=== PATIENT | female | born 1955 | race Caucasian/White ===

== ENCOUNTER 2017-04-20 17:43 | Emergency (ER) | payer BC ==
--- NOTE | 2017-04-20 17:47 | PDOC ---
History of Present Illness - General History Source: Patient (Patient walked in) <Sloane Tolbert - Last Filed: 04/20/17 17:46> - General History Source: Patient, Friend Exam Limitations: No Limitations - History of Present Illness Initial Comments: 04/20/17 18:17 The patient is a 62 year old female, with a significant past medical history of hypertension, diabetes (Metformin daily), and hyperlipidemia, who presents to the emergency department with sudden onset of positional dizziness after standing up from bending over around 4PM. 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 She reportedly used the bathroom at work at the end of her shift around 3:45, and felt dizzy as she stood up from bent position. She denies room spinning, but reports feeling as if she is swaying. She states that turning her head does not exacerbate her symptoms. She also denies her symptoms while at rest. Secondarily, she report her left ear feels clogged for a couple of days, but denies taking medication for the ear symptoms. She reports to be compliant with her medications. Upon taking this history, the patient has informed us, tearfully, that she is under a great deal of stress as her ex- (now friend) has been diagnosed with brain cancer and 3-5 years to live. The patient reportedly had a normal physical exam with her PCP 1 week ago. The patient also reports her specialist is happy with her A1C of about 6. She denies chest pain, shortness of breath, headache. She denies fever, chills , nausea, vomit, diarrhea and constipation. She denies melena or hematochezia. She denies dysuria, frequency, urgency and hematuria. Allergies: NKDA Past surgical history: gastric lap band Social history: Pt denies tobacco use or EtOH consumption Timing/Duration: 1-3 hours <Tiffanie Zamora - Last Filed: 04/20/17 19:02> - General Chief Complaint: Lightheaded Stated Complaint: DIZZINESS X 1 HOUR Time Seen by Provider: 04/20/17 17:46 Past History - Past Medical History HTN: Yes Hypercholesterolemia: Yes - Immunization History Td Vaccination: Yes TDAP Vaccination: Yes Immunization Up to Date: Yes - Suicide/Smoking/Psychosocial Hx Smoking Status: No Smoking History: Former smoker Number of Cigarettes Smoked Daily: 0 Cigars Per Day: 0 <Sloane Tolbert - Last Filed: 04/20/17 17:46> <Tiffanie Zamora - Last Filed: 04/20/17 19:02> - Past Medical History Allergies/Adverse Reactions: Allergies Allergy/AdvReac Type Severity Reaction Status Date / Time No Known Allergies Allergy Verified 04/20/17 17:50 Home Medications: Ambulatory Orders Acetaminophen [Tylenol Extra Strength] 500 mg PO PRN PRN 04/20/17 Atorvastatin Ca [Lipitor] 20 mg PO DAILY 04/20/17 Cholecalciferol (Vitamin D3) [Vitamin D3] 4,000 unit PO DAILY 04/20/17 Lisinopril [Zestril] 2.5 mg PO DAILY 04/20/17 Metformin HCl 500 mg PO BID 04/20/17 Multivitamin [One Daily] 2 each PO DAILY 04/20/17 Zolpidem Tartrate [Ambien] 5 mg PO HS 04/20/17 Review of Systems - Review of Systems Able to Perform ROS?: Yes Is the patient limited Kyrgyz proficient: No Constitutional: No: Chills, Diaphoresis, Fever, Loss of Appetite, Malaise, Weakness HEENTM: Yes: Ear Pain (left ear "clogged"). No: Eye Pain, Blurred Vision, Recent change in vision, Double Vision, Ear Discharge, Nose Congestion, Hearing Loss, Throat Pain, Throat Swelling, Mouth Pain Respiratory: No: Cough, Orthopnea, Shortness of Breath, SOB with Exertion Cardiac (ROS): No: Chest Pain, Edema, Irregular Heart Rate, Lightheadedness, Palpitations ABD/GI: No: Abdominal Distended, Blood Streaked Bowels, Constipated, Diarrhea, Nausea, Poor Appetite, Rectal Bleeding, Vomiting, Abdominal cramping, Tarry Stools : No: Burning, Dysuria, Frequency, Flank Pain, Hematuria, Urgency Musculoskeletal: No: Back Pain, Gout, Joint Pain, Muscle Pain Integumentary: No: Bruising, Erythema Neurological: Yes: Dizziness. No: Headache, Numbness, Paresthesia, Seizure, Tingling, Tremors, Weakness, Unsteady Gait, Ataxia Psychiatric: Yes: Frequent Crying (crying on exam). No: Anxiety, Depression Endocrine: No: Excessive Sweating, Intolerance to Cold, Increased Hunger, Increased Thirst, Increased Urine Hematologic/Lymphatic: No: Anemia, Blood Clots, Easy Bleeding, Easy Bruising All Other Systems: Reviewed and Negative <Tiffanie Zamora - Last Filed: 04/20/17 19:02> *Physical Exam - Vital Signs Last Vital Signs Temp Pulse Resp BP Pulse Ox 98.4 F 76 16 147/88 99 04/20/17 17:44 04/20/17 17:44 04/20/17 17:44 04/20/17 17:44 04/20/17 17:44 - Physical Exam General Appearance: Yes: Mild Distress. No: Appropriately Dressed HEENT: positive: EOMI, ROSA ELENA, Normal ENT Inspection, Normal Voice, Symmetrical, TMs Normal (with exception of some wax in left ear canal), Pharynx Normal Neck: positive: Trachea midline, Normal Thyroid, Supple. negative: Tender, Carotid bruit, Lymphadenopathy (R), Lymphadenopathy (L), Thyromegaly Respiratory/Chest: positive: Chest Tender, Lungs Clear, Normal Breath Sounds. negative: Crackles, Rales, Rhonchi, Stridor, Wheezing Cardiovascular: positive: Regular Rhythm, Regular Rate Gastrointestinal/Abdominal: positive: Normal Bowel Sounds, Soft. negative: Tender, Organomegaly, Hepatomegaly Musculoskeletal: positive: Normal Inspection. 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 negative: Facial Droop, Numbness, Sensory Deficit, Confused <Tiffanie Zamora - Last Filed: 04/20/17 19:02> ED Treatment Course - LABORATORY CBC & Chemistry Diagram: 04/20/17 18:15 04/20/17 18:15 <Tiffanie Zamora - Last Filed: 04/20/17 19:02> Medical Decision Making - Medical Decision Making 04/20/17 18:25 The patient is a 62yo female who presents with sudden onset of dizziness after standing up from seated position about 2.5 hours ago. I will obtain labs, give IV fluids, and obtain an ECG. 04/20/17 19:00 The care of this patient has been endorsed to Dr. Randi Shelton. <Tiffanie Zamora - Last Filed: 04/20/17 19:02> *DC/Admit/Observation/Transfer <Sloane Tolbert - Last Filed: 04/20/17 17:46> <Tiffanie Zamora - Last Filed: 04/20/17 19:02> - Discharge Dispostion Condition at time of disposition: Good - Referrals Referrals: Merrick Petersen [Primary Care Provider] - - Patient Instructions - Post Discharge Activity
[2017-04-20 17:56] VITALS: BP 147/88; PULSE 76; TEMP 98.4; BMI 24.1
[2017-04-20] MEDS ORDERED: SODIUM CHLORIDE 1,000 ML IV STA (18:11)
[2017-04-20 18:55] LABS: BASOPHIL 0.4 % (0-2.0); EOSINOPHIL 0.8 % (0-4.5); MCH 30.6 pg (25.7-33.7); MCHC 33.7 g/dl (32.0-36.0); MEAN CELL VOLUME 90.8 fl (80-96); MEAN PLT VOLUME 7.5 fl (7.5-11.1); NEUTROPHILS 70.5 % (42.8-82.8); PLATELET COUNT 278 K/MM3 (134-434); RDW 12.4 % (11.6-15.6); WHITE BLOOD COUNT 8.7 K/mm3 (4.0-10.8)
[2017-04-20 18:56] LABS: ALBUMIN 4.2 g/dl (3.5-5.0); ALK PHOS 60 U/L (32-92); ANION GAP 10 (8-16); BILIRUBIN,TOTAL 0.6 mg/dl (0.2-1.0); CALCIUM 9.9 mg/dl (8.4-10.2); CO2 23 mmol/L (22-28); CREATININE 0.6 mg/dl (0.6-1.3); GLUCOSE,RANDOM 114 mg/dl (74-106); SGOT/AST 20 U/L (10-42); SGPT/ALT 17 U/L (10-40); TOT PROT 6.8 g/dl (6.4-8.3)
--- NOTE | 2017-04-20 19:29 | PDOC ---
*Physical Exam - Vital Signs Last Vital Signs Temp Pulse Resp BP Pulse Ox 98.4 F 76 16 147/88 99 04/20/17 17:44 04/20/17 17:44 04/20/17 17:44 04/20/17 17:44 04/20/17 17:44 ED Treatment Course - LABORATORY CBC & Chemistry Diagram: 04/20/17 18:15 04/20/17 18:15 - ADDITIONAL ORDERS Additional order review: Laboratory Results 04/20/17 04/20/17 18:32 18:15 Sodium 133 L Potassium 3.6 Chloride 100 Carbon Dioxide 23 Anion Gap 10 BUN 18 Creatinine 0.6 Creat Clearance w eGFR > 60 Random Glucose 114 H Calcium 9.9 Total Bilirubin 0.6 AST 20 ALT 17 Alkaline Phosphatase 60 Troponin I 0.00 Total Protein 6.8 Albumin 4.2 04/20/17 18:15 RBC 4.38 MCV 90.8 MCHC 33.7 RDW 12.4 MPV 7.5 Neutrophils % 70.5 Lymphocytes % 21.2 Monocytes % 7.1 Eosinophils % 0.8 Basophils % 0.4 - Medications Given in the ED: ED Medications Discontinued Medications Generic Name Dose Route Start Last Admin Trade Name Freq PRN Reason Stop Dose Admin Sodium Chloride 1,000 mls @ 1,000 mls/hr 04/20/17 18:11 04/20/17 18:30 Normal Saline - IV 04/20/17 19:10 1,000 mls/hr ASDIR STA Administration Progress Note - Progress Note Progress Note: Care of this patient was transferred to ok from at 1900 hrs. This is a 62-year-old female with history significant for hypertension hyperlipidemia and diabetes. 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 Patient said she had been sitting down for a moderate amount of time when she stood up and suddenly felt lightheaded. Patient did not pass out, she denied any diaphoresis or shortness of breath. She denied any vertiginous type symptoms. Patient has a workup in progress including labs all of which are back and normal including a normal white count and no left shift and a normal troponin Patient's cardiogram shows normal sinus rhythm no acute ST-T wave changes but some low voltage QRS otherwise normal. Patient's chest x-ray shows no acute pathology Patient has a head CT that was done and the results are pending. 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 19:[address] negative for any acute pathology Reevaluation of patient patient's that she feels much better and ambulated to the restroom and did not experience any dizziness or any return of her symptoms. Patient says she feels like she is at her baseline. Discussed with patient the results of her workup including her CAT scan. 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 Make sure you stay well hydrated. Return to the emergency department immediately with ANY new, persistent or worsening symptoms. Continue any medications as previously prescribed by your physician. You should follow up with your primary doctor as soon as possible regarding today's emergency department visit. . Please make sure your doctor reviews the results of your emergency evaluation. Thank you for coming to the Emergency Department today for your care. It was a pleasure to see you today. Please note that your evaluation is INCOMPLETE until you follow-up with your doctor. - Post Discharge Activity Forms/Work/School Notes: Back to Work
--- NOTE | 2017-04-21 13:44 | EKG ---
Test Reason : Blood Pressure : / mmHG Vent. Rate : 070 BPM Atrial Rate : 070 BPM P-R Int : 156 ms QRS Dur : 082 ms QT Int : 378 ms P-R-T Axes : 035 023 046 degrees QTc Int : 408 ms NORMAL SINUS RHYTHM LOW VOLTAGE QRS BORDERLINE ECG NO PREVIOUS ECGS AVAILABLE Confirmed by JASWINDER TAM MD ([id number]) on 04/21/2017 1:44:44 PM Referred By: DR VERA Confirmed By:JASWINDER TAM MD
== END 2017-04-20 20:02 | disposition home or self-care (01) ==
LOC: FER 17:43
PROC: 3E0337Z Introduction of Electrolytic and Water Balance Substance into Peripheral Vein, Percutaneous Approach (ICD-10-PCS; principal; 2017-04-20)
DX: R42 Dizziness and giddiness (principal); I10 Essential (primary) hypertension; E11.9 Type 2 diabetes mellitus without complications; E78.5 Hyperlipidemia, unspecified; Z87.891 Personal history of nicotine dependence
CPT/HCPCS: 36415; 70450-TC; 71010-TC; 80053; 84484; 85025; 93005; 99283-25

== ENCOUNTER 2018-04-20 21:02 | Inpatient (IN) | payer BC, OTHER ==
--- NOTE | 2018-04-20 21:09 | PDOC ---
History of Present Illness - General History Source: Patient Exam Limitations: No Limitations - History of Present Illness Initial Comments: 04/20/18 21:42 CC: Abdominal pain and nausea. HPI: The patient is a 63 year old female, with a significant past medical history of hypertension, diabetes, and hyperlipidemia, who presents to the emergency department with, 2 days of abdominal pain and nausea without emesis. She describes her abdominal pain as a 10/10, constant pain, and diffuse to the lower quadrant and right quadrants of her abdomen. She notes that the pain was bearable enough for her to go to work today but, it has since worsened, prompting her visit to the ER. She denies recent fevers, chills, headache or dizziness. She denies recent vomit , diarrhea or constipation. She denies recent dysuria, frequency, urgency or hematuria. She denies recent chest pain or shortness of breath. Allergies: NKA Past surgical history: Gastric lap band (2007). Primary Care Physician: Dr. Petersen <Vivi Nolen - Last Filed: 04/20/18 21:42> <Jitendra Yoon - Last Filed: 04/21/18 07:18> - General Chief Complaint: Pain, Acute Stated Complaint: ABD PAIN/N/V Time Seen by Provider: 04/20/18 21:06 Past History <Vivi Nolen - Last Filed: 04/20/18 21:42> - Past Medical History COPD: No Diabetes: Yes HTN: Yes Hypercholesterolemia: Yes - Surgical History Gastric Stapling: Yes (LAP BAND & REPAIR HIATAL HERNIA 2009) - Immunization History Td Vaccination: Yes TDAP Vaccination: Yes Immunization Up to Date: Yes - Suicide/Smoking/Psychosocial Hx Smoking Status: No Smoking History: Former smoker Have you smoked in the past 12 months: No Number of Cigarettes Smoked Daily: 0 If you are a former smoker, when did you quit?: 1997 Cigars Per Day: 0 Hx Alcohol Use: No Drug/Substance Use Hx: No Substance Use Type: None <Jitendra Yoon - Last Filed: 04/21/18 07:18> - Past Medical History Allergies/Adverse Reactions: Allergies Allergy/AdvReac Type Severity Reaction Status Date / Time No Known Allergies Allergy Verified 04/20/17 17:50 Home Medications: Ambulatory Orders Acetaminophen [Tylenol Extra Strength] 500 mg PO PRN PRN 04/20/17 Atorvastatin Ca [Lipitor] 20 mg PO DAILY 04/20/17 Cholecalciferol (Vitamin D3) [Vitamin D3] 4,000 unit PO DAILY 04/20/17 Lisinopril [Zestril] 2.5 mg PO DAILY 04/20/17 Multivitamin [One Daily] 2 each PO DAILY 04/20/17 Zolpidem Tartrate [Ambien] 5 mg PO HS PRN 04/20/17 metFORMIN HCL [Metformin HCl] 500 mg PO BID 04/20/17 Review of Systems - Review of Systems Able to Perform ROS?: Yes Comments:: 04/20/18 21:43 ROS: A complete review of 10 out of 10 review of systems is taken and is negative apart from what is previously mentioned below and in the HPI. <Vivi Nolen - Last Filed: 04/20/18 21:42> *Physical Exam - Vital Signs Last Vital Signs Temp Pulse Resp BP Pulse Ox 98 F 87 20 155/72 99 04/20/18 21:05 04/20/18 21:05 04/20/18 21:05 04/20/18 21:05 04/20/18 21:05 - Physical Exam Comments: 04/20/18 21:43 Exam: Vitals: Triage Vital signs reviewed General Appearance: no acute distress, well nourished well developed, Head: Atraumatic, normocephalic Neck: Supple;No Nuchal rigidity Chest Wall: Nontender Cardiac: Regular rate and rhythm, no murmurs, no rubs, no gallops, Lungs: Clear to auscultation bilateral, good air movement bilaterally, +Abdomen: Tenderness to the RQ and RLQ. Soft, nondistended, normal bowel sounds Rectal: Exam deferred Extremities: no cyanosis, clubbing, or edema Skin: Warm and dry, no rashes or lesions, no petechiae Neuro: AOX3; Cranial Nerves 2-12 grossly intact, Strength intact to all extremities, Sensation intact to all extremities Psych: normal mood, normal affect <Vivi Nolen - Last Filed: 04/20/18 21:42> Moderate Sedation - Procedure Monitoring Vital Signs: Procedure Monitoring Vital Signs Temperature 98 F 04/20/18 21:05 Pulse Rate 87 04/20/18 21:05 Respiratory Rate 20 04/20/18 21:05 Blood Pressure 155/72 04/20/18 21:05 O2 Sat by Pulse Oximetry (%) 99 04/20/18 21:05 <Vivi Nolen - Last Filed: 04/20/18 21:42> ED Treatment Course - LABORATORY CBC & Chemistry Diagram: 04/20/18 21:30 04/20/18 21:30 <Vivi Nolen - Last Filed: 04/20/18 21:42> - LABORATORY CBC & Chemistry Diagram: 04/20/18 21:30 04/20/18 21:30 <Jitendra Yoon - Last Filed: 04/21/18 07:18> Medical Decision Making - Medical Decision Making 04/20/18 21:42 63 year old female, with a significant past medical history of hypertension, diabetes, and hyperlipidemia, who presents to the emergency department with, 2 days of abdominal pain and nausea Plan is to: CT with contrast CBC/CMP Lipase Pain medication Reassess <Vivi Nolen - Last Filed: 04/20/18 21:42> - Medical Decision Making 63 years old past medical history significant for hypertension diabetes hyperlipidemia presents emergency department with 2 day history of abdominal pain and retching Patient treated with pain medications will perform a CT with oral and IV contrast given history of LAP-BAND surgery observe and reassess. IOC report The gallbladder, adrenal glands, and spleen are unremarkable. A few tiny pancreatic calcifications suggestive of chronic pancreatitis. No acute peripancreatic inflammatory changes noted. A few small nonobstructing right intrarenal calculi. No ureteral calculi or hydronephrosis. *4.2 cm rectangular lucent lesion within the small bowel lumen in the left paramedian anterior lower pelvis, of uncertain etiology. Correlate clinically for foreign body ingestion. Dilated small bowel measuring up to 4.7 cm in diameter to the level of the small bowel lesion in the left paramedian anterior pelvis, suggestive of a partial or low-grade obstruction by this lesion as the bowel distal to this region is more decompressed. However, contrast does make it into more distal small bowel. 4.4 cm right ovarian cyst, uncommon for patient's age. Leiomyomatous uterus. Cecum is floppy, located in the left lower quadrant. No evidence for diverticulitis, free fluid, or free air. A non-thickened normal appendix is suspected on coronal images 38-51 in the left lower quadrant. Case and CT findings discussed with Dr. Isaac construction estimator surgery unclear if NG tube would help given LAP-BAND Dr. Walsh patient's bariatric surgeon, consulted. Will see the patient. We'll admit to medicine patient made nothing by mouth IV fluids ordered PRN pain meds ordered surgery to consult <Jitendra Yoon - Last Filed: 04/21/18 07:18> *DC/Admit/Observation/Transfer - Attestations Scribe Attestion: 04/20/18 21:43 Documentation prepared by Vivi Nolen, acting as medical accounting clerk for Jitendra Yoon MD. <Vivi Nolen - Last Filed: 04/20/18 21:42> - Discharge Dispostion Decision to Admit order: Yes <Jitendra Yoon - Last Filed: 04/21/18 07:18> Diagnosis at time of Disposition: Small bowel obstruction - Discharge Dispostion Condition at time of disposition: Stable
[2018-04-20] MEDS ORDERED: ONDANSETRON 4 MG/2 ML VIAL IVPUSH ONE (21:13)
[2018-04-20] MEDS ORDERED: morphine CARPU-JECT 4 MG/1 ML DISP.SYRIN IVPUSH ONE (21:13)
[2018-04-20] MEDS ORDERED: ACETAMINOPHEN 1000 MG/100 ML VIAL (NON FORMULARY) IVPB ONE (21:13)
[2018-04-20] MEDS ORDERED: SODIUM CHLORIDE 0.9% 1000 ML INFUS.BAG IV ONE (21:13)
[2018-04-20] MEDS ORDERED: ACETAMINOPHEN INJECTION 100 ML IVPB ONE (21:24)
[2018-04-20] MEDS ORDERED: morphine SULFATE 4 MG/ML VIAL ONE (21:24)
[2018-04-20] MEDS ORDERED: ONDANSETRON 4 MG/2 ML VIAL ONE (21:25)
[2018-04-20 21:42] LABS: BASO % 0.3 % (0-2.0); EOS % 0.7 % (0-4.5); HEMATOCRIT 39.3 % (32.4-45.2); HEMOGLOBIN 13.2 GM/dl (10.7-15.3); LYMPH % 15.1 % (8-40); MCH 30.1 pg (25.7-33.7); MCHC 33.6 g/dl (32.0-36.0); MEAN CELL VOLUME 89.6 fl (80-96); MEAN PLT VOLUME 6.7 fl (7.5-11.1); MONO % 6.9 % (3.8-10.2); PLATELET COUNT 446 K/MM3 (134-434); RBC 4.38 M/mm3 (3.60-5.2); RDW 12.6 % (11.6-15.6); WHITE BLOOD COUNT 10.6 K/mm3 (4.0-10.8)
[2018-04-20 21:55] LABS: PH,URINE 5.5 (4.5-8); URINE APPEARANCE Clear; URINE BILIRUBIN 1+ (NEGATIVE); URINE COLOR Yellow; URINE GLUCOSE (UA) Negative (NEGATIVE); URINE KETONE 3+ (NEGATIVE); URINE LEUK ESTERASE 1+ (NEGATIVE); URINE NITRITE Negative (NEGATIVE); URINE PROTEIN 1+ (NEGATIVE); URINE UROBILINOGEN 0.2 (0.2-1.0)
[2018-04-20 21:57] LABS: ALBUMIN 4.1 g/dl (3.5-5.0); ALK PHOS 72 U/L (32-92); ANION GAP 10 MMOL/L (8-16); BILIRUBIN,TOTAL 0.9 mg/dl (0.2-1.0); BLOOD UREA NITROGEN 16 mg/dl (7-18); CALCIUM 9.3 mg/dl (8.4-10.2); CHLORIDE 100 mmol/L (98-107); CO2 23 mmol/L (22-28); GLUCOSE,RANDOM 144 mg/dl (74-106); POTASSIUM 3.5 mmol/L (3.5-5.1); SGOT/AST 19 U/L (10-42); SGPT/ALT 12 U/L (10-40); SODIUM 133 mmol/L (136-145); TOT PROT 7.4 g/dl (6.4-8.3)
[2018-04-20 21:59] LABS: CREATININE < 0.6 mg/dl (0.6-1.3)
[2018-04-20 22:05] LABS: URINE RBC 0-2 /hpf (0-3)
[2018-04-20 22:06] LABS: EPI CELLS FEW /HPF; URINE BACTERIA 2+ /hpf (NEGATIVE)
[2018-04-20 22:35] LABS: LIPASE 160 U/L (73-393)
[2018-04-21] MEDS ORDERED: SODIUM CHLORIDE 0.9% 1000 ML INFUS.BAG IV ONE (02:15)
[2018-04-21] MEDS ORDERED: morphine CARPU-JECT 4 MG/1 ML DISP.SYRIN IVPUSH ONE (02:25)
[2018-04-21] MEDS ORDERED: morphine SULFATE 4 MG/ML VIAL ONE (02:32)
[2018-04-21] MEDS ORDERED: CEFTRIAXONE 1 GM in DEXTROSE 5%-WATER - 100 ML IVPB ONE (03:38)
[2018-04-21] MEDS ORDERED: CEFAZOLIN 1 GM in DEXTROSE 5%-WATER - 50 ML IVPB ONE (04:15)
[2018-04-21] MEDS ORDERED: CEFTRIAXONE 1 G/50 ML PREMIX 50 ML IVPB ONE (04:45)
[2018-04-21] MEDS ORDERED: CEFTRIAXONE 1 GM in DEXTROSE 5%-WATER - 50 ML IVPB SCH (04:45)
--- NOTE | 2018-04-21 10:19 | HP ---
CHIEF COMPLAINT:Abd pain PCP:Dr. Petersen HISTORY OF PRESENT ILLNESS: Isaura Robin is a 63 yr old F, medical condition HTN, DM, HLD, Insomnia, presented to ED with abd pain. n/v x 2 days. Pt reports only change in diet was that she started eating more apples and was straining to have a bowel movement, last BM yesterday. Currently reports no abd pain, n/v , +flatus ER course was notable for: (1)CT Scan: SBO (2)no Leukocytosis (3) Recent Travel: PAST MEDICAL HISTORY:DM, HTN, HLD, Insomnia PAST SURGICAL HISTORY:Lap Band 2009 Social History: Smoking:former smoker Alcohol:denies Drugs: denies Family History: Allergies No Known Allergies Allergy (Verified 04/20/17 17:50) HOME MEDICATIONS: Home Medications Medication Instructions Recorded Acetaminophen [Tylenol Extra 500 mg PO PRN PRN 04/20/17 Strength] Atorvastatin Ca [Lipitor] 20 mg PO DAILY 04/20/17 Cholecalciferol (Vitamin D3) 4,000 unit PO DAILY 04/20/17 [Vitamin D3] Lisinopril [Zestril] 2.5 mg PO DAILY 04/20/17 Multivitamin [One Daily] 2 each PO DAILY 04/20/17 Zolpidem Tartrate [Ambien] 5 mg PO HS PRN 04/20/17 metFORMIN HCL [Metformin HCl] 500 mg PO BID 04/20/17 REVIEW OF SYSTEMS CONSTITUTIONAL: Absent: fever, chills, diaphoresis, generalized weakness, malaise, loss of appetite, weight change HEENT: Absent: rhinorrhea, nasal congestion, throat pain, throat swelling, difficulty swallowing, mouth swelling, ear pain, eye pain, visual changes CARDIOVASCULAR: Absent: chest pain, syncope, palpitations, irregular heart rate, lightheadedness , peripheral edema RESPIRATORY: Absent: cough, shortness of breath, dyspnea with exertion, orthopnea, wheezing, stridor, hemoptysis GASTROINTESTINAL:+ABD pain, Absent: abdominal distension, nausea, vomiting, diarrhea, constipation, melena , hematochezia GENITOURINARY: Absent: dysuria, frequency, urgency, hesitancy, hematuria, flank pain, genital pain MUSCULOSKELETAL: Absent: myalgia, arthralgia, joint swelling, back pain, neck pain SKIN: Absent: rash, itching, pallor HEMATOLOGIC/IMMUNOLOGIC: Absent: easy bleeding, easy bruising, lymphadenopathy, frequent infections ENDOCRINE: Absent: unexplained weight gain, unexplained weight loss, heat intolerance, cold intolerance NEUROLOGIC: Absent: headache, focal weakness or paresthesias, dizziness, unsteady gait, seizure, mental status changes, bladder or bowel incontinence PSYCHIATRIC: Absent: anxiety, depression, suicidal or homicidal ideation, hallucinations. PHYSICAL EXAMINATION Vital Signs - 24 hr 04/20/18 04/21/18 04/21/18 21:05 02:58 04:15 Temperature 98 F 97.9 F 97.9 F Pulse Rate 87 73 Pulse Rate [ 64 Radial] Respiratory 20 18 18 Rate Blood Pressure 155/72 126/50 L Blood Pressure 149/74 [Arm] O2 Sat by Pulse 99 100 Oximetry (%) GENERAL: Awake, alert, and fully oriented, in no acute distress. HEAD: Normal with no signs of trauma. EYES: Pupils equal, round and reactive to light, extraocular movements intact, sclera anicteric, conjunctiva clear. No lid lag. EARS, NOSE, THROAT: Ears normal, nares patent, oropharynx clear without exudates. Moist mucous membranes. NECK: Normal range of motion, supple without lymphadenopathy, JVD, or masses. LUNGS: Breath sounds equal, clear to auscultation bilaterally. No wheezes, and no crackles. No accessory muscle use. HEART: Regular rate and rhythm, normal S1 and S2 without murmur, rub or gallop. ABDOMEN: Soft, nontender, not distended, normoactive bowel sounds, no guarding, no rebound, no masses. No hepatomegaly or splenomegaly. MUSCULOSKELETAL: Normal range of motion at all joints. No bony deformities or tenderness. No CVA tenderness. UPPER EXTREMITIES: 2+ pulses, warm, well-perfused. No cyanosis. No clubbing. No peripheral edema. LOWER EXTREMITIES: 2+ pulses, warm, well-perfused. No calf tenderness. No peripheral edema. NEUROLOGICAL: Cranial nerves II-XII intact. Normal speech. Normal gait. PSYCHIATRIC: Cooperative. Good eye contact. Appropriate mood and affect. SKIN: Warm, dry, normal turgor, no rashes or lesions noted, normal capillary refill. Laboratory Results - last 24 hr 04/20/18 04/20/18 04/20/18 21:30 21:30 21:30 WBC 10.6 RBC 4.38 Hgb 13.2 Hct 39.3 MCV 89.6 MCH 30.1 MCHC 33.6 RDW 12.6 Plt Count 446 H MPV 6.7 L Absolute Neuts (auto) 8.2 Neutrophils % 77.0 Lymphocytes % 15.1 Monocytes % 6.9 Eosinophils % 0.7 Basophils % 0.3 Sodium 133 L Potassium 3.5 Chloride 100 Carbon Dioxide 23 Anion Gap 10 BUN 16 Creatinine < 0.6 L Creat Clearance w eGFR > 60 Random Glucose 144 H D Lactic Acid 1.2 Calcium 9.3 Total Bilirubin 0.9 AST 19 ALT 12 D Alkaline Phosphatase 72 Total Protein 7.4 Albumin 4.1 Lipase 160 Urine Color Urine Appearance Urine pH Ur Specific [place] Urine Protein Urine Glucose (UA) Urine Ketones Urine Blood Urine Nitrite Urine Bilirubin Urine Urobilinogen Ur Leukocyte Esterase Urine RBC Urine WBC Ur Epithelial Cells Urine Bacteria 04/20/18 21:45 WBC RBC Hgb Hct MCV MCH MCHC RDW Plt Count MPV Absolute Neuts (auto) Neutrophils % Lymphocytes % Monocytes % Eosinophils % Basophils % Sodium Potassium Chloride Carbon Dioxide Anion Gap BUN Creatinine Creat Clearance w eGFR Random Glucose Lactic Acid Calcium Total Bilirubin AST ALT Alkaline Phosphatase Total Protein Albumin Lipase Urine Color Yellow Urine Appearance Clear Urine pH 5.5 Ur Specific [place] 1.015 Urine Protein 1+ H Urine Glucose (UA) Negative Urine Ketones 3+ H Urine Blood Negative Urine Nitrite Negative Urine Bilirubin 1+ H Urine Urobilinogen 0.2 Ur Leukocyte Esterase 1+ H Urine RBC 0-2 Urine WBC 10-20 Ur Epithelial Cells Few Urine Bacteria 2+ Isaura Robin is a 63 yr old F, medical condition DM, HTN, HLD, insomnia, hx of Lap Band in 2009 admitted for Admitting Diagnosis SBO Active Problems DM HTN HLD Insomnia A/P: #SBO -NPO -IVF -Pain mgt, antiemetics -Surgery consult (Dr. Isaac) -serial abd xrays #DM -NPO -Monitor FS BID -metformin on hold #Hx of Lap Band -consult to Bariatric Surgeon (Dr. Walsh) #HTN #HLD -monitor V/S -po meds on hold #Insomnia -ambien on hold Visit type - Emergency Visit Emergency Visit: Yes ED Registration Date: 04/21/18 Care time: The patient presented to the Emergency Department on the above date and was hospitalized for further evaluation of their emergent condition. - New Patient This patient is new to me today: Yes Date on this admission: 04/21/18 - Critical Care Critical Care patient: No
[2018-04-21 11:10] LABS: BASO % 0.2 % (0-2.0); EOS % 0.9 % (0-4.5); HEMATOCRIT 34.3 % (32.4-45.2); HEMOGLOBIN 11.2 GM/dl (10.7-15.3); LYMPH % 12.4 % (8-40); MCH 29.6 pg (25.7-33.7); MCHC 32.7 g/dl (32.0-36.0); MEAN CELL VOLUME 90.4 fl (80-96); MEAN PLT VOLUME 6.8 fl (7.5-11.1); MONO % 8.8 % (3.8-10.2); NEUT % 77.7 % (42.8-82.8); PLATELET COUNT 316 K/MM3 (134-434); RDW 12.8 % (11.6-15.6); WHITE BLOOD COUNT 7.4 K/mm3 (4.0-10.8)
[2018-04-21 11:31] LABS: ALBUMIN 3.1 g/dl (3.5-5.0); ALK PHOS 57 U/L (32-92); ANION GAP 5 MMOL/L (8-16); BILIRUBIN,TOTAL 0.7 mg/dl (0.2-1.0); BLOOD UREA NITROGEN 9 mg/dl (7-18); CALCIUM 8.4 mg/dl (8.4-10.2); CHLORIDE 107 mmol/L (98-107); CO2 24 mmol/L (22-28); CREATININE 0.5 mg/dl (0.6-1.3); GLUCOSE,RANDOM 105 mg/dl (74-106); MAGNESIUM 1.4 mg/dL (1.8-2.4); POTASSIUM 4.2 mmol/L (3.5-5.1); SGOT/AST 14 U/L (10-42); SGPT/ALT 9 U/L (10-40); SODIUM 136 mmol/L (136-145); TOT PROT 5.8 g/dl (6.4-8.3)
--- NOTE | 2018-04-21 12:42 | CONSULT ---
Consult Consult Specialty:: General Surgery Referred by:: Venkata Yoon Reason for Consultation:: pSBO - History of Present Illness Chief Complaint: RLQ pain, nausea History of Present Illness: 63yo F with HTN, HLD, DM, s/p lap-band bariatric surgery [address] Walsh, last seen by him ~2 yrs ago, possibly for band fill, lost over 100 pounds, and has recently lost some weight intentionally, but not sure if still losing more than expected; eats lightly and regularly, presented to ER with RLQ pain radiating across lower abdomen associated with nausea/retching (does not vomit) and yesterday. She has felt constipated last 2-3 days, feeling like she needs to strain to get not much out, though she feels like she needs to go. One episode diarrhea last Monday. No f/c, no change in eating habits, does not describe unusual ingestion in last week, back to . She did start eating sliced apples about a week ago, new in her diet, but does not eat the skin, and had a potato last night, after which the pain got much worse and she came to ER. In ER, wbc was normal, lactate 1.2, UA with 3+ ketones and few epis/wbc/bact but no symptoms. CT was done with oral/IV contrast showing an oddly shaped lucency in distal small bowel with proximal dilation and distal decompression, though some contrast did get past this area. SB dilated to just over 4cm proximally. Stool present in colon, but no significant impaction or distal load. She has had BM since today, "it just came out," and just had another. Surgery was consulted from ER; her bariatric surgeon was also called to see her. She has been NPO on IV fluids. She was given ceftriaxone for the UA findings. Pain is better this morning, she is seen ambulating in [place] and examined in bed with friend at bedside. She has never had a colonoscopy. - History Source History Provided By: Patient, Friend (at bedside) Limitations to Obtaining History: No Limitations - Past Medical History Cardio/Vascular: Yes: HTN, Hyperlipdemia Reproductive: Yes: Postmenopausal Endocrine: Yes: Diabetes Mellitus - Past Surgical History Past Surgical History: Yes: Bariatric Surgery (lap band 2009), (lower midline scar). 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 Home Medications - Allergies Allergies/Adverse Reactions: Allergies Allergy/AdvReac Type Severity Reaction Status Date / Time No Known Allergies Allergy Verified 04/20/17 17:50 - Home Medications Home Medications: Ambulatory Orders Acetaminophen [Tylenol Extra Strength] 500 mg PO PRN PRN 04/20/17 Atorvastatin Ca [Lipitor] 20 mg PO DAILY 04/20/17 Cholecalciferol (Vitamin D3) [Vitamin D3] 4,000 unit PO DAILY 04/20/17 Lisinopril [Zestril] 2.5 mg PO DAILY 04/20/17 Multivitamin [One Daily] 2 each PO DAILY 04/20/17 Zolpidem Tartrate [Ambien] 5 mg PO HS PRN 04/20/17 metFORMIN HCL [Metformin HCl] 500 mg PO BID 04/20/17 Family Disease History - Family Disease History Family Disease History: Diabetes: Father, Other: Daughter (hypothyroid) Review of Systems - Review of Systems Constitutional: reports: Unintentional Wgt. Loss (?? - has lost weight intentionally, but is not sure if she is still losing more than expected; wt loss from pre-lapBand over 100 lbs). denies: Chills, Fever Eyes: denies: Blurred Vision, Recent Change in Vision HENT: reports: Other (postnasal drip). denies: Difficult Swallowing, Throat Pain Neck: denies: Swollen Glands, Tenderness Cardiovascular: denies: Chest Pain, Palpitations Respiratory: reports: Cough (from postnasal drip sometimes). denies: SOB Gastrointestinal: reports: Abdominal Pain (with hpi), Constipation (with hpi), Diarrhea (last Monday, not recently), Nausea (with hpi). denies: Vomiting Genitourinary: denies: Burning, Dysuria Musculoskeletal: denies: Back Pain, Joint Pain, Muscle Pain Integumentary: denies: Change in Color, Rash Neurological: reports: Headache (hit head on a closet door Monday; not currently ). denies: Dizziness, Unsteady Gait Psychiatric: reports: Anxiety (related to life/situational). denies: Depression Physical Exam Vital Signs: Vital Signs Temperature 97.9 F 04/21/18 04:15 Pulse Rate 73 04/21/18 04:15 Respiratory Rate 18 04/21/18 09:15 Blood Pressure 126/50 L 04/21/18 04:15 O2 Sat by Pulse Oximetry (%) 100 04/21/18 09:15 Constitutional: Yes: Well Nourished, No Distress, Calm Eyes: Yes: Conjunctiva Clear, EOM Intact HENT: Yes: Atraumatic, Normocephalic Neck: Yes: Supple, Trachea Midline Cardiovascular: Yes: Regular Rate and Rhythm, Murmur (poss soft systolic) Respiratory: Yes: Regular, CTA Bilaterally Gastrointestinal: Yes: Soft, Hyperactive Bowel Sounds, Other (healed lower midline scar, lap scars and reservoir for band palpable in epigastric area). No : Distention, Tenderness, Tenderness, Epigastrium ...Rectal Exam: Yes: Deferred Renal/: No: CVA Tenderness - Left, CVA Tenderness - Right Musculoskeletal: No: Joint Stiffness, Joint Swelling Extremities: Yes: Other (healed left knee scar). No: Cool, Cyanosis Edema: No Peripheral Pulses WNL: Yes Integumentary: No: Jaundice, Rash Neurological: Yes: Alert, Oriented. No: Unsteady Gait Psychiatric: Yes: Alert, Oriented Labs: CBC, BMP 04/21/18 10:46 04/21/18 10:46 CMP Sodium 136 mmol/L (136-145) 04/21/18 10:46 Potassium 4.2 mmol/L (3.5-5.1) 04/21/18 10:46 Chloride 107 mmol/L (98-107) 04/21/18 10:46 Carbon Dioxide 24 mmol/L (22-28) 04/21/18 10:46 Anion Gap 5 MMOL/L (8-16) L 04/21/18 10:46 BUN 9 mg/dl (7-18) 04/21/18 10:46 Creatinine 0.5 mg/dl (0.6-1.3) L 04/21/18 10:46 Creat Clearance w eGFR > 60 (>60) 04/21/18 10:46 Random Glucose 105 mg/dl (74-106) D 04/21/18 10:46 Lactic Acid 1.2 mmol/L (0.4-2.0) 04/20/18 21:30 Calcium 8.4 mg/dl (8.4-10.2) 04/21/18 10:46 Magnesium 1.4 mg/dL (1.8-2.4) L 04/21/18 10:46 Total Bilirubin 0.7 mg/dl (0.2-1.0) 04/21/18 10:46 AST 14 U/L (10-42) D 04/21/18 10:46 ALT 9 U/L (10-40) L D 04/21/18 10:46 Alkaline Phosphatase 57 U/L (32-92) D 04/21/18 10:46 Total Protein 5.8 g/dl (6.4-8.3) L 04/21/18 10:46 Albumin 3.1 g/dl (3.5-5.0) L 04/21/18 10:46 Lipase 160 U/L (73-393) 04/20/18 21:30 Urine Test Results Urine Color Yellow 04/20/18 21:45 Urine Appearance Clear 04/20/18 21:45 Urine pH 5.5 (4.5-8) 04/20/18 21:45 Ur Specific [place] 1.015 (1.010-1.035) 04/20/18 21:45 Urine Protein 1+ (NEGATIVE) H 04/20/18 21:45 Urine Glucose (UA) Negative (NEGATIVE) 04/20/18 21:45 Urine Ketones 3+ (NEGATIVE) H 04/20/18 21:45 Urine Blood Negative (NEGATIVE) 04/20/18 21:45 Urine Nitrite Negative (NEGATIVE) 04/20/18 21:45 Urine Bilirubin 1+ (NEGATIVE) H 04/20/18 21:45 Ur Leukocyte Esterase 1+ (NEGATIVE) H 04/20/18 21:45 Urine RBC 0-2 /hpf (0-3) 04/20/18 21:45 Urine WBC 10-20 (0-5) 04/20/18 21:45 Ur Epithelial Cells Few /HPF 04/20/18 21:45 Urine Bacteria 2+ /hpf (NEGATIVE) 04/20/18 21:45 urine with 3+ ketones - pt thirsty - dehydrated few wbc noted, also epi's present - would await cx given no symptoms of UTI Mag low this am Imaging - Results X-ray: Pending Cat Scan: Report Reviewed, Image Reviewed (images personally reviewed - partial sbo with odd-shaped lucency in distal small bowel at area of transition from dilated, fluid/contrast-filled sb to decompressed, some contrast does get past this... lap band noted, tubing and reservoir appear intact; no free air or fluid ) Problem List - Problems (1) Partial small bowel obstruction Assessment/Plan: admitted to medicine etiology unclear - no history of unusual ingestion in last week, ?FB in distal SB vs intraluminal lesion? pt also with h/o agree with NPO, IV hydration unsure if NGT appropriate given lap band - defer to Dr. Walsh pain improved and ambulating - stable for now gas and BM this am, but not unexpected given partial obstruction serial AXR - getting now trend labs replete lytes prn Dr. Walsh, her bariatric surgeon to see would defer to him on mgmt, surgery if indicated Code(s): K56.600 - PARTIAL INTESTINAL OBSTRUCTION, UNSPECIFIED TO CAUSE (2) H/O laparoscopic adjustable gastric banding Code(s): Z98.84 - BARIATRIC SURGERY STATUS (3) Hypertension Code(s): I10 - ESSENTIAL (PRIMARY) HYPERTENSION Qualifiers: Hypertension type: essential hypertension Qualified Code(s): I10 - Essential (primary) hypertension (4) Hyperlipidemia Code(s): E78.5 - HYPERLIPIDEMIA, UNSPECIFIED Qualifiers: Hyperlipidemia type: unspecified Qualified Code(s): E78.5 - Hyperlipidemia , unspecified (5) Type 2 diabetes mellitus without complications Assessment/Plan: FS with SSI coverage hold metformin at least [address] Code(s): E11.9 - TYPE 2 DIABETES MELLITUS WITHOUT COMPLICATIONS Qualifiers: Diabetes mellitus terminal gauger insulin use: without care home use Qualified Code(s): E11.9 - Type 2 diabetes mellitus without complications
[2018-04-21] MEDS: LACTATED RINGERS SOLUTION 1,000 ML/1,000 ML INFUS.BAG IV SCH (13:05)
[2018-04-21] MEDS ORDERED: INSULIN SLIDING SCALE (NOVOLOG) 1 VIAL SQ SCH ×2 (13:15→16:30)
[2018-04-21] MEDS ORDERED: MAGNESIUM SULF 50% (8.12 MEQ/2 ML-1 GM VIAL) IVPB ONE (14:15)
--- NOTE | 2018-04-21 17:26 | EKG ---
Test Reason : Blood Pressure : / mmHG Vent. Rate : 067 BPM Atrial Rate : 067 BPM P-R Int : 152 ms QRS Dur : 088 ms QT Int : 378 ms P-R-T Axes : 054 023 037 degrees QTc Int : 399 ms NORMAL SINUS RHYTHM CANNOT RULE OUT ANTERIOR INFARCT , AGE UNDETERMINED ABNORMAL ECG WHEN COMPARED WITH ECG OF 20-APR-2017 18:45, NO SIGNIFICANT CHANGE WAS FOUND Confirmed by MD DELTA, MICHELLE ([id number]) on 04/21/2018 5:26:11 PM Referred By: MD GONZALEZ Confirmed By:MICHELLE SORENSON MD
--- NOTE | 2018-04-21 19:21 | PN ---
Progress Note (short form) - Note Progress Note: Asked to see this 63 y.o. female 8 years S/P Lap-Band surgery. Pt with RLQ abdominal pain that began , went to ER on Monday where she suffered from retching, but no vomiting Presently, pain is relieved. No N/V or retching C/O being hungry Had 3 BM today- states mostly formed PMH-DM,HTN,Hypercholesterolemia PSH- Lap-Band, , Left knee surgery P/E- Awake, alert, NAD Abd- well-healed incisions; soft, non-tender on palpation in all quadrants CT scan- translucent structure in distal SB Contrast passes non-descript dilated bowel loops I- Partial SB obstruction Unknown FB? in distal SB Rec-Check repeat Abd x-ray in AM Cont NPO Will follow
[2018-04-22 09:26] LABS: BASO % 0.3 % (0-2.0); EOS % 1.9 % (0-4.5); HEMATOCRIT 32.9 % (32.4-45.2); HEMOGLOBIN 10.6 GM/dl (10.7-15.3); LYMPH % 25.1 % (8-40); MCH 29.4 pg (25.7-33.7); MCHC 32.2 g/dl (32.0-36.0); MONO % 8.9 % (3.8-10.2); NEUT % 63.8 % (42.8-82.8); PLATELET COUNT 305 K/MM3 (134-434); RBC 3.61 M/mm3 (3.60-5.2); RDW 12.7 % (11.6-15.6); WHITE BLOOD COUNT 5.3 K/mm3 (4.0-10.8)
[2018-04-22 09:43] LABS: ALBUMIN 2.9 g/dl (3.5-5.0); ALK PHOS 53 U/L (32-92); ANION GAP 12 MMOL/L (8-16); BILIRUBIN,TOTAL 0.7 mg/dl (0.2-1.0); BLOOD UREA NITROGEN 10 mg/dl (7-18); CALCIUM 8.6 mg/dl (8.4-10.2); CHLORIDE 105 mmol/L (98-107); CO2 22 mmol/L (22-28); CREATININE 0.5 mg/dl (0.6-1.3); GLUCOSE,RANDOM 74 mg/dl (74-106); MAGNESIUM 1.8 mg/dL (1.8-2.4); POTASSIUM 4.2 mmol/L (3.5-5.1); SGOT/AST 14 U/L (10-42); SGPT/ALT 9 U/L (10-40); SODIUM 139 mmol/L (136-145); TOT PROT 5.4 g/dl (6.4-8.3)
[2018-04-22] MEDS ORDERED: CEFTRIAXONE 1 G/50 ML PREMIX 50 ML IVPB SCH (10:00)
[2018-04-22] MEDS ORDERED: CEFTRIAXONE 1 GM in DEXTROSE 5%-WATER - 100 ML IVPB SCH (10:00)
--- NOTE | 2018-04-22 12:00 | PN ---
Physical Exam: SUBJECTIVE: Patient seen and examined, denies pain, +flatus, abd xray ordered for today OBJECTIVE: Vital Signs Period Temp Pulse Resp BP Sys/Pemberton Pulse Ox Last 24 Hr 97.8 F-98.8 F 69-72 17-18 126-131/51-53 99-100 GENERAL: The patient is awake, alert, and fully oriented, in no acute distress. HEAD: Normal with no signs of trauma. EYES: PERRL, extraocular movements intact, sclera anicteric, conjunctiva clear. No ptosis. ENT: Ears normal, nares patent, oropharynx clear without exudates, moist mucous membranes. NECK: Trachea midline, full range of motion, supple. LUNGS: Breath sounds equal, clear to auscultation bilaterally, no wheezes, no crackles, no accessory muscle use. HEART: Regular rate and rhythm, S1, S2 without murmur, rub or gallop. ABDOMEN: Soft, nontender, nondistended, normoactive bowel sounds, no guarding, no rebound, no hepatosplenomegaly, no masses. EXTREMITIES: 2+ pulses, warm, well-perfused, no edema. NEUROLOGICAL: Cranial nerves II through XII grossly intact. Normal speech, gait not observed. PSYCH: Normal mood, normal affect. SKIN: Warm, dry, normal turgor, no rashes or lesions noted Laboratory Results - last 24 hr 04/21/18 04/22/18 04/22/18 22:17 06:20 06:20 WBC 5.3 RBC 3.61 Hgb 10.6 L Hct 32.9 MCV 91.0 MCH 29.4 MCHC 32.2 RDW 12.7 Plt Count 305 MPV 7.0 L Absolute Neuts (auto) 3.4 Neutrophils % 63.8 Lymphocytes % 25.1 Monocytes % 8.9 Eosinophils % 1.9 Basophils % 0.3 Sodium 139 Potassium 4.2 Chloride 105 Carbon Dioxide 22 Anion Gap 12 BUN 10 Creatinine 0.5 L Creat Clearance w eGFR > 60 POC Glucometer 89 Random Glucose 74 D Calcium 8.6 Magnesium 1.8 Total Bilirubin 0.7 AST 14 ALT 9 L Alkaline Phosphatase 53 Total Protein 5.4 L Albumin 2.9 L Active Medications Generic Name Dose Route Start Last Admin Trade Name Freq PRN Reason Stop Dose Admin Lactated Ringer's 1,000 ml in 1,000 mls @ 100 mls/hr 04/21/18 12:45 04/21/18 13:05 Lactated Ringers Solution IV 100 mls/hr ASDIR MARY JO Administration Insulin Aspart 0 units 04/21/18 16:30 Novolog Vial SQ ACHS MARY JO Protocol ASSESSMENT/PLAN: Isaura Robin is a 63 yr old F, medical condition DM, HTN, HLD, insomnia, hx of Lap Band in 2009 admitted for Admitting Diagnosis SBO Active Problems DM HTN HLD Insomnia A/P: #SBO -NPO -IVF -Pain mgt, antiemetics -Surgery consult (Dr. Isaac) -serial abd xrays #DM -NPO -Monitor FS BID -metformin on hold #Hx of Lap Band -consult to Bariatric Surgeon (Dr. Walsh) #abnormal UA -Urine cx- <10,000 -received IV rocephin x 2 doses, will d/c today -no white count, afebrile #HTN #HLD -monitor V/S -po meds on hold #Insomnia -ambien on hold Disposition: requires inpatient treatment, Full Code Visit type - Emergency Visit Emergency Visit: Yes ED Registration Date: 04/21/18 Care time: The patient presented to the Emergency Department on the above date and was hospitalized for further evaluation of their emergent condition. - New Patient This patient is new to me today: No - Critical Care Critical Care patient: No
--- NOTE | 2018-04-22 17:12 | PN ---
Progress Note (short form) - Note Progress Note: Bariatric Surgery Afebrile; VSS Pt feeling well No N/V NO abd pain +BM P/E-Abd- soft, non-tender on palpation in all quadrants Ext- no swelling or edema noted Abd x-ray- Appears to have decreased SB distention few air-fluid levels noted P- Begin PO clear liquids Abd x-ray F/U 04/23/2018
[2018-04-22] MEDS: INSULIN (NOVOLOG) ASPART 100 UNITS/ML 10ML VIAL SQ SCH (21:21)
[2018-04-23] MEDS: INSULIN (NOVOLOG) ASPART 100 UNITS/ML 10ML VIAL SQ SCH ×6 (08:56→21:17)
[2018-04-23] MEDS: LACTATED RINGERS SOLUTION 1,000 ML/1,000 ML INFUS.BAG IV SCH ×2 (08:57→12:15)
[2018-04-23 09:16] LABS: ALBUMIN 3.1 g/dl (3.5-5.0); ALK PHOS 56 U/L (32-92); ANION GAP 6 MMOL/L (8-16); BILIRUBIN,TOTAL 0.6 mg/dl (0.2-1.0); BLOOD UREA NITROGEN 11 mg/dl (7-18); CALCIUM 8.9 mg/dl (8.4-10.2); CHLORIDE 107 mmol/L (98-107); CO2 23 mmol/L (22-28); CREATININE 0.5 mg/dl (0.6-1.3); GLUCOSE,RANDOM 79 mg/dl (74-106); MAGNESIUM 1.5 mg/dL (1.8-2.4); POTASSIUM 4.2 mmol/L (3.5-5.1); SGOT/AST 14 U/L (10-42); SGPT/ALT 10 U/L (10-40); SODIUM 136 mmol/L (136-145); TOT PROT 5.6 g/dl (6.4-8.3)
[2018-04-23 09:22] LABS: BASO % 0.5 % (0-2.0); EOS % 1.7 % (0-4.5); HEMATOCRIT 33.2 % (32.4-45.2); HEMOGLOBIN 10.8 GM/dl (10.7-15.3); LYMPH % 22.7 % (8-40); MCH 29.6 pg (25.7-33.7); MCHC 32.6 g/dl (32.0-36.0); MEAN CELL VOLUME 90.8 fl (80-96); NEUT % 66.1 % (42.8-82.8); PLATELET COUNT 303 K/MM3 (134-434); RBC 3.65 M/mm3 (3.60-5.2); RDW 12.5 % (11.6-15.6); WHITE BLOOD COUNT 5.2 K/mm3 (4.0-10.8)
--- NOTE | 2018-04-23 17:59 | PN ---
Progress Note (short form) - Note Progress Note: Bariatric Surgery Afebrile;VSS Pt unchanged No N/V +BM P/e- Abd- soft, non-tender on palpation Abd x-ray no change still with air-fluid levels and dilated SB partial obstruction P- UGI in AM clear liquids as tolerated
--- NOTE | 2018-04-23 18:56 | PN ---
Physical Exam: SUBJECTIVE: Patient seen and examined. Tearful, stressed about health situation , financial concerns. OBJECTIVE: Vital Signs Period Temp Pulse Resp BP Sys/Pemberton Pulse Ox Last 24 Hr 97.8 F-98.8 F 58-63 17-18 122-144/54-70 100-100 GENERAL: The patient is awake, alert, and fully oriented LUNGS: Breath sounds equal, clear to auscultation bilaterally, no wheezes, no crackles, no accessory muscle use. HEART: Regular rate and rhythm, S1, S2 ABDOMEN: Soft, nontender, nondistended EXTREMITIES: 2+ pulses, warm, well-perfused, no edema. NEUROLOGICAL: Cranial nerves II through XII grossly intact. Normal speech, steady gait Laboratory Results - last 24 hr 04/22/18 04/23/18 04/23/18 22:00 06:18 08:23 WBC 5.2 RBC 3.65 Hgb 10.8 Hct 33.2 MCV 90.8 MCH 29.6 MCHC 32.6 RDW 12.5 Plt Count 303 MPV 7.0 L Absolute Neuts (auto) 3.4 Neutrophils % 66.1 Lymphocytes % 22.7 Monocytes % 9.0 Eosinophils % 1.7 Basophils % 0.5 Sodium Potassium Chloride Carbon Dioxide Anion Gap BUN Creatinine Creat Clearance w eGFR POC Glucometer 78 80 Random Glucose Calcium Magnesium Total Bilirubin AST ALT Alkaline Phosphatase Total Protein Albumin 04/23/18 04/23/18 04/23/18 08:23 11:03 16:37 WBC RBC Hgb Hct MCV MCH MCHC RDW Plt Count MPV Absolute Neuts (auto) Neutrophils % Lymphocytes % Monocytes % Eosinophils % Basophils % Sodium 136 Potassium 4.2 Chloride 107 Carbon Dioxide 23 Anion Gap 6 L BUN 11 Creatinine 0.5 L Creat Clearance w eGFR > 60 POC Glucometer 164 90 Random Glucose 79 Calcium 8.9 Magnesium 1.5 L Total Bilirubin 0.6 AST 14 ALT 10 Alkaline Phosphatase 56 Total Protein 5.6 L Albumin 3.1 L Current Medications Generic Name Dose Route Start Last Admin Trade Name Freq PRN Reason Stop Dose Admin Lactated Ringer's 1,000 ml in 1,000 mls @ 50 mls/hr 04/23/18 11:45 04/24/18 15:41 Lactated Ringers Solution IV 50 mls/hr ASDIR MARY JO Administration Insulin Aspart 0 units 04/21/18 16:30 04/24/18 11:54 Novolog Vial SQ Not Given ACHS MARY JO Protocol Zolpidem Tartrate 5 mg 04/22/18 22:00 04/23/18 22:09 Ambien - PO 5 mg HS PRN Administration INSOMNIA ASSESSMENT/PLAN 63 year-old female with a PMH significant for HTN, HLD, non-insulin dependent Type II diabetes, and s/p lap band surgery 2009. Admitted for partial SBO. Partial SBO --04/21 CTAP: 4.3 x 2.7cm partially lucent structure within the distal small bowel lumen within the paramedian aspect of the pelvis with resultant small bowel obstruction --no vomiting, no NGT at present --NPO --IV fluids --Dr. Walsh following Hypertension --continue lisinopril Hyperlipidemia --continue atorvastatin NIDDM, Type II --Novolog sliding scale coverage FEN Fluids: LR @ 50mL/hr Electrolytes: replete as indicated Nutrition: NPO DVT prophylaxis: SCDs, oob, ambulation; hold chemical prophylaxis due to possibility of surgical intervention Dispo: continues to require inpatient care. Full code. Visit type - Emergency Visit Emergency Visit: Yes ED Registration Date: 04/21/18 Care time: The patient presented to the Emergency Department on the above date and was hospitalized for further evaluation of their emergent condition. - New Patient This patient is new to me today: Yes Date on this admission: 04/25/18 - Critical Care Critical Care patient: No
[2018-04-23] MEDS: ZOLPIDEM TARTRATE 5 MG TABLET PO PRN (22:09)
[2018-04-24] MEDS: INSULIN (NOVOLOG) ASPART 100 UNITS/ML 10ML VIAL SQ SCH ×4 (06:22→22:57)
[2018-04-24 08:37] LABS: ANION GAP 7 MMOL/L (8-16); BLOOD UREA NITROGEN 4 mg/dl (7-18); CALCIUM 8.8 mg/dl (8.4-10.2); CHLORIDE 107 mmol/L (98-107); CO2 26 mmol/L (22-28); CREATININE 0.5 mg/dl (0.6-1.3); GLUCOSE,RANDOM 106 mg/dl (74-106); MAGNESIUM 1.5 mg/dL (1.8-2.4); POTASSIUM 4.2 mmol/L (3.5-5.1); SODIUM 140 mmol/L (136-145)
--- NOTE | 2018-04-24 08:39 | PN ---
Physical Exam: SUBJECTIVE: Patient seen and examined OBJECTIVE: Vital Signs Period Temp Pulse Resp BP Sys/Pemberton Pulse Ox Last 24 Hr 97.7 F-98.8 F 58-69 18-18 143-149/54-70 99-100 GENERAL: The patient is awake, alert, and fully oriented LUNGS: Breath sounds equal, clear to auscultation bilaterally, no wheezes, no crackles, no accessory muscle use. HEART: Regular rate and rhythm, S1, S2 ABDOMEN: Soft, nontender, nondistended EXTREMITIES: 2+ pulses, warm, well-perfused, no edema. NEUROLOGICAL: Cranial nerves II through XII grossly intact. Normal speech, steady gait Laboratory Results - last 24 hr 04/23/18 04/23/18 04/23/18 08:23 08:23 11:03 WBC 5.2 RBC 3.65 Hgb 10.8 Hct 33.2 MCV 90.8 MCH 29.6 MCHC 32.6 RDW 12.5 Plt Count 303 MPV 7.0 L Absolute Neuts (auto) 3.4 Neutrophils % 66.1 Lymphocytes % 22.7 Monocytes % 9.0 Eosinophils % 1.7 Basophils % 0.5 Sodium 136 Potassium 4.2 Chloride 107 Carbon Dioxide 23 Anion Gap 6 L BUN 11 Creatinine 0.5 L Creat Clearance w eGFR > 60 POC Glucometer 164 Random Glucose 79 Calcium 8.9 Magnesium 1.5 L Total Bilirubin 0.6 AST 14 ALT 10 Alkaline Phosphatase 56 Total Protein 5.6 L Albumin 3.1 L 04/23/18 04/23/18 04/24/18 16:37 21:02 06:20 WBC RBC Hgb Hct MCV MCH MCHC RDW Plt Count MPV Absolute Neuts (auto) Neutrophils % Lymphocytes % Monocytes % Eosinophils % Basophils % Sodium Potassium Chloride Carbon Dioxide Anion Gap BUN Creatinine Creat Clearance w eGFR POC Glucometer 90 99 105 Random Glucose Calcium Magnesium Total Bilirubin AST ALT Alkaline Phosphatase Total Protein Albumin Active Medications Generic Name Dose Route Start Last Admin Trade Name Freq PRN Reason Stop Dose Admin Lactated Ringer's 1,000 ml in 1,000 mls @ 50 mls/hr 04/23/18 11:45 04/23/18 12:15 Lactated Ringers Solution IV 50 mls/hr ASDIR MARY JO Administration Insulin Aspart 0 units 04/21/18 16:30 04/24/18 06:22 Novolog Vial SQ Not Given ACHS MARY JO Protocol Zolpidem Tartrate 5 mg 04/22/18 22:00 04/23/18 22:09 Ambien - PO 5 mg HS PRN Administration INSOMNIA ASSESSMENT/PLAN 63 year-old female with a PMH significant for HTN, HLD, non-insulin dependent Type II diabetes, and s/p lap band surgery 2009. Admitted for partial SBO. Partial SBO --04/21 CTAP: 4.3 x 2.7cm partially lucent structure within the distal small bowel lumen within the paramedian aspect of the pelvis with resultant small bowel obstruction --barium swallow today Hypertension --continue lisinopril Hyperlipidemia --continue atorvastatin NIDDM, Type II --Novolog sliding scale coverage FEN Fluids: LR @ 50mL/hr Electrolytes: replete as indicated Nutrition: clears DVT prophylaxis: SCDs, oob, ambulation; hold chemical prophylaxis due to possibility of surgical intervention Dispo: continues to require inpatient care. Full code. Visit type - Emergency Visit Emergency Visit: Yes ED Registration Date: 04/21/18 Care time: The patient presented to the Emergency Department on the above date and was hospitalized for further evaluation of their emergent condition. - New Patient This patient is new to me today: No - Critical Care Critical Care patient: No
[2018-04-24] MEDS ORDERED: MAGNESIUM SULF 50% (8.12 MEQ/2 ML-1 GM VIAL) IVPB ONE (15:00)
[2018-04-24] MEDS: LACTATED RINGERS SOLUTION 1,000 ML/1,000 ML INFUS.BAG IV SCH (15:41)
--- NOTE | 2018-04-24 16:01 | PN ---
Progress Note (short form) - Note Progress Note: Bariatric Surgery Pt unchanged Having UGI- contrast in most of SB No N/V No abdominal pain P- Await final results of UGI Further plans after UGI
[2018-04-24] MEDS: LISINOPRIL 5 MG TABLET (FP) PO SCH (16:44)
[2018-04-24] MEDS: ACETAMINOPHEN 1000 MG/100 ML VIAL (NON FORMULARY) IVPB PRN (23:40)
[2018-04-25] MEDS: INSULIN (NOVOLOG) ASPART 100 UNITS/ML 10ML VIAL SQ SCH ×4 (07:05→21:47)
[2018-04-25 07:53] LABS: HEMATOCRIT 34.8 % (32.4-45.2); HEMOGLOBIN 11.7 GM/dl (10.7-15.3); MCH 30.8 pg (25.7-33.7); MCHC 33.7 g/dl (32.0-36.0); MEAN CELL VOLUME 91.3 fl (80-96); MEAN PLT VOLUME 6.6 fl (7.5-11.1); PLATELET COUNT 382 K/MM3 (134-434); RBC 3.81 M/mm3 (3.60-5.2); RDW 12.6 % (11.6-15.6); WHITE BLOOD COUNT 8.6 K/mm3 (4.0-10.8)
[2018-04-25 08:31] LABS: ALBUMIN 3.3 g/dl (3.5-5.0); ALK PHOS 64 U/L (32-92); ANION GAP 8 MMOL/L (8-16); BILIRUBIN,TOTAL 0.7 mg/dl (0.2-1.0); BLOOD UREA NITROGEN 6 mg/dl (7-18); CALCIUM 8.9 mg/dl (8.4-10.2); CHLORIDE 102 mmol/L (98-107); CO2 27 mmol/L (22-28); CREATININE 0.5 mg/dl (0.6-1.3); GLUCOSE,RANDOM 116 mg/dl (74-106); MAGNESIUM 1.8 mg/dL (1.8-2.4); POTASSIUM 3.9 mmol/L (3.5-5.1); SGOT/AST 16 U/L (10-42); SGPT/ALT 11 U/L (10-40); SODIUM 137 mmol/L (136-145); TOT PROT 6.2 g/dl (6.4-8.3)
[2018-04-25] MEDS: LISINOPRIL 5 MG TABLET (FP) PO SCH (09:36)
[2018-04-25] MEDS: ATORVASTATIN CA 20 MG TABLET (FP) PO SCH (09:36)
[2018-04-25] MEDS: ACETAMINOPHEN 1000 MG/100 ML VIAL (NON FORMULARY) IVPB PRN ×2 (09:40→19:08)
[2018-04-25] MEDS: LACTATED RINGERS SOLUTION 1,000 ML/1,000 ML INFUS.BAG IV SCH (11:14)
--- NOTE | 2018-04-25 13:28 | PN ---
Physical Exam: SUBJECTIVE: Patient seen and examined. Feels well, frustrated at slow course of treatment. OBJECTIVE: Vital Signs Period Temp Pulse Resp BP Sys/Pemberton Pulse Ox Last 24 Hr 97.8 F-98.3 F 62-74 18-19 119-132/55-87 100 GENERAL: The patient is awake, alert, and fully oriented LUNGS: Breath sounds equal, clear to auscultation bilaterally, no wheezes, no crackles, no accessory muscle use. HEART: Regular rate and rhythm, S1, S2 ABDOMEN: Soft, nontender, nondistended EXTREMITIES: 2+ pulses, warm, well-perfused, no edema. NEUROLOGICAL: Cranial nerves II through XII grossly intact. Normal speech, steady gait Laboratory Results - last 24 hr 04/24/18 04/24/18 04/25/18 17:13 22:06 05:43 WBC RBC Hgb Hct MCV MCH MCHC RDW Plt Count MPV Sodium Potassium Chloride Carbon Dioxide Anion Gap BUN Creatinine Creat Clearance w eGFR POC Glucometer 110 151 129 Random Glucose Calcium Magnesium Total Bilirubin AST ALT Alkaline Phosphatase Total Protein Albumin 04/25/18 04/25/18 04/25/18 07:42 07:42 11:08 WBC 8.6 RBC 3.81 Hgb 11.7 Hct 34.8 MCV 91.3 MCH 30.8 MCHC 33.7 RDW 12.6 Plt Count 382 MPV 6.6 L Sodium 137 Potassium 3.9 Chloride 102 Carbon Dioxide 27 Anion Gap 8 BUN 6 L Creatinine 0.5 L Creat Clearance w eGFR > 60 POC Glucometer 147 Random Glucose 116 H Calcium 8.9 Magnesium 1.8 Total Bilirubin 0.7 AST 16 ALT 11 Alkaline Phosphatase 64 Total Protein 6.2 L Albumin 3.3 L Active Medications Generic Name Dose Route Start Last Admin Trade Name Freq PRN Reason Stop Dose Admin Acetaminophen 1,000 mg 04/24/18 23:37 04/25/18 09:40 Ofirmev Injection - IVPB 1,000 mg Q6H PRN Administration PAIN LEVEL 6-10 Atorvastatin Calcium 20 mg 04/25/18 10:00 04/25/18 09:36 Lipitor - PO 20 mg DAILY MARY JO Administration Lactated Ringer's 1,000 ml in 1,000 mls @ 50 mls/hr 04/23/18 11:45 04/25/18 11:14 Lactated Ringers Solution IV 50 mls/hr ASDIR MARY JO Administration Insulin Aspart 0 units 04/21/18 16:30 04/25/18 11:14 Novolog Vial SQ Not Given ACHS [facility] Protocol Lisinopril 2.5 mg 04/24/18 16:15 04/25/18 09:36 Prinivil PO 2.5 mg DAILY MARY JO Administration Zolpidem Tartrate 5 mg 04/22/18 22:00 04/23/18 22:09 Ambien - PO 5 mg HS PRN Administration INSOMNIA ASSESSMENT/PLAN: 63 year-old female with a PMH significant for HTN, HLD, non-insulin dependent Type II diabetes, and s/p lap band surgery 2009. Admitted for partial SBO. 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 Walsh, plan is for surgery on Monday Hypertension --continue lisinopril Hyperlipidemia --continue atorvastatin NIDDM, Type II --Novolog sliding scale coverage FEN Fluids: PO intake adequate Electrolytes: replete as indicated Nutrition: clears DVT prophylaxis: SCDs, oob, ambulation; hold chemical prophylaxis due to pending surgical intervention. Visit type - Emergency Visit Emergency Visit: Yes ED Registration Date: 04/21/18 Care time: The patient presented to the Emergency Department on the above date and was hospitalized for further evaluation of their emergent condition. - New Patient This patient is new to me today: No - Critical Care Critical Care patient: No
[2018-04-25] MEDS ORDERED: LORazepam 0.5 MG TABLET PO PRN (15:16)
[2018-04-25] MEDS: ZOLPIDEM TARTRATE 5 MG TABLET PO PRN (21:43)
[2018-04-26] MEDS: INSULIN (NOVOLOG) ASPART 100 UNITS/ML 10ML VIAL SQ SCH ×4 (06:59→22:18)
--- NOTE | 2018-04-26 09:01 | PN ---
Physical Exam: SUBJECTIVE: Patient seen and examined. Feels well, abdominal pain resolved. Had small BM. OBJECTIVE: Vital Signs Period Temp Pulse Resp BP Sys/Pemberton Pulse Ox Last 24 Hr 97.5 F-98.2 F 57-74 16-19 104-137/44-87 98-100 GENERAL: The patient is awake, alert, and fully oriented, in no acute distress. HEAD: Normal with no signs of trauma. EYES: PERRL, extraocular movements intact, sclera anicteric, conjunctiva clear. No ptosis. ENT: Ears normal, nares patent, oropharynx clear without exudates, moist mucous membranes. NECK: Trachea midline, full range of motion, supple. LUNGS: Breath sounds equal, clear to auscultation bilaterally, no wheezes, no crackles, no accessory muscle use. HEART: Regular rate and rhythm, S1, S2 without murmur, rub or gallop. ABDOMEN: Soft, nontender, nondistended, normoactive bowel sounds, no guarding, no rebound, no hepatosplenomegaly, no masses. EXTREMITIES: 2+ pulses, warm, well-perfused, no edema. NEUROLOGICAL: Cranial nerves II through XII grossly intact. Normal speech, gait not observed. PSYCH: Normal mood, normal affect. SKIN: Warm, dry, normal turgor, no rashes or lesions noted. Laboratory Results - last 24 hr 04/25/18 04/25/18 04/25/18 11:08 16:13 21:46 POC Glucometer 147 122 121 04/26/18 06:47 POC Glucometer 96 Active Medications Generic Name Dose Route Start Last Admin Trade Name Beck PRN Reason Stop Dose Admin Acetaminophen 1,000 mg 04/24/18 23:37 04/25/18 19:08 Ofirmev Injection - IVPB 1,000 mg Q6H PRN Administration PAIN LEVEL 6-10 Atorvastatin Calcium 20 mg 04/25/18 10:00 04/25/18 09:36 Lipitor - PO 20 mg DAILY MARY JO Administration Insulin Aspart 0 units 04/21/18 16:30 04/26/18 06:59 Novolog Vial SQ Not Given ACHS MARY JO Protocol Lisinopril 2.5 mg 04/24/18 16:15 04/25/18 09:36 Prinivil PO 2.5 mg DAILY MARY JO Administration Lorazepam 0.25 mg 04/25/18 15:16 Ativan - PO TID PRN ANXIETY Zolpidem Tartrate 5 mg 04/22/18 22:00 04/25/18 21:43 Ambien - PO 5 mg HS PRN Administration INSOMNIA ASSESSMENT/PLAN: 63 year-old year old female with partial SBO and ileal mass. 1. Partial SBO -Continue clear liquid diet -Planned for surgery tomorrow with Dr. Walsh; NPO after midnight 2. Hypertension -At goal, continue home Lisinopril 3. Hyperlipidemia -Continue Atorvasatin 4. NIDDM -Hold Metformin -ISS 5. F/E/N -Clear liquid diet -NS 75 mL/hr while NPO 6. Pox -SCDs Dispo: For OR tomorrow Visit type - Emergency Visit Emergency Visit: Yes ED Registration Date: 04/21/18 Care time: The patient presented to the Emergency Department on the above date and was hospitalized for further evaluation of their emergent condition. - New Patient This patient is new to me today: Yes Date on this admission: 04/26/18 - Critical Care Critical Care patient: No - Discharge Referral Referred to [facility] No
[2018-04-26] MEDS: ATORVASTATIN CA 20 MG TABLET (FP) PO SCH (09:40)
[2018-04-26] MEDS: LISINOPRIL 5 MG TABLET (FP) PO SCH (09:40)
--- NOTE | 2018-04-26 16:54 | PN ---
Progress Note (short form) - Note Progress Note: Bariatric Surgery Pt with no changes NO N/V Tolerating PO clear liquids P- Laparoscopy, possible laparotomy, probable small bowel resection tomorrow NPO after midnight
[2018-04-26] MEDS: ZOLPIDEM TARTRATE 5 MG TABLET PO PRN (22:18)
[2018-04-26] MEDS ORDERED: SODIUM CHLORIDE 1,000 ML IV SCH (23:00)
[2018-04-27] MEDS: INSULIN (NOVOLOG) ASPART 100 UNITS/ML 10ML VIAL SQ SCH ×4 (06:51→22:11)
[2018-04-27 08:21] LABS: BASO % 0.5 % (0-2.0); EOS % 1.5 % (0-4.5); HEMATOCRIT 33.8 % (32.4-45.2); HEMOGLOBIN 10.7 GM/dl (10.7-15.3); LYMPH % 19.7 % (8-40); MCH 28.9 pg (25.7-33.7); MCHC 31.6 g/dl (32.0-36.0); MEAN CELL VOLUME 91.6 fl (80-96); MEAN PLT VOLUME 7.1 fl (7.5-11.1); MONO % 9.2 % (3.8-10.2); NEUT % 69.1 % (42.8-82.8); PLATELET COUNT 357 K/MM3 (134-434); RBC 3.69 M/mm3 (3.60-5.2); RDW 13.1 % (11.6-15.6); WHITE BLOOD COUNT 5.5 K/mm3 (4.0-10.8)
[2018-04-27 08:26] LABS: INR 1.22 (0.82-1.09); PROTHROMBIN TIME (PATIENT) 13.6 SEC (10.2-13.0)
[2018-04-27 08:32] LABS: ALBUMIN 2.9 g/dl (3.5-5.0); ALK PHOS 54 U/L (32-92); ANION GAP 8 MMOL/L (8-16); BILIRUBIN,TOTAL 0.6 mg/dl (0.2-1.0); BLOOD UREA NITROGEN 6 mg/dl (7-18); CALCIUM 8.8 mg/dl (8.4-10.2); CHLORIDE 107 mmol/L (98-107); CO2 26 mmol/L (22-28); CREATININE 0.5 mg/dl (0.6-1.3); GLUCOSE,RANDOM 107 mg/dl (74-106); POTASSIUM 4.1 mmol/L (3.5-5.1); SGOT/AST 13 U/L (10-42); SGPT/ALT 10 U/L (10-40); SODIUM 141 mmol/L (136-145); TOT PROT 5.5 g/dl (6.4-8.3)
[2018-04-27] MEDS: LISINOPRIL 5 MG TABLET (FP) PO SCH (10:40)
[2018-04-27] MEDS: ATORVASTATIN CA 20 MG TABLET (FP) PO SCH (10:40)
--- NOTE | 2018-04-27 10:42 | PN ---
Physical Exam: SUBJECTIVE: Patient seen and examined. Feeling well. Small BM. OBJECTIVE: Vital Signs Period Temp Pulse Resp BP Sys/Pemberton Pulse Ox Last 24 Hr 97.7 F-97.8 F 63-70 16-19 114-124/56-62 99-100 GENERAL: The patient is awake, alert, and fully oriented, in no acute distress. HEAD: Normal with no signs of trauma. EYES: PERRL, extraocular movements intact, sclera anicteric, conjunctiva clear. No ptosis. ENT: Ears normal, nares patent, oropharynx clear without exudates, moist mucous membranes. NECK: Trachea midline, full range of motion, supple. LUNGS: Breath sounds equal, clear to auscultation bilaterally, no wheezes, no crackles, no accessory muscle use. HEART: Regular rate and rhythm, S1, S2 without murmur, rub or gallop. ABDOMEN: Soft, nontender, nondistended, normoactive bowel sounds, no guarding, no rebound, no hepatosplenomegaly, no masses. EXTREMITIES: 2+ pulses, warm, well-perfused, no edema. NEUROLOGICAL: Cranial nerves II through XII grossly intact. Normal speech, gait not observed. PSYCH: Normal mood, normal affect. SKIN: Warm, dry, normal turgor, no rashes or lesions noted Laboratory Results - last 24 hr 04/26/18 04/27/18 04/27/18 22:15 06:46 07:25 WBC 5.5 RBC 3.69 Hgb 10.7 Hct 33.8 MCV 91.6 MCH 28.9 MCHC 31.6 L RDW 13.1 Plt Count 357 MPV 7.1 L Absolute Neuts (auto) 3.8 Neutrophils % 69.1 Lymphocytes % 19.7 Monocytes % 9.2 Eosinophils % 1.5 Basophils % 0.5 PT with INR INR Sodium Potassium Chloride Carbon Dioxide Anion Gap BUN Creatinine Creat Clearance w eGFR POC Glucometer 94 90 Random Glucose Calcium Total Bilirubin AST ALT Alkaline Phosphatase Total Protein Albumin Crossmatch IS Only 04/27/18 04/27/18 04/27/18 07:25 07:25 07:25 WBC RBC Hgb Hct MCV MCH MCHC RDW Plt Count MPV Absolute Neuts (auto) Neutrophils % Lymphocytes % Monocytes % Eosinophils % Basophils % PT with INR 13.6 H INR 1.22 Sodium 141 Potassium 4.1 Chloride 107 Carbon Dioxide 26 Anion Gap 8 BUN 6 L Creatinine 0.5 L Creat Clearance w eGFR > 60 POC Glucometer Random Glucose 107 H Calcium 8.8 Total Bilirubin 0.6 AST 13 ALT 10 Alkaline Phosphatase 54 D Total Protein 5.5 L Albumin 2.9 L Crossmatch IS Only See Detail Active Medications Generic Name Dose Route Start Last Admin Trade Name Freq PRN Reason Stop Dose Admin Acetaminophen 1,000 mg 04/24/18 23:37 04/25/18 19:08 Ofirmev Injection - IVPB 1,000 mg Q6H PRN Administration PAIN LEVEL 6-10 Atorvastatin Calcium 20 mg 04/25/18 10:00 04/27/18 10:40 Lipitor - PO Not Given DAILY MARY JO Sodium Chloride 1,000 mls @ 75 mls/hr 04/26/18 23:00 04/26/18 22:18 Normal Saline - IV 75 mls/hr ASDIR MARY JO Administration Insulin Aspart 0 units 04/21/18 16:30 04/27/18 06:51 Novolog Vial SQ Not Given ACHS MARY JO Protocol Lisinopril 2.5 mg 04/24/18 16:15 04/27/18 10:40 Prinivil PO Not Given DAILY MARY JO Lorazepam 0.25 mg 04/25/18 15:16 Ativan - PO TID PRN ANXIETY Zolpidem Tartrate 5 mg 04/22/18 22:00 04/26/18 22:18 Ambien - PO 5 mg HS PRN Administration INSOMNIA ASSESSMENT/PLAN: 63-year-old female with partial SBO and newly diagnosed ileal mass. For OR today. 1. Partial SBO -NPO -For surgery today 2. Hypertension -At goal, continue home Lisinopril 3. Hyperlipidemia -Continue Atorvasatin 4. NIDDM -Hold Metformin -ISS 5. F/E/N -NS 75 mL/hr while NPO 6. Pox -SCDs Dispo: For OR. Visit type - Emergency Visit Emergency Visit: Yes ED Registration Date: 04/21/18 Care time: The patient presented to the Emergency Department on the above date and was hospitalized for further evaluation of their emergent condition. - New Patient This patient is new to me today: No - Critical Care Critical Care patient: No - Discharge Referral Referred to [facility] No
[2018-04-27] MEDS ORDERED: PROPOFOL 20 ML ONE ×2 (12:29)
[2018-04-27] MEDS ORDERED: SUCCINYLCHOLINE CHLORIDE 200 MG/10 ML VIAL ONE (12:30)
[2018-04-27] MEDS ORDERED: KETOROLAC TROMETHAMINE 30 MG/1 ML VIAL ONE (12:31)
[2018-04-27] MEDS ORDERED: ROCURONIUM BROMIDE 50 MG/5 ML VIAL ONE (12:31)
[2018-04-27] MEDS ORDERED: ONDANSETRON 4 MG/2 ML VIAL ONE (12:31)
[2018-04-27] MEDS ORDERED: fentaNYL CITRATE 250 MCG/5 ML VIAL ONE (12:32)
[2018-04-27] MEDS ORDERED: NEOSTIGMINE METHYLSULFATE 0.5 MG/ML - 10 ML MDV ONE (12:39)
[2018-04-27] MEDS ORDERED: GLYCOPYRROLATE 0.2 MG/1 ML VIAL ONE (12:39)
[2018-04-27] MEDS ORDERED: LACTATED RINGERS SOLUTION 1,000 ML IV SCH (13:30)
[2018-04-27] MEDS ORDERED: MIDAZOLAM HCL 2 MG/2 ML SINGLE DOSE VIAL ONE (13:53)
[2018-04-27] MEDS ORDERED: SODIUM CHLORIDE 500 ML IV STA (14:43)
--- NOTE | 2018-04-27 15:59 | PN ---
Progress Note (short form) - Note Progress Note: Bariatric Surgery Pt brought to OR in anticipation of surgery for SB obstruction. X-rays reviewed with Radiologist at 9 AM X-rays from this AM showed significant improvement from previously. Much less small bowel distention noted. Very minimal Air-Fluid levels Discussed with patient and friends and will hold on surgery P- Begin soft diet PO and advance as tolerated
[2018-04-27] MEDS: ZOLPIDEM TARTRATE 5 MG TABLET PO PRN (22:11)
[2018-04-28] MEDS: ATORVASTATIN CA 20 MG TABLET (FP) PO SCH (09:17)
[2018-04-28] MEDS: LISINOPRIL 5 MG TABLET (FP) PO SCH (09:17)
[2018-04-28 10:00] LABS: BASO % 0.7 % (0-2.0); EOS % 1.4 % (0-4.5); HEMATOCRIT 33.7 % (32.4-45.2); HEMOGLOBIN 10.7 GM/dl (10.7-15.3); LYMPH % 15.1 % (8-40); MCH 28.9 pg (25.7-33.7); MCHC 31.8 g/dl (32.0-36.0); MEAN CELL VOLUME 91.1 fl (80-96); MEAN PLT VOLUME 6.6 fl (7.5-11.1); MONO % 9.2 % (3.8-10.2); NEUT % 73.6 % (42.8-82.8); PLATELET COUNT 400 K/MM3 (134-434); RDW 12.7 % (11.6-15.6); WHITE BLOOD COUNT 6.7 K/mm3 (4.0-10.8)
[2018-04-28 10:15] LABS: ALBUMIN 2.9 g/dl (3.5-5.0); ALK PHOS 58 U/L (32-92); ANION GAP 7 MMOL/L (8-16); BILIRUBIN,TOTAL 0.6 mg/dl (0.2-1.0); BLOOD UREA NITROGEN 7 mg/dl (7-18); CALCIUM 8.9 mg/dl (8.4-10.2); CHLORIDE 107 mmol/L (98-107); CO2 27 mmol/L (22-28); CREATININE 0.5 mg/dl (0.6-1.3); GLUCOSE,RANDOM 142 mg/dl (74-106); MAGNESIUM 1.5 mg/dL (1.8-2.4); SGOT/AST 10 U/L (10-42); SGPT/ALT 9 U/L (10-40); SODIUM 141 mmol/L (136-145); TOT PROT 5.7 g/dl (6.4-8.3)
[2018-04-28] MEDS ORDERED: MAGNESIUM SULF 50% (8.12 MEQ/2 ML-1 GM VIAL) IVPB ONE (11:08)
--- NOTE | 2018-04-28 11:18 | PN ---
Physical Exam: SUBJECTIVE: Patient seen and examined, pt ate breakfast, tolerated, feeling of gas, denies abd pain, n/v, diarrhea OBJECTIVE: Vital Signs Period Temp Pulse Resp BP Sys/Pemberton Pulse Ox Last 24 Hr 97.4 F-98.2 F 62-65 18-19 111-119/50-68 100-100 GENERAL: The patient is awake, alert, and fully oriented, in no acute distress. HEAD: Normal with no signs of trauma. EYES: PERRL, extraocular movements intact, sclera anicteric, conjunctiva clear. No ptosis. ENT: Ears normal, nares patent, oropharynx clear without exudates, moist mucous membranes. NECK: Trachea midline, full range of motion, supple. LUNGS: Breath sounds equal, clear to auscultation bilaterally, no wheezes, no crackles, no accessory muscle use. HEART: Regular rate and rhythm, S1, S2 without murmur, rub or gallop. ABDOMEN: Soft, nontender, nondistended, normoactive bowel sounds, no guarding, no rebound, no hepatosplenomegaly, no masses. EXTREMITIES: 2+ pulses, warm, well-perfused, no edema. NEUROLOGICAL: Cranial nerves II through XII grossly intact. Normal speech, gait not observed. PSYCH: Normal mood, normal affect. SKIN: Warm, dry, normal turgor, no rashes or lesions noted Laboratory Results - last 24 hr 04/27/18 04/28/18 04/28/18 22:10 09:45 09:45 WBC 6.7 RBC 3.70 Hgb 10.7 Hct 33.7 MCV 91.1 MCH 28.9 MCHC 31.8 L RDW 12.7 Plt Count 400 MPV 6.6 L Absolute Neuts (auto) 5.0 Neutrophils % 73.6 Lymphocytes % 15.1 Monocytes % 9.2 Eosinophils % 1.4 Basophils % 0.7 Sodium 141 Potassium 4.0 Chloride 107 Carbon Dioxide 27 Anion Gap 7 L BUN 7 Creatinine 0.5 L Creat Clearance w eGFR > 60 POC Glucometer 114 Random Glucose 142 H D Calcium 8.9 Magnesium 1.5 L Total Bilirubin 0.6 AST 10 D ALT 9 L Alkaline Phosphatase 58 Total Protein 5.7 L Albumin 2.9 L Active Medications Generic Name Dose Route Start Last Admin Trade Name Freq PRN Reason Stop Dose Admin Acetaminophen 1,000 mg 04/24/18 23:37 04/25/18 19:08 Ofirmev Injection - IVPB 1,000 mg Q6H PRN Administration PAIN LEVEL 6-10 Atorvastatin Calcium 20 mg 04/25/18 10:00 04/28/18 09:17 Lipitor - PO 20 mg DAILY MARY JO Administration Fentanyl 50 mcg 04/27/18 13:19 Sublimaze Injection - IVPUSH [id number] PRN PAIN-PACU ORDER X 4 DOSES ONLY Hydromorphone HCl 0.25 mg 04/27/18 13:19 Dilaudid Injection - IVPUSH [id number] PRN PAIN-PACU ORDER X 4 DOSES ONLY Insulin Aspart 0 units 04/21/18 16:30 04/27/18 22:11 Novolog Vial SQ Not Given ACHS MARY JO Protocol Lisinopril 2.5 mg 04/24/18 16:15 04/28/18 09:17 Prinivil PO 2.5 mg DAILY MARY JO Administration Lorazepam 0.25 mg 04/25/18 15:16 Ativan - PO TID PRN ANXIETY Magnesium Sulfate 2 gm 04/28/18 11:08 Magnesium Sulfate IVPB 04/28/18 11:09 ONCE ONE Zolpidem Tartrate 5 mg 04/22/18 22:00 04/27/18 22:11 Ambien - PO 5 mg HS PRN Administration INSOMNIA ASSESSMENT/PLAN: Isaura Robin is a 63-year-old female with partial SBO and newly diagnosed ileal mass. Admitting Diagnosis SBO Active Problems DM HTN HLD Insomnia A/P: # Partial SBO-improving -abd xray repeat ordered for today -no sx at this time -started on soft diet, tolerating -bariatric sx following #Hypomagnesia -2grm IV ordered -will repeat level in AM # Hypertension -At goal, continue home Lisinopril # Hyperlipidemia -Continue Atorvasatin # NIDDM -Hold Metformin -ISS F/E/N -NS 75 mL/hr while NPO Dispo:TBD Visit type - Emergency Visit Emergency Visit: Yes ED Registration Date: 04/21/18 Care time: The patient presented to the Emergency Department on the above date and was hospitalized for further evaluation of their emergent condition. - New Patient This patient is new to me today: No - Critical Care Critical Care patient: No
[2018-04-28] MEDS: INSULIN (NOVOLOG) ASPART 100 UNITS/ML 10ML VIAL SQ SCH ×3 (11:25→22:02)
[2018-04-28] MEDS: HYDROmorphone HCL CARPU-JECT 1 MG/1 ML DISP.SYRIN IVPUSH PRN ×2 (17:15→22:02)
--- NOTE | 2018-04-28 18:32 | PN ---
Progress Note (short form) - Note Progress Note: Pt was doing well, but c/o abdominal cramping late this afternoon On regular diet +BM No N/V P/E-Abd- non-distended; soft, non-tender on palpation Abd x-ray- slight increased SB distention some A-F levels P- soft diet only Stool C/S, O&P Abd x-rays in AM
[2018-04-28] MEDS ORDERED: INSULIN (NOVOLOG) ASPART 100 UNITS/ML 10ML VIAL ONE (22:00)
[2018-04-28] MEDS: ZOLPIDEM TARTRATE 5 MG TABLET PO PRN (22:02)
[2018-04-29] MEDS: INSULIN (NOVOLOG) ASPART 100 UNITS/ML 10ML VIAL SQ SCH ×4 (07:04→22:00)
[2018-04-29] MEDS: ATORVASTATIN CA 20 MG TABLET (FP) PO SCH (09:48)
[2018-04-29] MEDS: LISINOPRIL 5 MG TABLET (FP) PO SCH (09:48)
[2018-04-29 09:59] LABS: BASO % 0.2 % (0-2.0); EOS % 0.8 % (0-4.5); HEMATOCRIT 31.5 % (32.4-45.2); HEMOGLOBIN 9.9 GM/dl (10.7-15.3); MCH 28.6 pg (25.7-33.7); MCHC 31.4 g/dl (32.0-36.0); MEAN CELL VOLUME 91.2 fl (80-96); MEAN PLT VOLUME 7.4 fl (7.5-11.1); MONO % 8.2 % (3.8-10.2); NEUT % 76.8 % (42.8-82.8); PLATELET COUNT 362 K/MM3 (134-434); RBC 3.46 M/mm3 (3.60-5.2); RDW 13.1 % (11.6-15.6); WHITE BLOOD COUNT 7.9 K/mm3 (4.0-10.8)
[2018-04-29 10:08] LABS: ALBUMIN 2.4 g/dl (3.5-5.0); ALK PHOS 49 U/L (32-92); ANION GAP 9 MMOL/L (8-16); BILIRUBIN,TOTAL 0.8 mg/dl (0.2-1.0); BLOOD UREA NITROGEN 10 mg/dl (7-18); CALCIUM 8.2 mg/dl (8.4-10.2); CHLORIDE 105 mmol/L (98-107); CO2 23 mmol/L (22-28); CREATININE 0.5 mg/dl (0.6-1.3); GLUCOSE,RANDOM 97 mg/dl (74-106); MAGNESIUM 1.8 mg/dL (1.8-2.4); POTASSIUM 3.5 mmol/L (3.5-5.1); SGOT/AST 9 U/L (10-42); SGPT/ALT 7 U/L (10-40); SODIUM 137 mmol/L (136-145); TOT PROT 4.7 g/dl (6.4-8.3)
--- NOTE | 2018-04-29 11:53 | PN ---
Physical Exam: SUBJECTIVE: Patient seen and examined, started having diarrhea yesterday afternoon. stool studies sent pending. pt c/o cramping lower abd. denies n/v, sob OBJECTIVE: Vital Signs Period Temp Pulse Resp BP Sys/Pemberton Pulse Ox Last 24 Hr 97.4 F-98.7 F 64-75 16-19 91-118/46-66 96-100 GENERAL: The patient is awake, alert, and fully oriented, in no acute distress. HEAD: Normal with no signs of trauma. EYES: PERRL, extraocular movements intact, sclera anicteric, conjunctiva clear. No ptosis. ENT: Ears normal, nares patent, oropharynx clear without exudates, moist mucous membranes. NECK: Trachea midline, full range of motion, supple. LUNGS: Breath sounds equal, clear to auscultation bilaterally, no wheezes, no crackles, no accessory muscle use. HEART: Regular rate and rhythm, S1, S2 without murmur, rub or gallop. ABDOMEN: Soft, nontender, nondistended, normoactive bowel sounds, no guarding, no rebound, no hepatosplenomegaly, no masses. EXTREMITIES: 2+ pulses, warm, well-perfused, no edema. NEUROLOGICAL: Cranial nerves II through XII grossly intact. Normal speech, gait not observed. PSYCH: Normal mood, normal affect. SKIN: Warm, dry, normal turgor, no rashes or lesions noted Laboratory Results - last 24 hr 04/28/18 04/29/18 04/29/18 21:41 05:33 08:00 WBC 7.9 RBC 3.46 L Hgb 9.9 L Hct 31.5 L MCV 91.2 MCH 28.6 MCHC 31.4 L RDW 13.1 Plt Count 362 MPV 7.4 L Absolute Neuts (auto) 6.0 Neutrophils % 76.8 Lymphocytes % 14.0 Monocytes % 8.2 Eosinophils % 0.8 Basophils % 0.2 Sodium Potassium Chloride Carbon Dioxide Anion Gap BUN Creatinine Creat Clearance w eGFR POC Glucometer 204 119 Random Glucose Calcium Magnesium Total Bilirubin AST ALT Alkaline Phosphatase Total Protein Albumin 04/29/18 08:00 WBC RBC Hgb Hct MCV MCH MCHC RDW Plt Count MPV Absolute Neuts (auto) Neutrophils % Lymphocytes % Monocytes % Eosinophils % Basophils % Sodium 137 Potassium 3.5 Chloride 105 Carbon Dioxide 23 Anion Gap 9 BUN 10 Creatinine 0.5 L Creat Clearance w eGFR > 60 POC Glucometer Random Glucose 97 D Calcium 8.2 L Magnesium 1.8 Total Bilirubin 0.8 AST 9 L ALT 7 L D Alkaline Phosphatase 49 Total Protein 4.7 L Albumin 2.4 L Active Medications Generic Name Dose Route Start Last Admin Trade Name Freq PRN Reason Stop Dose Admin Acetaminophen 1,000 mg 04/24/18 23:37 04/25/18 19:08 Ofirmev Injection - IVPB 1,000 mg Q6H PRN Administration PAIN LEVEL 6-10 Atorvastatin Calcium 20 mg 04/25/18 10:00 04/29/18 09:48 Lipitor - PO 20 mg DAILY MARY JO Administration Fentanyl 50 mcg 04/27/18 13:19 Sublimaze Injection - IVPUSH [id number] PRN PAIN-PACU ORDER X 4 DOSES ONLY Hydromorphone HCl 0.25 mg 04/27/18 13:19 04/28/18 22:02 Dilaudid Injection - IVPUSH 0.25 mg [id number] PRN Administration PAIN-PACU ORDER X 4 DOSES ONLY Insulin Aspart 0 units 04/21/18 16:30 04/29/18 07:04 Novolog Vial SQ Not Given ACHS MARY JO Protocol Lisinopril 2.5 mg 04/24/18 16:15 04/29/18 09:48 Prinivil PO Not Given DAILY MARY JO Lorazepam 0.25 mg 04/25/18 15:16 Ativan - PO TID PRN ANXIETY Zolpidem Tartrate 5 mg 04/22/18 22:00 04/28/18 22:02 Ambien - PO 5 mg HS PRN Administration INSOMNIA ASSESSMENT/PLAN: Isaura Robin is a 63-year-old female with partial SBO and newly diagnosed ileal mass. Admitting Diagnosis SBO Active Problems DM HTN HLD Insomnia A/P: # Partial SBO -abd xray repeat today, shows retained contrast in colon, distend loops consistent w/SBO -started on soft diet, tolerating -bariatric sx following #Diarrhea -stool studies pending -afebrile, no leukocytosis #Hypomagnesia-resolved -2grm IV given # Hypertension -At goal, continue home Lisinopril # Hyperlipidemia -Continue Atorvasatin # NIDDM -Hold Metformin -ISS F/E/N -NS 75 mL/hr while NPO Dispo:TBD Visit type - Emergency Visit Emergency Visit: Yes ED Registration Date: 04/21/18 Care time: The patient presented to the Emergency Department on the above date and was hospitalized for further evaluation of their emergent condition. - New Patient This patient is new to me today: No - Critical Care Critical Care patient: No
[2018-04-29] MEDS ORDERED: ZOLPIDEM TARTRATE 5 MG TABLET PO ONE (22:30)
[2018-04-29] MEDS: HYDROmorphone HCL 0.5 MG/0.5 ML SYRINGE IVPUSH PRN (23:25)
[2018-04-30] MEDS: INSULIN SLIDING SCALE (NOVOLOG) 1 VIAL SQ SCH ×2 (07:17→11:10)
[2018-04-30 08:11] LABS: BASO % 0.3 % (0-2.0); EOS % 1.4 % (0-4.5); HEMATOCRIT 30.2 % (32.4-45.2); HEMOGLOBIN 9.7 GM/dl (10.7-15.3); LYMPH % 13.5 % (8-40); MCH 29.2 pg (25.7-33.7); MEAN CELL VOLUME 91.3 fl (80-96); MEAN PLT VOLUME 6.9 fl (7.5-11.1); MONO % 9.3 % (3.8-10.2); NEUT % 75.5 % (42.8-82.8); PLATELET COUNT 340 K/MM3 (134-434); RBC 3.31 M/mm3 (3.60-5.2); RDW 12.9 % (11.6-15.6); WHITE BLOOD COUNT 6.8 K/mm3 (4.0-10.8)
[2018-04-30 08:15] LABS: ALBUMIN 2.4 g/dl (3.5-5.0); ALK PHOS 52 U/L (32-92); ANION GAP 7 MMOL/L (8-16); BILIRUBIN,TOTAL 0.6 mg/dl (0.2-1.0); BLOOD UREA NITROGEN 11 mg/dl (7-18); CALCIUM 8.3 mg/dl (8.4-10.2); CHLORIDE 106 mmol/L (98-107); CO2 24 mmol/L (22-28); CREATININE 0.5 mg/dl (0.6-1.3); GLUCOSE,RANDOM 100 mg/dl (74-106); MAGNESIUM 1.6 mg/dL (1.8-2.4); POTASSIUM 3.5 mmol/L (3.5-5.1); SGOT/AST 9 U/L (10-42); SGPT/ALT 8 U/L (10-40); SODIUM 137 mmol/L (136-145); TOT PROT 4.9 g/dl (6.4-8.3)
[2018-04-30] MEDS ORDERED: MAGNESIUM SULF 50% (8.12 MEQ/2 ML-1 GM VIAL) IVPB ONE (08:47)
--- NOTE | 2018-04-30 09:11 | PN ---
Physical Exam: SUBJECTIVE: Patient seen and examined at [facility]. Continuous Improvement Facilitator visiting. OBJECTIVE: Vital Signs Period Temp Pulse Resp BP Sys/Pemberton Pulse Ox Last 24 Hr 97.4 F-97.9 F 61-73 17-18 98-119/48-83 98-100 GENERAL: The patient is awake, alert, and fully oriented LUNGS: Breath sounds equal, clear to auscultation bilaterally, no wheezes, no crackles, no accessory muscle use. HEART: Regular rate and rhythm, S1, S2 ABDOMEN: Soft, nontender, nondistended EXTREMITIES: 2+ pulses, warm, well-perfused, no edema. NEUROLOGICAL: Cranial nerves II through XII grossly intact. Normal speech Laboratory Results - last 24 hr 04/27/18 04/29/18 04/29/18 07:25 08:00 08:00 WBC 7.9 RBC 3.46 L Hgb 9.9 L Hct 31.5 L MCV 91.2 MCH 28.6 MCHC 31.4 L RDW 13.1 Plt Count 362 MPV 7.4 L Absolute Neuts (auto) 6.0 Neutrophils % 76.8 Lymphocytes % 14.0 Monocytes % 8.2 Eosinophils % 0.8 Basophils % 0.2 Sodium 137 Potassium 3.5 Chloride 105 Carbon Dioxide 23 Anion Gap 9 BUN 10 Creatinine 0.5 L Creat Clearance w eGFR > 60 POC Glucometer Random Glucose 97 D Calcium 8.2 L Magnesium 1.8 Total Bilirubin 0.8 AST 9 L ALT 7 L D Alkaline Phosphatase 49 Total Protein 4.7 L Albumin 2.4 L Crossmatch IS Only See Detail 04/29/18 04/29/18 04/29/18 12:02 16:38 21:15 WBC RBC Hgb Hct MCV MCH MCHC RDW Plt Count MPV Absolute Neuts (auto) Neutrophils % Lymphocytes % Monocytes % Eosinophils % Basophils % Sodium Potassium Chloride Carbon Dioxide Anion Gap BUN Creatinine Creat Clearance w eGFR POC Glucometer 138 122 130 Random Glucose Calcium Magnesium Total Bilirubin AST ALT Alkaline Phosphatase Total Protein Albumin Crossmatch IS Only 04/30/18 04/30/18 04/30/18 06:49 07:03 07:03 WBC 6.8 RBC 3.31 L Hgb 9.7 L Hct 30.2 L MCV 91.3 MCH 29.2 MCHC 32.0 RDW 12.9 Plt Count 340 MPV 6.9 L Absolute Neuts (auto) 5.2 Neutrophils % 75.5 Lymphocytes % 13.5 Monocytes % 9.3 Eosinophils % 1.4 Basophils % 0.3 Sodium 137 Potassium 3.5 Chloride 106 Carbon Dioxide 24 Anion Gap 7 L BUN 11 Creatinine 0.5 L Creat Clearance w eGFR > 60 POC Glucometer 92 Random Glucose 100 Calcium 8.3 L Magnesium 1.6 L Total Bilirubin 0.6 AST 9 L ALT 8 L Alkaline Phosphatase 52 Total Protein 4.9 L Albumin 2.4 L Crossmatch IS Only Active Medications Generic Name Dose Route Start Last Admin Trade Name Freq PRN Reason Stop Dose Admin Acetaminophen 1,000 mg 04/24/18 23:37 04/25/18 19:08 Ofirmev Injection - IVPB 1,000 mg Q6H PRN Administration PAIN LEVEL 6-10 Atorvastatin Calcium 20 mg 04/25/18 10:00 04/29/18 09:48 Lipitor - PO 20 mg DAILY MARY JO Administration Hydromorphone HCl 0.5 mg 04/29/18 22:51 04/29/18 23:25 Dilaudid IVPUSH 0.5 mg Q3H PRN Administration PAIN LEVEL 6-10 Insulin Aspart 1 vial 04/30/18 07:00 04/30/18 07:17 Novolog Vial Sliding Scale - SQ Not Given ACHS [facility] Protocol Lisinopril 2.5 mg 04/24/18 16:15 04/29/18 09:48 Prinivil PO Not Given DAILY [facility] Magnesium Sulfate 2 gm 04/30/18 08:47 Magnesium Sulfate IVPB 04/30/18 08:48 ONCE ONE Potassium Chloride 40 meq 04/30/18 10:00 K-Dur - PO 04/30/18 10:01 ONCE ONE ASSESSMENT/PLAN: 63 year-old female with a PMH significant for HTN, HLD, non-insulin dependent Type II diabetes, and s/p lap band surgery 2009. Admitted for partial SBO. Partial SBO --04/21 CTAP: 4.3 x 2.7cm partially lucent structure within the distal small bowel lumen within the paramedian aspect of the pelvis with resultant small bowel obstruction --04/24 GI series with small bowel: partial small bowel obstruction; 5cm mass in the ileum in the LLQ --on 04/27 decision made to defer surgery since abdominal xray showed improvement --04/28 did not tolerate food, had abdominal cramping, and a slight increase in small bowel distension on xray, and diarrhea --04/30 CTAP: done, pending dictation Hypertension --BP stable --continue lisinopril Hyperlipidemia --continue atorvastatin NIDDM, Type II --Novolog sliding scale coverage Hypokalemia --repleted Hypomagnesemia --repleted FEN Fluids: NS @ 125mL/hr while NPO Electrolytes: replete as indicated Nutrition: NPO DVT prophylaxis: SCDs, oob, ambulation; hold chemical prophylaxis due to pending surgical intervention. Visit type - Emergency Visit Emergency Visit: Yes ED Registration Date: 04/21/18 Care time: The patient presented to the Emergency Department on the above date and was hospitalized for further evaluation of their emergent condition. - New Patient This patient is new to me today: No - Critical Care Critical Care patient: No
[2018-04-30] MEDS ORDERED: POTASSIUM CHLORIDE TABS 20 MEQ TABLET.ER (FP) PO ONE (10:00)
[2018-04-30] MEDS: ATORVASTATIN CA 20 MG TABLET (FP) PO SCH (10:05)
[2018-04-30] MEDS: LISINOPRIL 5 MG TABLET (FP) PO SCH (10:05)
[2018-04-30] MEDS: SODIUM CHLORIDE 1,000 ML IV SCH (13:45)
--- NOTE | 2018-04-30 13:54 | PN ---
Progress Note (short form) - Note Progress Note: Bariatric Surgery Pt unchanged Pain on po soft diet NO N/V CT scan- intraluminal mass/obstruction at mid-pelvis in midline Abd x-ray- continued partial SB obstruction P- Discussed with pt. Will perform exploraty surgery tomorrow with probable bowel resection
[2018-04-30] MEDS: HYDROmorphone HCL 0.5 MG/0.5 ML SYRINGE IVPUSH PRN (19:30)
[2018-04-30] MEDS ORDERED: ZOLPIDEM TARTRATE 5 MG TABLET PO ONE (22:00)
[2018-05-01] MEDS: HYDROmorphone HCL 0.5 MG/0.5 ML SYRINGE IVPUSH PRN ×2 (01:54→20:34)
[2018-05-01] MEDS: INSULIN SLIDING SCALE (NOVOLOG) 1 VIAL SQ SCH ×4 (08:20→22:00)
[2018-05-01 08:34] LABS: ALBUMIN 2.6 g/dl (3.5-5.0); ALK PHOS 56 U/L (32-92); ANION GAP 6 MMOL/L (8-16); BILIRUBIN,TOTAL 0.5 mg/dl (0.2-1.0); BLOOD UREA NITROGEN 8 mg/dl (7-18); CALCIUM 8.2 mg/dl (8.4-10.2); CHLORIDE 105 mmol/L (98-107); CO2 24 mmol/L (22-28); CREATININE 0.5 mg/dl (0.6-1.3); GLUCOSE,RANDOM 107 mg/dl (74-106); MAGNESIUM 1.7 mg/dL (1.8-2.4); POTASSIUM 4.2 mmol/L (3.5-5.1); SGOT/AST 12 U/L (10-42); SGPT/ALT 8 U/L (10-40); SODIUM 135 mmol/L (136-145); TOT PROT 5.4 g/dl (6.4-8.3)
[2018-05-01 08:37] LABS: BASO % 0.3 % (0-2.0); EOS % 0.7 % (0-4.5); HEMATOCRIT 31.7 % (32.4-45.2); LYMPH % 12.5 % (8-40); MCH 28.7 pg (25.7-33.7); MCHC 31.5 g/dl (32.0-36.0); MEAN CELL VOLUME 91.3 fl (80-96); MONO % 9.8 % (3.8-10.2); NEUT % 76.7 % (42.8-82.8); PLATELET COUNT 380 K/MM3 (134-434); RBC 3.48 M/mm3 (3.60-5.2); RDW 12.8 % (11.6-15.6); WHITE BLOOD COUNT 8.3 K/mm3 (4.0-10.8)
[2018-05-01] MEDS: LISINOPRIL 5 MG TABLET (FP) PO SCH (09:26)
[2018-05-01] MEDS: ATORVASTATIN CA 20 MG TABLET (FP) PO SCH (09:26)
--- NOTE | 2018-05-01 09:53 | PN ---
Physical Exam: SUBJECTIVE: Patient seen and examined. Friends present. Anxious, tearful about surgery later today. OBJECTIVE: Vital Signs Period Temp Pulse Resp BP Sys/Pemberton Pulse Ox Last 24 Hr 97.6 F-98.5 F 64-90 16-17 114-128/49-59 100-100 GENERAL: The patient is awake, alert, and fully oriented LUNGS: Breath sounds equal, clear to auscultation bilaterally, no wheezes, no crackles, no accessory muscle use. HEART: Regular rate and rhythm, S1, S2 ABDOMEN: Soft, nontender, nondistended EXTREMITIES: 2+ pulses, warm, well-perfused, no edema. NEUROLOGICAL: Cranial nerves II through XII grossly intact. Normal speech Laboratory Results - last 24 hr 04/29/18 05/01/18 05/01/18 10:30 06:43 07:35 WBC 8.3 RBC 3.48 L Hgb 10.0 L Hct 31.7 L MCV 91.3 MCH 28.7 MCHC 31.5 L RDW 12.8 Plt Count 380 MPV 7.0 L Absolute Neuts (auto) 6.4 Neutrophils % 76.7 Lymphocytes % 12.5 Monocytes % 9.8 Eosinophils % 0.7 Basophils % 0.3 Sodium Potassium Chloride Carbon Dioxide Anion Gap BUN Creatinine Creat Clearance w eGFR POC Glucometer 103 Random Glucose Calcium Magnesium Total Bilirubin AST ALT Alkaline Phosphatase Total Protein Albumin TSH Stool O & P Wet Mount Cancelled O & P Permanent Slide Cancelled Fungal Cult Result 2 Cancelled 05/01/18 07:35 WBC RBC Hgb Hct MCV MCH MCHC RDW Plt Count MPV Absolute Neuts (auto) Neutrophils % Lymphocytes % Monocytes % Eosinophils % Basophils % Sodium 135 L Potassium 4.2 Chloride 105 Carbon Dioxide 24 Anion Gap 6 L BUN 8 Creatinine 0.5 L Creat Clearance w eGFR > 60 POC Glucometer Random Glucose 107 H Calcium 8.2 L Magnesium 1.7 L Total Bilirubin 0.5 AST 12 D ALT 8 L Alkaline Phosphatase 56 Total Protein 5.4 L Albumin 2.6 L TSH 0.99 Stool O & P Wet Mount O & P Permanent Slide Fungal Cult Result 2 Active Medications Generic Name Dose Route Start Last Admin Trade Name Freq PRN Reason Stop Dose Admin Acetaminophen 1,000 mg 04/24/18 23:37 04/25/18 19:08 Ofirmev Injection - IVPB 1,000 mg Q6H PRN Administration PAIN LEVEL 6-10 Atorvastatin Calcium 20 mg 04/25/18 10:00 05/01/18 09:26 Lipitor - PO Not Given DAILY MARY JO Hydromorphone HCl 0.5 mg 04/29/18 22:51 05/01/18 01:54 Dilaudid IVPUSH 0.5 mg Q3H PRN Administration PAIN LEVEL 6-10 Sodium Chloride 1,000 mls @ 125 mls/hr 04/30/18 13:30 04/30/18 13:45 Normal Saline - IV 125 mls/hr ASDIR MARY JO Administration Insulin Aspart 1 vial 04/30/18 07:00 05/01/18 08:20 Novolog Vial Sliding Scale - SQ Not Given ACHS MARY JO Protocol Lisinopril 2.5 mg 04/24/18 16:15 05/01/18 09:26 Prinivil PO Not Given DAILY MARY JO ASSESSMENT/PLAN: 63 year-old female with a PMH significant for HTN, HLD, non-insulin dependent Type II diabetes, and s/p lap band surgery 2009. Admitted for partial SBO. Partial SBO --04/21 CTAP: 4.3 x 2.7cm partially lucent structure within the distal small bowel lumen within the paramedian aspect of the pelvis with resultant small bowel obstruction --04/24 GI series with small bowel: partial small bowel obstruction; 5cm mass in the ileum in the LLQ --on 04/27 decision made to defer surgery since abdominal xray showed improvement --04/28 did not tolerate food, had abdominal cramping, and a slight increase in small bowel distension on xray, and diarrhea; made NPO again --04/30 CTAP: done, pending dictation --to OR today with Dr. Walsh Hypertension --BP stable --continue lisinopril Hyperlipidemia --continue atorvastatin NIDDM, Type II --Novolog sliding scale coverage Hypokalemia --repleted Hypomagnesemia --repleted FEN Fluids: NS @ 125mL/hr while NPO Electrolytes: replete as indicated Nutrition: NPO DVT prophylaxis: SCDs, oob, ambulation; hold chemical prophylaxis due to pending surgical intervention. Visit type - Emergency Visit Emergency Visit: Yes ED Registration Date: 04/21/18 Care time: The patient presented to the Emergency Department on the above date and was hospitalized for further evaluation of their emergent condition. - New Patient This patient is new to me today: No - Critical Care Critical Care patient: No
[2018-05-01] MEDS ORDERED: ceFAZolin SODIUM 1 GM VIAL ONE (10:35)
[2018-05-01] MEDS ORDERED: DEXAMETHASONE SOD PHOSPHATE 4 MG/1 ML VIAL ONE (10:35)
[2018-05-01] MEDS ORDERED: ONDANSETRON 4 MG/2 ML VIAL ONE ×2 (10:35→17:12)
[2018-05-01] MEDS ORDERED: LIDOCAINE HCL/PF 2% SDV 5ML VIAL ONE (10:35)
[2018-05-01] MEDS ORDERED: PROPOFOL 20 ML ONE (10:37)
[2018-05-01] MEDS ORDERED: ROCURONIUM BROMIDE 50 MG/5 ML VIAL ONE (10:40)
[2018-05-01] MEDS ORDERED: PHENYLEPHRINE HCL 10 MG/1 ML SINGLE DOSE VIAL ONE (10:44)
[2018-05-01] MEDS ORDERED: BUPIVACAINE HCL/PF 2.5 MG/ML - 30 ML VIAL IJ ONE (12:33)
[2018-05-01] MEDS ORDERED: DEXAMETHASONE SOD PHOSPHATE/PF 10 MG/ML SDV ONE (12:33)
[2018-05-01] MEDS ORDERED: MIDAZOLAM HCL 2 MG/2 ML SINGLE DOSE VIAL ONE (12:33)
[2018-05-01] MEDS: SODIUM CHLORIDE 1,000 ML IV SCH (13:59)
[2018-05-01] MEDS ORDERED: SODIUM CHLORIDE 1,000 ML IV SCH (16:00)
--- NOTE | 2018-05-01 16:25 | OP ---
Operative Note - Note: Operative Date: 05/01/18 Pre-Operative Diagnosis: Partial Small Bowel Obstruction Operation: Small Bowel Resection. Exploratory Laparotomy. Diagnostic Laparoscopy Findings: In Mid-area of small bowel, 3 hard intralumial structures identified and Small Bowel Resection performed. SB opened and hard stool/gallstones noted with a piece of plastic. Gallbladder checked and no obvious fistula noted. SB explored from Ligament of Treitz to ileocecal valve and no fistula noted. Post-Operative Diagnosis: Same as Pre-op (Small Bowel foreign body) Surgeon: Dze Walsh [id number] Application Developer: Christa Carson Anesthesia: General Specimens Removed: 12 inches of small bowel Estimated Blood Loss (mls): 100 Operative Report Dictated: Yes
--- NOTE | 2018-05-01 18:00 | OP ---
DATE OF OPERATION: 05/01/2018 PREOPERATIVE DIAGNOSIS: Partial small bowel obstruction. POSTOPERATIVE DIAGNOSIS: 1. Partial small bowel obstruction. 2. Foreign body in small bowel. PROCEDURE PERFORMED: 1. Resection of small bowel plus primary anastomosis. 2. Exploratory laparoscopy. 3. Diagnostic laparoscopy. OPERATING SURGEON: Dez Walsh M.D. ASSISTANT COMMUNITY MANAGER: Devin Mayer ANESTHESIA: General. OPERATIVE PROCEDURE: Patient was brought to the operating room, placed on the OR table in a supine position. All precautions were taken initially including padding for the back, and Venodyne boots were placed on both lower extremities. At that point, the abdomen was prepped and draped in the usual manner. A Veress needle was placed in the left upper quadrant, and pneumoperitoneum was established. A number 5 bladeless trocar was then placed with the help of a laparoscope to be guided directly into the abdominal cavity with no signs of any injury to surrounding structures. Once this was done, the camera was placed through the trocar and evaluation of the abdomen was performed. The patient had a previous section, but there were no signs of any adhesions in the lower midline of the abdomen. There was noted to be loops of bowel that were moderately distended, and this was confirmed with the preoperative abdominal x-rays and also the CAT scan. However, it was felt that manipulating the bowel contents with laparoscopic instruments may miss a very small foreign body or the pathology that was expected in the bowel, in the small intestine. Therefore, it was decided that exploratory laparotomy would be performed. An incision was made in the midline from about 4 cm above the umbilicus, carried around the umbilicus and down to approximately 4 cm before the symphysis pubis. The incision was carried down through skin and subcutaneous tissue, down to the linea alba in the midline. Linea alba was opened, and the perineum was entered. Upon entering the peritoneum, small bowel was partially distended. At this point, the small bowel was run and the ligament of Treitz was noted, and it was run distally through the jejunum and the entire ileum until the ileocecal valve was reached, and the cecum was noted. The appendix was noted and appeared normal. Of note, there were a few findings: one, the cecum was very floppy, was able to be mobilized all the way to the left side. The right colon in fact did not appear to have its normal attachment, and the right colon could be easily mobilized to the midline or beyond. Right colon and the cecum appeared normal, for this was placed back into its normal position. Attention was now directed to the small bowel content. Making the exploration now more slowly from ligament of Treitz through the jejunum, there was some mild distention of jejunum, but no signs of obvious complete bowel obstruction. There was noticed from the patient's previous surgery to be adhesions between loops of jejunum, and this did not appear to cause any obstruction. The adhesions however were thicker than normal, decided not to lyse these on risk of bowel injury. At about the transition point when the jejunum and the ileum, the distal was more collapsed. There was found to be a hard structure, and there were found to be 3 of them probably within about 15 to 20 cm of each other. They could possibly be moved along, but it was not easy, and it felt like they were partially impacted in this area. Feeling that this could be the pathology, it was decided that a small bowel resection would be performed here, and then it would be opened to see to confirm it. At that point, approximately 4 to 5 cm proximal to the most proximal foreign body and 4 to 5 cm distal to the most distal, hemostat was placed into the mesentery just below the small bowel. Once the opening was made, GIA60 staple was placed across the bowel and fired. This was done both proximally and distally. At this point electrocautery was used to score the peritoneum of the mesentery, and then a series of clamps were placed across the mesentery, and the mesentery was resected, and the small bowel was resected, and the clamps were tied with 2-0 silk suture. When this was completed, approximately 1 foot of bowel was resected. This was then opened up on the back table away from the operating table, and it was found that there were 3 areas of hard what first appeared to be stool, but 2nd observation it is possible that it could be gallstone. Knowing that this could represent a gallstone ileus, there was also found to be behind one of the stones, the piece of plastic folded up, which may have been the patient ingested by accident. Plastic however appeared to be behind the hard structures, so this was unlikely to cause the partial obstruction, and most likely it was the hard structures which then could be either very hard stool or gallstones. Attention was now directed back to the abdominal cavity with resected small bowel. There was about 3 cm of small bowel which appeared to be a little dusky, so this was resected farther back in a similar manner with a ELLIE stapler placed across the bowel and the mesentery dissected with clamps. This small piece of intestine then went with the rest of the small bowel and the rest of the specimen. Attention was directed toward the right upper quadrant where a look at the gallbladder was warranted. The gallbladder appeared intact. There was some scar tissue there, but again the small bowel was run from ligament of Treitz all the way down to ileocecal valve, and there was no connection to the gallbladder at all, in fact there were no signs of what could have been a previous fistula. Although vision was a little bit difficult, there was found to be no extreme evidence of an active fistula between the gallbladder and any other structure in the abdominal cavity. Attention was now directed back to the resected small bowel. The 2 loops were brought together side by side and held there with 2-0 silk suture. An opening was made into each loop with electrocautery, and then a ELLIE staple was introduced into the lumen of the small bowel and fired. When withdrawn, it was checked at the staple line was intact and no bleeding was noted. The opening in the small bowel was then closed with sutures in 2 layers with the 1st being 3-0 Vicryl on the mucosa and serosa in an interrupted fashion followed by 3-0 silk on the serosal layer. When this was completed, 3-0 Vicryl was used to close the mesentery to prevent internal hernia. At this point the final exploration was performed of the abdominal cavity, and now the bowel was placed back in the abdominal cavity. Closure was performed with a number 1 PDS in a continuous fashion on the fascia followed by 3-0 Vicryl on the subcutaneous tissue. The skin was closed with yobany in interrupted fashion. Dressings were applied. Patient was awoken from anesthesia and transferred out of the operating room to the recovery room in stable condition. ANESTHESIA: General. SURGEON: Dez Walsh M.D. ASSISTANT COMMUNITY MANAGER: Devin Mayer EXPECTED BLOOD LOSS: 100 mL DISPOSITION: Patient transferred to recovery room in stable condition. Zaria MCGOWAN/[id number]
[2018-05-01] MEDS: LACTATED RINGERS SOLUTION 1,000 ML IV SCH (18:03)
[2018-05-01 18:22] LABS: HEMATOCRIT 32.2 % (32.4-45.2); HEMOGLOBIN 10.3 GM/dl (10.7-15.3); MCH 29.1 pg (25.7-33.7); MCHC 32.1 g/dl (32.0-36.0); MEAN CELL VOLUME 90.7 fl (80-96); MEAN PLT VOLUME 6.5 fl (7.5-11.1); PLATELET COUNT 384 K/MM3 (134-434); RBC 3.55 M/mm3 (3.60-5.2); RDW 12.1 % (11.6-15.6); WHITE BLOOD COUNT 7.2 K/mm3 (4.0-10.8)
[2018-05-01 18:26] LABS: ALBUMIN 2.3 g/dl (3.5-5.0); ALK PHOS 56 U/L (32-92); ANION GAP 6 MMOL/L (8-16); BILIRUBIN,TOTAL 0.8 mg/dl (0.2-1.0); BLOOD UREA NITROGEN 10 mg/dl (7-18); CALCIUM 7.9 mg/dl (8.4-10.2); CHLORIDE 107 mmol/L (98-107); CO2 20 mmol/L (22-28); GLUCOSE,RANDOM 176 mg/dl (74-106); POTASSIUM 3.9 mmol/L (3.5-5.1); SGOT/AST 11 U/L (10-42); SGPT/ALT 9 U/L (10-40); SODIUM 133 mmol/L (136-145); TOT PROT 4.9 g/dl (6.4-8.3)
[2018-05-01 18:27] LABS: CREATININE < 0.6 mg/dl (0.6-1.3)
[2018-05-01] MEDS: FAMOTIDINE 20 MG/50 ML IVPB 20 MG/50 ML MG IVPB SCH (22:16)
[2018-05-02] MEDS: HYDROmorphone HCL 0.5 MG/0.5 ML SYRINGE IVPUSH PRN ×2 (05:35→08:35)
--- NOTE | 2018-05-02 06:00 | SURG ---
Surgery Plant Custodian Note Plant Custodian: Christa Carson PA-C Date of Service: 05/02/18 Diagnosis: Partial Small Bowel Obstruction Procedure: Small Bowel Resection. Exploratory Laparotomy. Diagnostic Laparoscopy I was present for the entirety of the operative procedure. For further detail, please refer to operative report. Visit type - Case Type Case Type: ED Admission - Emergency Emergency Visit: No - New patient This patient is new to me today: Yes Date on this admission: 05/01/18
[2018-05-02] MEDS: INSULIN SLIDING SCALE (NOVOLOG) 1 VIAL SQ SCH ×4 (06:30→22:25)
--- NOTE | 2018-05-02 07:53 | PN ---
Progress Note (short form) - Note Progress Note: POD 1, s/p Small Bowel Resection. Exploratory Laparotomy. Diagnostic Laparoscopy Pt seen and examined. Doing "okay" this AM. States she slept the manjority of the night without issue. Has not been oob but is moving within bed without significant issue. Tolerating ice chips without n/v. Pain is currently controlled (received IV Dilaudid .5mg this AM), however pt endorses significant pain/discomfort throughout the day, requesting additional analgesia. Denies cp/ sob, n/v/d, calf pain or tenderness. Vital Signs Temp 98.1 F 05/02/18 06:00 Pulse 81 05/02/18 06:00 Resp 19 05/02/18 06:00 BP 143/55 L 05/02/18 06:00 Pulse Ox 100 05/02/18 06:29 Intake & Output 05/01/18 05/01/18 05/02/18 11:59 23:59 11:59 Intake Total 1500 2875 1400 Output Total 450 400 Balance 1500 2425 1000 Intake: IV 1500 2325 1400 Lactated Ringers Solution 1400 1,000 ml @ 125 mls/hr IV ASDIR MARY JO Rx#: [id number] NORMAL SALINE 1500 Normal Saline - 1,000 ml 375 @ 125 mls/hr IV ASDIR MARY JO Rx#:[id number] IVPB 50 Other 500 Output: Gastric Drainage 50 Urine 350 350 Hernandez 350 Estimated Blood Loss 100 Other: Voiding Method Toilet Toilet Toilet Bowel Movement No AM labs pending Gen: awake, alert, in nad Resp: cta b/l CV: rrr, s1s2 Abdomen: soft, nt/nd, dressing c/d/i, minimal hypoactive bowel sounds. Groin: hernandez in place with approx 100ml concentrated urine in bag Ext: b/l scds in place and on. A/P: 63 y/o F w/ PMHx HTN, HLD, non-insulin dependent Type II diabetes, h/o lap band surgery 2009, admitted 04/21 for partial SBO, now POD 1, s/p Small Bowel Resection. Exploratory Laparotomy. Diagnostic Laparoscopy. Afebrile, VSS. Hernandez output 350ml overnight. NG output 50ml overnight. Labs pending for this AM -Dilaudid increased to 1mg q3h -Zofran prn n/v -May have Ice chips, npo otherwise -FS, ISS -B/L scds at all times while in bed -OOB with assistance as tolerated -Incentive spirometry strongly encouraged -VS per routine -Continue IVF LR @125mls/hr -Keep hernandez and NG tube in place at this time -Strict I&Os above d/w attending Dr Walsh
[2018-05-02 07:59] LABS: HEMATOCRIT 31.9 % (32.4-45.2); HEMOGLOBIN 10.1 GM/dl (10.7-15.3); MCHC 31.8 g/dl (32.0-36.0); MEAN CELL VOLUME 91.3 fl (80-96); MEAN PLT VOLUME 6.7 fl (7.5-11.1); PLATELET COUNT 417 K/MM3 (134-434); RBC 3.49 M/mm3 (3.60-5.2); RDW 12.6 % (11.6-15.6); WHITE BLOOD COUNT 10.3 K/mm3 (4.0-10.8)
[2018-05-02 08:03] LABS: ALBUMIN 2.2 g/dl (3.5-5.0); ALK PHOS 53 U/L (32-92); ANION GAP 10 MMOL/L (8-16); BILIRUBIN,TOTAL 0.8 mg/dl (0.2-1.0); BLOOD UREA NITROGEN 13 mg/dl (7-18); CALCIUM 8.3 mg/dl (8.4-10.2); CHLORIDE 105 mmol/L (98-107); CO2 20 mmol/L (22-28); CREATININE 0.5 mg/dl (0.6-1.3); GLUCOSE,RANDOM 135 mg/dl (74-106); MAGNESIUM 1.5 mg/dL (1.8-2.4); POTASSIUM 3.9 mmol/L (3.5-5.1); SGOT/AST 10 U/L (10-42); SGPT/ALT 8 U/L (10-40); SODIUM 135 mmol/L (136-145)
--- NOTE | 2018-05-02 09:02 | PN ---
Physical Exam: SUBJECTIVE: Patient seen and examined at bedside. Has abdominal discomfort but not pain. Feels tired but very pleased how surgery went. OBJECTIVE: Vital Signs Period Temp Pulse Resp BP Sys/Pemberton Pulse Ox Last 24 Hr 97.3 F-98.2 F 70-85 11-19 124-143/55-77 96-100 GENERAL: The patient is awake, alert, and fully oriented HEENT: NGT to low wall suction, minimal light green fluid output LUNGS: Breath sounds equal, clear to auscultation bilaterally, no wheezes, no crackles, no accessory muscle use. HEART: Regular rate and rhythm, S1, S2 ABDOMEN: Entire abdomen covered with sterile dressing, c/d/i EXTREMITIES: 2+ pulses, warm, well-perfused, no edema. No calf tenderness NEUROLOGICAL: Cranial nerves II through XII grossly intact. Normal speech Laboratory Results - last 24 hr 05/01/18 05/01/18 05/01/18 07:35 11:20 16:31 WBC RBC Hgb Hct MCV MCH MCHC RDW Plt Count MPV Sodium Potassium Chloride Carbon Dioxide Anion Gap BUN Creatinine Creat Clearance w eGFR POC Glucometer 99 141 Random Glucose Calcium Magnesium Total Bilirubin AST ALT Alkaline Phosphatase Total Protein Albumin TSH 0.99 05/01/18 05/01/18 05/01/18 18:00 18:00 22:18 WBC 7.2 RBC 3.55 L Hgb 10.3 L Hct 32.2 L MCV 90.7 MCH 29.1 MCHC 32.1 RDW 12.1 Plt Count 384 MPV 6.5 L Sodium 133 L Potassium 3.9 Chloride 107 Carbon Dioxide 20 L Anion Gap 6 L BUN 10 Creatinine < 0.6 L Creat Clearance w eGFR > 60 POC Glucometer 141 Random Glucose 176 H D Calcium 7.9 L Magnesium Total Bilirubin 0.8 AST 11 ALT 9 L Alkaline Phosphatase 56 Total Protein 4.9 L Albumin 2.3 L TSH 05/02/18 05/02/18 05/02/18 06:02 07:15 07:15 WBC 10.3 RBC 3.49 L Hgb 10.1 L Hct 31.9 L MCV 91.3 MCH 29.0 MCHC 31.8 L RDW 12.6 Plt Count 417 MPV 6.7 L Sodium 135 L Potassium 3.9 Chloride 105 Carbon Dioxide 20 L Anion Gap 10 BUN 13 Creatinine 0.5 L Creat Clearance w eGFR > 60 POC Glucometer 135 Random Glucose 135 H D Calcium 8.3 L Magnesium 1.5 L Total Bilirubin 0.8 AST 10 ALT 8 L Alkaline Phosphatase 53 Total Protein 5.0 L Albumin 2.2 L TSH Active Medications Generic Name Dose Route Start Last Admin Trade Name Freq PRN Reason Stop Dose Admin Acetaminophen 1,000 mg 04/24/18 23:37 04/25/18 19:08 Ofirmev Injection - IVPB 1,000 mg Q6H PRN Administration PAIN LEVEL 6-10 Atorvastatin Calcium 20 mg 04/25/18 10:00 05/01/18 09:26 Lipitor - PO Not Given DAILY MARY JO Hydromorphone HCl 1 mg 05/02/18 08:25 Dilaudid Injection - IVPUSH Q3H PRN PAIN LEVEL 6-10 Lactated Ringer's 1,000 mls @ 125 mls/hr 05/01/18 16:00 05/01/18 18:03 Lactated Ringers Solution IV Not Given ASDIR [facility] Famotidine/Sodium Chloride 20 mg in 50 mls @ 100 mls/hr 05/01/18 22:00 22:16 Pepcid 20 Mg Premixed Ivpb - IVPB 100 mls/hr BID MARY JO Administration Insulin Aspart 1 vial 04/30/18 07:00 05/02/18 06:30 Novolog Vial Sliding Scale - SQ Not Given ACHS [facility] Protocol Lisinopril 2.5 mg 04/24/18 16:15 05/01/18 09:26 Prinivil PO Not Given DAILY [facility] Ondansetron HCl 4 mg 05/01/18 15:47 Zofran Injection IVPUSH Q6H PRN NAUSEA AND/OR VOMITING ASSESSMENT/PLAN: 63 year-old female with a PMH significant for HTN, HLD, non-insulin dependent Type II diabetes, and s/p lap band surgery 2009. Admitted for partial SBO. This is hospital day #11. Partial SBO s/p lap small bowel resection, small bowel foreign body --POD #1 --NGT with 50cc's output light green fluid --pain presently well-managed --per surgery keep hernandez and NGT for now --afebrile, no leukocytosis, observe off antibiotics Hypertension --BP stable --continue lisinopril Hyperlipidemia --continue atorvastatin NIDDM, Type II --Novolog sliding scale coverage Hypokalemia --repleted Hypomagnesemia --repleted FEN Fluids: LR @ 125mL/hr while NPO Electrolytes: replete as indicated Nutrition: NPO except ice chips DVT prophylaxis: SCDs, oob, ambulation; Visit type - Emergency Visit Emergency Visit: Yes ED Registration Date: 04/21/18 Care time: The patient presented to the Emergency Department on the above date and was hospitalized for further evaluation of their emergent condition. - New Patient This patient is new to me today: No - Critical Care Critical Care patient: No
[2018-05-02] MEDS: LISINOPRIL 5 MG TABLET (FP) PO SCH (10:13)
[2018-05-02] MEDS: ATORVASTATIN CA 20 MG TABLET (FP) PO SCH (10:13)
[2018-05-02] MEDS: FAMOTIDINE 20 MG/50 ML IVPB 20 MG/50 ML MG IVPB SCH ×2 (10:15→21:54)
[2018-05-02] MEDS ORDERED: MAGNESIUM SULF 50% (8.12 MEQ/2 ML-1 GM VIAL) IVPB ONE (10:53)
--- NOTE | 2018-05-02 11:29 | PN ---
Progress Note (short form) - Note Progress Note: 63F POD1 s/p e-lap and bowel resection for partial SBO under GA-ETT. Pt states that pain moderately well controlled. Reports no anesthetic complications. AVSS. Continue current regimen.
[2018-05-02] MEDS: ONDANSETRON 4 MG/2 ML VIAL IVPUSH PRN (11:47)
[2018-05-02] MEDS: HYDROmorphone HCL CARPU-JECT 1 MG/1 ML DISP.SYRIN IVPUSH PRN ×3 (11:47→21:54)
[2018-05-02] MEDS ORDERED: MAGNESIUM SULFATE IN WATER 2 GM/50 ML IVPB IVPB ONE (12:00)
[2018-05-02] MEDS ORDERED: SODIUM CHLORIDE 500 ML IV STA ×2 (12:50→15:54)
[2018-05-02] MEDS: LACTATED RINGERS SOLUTION 1,000 ML IV SCH (17:21)
[2018-05-02] MEDS ORDERED: ZOLPIDEM TARTRATE 5 MG TABLET NGT ONE (23:00)
[2018-05-03] MEDS: INSULIN SLIDING SCALE (NOVOLOG) 1 VIAL SQ SCH ×4 (06:20→22:00)
[2018-05-03] MEDS: HYDROmorphone HCL CARPU-JECT 1 MG/1 ML DISP.SYRIN IVPUSH PRN ×3 (06:30→22:00)
--- NOTE | 2018-05-03 07:01 | PN ---
Progress Note (short form) - Note Progress Note: POD #2 No acute events over past 24 hours per RN notes. Doing well. Getting oob w/ assistance.. States she is hungry. Hasn't passed flatus or bm yet. A lot of belching. NGT remains on LWCS. Denies n/v/f/c, CP or SOB. Last Vital Signs Temp Pulse Resp BP Pulse Ox 97.7 F 70 18 128/52 L 97 05/03/18 06:00 05/03/18 06:00 05/03/18 06:00 05/03/18 06:00 05/03/18 06:50 OUTPUT /05/0805/02/18 05/02/18 05/02/18 05/03/18 05/03/18 06:00 12:48 18:30 18:50 06:39 06:50 NGT 50 200 200 Hernandez 350 300 300 300 PE GEN: alert. nad. PULM: cta bilat COR: rrr ABD: midline incision with yobany intact. Hypoactive bowel sounds. : hernandez to gravity Ext: b/l scds in place. soft. nt bilat. A/P: 63 y/o F w/ PMHx HTN, HLD, non-insulin dependent Type II diabetes, h/o lap band surgery 2009, admitted 04/21 for PSBO, now POD 2, s/p Ex-Lap w/ small bowel resection. - OOB and ambulate - Ice chips ONLY - SCDs at all times while in bed - Incentive spirometer - IVF 125mls/hr - Keep hernandez and NGT --> record output Q shift - Strict I&Os
--- NOTE | 2018-05-03 08:25 | PN ---
Physical Exam: SUBJECTIVE: Patient seen and examined at bedside. Nauseous. NGT clamped. OBJECTIVE: Vital Signs Period Temp Pulse Resp BP Sys/Pemberton Pulse Ox Last 24 Hr 97.7 F-98.6 F 70-76 16-18 100-140/50-67 97-100 GENERAL: The patient is awake, alert, and fully oriented HEENT: NGT clamped. 400cc's dark brown fluid past 24 hours LUNGS: Breath sounds equal, clear to auscultation bilaterally, no wheezes, no crackles, no accessory muscle use. HEART: Regular rate and rhythm, S1, S2 ABDOMEN: Vertical sterile dressing c/d/i; no surrounding erythema, warmth, fluctuance EXTREMITIES: 2+ pulses, warm, well-perfused, no edema. No calf tenderness NEUROLOGICAL: Cranial nerves II through XII grossly intact. Normal speech Laboratory Results - last 24 hr 05/02/18 05/02/18 05/02/18 07:15 07:15 11:41 WBC 10.3 RBC 3.49 L Hgb 10.1 L Hct 31.9 L MCV 91.3 MCH 29.0 MCHC 31.8 L RDW 12.6 Plt Count 417 MPV 6.7 L Sodium 135 L Potassium 3.9 Chloride 105 Carbon Dioxide 20 L Anion Gap 10 BUN 13 Creatinine 0.5 L Creat Clearance w eGFR > 60 POC Glucometer 120 Random Glucose 135 H D Calcium 8.3 L Magnesium 1.5 L Total Bilirubin 0.8 AST 10 ALT 8 L Alkaline Phosphatase 53 Total Protein 5.0 L Albumin 2.2 L 05/02/18 05/02/18 05/03/18 16:59 22:19 06:19 WBC RBC Hgb Hct MCV MCH MCHC RDW Plt Count MPV Sodium Potassium Chloride Carbon Dioxide Anion Gap BUN Creatinine Creat Clearance w eGFR POC Glucometer 120 136 88 Random Glucose Calcium Magnesium Total Bilirubin AST ALT Alkaline Phosphatase Total Protein Albumin Active Medications Generic Name Dose Route Start Last Admin Trade Name Freq PRN Reason Stop Dose Admin Acetaminophen 1,000 mg 04/24/18 23:37 04/25/18 19:08 Ofirmev Injection - IVPB 1,000 mg Q6H PRN Administration PAIN LEVEL 6-10 Atorvastatin Calcium 20 mg 04/25/18 10:00 05/02/18 10:13 Lipitor - PO 20 mg DAILY MARY JO Administration Hydromorphone HCl 1 mg 05/02/18 08:25 05/03/18 06:30 Dilaudid Injection - IVPUSH 1 mg Q3H PRN Administration PAIN LEVEL 6-10 Lactated Ringer's 1,000 mls @ 125 mls/hr 05/01/18 16:00 05/02/18 17:21 Lactated Ringers Solution IV 125 mls/hr ASDIR MARY JO Administration Famotidine/Sodium Chloride 20 mg in 50 mls @ 100 mls/hr 05/01/18 22:00 21:54 Pepcid 20 Mg Premixed Ivpb - IVPB 100 mls/hr BID MARY JO Administration Insulin Aspart 1 vial 04/30/18 07:00 05/03/18 06:20 Novolog Vial Sliding Scale - SQ Not Given ACHS MARY JO Protocol Lisinopril 2.5 mg 04/24/18 16:15 05/02/18 10:13 Prinivil PO 2.5 mg DAILY MARY JO Administration Ondansetron HCl 4 mg 05/01/18 15:47 05/02/18 11:47 Zofran Injection IVPUSH 4 mg Q6H PRN Administration NAUSEA AND/OR VOMITING ASSESSMENT/PLAN: 63 year-old female with a PMH significant for HTN, HLD, non-insulin dependent Type II diabetes, and s/p lap band surgery 2009. Admitted for partial SBO. This is hospital day #12. Partial SBO s/p lap small bowel resection, small bowel foreign body --POD #2 --NGT with 400 cc's overnight; clamped this am, surgery to determine if/when to remove --UOP ~ 25cc's/hr overnight after 1L challenge; Lasix IVP 40mg x 1; keep hernandez for now --pain well-managed --Zofran PRN --afebrile, no leukocytosis, continue to observe off antibiotics Hypertension --BP stable --continue lisinopril Hyperlipidemia --continue atorvastatin NIDDM, Type II --Novolog sliding scale coverage FEN Fluids: LR @ 125mL/hr while NPO Electrolytes: replete as indicated Nutrition: NPO except ice chips DVT prophylaxis: SCDs, oob, ambulation; Visit type - Emergency Visit Emergency Visit: Yes ED Registration Date: 04/21/18 Care time: The patient presented to the Emergency Department on the above date and was hospitalized for further evaluation of their emergent condition. - New Patient This patient is new to me today: No - Critical Care Critical Care patient: No
[2018-05-03] MEDS: FAMOTIDINE 20 MG/50 ML IVPB 20 MG/50 ML MG IVPB SCH ×2 (10:16→22:00)
[2018-05-03] MEDS: LISINOPRIL 5 MG TABLET (FP) PO SCH (10:16)
[2018-05-03] MEDS: ONDANSETRON 4 MG/2 ML VIAL IVPUSH PRN (10:16)
[2018-05-03] MEDS: ATORVASTATIN CA 20 MG TABLET (FP) PO SCH (10:16)
[2018-05-03] MEDS ORDERED: FUROSEMIDE 40 MG/4 ML INJECTABLE VIAL IVPUSH ONE (10:58)
--- NOTE | 2018-05-03 15:28 | PN ---
Progress Note (short form) - Note Progress Note: Bariatric Surgery Afebrile; VSS Pt doing well NGT- 200 cc while clamped P/E-Abd- incision clean, dry H/H-10.1/30.9(05/02) P- Increase OOB Cont NGT, NPO
[2018-05-03] MEDS: LACTATED RINGERS SOLUTION 1,000 ML IV SCH (16:13)
--- NOTE | 2018-05-03 16:38 | PATH ---
Surgical Pathology Report Patient Name: SUGEY SAMS Med. Rec. #: [id number] /Age/Gender: 1955 (Age: 63) / F Account: [id number] Location: [facility] MED-[facility] Taken: 05/01/2018 Received: 05/01/2018 Reported: 05/03/2018 Physicians: Dez Walsh M.D. Specimen(s) Received SMALL BOWEL PLUS INTRA LUMINAL CONTENTS Clinical History Small bowel obstruction, abdominal pain Final Diagnosis SMALL BOWEL PLUS INTRALUMINAL CONTENTS, RESECTION: SEGMENTS OF SMALL BOWEL SHOWING FOCI OF MUCOSAL NECROSIS, ULCERATION, ACUTE AND CHRONIC INFLAMMATORY INFILTRATE IN SUBMUCOSA, FOCALLY MUSCULARIS PROPRIA, AND SUBSEROSA, INVOLVING TWO UNDESIGNATED MARGINS. CONCRETION OF DRY COMPACT FAECES, CONSISTENT WITH FECALITH. Electronically Signed Kaley Quezada M.D. Gross Description Received in formalin labeled "small bowel plus intraluminal contents," is a 15 cm in length previously opened portion of small bowel with 2 stapled mucosal margin and moderate attached fat. The serosa is norman-calabrese and smooth. The mucosa is norman with normal folds. There is an additional 3.5 cm in length unremarkable portion of small bowel with 2 stapled mucosal margins separately received within the same container. The mucosa of the shorter length of bowel is norman with normal folds. No mucosal masses are identified. Also received within the same container are 2 norman-yellow fecaliths measuring 4.2 and 3.6 cm in greatest dimension. Supervisor Housecleaner sections are submitted in 7 cassettes as follows: 8-6-[id number] stapled mucosal margins from longer length of bowel; 2-5-ditrjgahafluko mucosa from longer length of bowel; 7-4-[id number] stapled mucosal margins from shorter length of bowel; 7-medical collections representative mucosa from shorter length of bowel. 05/02/201805/02/2018
[2018-05-03] MEDS: ZOLPIDEM TARTRATE 5 MG TABLET PO PRN (22:01)
[2018-05-04] MEDS: INSULIN SLIDING SCALE (NOVOLOG) 1 VIAL SQ SCH ×4 (06:42→22:16)
[2018-05-04 08:26] LABS: BASO % 0.3 % (0-2.0); HEMATOCRIT 30.2 % (32.4-45.2); HEMOGLOBIN 9.6 GM/dl (10.7-15.3); LYMPH % 11.1 % (8-40); MCH 28.5 pg (25.7-33.7); MCHC 31.6 g/dl (32.0-36.0); MEAN CELL VOLUME 90.3 fl (80-96); MEAN PLT VOLUME 6.6 fl (7.5-11.1); MONO % 14.4 % (3.8-10.2); NEUT % 73.2 % (42.8-82.8); PLATELET COUNT 357 K/MM3 (134-434); RBC 3.35 M/mm3 (3.60-5.2); RDW 12.6 % (11.6-15.6); WHITE BLOOD COUNT 5.5 K/mm3 (4.0-10.8)
[2018-05-04 08:32] LABS: ALBUMIN 2.1 g/dl (3.5-5.0); ALK PHOS 58 U/L (32-92); ANION GAP 8 MMOL/L (8-16); BILIRUBIN,TOTAL 0.7 mg/dl (0.2-1.0); BLOOD UREA NITROGEN 13 mg/dl (7-18); CALCIUM 8.1 mg/dl (8.4-10.2); CHLORIDE 103 mmol/L (98-107); CO2 26 mmol/L (22-28); CREATININE 0.4 mg/dl (0.6-1.3); GLUCOSE,RANDOM 78 mg/dl (74-106); MAGNESIUM 1.4 mg/dL (1.8-2.4); POTASSIUM 3.5 mmol/L (3.5-5.1); SGOT/AST 10 U/L (10-42); SGPT/ALT 8 U/L (10-40); SODIUM 137 mmol/L (136-145); TOT PROT 4.6 g/dl (6.4-8.3)
[2018-05-04] MEDS: FAMOTIDINE 20 MG/50 ML IVPB 20 MG/50 ML MG IVPB SCH ×2 (09:40→21:54)
[2018-05-04] MEDS: LISINOPRIL 5 MG TABLET (FP) PO SCH (09:41)
[2018-05-04] MEDS: ATORVASTATIN CA 20 MG TABLET (FP) PO SCH (09:41)
--- NOTE | 2018-05-04 09:57 | PN ---
Physical Exam: SUBJECTIVE: Patient seen and examined at bedside. NGT clamped. Denies nausea, abdominal pain. Tearful, discouraged. OBJECTIVE: Vital Signs Period Temp Pulse Resp BP Sys/Pemberton Pulse Ox Last 24 Hr 98 F-98.8 F 71-85 18-19 137-150/45-70 97-100 GENERAL: The patient is awake, alert, and fully oriented HEENT: NGT clamped LUNGS: Breath sounds equal, clear to auscultation bilaterally, no wheezes, no crackles, no accessory muscle use. HEART: Regular rate and rhythm, S1, S2 ABDOMEN: Vertical sterile dressing c/d/i; no surrounding erythema, warmth, fluctuance EXTREMITIES: 2+ pulses, warm, well-perfused, no edema. No calf tenderness NEUROLOGICAL: Cranial nerves II through XII grossly intact. Normal speech Laboratory Results - last 24 hr 05/03/18 05/03/18 05/03/18 11:22 16:07 21:27 WBC RBC Hgb Hct MCV MCH MCHC RDW Plt Count MPV Absolute Neuts (auto) Neutrophils % Lymphocytes % Monocytes % Eosinophils % Basophils % Sodium Potassium Chloride Carbon Dioxide Anion Gap BUN Creatinine Creat Clearance w eGFR POC Glucometer 97 103 80 Random Glucose Calcium Magnesium Total Bilirubin AST ALT Alkaline Phosphatase Total Protein Albumin 05/04/18 05/04/18 05/04/18 06:23 07:11 07:11 WBC 5.5 RBC 3.35 L Hgb 9.6 L Hct 30.2 L MCV 90.3 MCH 28.5 MCHC 31.6 L RDW 12.6 Plt Count 357 MPV 6.6 L Absolute Neuts (auto) 4.0 Neutrophils % 73.2 Lymphocytes % 11.1 Monocytes % 14.4 H Eosinophils % 1.0 Basophils % 0.3 Sodium 137 Potassium 3.5 Chloride 103 Carbon Dioxide 26 D Anion Gap 8 BUN 13 Creatinine 0.4 L Creat Clearance w eGFR > 60 POC Glucometer 88 Random Glucose 78 D Calcium 8.1 L Magnesium 1.4 L Total Bilirubin 0.7 AST 10 ALT 8 L Alkaline Phosphatase 58 Total Protein 4.6 L Albumin 2.1 L Active Medications Generic Name Dose Route Start Last Admin Trade Name Freq PRN Reason Stop Dose Admin Acetaminophen 1,000 mg 04/24/18 23:37 04/25/18 19:08 Ofirmev Injection - IVPB 1,000 mg Q6H PRN Administration PAIN LEVEL 6-10 Atorvastatin Calcium 20 mg 04/25/18 10:00 05/04/18 09:41 Lipitor - PO 20 mg DAILY MARY JO Administration Hydromorphone HCl 1 mg 05/02/18 08:25 05/03/18 22:00 Dilaudid Injection - IVPUSH 1 mg Q3H PRN Administration PAIN LEVEL 6-10 Lactated Ringer's 1,000 mls @ 125 mls/hr 05/01/18 16:00 05/03/18 16:13 Lactated Ringers Solution IV 125 mls/hr ASDIR MARY JO Administration Famotidine/Sodium Chloride 20 mg in 50 mls @ 100 mls/hr 05/01/18 22:00 09:40 Pepcid 20 Mg Premixed Ivpb - IVPB 100 mls/hr BID MARY JO Administration Insulin Aspart 1 vial 04/30/18 07:00 05/04/18 06:42 Novolog Vial Sliding Scale - SQ Not Given ACHS MARY JO Protocol Lisinopril 2.5 mg 04/24/18 16:15 05/04/18 09:41 Prinivil PO 2.5 mg DAILY MARY JO Administration Zolpidem Tartrate 5 mg 05/03/18 09:15 05/03/18 22:01 Ambien - PO 5 mg HS PRN Administration INSOMNIA ASSESSMENT/PLAN: 63 year-old female with a PMH significant for HTN, HLD, non-insulin dependent Type II diabetes, and s/p lap band surgery 2009. Admitted for partial SBO. This is hospital day #13. Partial SBO s/p lap small bowel resection, small bowel foreign body 05/01/18 --POD #3 --NGT clamped yesterday but increased output and nausea; clamped again this morning --put out >4L urine after one dose IV lasix; d/c hernandez --afebrile, no leukocytosis, continue to observe off antibiotics --pain well-managed, Zofran PRN; will switch to PO pain meds when NGT dc'd Hypertension --BP stable --continue lisinopril Hyperlipidemia --continue atorvastatin NIDDM, Type II --Novolog sliding scale coverage FEN Fluids: NS @ 75mL/hr while NPO Electrolytes: replete as indicated Nutrition: NPO except ice chips DVT prophylaxis: SCDs, oob, ambulation Visit type - Emergency Visit Emergency Visit: Yes ED Registration Date: 04/21/18 Care time: The patient presented to the Emergency Department on the above date and was hospitalized for further evaluation of their emergent condition. - New Patient This patient is new to me today: No - Critical Care Critical Care patient: No
[2018-05-04] MEDS ORDERED: MAGNESIUM SULF 50% (8.12 MEQ/2 ML-1 GM VIAL) IVPB ONE (10:09)
[2018-05-04] MEDS ORDERED: DEXTROSE 5%-0.45% SALINE 1,000 ML IV SCH (10:15)
[2018-05-04] MEDS ORDERED: MAGNESIUM SULFATE IN WATER 2 GM/50 ML IVPB IVPB ONE (11:00)
[2018-05-04] MEDS: SODIUM CHLORIDE 1,000 ML IV SCH (11:38)
--- NOTE | 2018-05-04 14:46 | PN ---
Progress Note (short form) - Note Progress Note: POD#3 Pt seen earlier this am. No flatus or bowel movements. Occasional nausea. Vital Signs Period Temp Pulse Resp BP Sys/Pemberton Pulse Ox Last 24 Hr 98 F-98.8 F 72-85 18-19 141-150/60-70 97-100 NGT-bilious 700ml Yee: clear yellow urine 3600ml GEN; A&0x4, NAD CV: RRR Lungs: CTA b/l anteriorly ABD: soft, non-distended, inc tendneress. Inc c/d/i with yobany. CBC, BMP 05/04/18 07:11 05/04/ 07:11 A/P: 63 yo female s/p exp lap with LOS, SB resection NGT clamped and then removed later today after outpt 100ml over 4 hours. Foely cath removed OOB and ambulate May have ice ships
[2018-05-04] MEDS: HYDROmorphone HCL CARPU-JECT 1 MG/1 ML DISP.SYRIN IVPUSH PRN ×2 (18:20→22:10)
--- NOTE | 2018-05-04 19:44 | PN ---
Progress Note (short form) - Note Progress Note: Bariatric Surgery Afebrile;VSS Pt doing well decreased abdominal incisional pain No N/V No flatus P/E-Abd- mild distention tympanic, soft, non-tender on palpation WBC-5.5 (decreased0 H/H-9.6/30.2 P- Encourage OOB, ambulate Cont ice chips until flatus
[2018-05-04] MEDS ORDERED: POTASSIUM CHLORIDE TABS 20 MEQ TABLET.ER (FP) PO ONE (20:00)
[2018-05-04] MEDS: ZOLPIDEM TARTRATE 5 MG TABLET PO PRN (21:54)
[2018-05-05] MEDS: HYDROmorphone HCL CARPU-JECT 1 MG/1 ML DISP.SYRIN IVPUSH PRN ×2 (06:13→13:19)
[2018-05-05] MEDS: INSULIN SLIDING SCALE (NOVOLOG) 1 VIAL SQ SCH ×4 (06:18→22:00)
[2018-05-05 09:11] LABS: ANION GAP 9 MMOL/L (8-16); BLOOD UREA NITROGEN 11 mg/dl (7-18); CHLORIDE 103 mmol/L (98-107); CO2 26 mmol/L (22-28); GLUCOSE,RANDOM 104 mg/dl (74-106); MAGNESIUM 1.7 mg/dL (1.8-2.4); SODIUM 138 mmol/L (136-145)
[2018-05-05 09:20] LABS: CREATININE < 0.6 mg/dl (0.6-1.3)
[2018-05-05] MEDS: SODIUM CHLORIDE 1,000 ML IV SCH (10:15)
[2018-05-05] MEDS: ATORVASTATIN CA 20 MG TABLET (FP) PO SCH (10:17)
[2018-05-05] MEDS: LISINOPRIL 5 MG TABLET (FP) PO SCH (10:17)
[2018-05-05] MEDS: FAMOTIDINE 20 MG/50 ML IVPB 20 MG/50 ML MG IVPB SCH ×2 (10:18→21:30)
--- NOTE | 2018-05-05 14:21 | PN ---
Physical Exam: SUBJECTIVE: Patient seen and examined at beside. Earlier oob to chair. Thirsty. No complaint of pain. OBJECTIVE: Vital Signs Period Temp Pulse Resp BP Sys/Pemberton Pulse Ox Last 24 Hr 97.8 F-98.5 F 70-76 17-18 115-142/51-58 97-98 GENERAL: The patient is awake, alert, and fully oriented HEENT: NGT clamped LUNGS: Breath sounds equal, clear to auscultation bilaterally, no wheezes, no crackles, no accessory muscle use. HEART: Regular rate and rhythm, S1, S2 ABDOMEN: Vertical sterile dressing c/d/i; no surrounding erythema, warmth, fluctuance EXTREMITIES: 2+ pulses, warm, well-perfused, no edema. No calf tenderness NEUROLOGICAL: Cranial nerves II through XII grossly intact. Normal speech Laboratory Results - last 24 hr 05/04/18 05/04/18 05/05/18 18:11 22:15 06:07 Sodium Potassium Chloride Carbon Dioxide Anion Gap BUN Creatinine Creat Clearance w eGFR POC Glucometer 83 76 109 Random Glucose Calcium Magnesium 05/05/18 07:10 Sodium 138 Potassium 4.0 Chloride 103 Carbon Dioxide 26 Anion Gap 9 BUN 11 Creatinine < 0.6 L Creat Clearance w eGFR > 60 POC Glucometer Random Glucose 104 D Calcium 8.0 L Magnesium 1.7 L Active Medications Generic Name Dose Route Start Last Admin Trade Name Freq PRN Reason Stop Dose Admin Acetaminophen 1,000 mg 04/24/18 23:37 04/25/18 19:08 Ofirmev Injection - IVPB 1,000 mg Q6H PRN Administration PAIN LEVEL 6-10 Atorvastatin Calcium 20 mg 04/25/18 10:00 05/05/18 10:17 Lipitor - PO 20 mg DAILY MARY JO Administration Hydromorphone HCl 1 mg 05/02/18 08:25 05/05/18 06:13 Dilaudid Injection - IVPUSH 1 mg Q3H PRN Administration PAIN LEVEL 6-10 Famotidine/Sodium Chloride 20 mg in 50 mls @ 100 mls/hr 05/01/18 22:00 10:18 Pepcid 20 Mg Premixed Ivpb - IVPB 100 mls/hr BID MARY JO Administration Sodium Chloride 1,000 mls @ 75 mls/hr 05/04/18 10:15 05/04/18 11:38 Normal Saline - IV 75 mls/hr ASDIR MARY JO Administration Insulin Aspart 1 vial 04/30/18 07:00 05/05/18 06:18 Novolog Vial Sliding Scale - SQ Not Given ACHS MARY JO Protocol Lisinopril 2.5 mg 04/24/18 16:15 05/05/18 10:17 Prinivil PO 2.5 mg DAILY MARY JO Administration Zolpidem Tartrate 5 mg 05/03/18 09:15 05/04/18 21:54 Ambien - PO 5 mg HS PRN Administration INSOMNIA ASSESSMENT/PLAN 63 year-old female with a PMH significant for HTN, HLD, non-insulin dependent Type II diabetes, and s/p lap band surgery 2009. Admitted for partial SBO. This is hospital day #14. Partial SBO s/p lap small bowel resection, small bowel foreign body 05/01/18 --POD #4 --NGT tube out; hernandez out --has not had BM, no flatus, keep NPO --start Clinimix --afebrile, no leukocytosis, continue to observe off antibiotics --strongly encourage ambulation Hypertension --BP stable --continue lisinopril Hyperlipidemia --continue atorvastatin NIDDM, Type II --Novolog sliding scale coverage FEN Fluids: NS @ 50mL/hr while NPO Electrolytes: replete as indicated Nutrition: NPO except ice chips Physical therapy DVT prophylaxis: subq lovenox Dispo: continues to require inpatient care. Full code. Visit type - Emergency Visit Emergency Visit: Yes ED Registration Date: 04/21/18 Care time: The patient presented to the Emergency Department on the above date and was hospitalized for further evaluation of their emergent condition. - New Patient This patient is new to me today: No - Critical Care Critical Care patient: No
[2018-05-05] MEDS ORDERED: MAGNESIUM SULF 50% (8.12 MEQ/2 ML-1 GM VIAL) IVPB ONE (14:30)
--- NOTE | 2018-05-05 15:45 | PN ---
Progress Note (short form) - Note Progress Note: Bariatric Surgery POD#4 Afebrile ;VSS Pt unchanged No N/V No flatus Ambulating 1-2 times per day P/E-Abd- yobany intact slight redness near umbilicus non-tender, no drainage P- Begin Clinimax Encourage OOB-ambulation Cont supportive care
[2018-05-05] MEDS ORDERED: SODIUM CHLORIDE 1,000 ML IV SCH (17:16)
[2018-05-05] MEDS: ENOXAPARIN NA (PORCINE) 40 MG/0.4 ML DISP.SYRIN SQ SCH (20:22)
[2018-05-05] MEDS: ZOLPIDEM TARTRATE 5 MG TABLET PO PRN (21:30)
[2018-05-05] MEDS: ACETAMINOPHEN 1000 MG/100 ML VIAL (NON FORMULARY) IVPB PRN (21:30)
[2018-05-05] MEDS: AMINO ACIDS 4.25%/D5W 1,000 ML IV SCH (23:00)
[2018-05-06] MEDS: AMINO ACIDS 4.25%/D5W 1,000 ML IV SCH ×2 (05:33→17:52)
[2018-05-06] MEDS: INSULIN SLIDING SCALE (NOVOLOG) 1 VIAL SQ SCH ×4 (06:35→21:34)
[2018-05-06] MEDS: FAMOTIDINE 20 MG/50 ML IVPB 20 MG/50 ML MG IVPB SCH ×2 (09:01→21:35)
[2018-05-06 09:12] LABS: BASO % 0.3 % (0-2.0); EOS % 1.3 % (0-4.5); HEMATOCRIT 28.6 % (32.4-45.2); HEMOGLOBIN 9.1 GM/dl (10.7-15.3); LYMPH % 9.8 % (8-40); MCH 28.9 pg (25.7-33.7); MCHC 31.9 g/dl (32.0-36.0); MEAN CELL VOLUME 90.8 fl (80-96); MEAN PLT VOLUME 6.6 fl (7.5-11.1); MONO % 12.8 % (3.8-10.2); NEUT % 75.8 % (42.8-82.8); PLATELET COUNT 309 K/MM3 (134-434); RBC 3.15 M/mm3 (3.60-5.2); RDW 12.7 % (11.6-15.6)
[2018-05-06 09:30] LABS: ALBUMIN 1.9 g/dl (3.5-5.0); ALK PHOS 54 U/L (32-92); ANION GAP 10 MMOL/L (8-16); BILIRUBIN,TOTAL 0.7 mg/dl (0.2-1.0); BLOOD UREA NITROGEN 13 mg/dl (7-18); CALCIUM 8.2 mg/dl (8.4-10.2); CHLORIDE 103 mmol/L (98-107); CO2 24 mmol/L (22-28); CREATININE 0.3 mg/dl (0.6-1.3); GLUCOSE,RANDOM 99 mg/dl (74-106); MAGNESIUM 1.5 mg/dL (1.8-2.4); POTASSIUM 3.3 mmol/L (3.5-5.1); SGOT/AST 10 U/L (10-42); SGPT/ALT 8 U/L (10-40); SODIUM 137 mmol/L (136-145); TOT PROT 4.5 g/dl (6.4-8.3)
[2018-05-06] MEDS: ATORVASTATIN CA 20 MG TABLET (FP) PO SCH (09:45)
[2018-05-06] MEDS: LISINOPRIL 5 MG TABLET (FP) PO SCH (09:45)
--- NOTE | 2018-05-06 09:56 | PN ---
Physical Exam: SUBJECTIVE: Patient seen and examined. Pt reports feeling better, had 2 BM's and + flatus,denies abdominal pain, N/V/ or urinary symptoms. OBJECTIVE: Vital Signs Period Temp Pulse Resp BP Sys/Pemberton Pulse Ox Last 24 Hr 97.3 F-98.7 F 68-99 17-20 136-167/56-75 97-100 GENERAL: The patient is awake, alert, and fully oriented, in no acute distress. HEAD: Normal with no signs of trauma. EYES: PERRL, extraocular movements intact, sclera anicteric, conjunctiva clear. No ptosis. ENT: Ears normal, nares patent, oropharynx clear without exudates, moist mucous membranes. NECK: Trachea midline, full range of motion, supple. LUNGS: Breath sounds equal, clear to auscultation bilaterally, no wheezes, no crackles, no accessory muscle use. HEART: Regular rate and rhythm, S1, S2 without murmur, rub or gallop. ABDOMEN: Soft, nontender, nondistended, normoactive bowel sounds, no guarding, no rebound, no hepatosplenomegaly, no masses, dsg day and intact. EXTREMITIES: 2+ pulses, warm, well-perfused, no edema. NEUROLOGICAL: Cranial nerves II through XII grossly intact. Normal speech, gait not observed. PSYCH: Normal mood, normal affect. SKIN: Warm, dry, normal turgor, no rashes or lesions noted Laboratory Results - last 24 hr 05/05/18 05/06/18 05/06/18 22:02 06:09 06:15 WBC 7.0 RBC 3.15 L Hgb 9.1 L Hct 28.6 L MCV 90.8 MCH 28.9 MCHC 31.9 L RDW 12.7 Plt Count 309 MPV 6.6 L Absolute Neuts (auto) 5.3 Neutrophils % 75.8 Lymphocytes % 9.8 Monocytes % 12.8 H Eosinophils % 1.3 Basophils % 0.3 Sodium Potassium Chloride Carbon Dioxide Anion Gap BUN Creatinine Creat Clearance w eGFR POC Glucometer 117 108 Random Glucose Calcium Magnesium Total Bilirubin AST ALT Alkaline Phosphatase Total Protein Albumin 05/06/18 06:15 WBC RBC Hgb Hct MCV MCH MCHC RDW Plt Count MPV Absolute Neuts (auto) Neutrophils % Lymphocytes % Monocytes % Eosinophils % Basophils % Sodium 137 Potassium 3.3 L Chloride 103 Carbon Dioxide 24 Anion Gap 10 BUN 13 Creatinine 0.3 L Creat Clearance w eGFR > 60 POC Glucometer Random Glucose 99 Calcium 8.2 L Magnesium 1.5 L Total Bilirubin 0.7 AST 10 ALT 8 L Alkaline Phosphatase 54 Total Protein 4.5 L Albumin 1.9 L Active Medications Generic Name Dose Route Start Last Admin Trade Name Freq PRN Reason Stop Dose Admin Acetaminophen 1,000 mg 04/24/18 23:37 05/05/18 21:30 Ofirmev Injection - IVPB 1,000 mg Q6H PRN Administration PAIN LEVEL 6-10 Atorvastatin Calcium 20 mg 04/25/18 10:00 05/05/18 10:17 Lipitor - PO 20 mg DAILY MARY JO Administration Enoxaparin Sodium 40 mg 05/05/18 17:30 05/05/18 20:22 Lovenox - SQ 40 mg DAILY MARY JO Administration Famotidine/Sodium Chloride 20 mg in 50 mls @ 100 mls/hr 05/01/18 22:00 21:30 Pepcid 20 Mg Premixed Ivpb - IVPB 100 mls/hr BID MARY JO Administration Amino Acids 1,000 mls @ 42 mls/hr 05/05/18 17:15 05/06/18 05:33 Clinimix - IV 42 mls/hr Q12H MARY JO Administration Insulin Aspart 1 vial 04/30/18 07:00 05/06/18 06:35 Novolog Vial Sliding Scale - SQ Not Given ACHS MARY JO Protocol Lisinopril 2.5 mg 04/24/18 16:15 05/05/18 10:17 Prinivil PO 2.5 mg DAILY MARY JO Administration Zolpidem Tartrate 5 mg 05/03/18 09:15 05/05/18 21:30 Ambien - PO 5 mg HS PRN Administration INSOMNIA Laboratory Results - last 24 hr 05/05/18 05/06/18 05/06/18 22:02 06:09 06:15 WBC 7.0 RBC 3.15 L Hgb 9.1 L Hct 28.6 L MCV 90.8 MCH 28.9 MCHC 31.9 L RDW 12.7 Plt Count 309 MPV 6.6 L Absolute Neuts (auto) 5.3 Neutrophils % 75.8 Lymphocytes % 9.8 Monocytes % 12.8 H Eosinophils % 1.3 Basophils % 0.3 Sodium Potassium Chloride Carbon Dioxide Anion Gap BUN Creatinine Creat Clearance w eGFR POC Glucometer 117 108 Random Glucose Calcium Magnesium Total Bilirubin AST ALT Alkaline Phosphatase Total Protein Albumin 05/06/18 06:15 WBC RBC Hgb Hct MCV MCH MCHC RDW Plt Count MPV Absolute Neuts (auto) Neutrophils % Lymphocytes % Monocytes % Eosinophils % Basophils % Sodium 137 Potassium 3.3 L Chloride 103 Carbon Dioxide 24 Anion Gap 10 BUN 13 Creatinine 0.3 L Creat Clearance w eGFR > 60 POC Glucometer Random Glucose 99 Calcium 8.2 L Magnesium 1.5 L Total Bilirubin 0.7 AST 10 ALT 8 L Alkaline Phosphatase 54 Total Protein 4.5 L Albumin 1.9 L Microbiology 04/29/18 10:30 Stool Salmonella/Shigella Culture - Final NO GROWTH OF SALMONELLA OR SHIGELLA SPECIES OBTAINED 04/29/18 10:30 Stool Campylobacter Culture - Final NO GROWTH OF CAMPYLOBACTER SPECIES OBTAINED 04/29/18 10:30 Stool Yersinia Culture - Final NO GROWTH OF YERSINIA SPECIES OBTAINED 04/29/18 10:30 Stool Vibrio Culture - Final NO GROWTH OF VIBRIO SPECIES OBTAINED 04/29/18 10:30 Stool Escherichia coli 0157 Culture - Final NO GROWTH OF E COLI 0157 OBTAINED 04/20/18 21:45 Urine - Urine Clean Catch Urine Culture - Final ASSESSMENT/PLAN 63 year-old female with a PMH significant for HTN, HLD, non-insulin dependent Type II diabetes, and s/p lap band surgery 2009. Admitted for partial SBO. *Partial SBO s/p lap small bowel resection, small bowel foreign body 05/01/18 -POD #5 - sx following - on Clinimix - NPO except ice chips -afebrile, no leukocytosis, continue to observe off antibiotics -encourage ambulation *Hypertension -BP stable -will continue lisinopril *Hyperlipidemia -continue atorvastatin *NIDDM, Type II- BS stable -Novolog sliding scale coverage * Low K and Mg - replaced FEN Fluids: On Clinimix Electrolytes: replete as indicated Nutrition: NPO except ice chips Physical therapy DVT prophylaxis: subq lovenox Dispo: continues to require inpatient care. Full code. Visit type - Emergency Visit Emergency Visit: Yes ED Registration Date: 04/21/18 Care time: The patient presented to the Emergency Department on the above date and was hospitalized for further evaluation of their emergent condition. - New Patient This patient is new to me today: Yes Date on this admission: 05/12/18 - Critical Care Critical Care patient: No - Discharge Referral Referred to [facility] No
[2018-05-06] MEDS ORDERED: MAGNESIUM SULF 50% (8.12 MEQ/2 ML-1 GM VIAL) IVPB ONE ×2 (09:57→11:38)
[2018-05-06] MEDS ORDERED: KCL 10 MEQ IVPB 10 MEQ/100 ML INFUS.BAG IVPB SCH (10:00)
[2018-05-06] MEDS: ENOXAPARIN NA (PORCINE) 40 MG/0.4 ML DISP.SYRIN SQ SCH (10:05)
[2018-05-06] MEDS ORDERED: POTASSIUM CHLORIDE TABS 20 MEQ TABLET.ER (FP) PO ONE (11:37)
--- NOTE | 2018-05-06 11:41 | PN ---
Progress Note (short form) - Note Progress Note: POD#5 Afebrile;VSS + flatus and BM No abd pain WBC-7.0 H/H-9.1/28.6(slight decreased) Pt ambulating better K+-3.3 Mg-1.5 P- K+, Mg replacement Liquid diet Cont ambulation
[2018-05-06] MEDS: ACETAMINOPHEN 1000 MG/100 ML VIAL (NON FORMULARY) IVPB PRN (17:01)
[2018-05-06] MEDS: ZOLPIDEM TARTRATE 5 MG TABLET PO PRN (22:35)
[2018-05-07] MEDS: AMINO ACIDS 4.25%/D5W 1,000 ML IV SCH (05:30)
[2018-05-07] MEDS: INSULIN SLIDING SCALE (NOVOLOG) 1 VIAL SQ SCH ×4 (06:08→22:20)
[2018-05-07] MEDS ORDERED: AMINO ACIDS 4.25%/D5W 2,000 ML IV SCH (08:15)
[2018-05-07] MEDS ORDERED: ACETAMINOPHEN 325 MG TABLET (FP) PO PRN (08:35)
[2018-05-07 08:48] LABS: HEMATOCRIT 30.5 % (32.4-45.2); HEMOGLOBIN 9.3 GM/dl (10.7-15.3); MCH 27.5 pg (25.7-33.7); MCHC 30.5 g/dl (32.0-36.0); MEAN CELL VOLUME 90.3 fl (80-96); MEAN PLT VOLUME 6.6 fl (7.5-11.1); PLATELET COUNT 348 K/MM3 (134-434); RBC 3.38 M/mm3 (3.60-5.2); RDW 12.6 % (11.6-15.6); WHITE BLOOD COUNT 9.9 K/mm3 (4.0-10.8)
[2018-05-07 09:02] LABS: ALBUMIN 1.9 g/dl (3.5-5.0); ALK PHOS 55 U/L (32-92); ANION GAP 9 MMOL/L (8-16); BILIRUBIN,TOTAL 0.5 mg/dl (0.2-1.0); BLOOD UREA NITROGEN 9 mg/dl (7-18); CALCIUM 8.2 mg/dl (8.4-10.2); CHLORIDE 102 mmol/L (98-107); CO2 27 mmol/L (22-28); GLUCOSE,RANDOM 130 mg/dl (74-106); POTASSIUM 3.4 mmol/L (3.5-5.1); SGOT/AST 11 U/L (10-42); SGPT/ALT 8 U/L (10-40); SODIUM 138 mmol/L (136-145); TOT PROT 4.6 g/dl (6.4-8.3)
[2018-05-07 09:03] LABS: CREATININE < 0.6 mg/dl (0.6-1.3)
[2018-05-07] MEDS: ATORVASTATIN CA 20 MG TABLET (FP) PO SCH (10:00)
[2018-05-07] MEDS: ENOXAPARIN NA (PORCINE) 40 MG/0.4 ML DISP.SYRIN SQ SCH (10:05)
[2018-05-07] MEDS: AMINO ACIDS/PROTEIN HYDROLYS 30 ML LIQUID.PKT PO SCH (10:10)
[2018-05-07] MEDS: LISINOPRIL 5 MG TABLET (FP) PO SCH (10:17)
[2018-05-07 10:33] VITALS: BMI 23.5
--- NOTE | 2018-05-07 11:45 | PN ---
Progress Note (short form) - Note Progress Note: POD#6 Afebrile;VSS Pt doing well Tolerating soft diet well No N/V +BM P/E-Abd- midline incision with slight redness near umbilicus No drainage WBC-9.9 (slight increased) H/H-9.3/30.5 (stable) P- PO as tolerated IV antibiotics for midline redness Continue ambulation
[2018-05-07] MEDS ORDERED: POTASSIUM CHLORIDE TABS 20 MEQ TABLET.ER (FP) PO ONE (12:00)
[2018-05-07 12:32] LABS: PLATELET ESTIMATE ADEQUATE
[2018-05-07] MEDS ORDERED: MAGNESIUM SULF 50% (8.12 MEQ/2 ML-1 GM VIAL) IVPB ONE ×2 (12:55→13:34)
--- NOTE | 2018-05-07 12:57 | PN ---
Physical Exam: SUBJECTIVE: Patient seen and examined OBJECTIVE: Vital Signs Period Temp Pulse Resp BP Sys/Pemberton Pulse Ox Last 24 Hr 97.4 F-97.6 F 63-76 16-16 132-142/51-64 100-100 GENERAL: The patient is awake, alert, and fully oriented HEENT: NGT clamped LUNGS: Breath sounds equal, clear to auscultation bilaterally, no wheezes, no crackles, no accessory muscle use. HEART: Regular rate and rhythm, S1, S2 ABDOMEN: Vertical sterile dressing c/d/i; no surrounding erythema, warmth, fluctuance EXTREMITIES: 2+ pulses, warm, well-perfused, no edema. No calf tenderness NEUROLOGICAL: Cranial nerves II through XII grossly intact. Normal speech Laboratory Results - last 24 hr 05/06/18 05/07/18 05/07/18 21:32 06:02 07:35 WBC 9.9 Corrected WBC (auto) RBC 3.38 L Hgb 9.3 L Hct 30.5 L MCV 90.3 MCH 27.5 MCHC 30.5 L RDW 12.6 Plt Count 348 MPV 6.6 L Absolute Neuts (auto) 8.3 Neutrophils % No Result Required. Neutrophils % (Manual) 82.0 Band Neutrophils % 1.0 Lymphocytes % No Result Required. Lymphocytes % (Manual) 6.0 L Monocytes % (Manual) 9 Eosinophils % (Manual) 2.0 Manual Slide Review Platelet Estimate Adequate Platelet Comment Sodium Potassium Chloride Carbon Dioxide Anion Gap BUN Creatinine Creat Clearance w eGFR POC Glucometer 142 148 Random Glucose Calcium Magnesium Total Bilirubin AST ALT Alkaline Phosphatase Total Protein Albumin 05/07/18 05/07/18 05/07/18 07:35 07:38 07:38 WBC Cancelled Corrected WBC (auto) Cancelled RBC Cancelled Hgb Cancelled Hct Cancelled MCV Cancelled MCH Cancelled MCHC Cancelled RDW Cancelled Plt Count Cancelled MPV Cancelled Absolute Neuts (auto) Neutrophils % Neutrophils % (Manual) Band Neutrophils % Lymphocytes % Lymphocytes % (Manual) Monocytes % (Manual) Eosinophils % (Manual) Manual Slide Review Cancelled Platelet Estimate Platelet Comment Cancelled Sodium 138 Potassium 3.4 L Chloride 102 Carbon Dioxide 27 Anion Gap 9 BUN 9 Creatinine < 0.6 L Creat Clearance w eGFR > 60 POC Glucometer Random Glucose 130 H D Calcium 8.2 L Magnesium 1.6 L Total Bilirubin 0.5 AST 11 ALT 8 L Alkaline Phosphatase 55 Total Protein 4.6 L Albumin 1.9 L Active Medications Generic Name Dose Route Start Last Admin Trade Name Freq PRN Reason Stop Dose Admin Acetaminophen 650 mg 05/07/18 08:35 Tylenol - PO Q6H PRN PAIN LEVEL 1-5 Amino Acids 30 ml 05/07/18 10:00 Prosource No Carb Liquid Pkt PO BID@0800,1730 [facility] Atorvastatin Calcium 20 mg 04/25/18 10:00 05/06/18 09:45 Lipitor - PO 20 mg DAILY MARY JO Administration Enoxaparin Sodium 40 mg 05/05/18 17:30 05/06/18 10:05 Lovenox - SQ 40 mg DAILY MARY JO Administration Ampicillin Sodium/Sulbactam 100 mls @ 200 mls/hr 05/07/18 15:00 Sodium 3 gm/ Sodium Chloride IVPB Q6H-IV MARY JO Insulin Aspart 1 vial 04/30/18 07:00 05/07/18 06:08 Novolog Vial Sliding Scale - SQ Not Given ACHS [facility] Protocol Lisinopril 2.5 mg 04/24/18 16:15 05/06/18 09:45 Prinivil PO 2.5 mg DAILY MARY JO Administration ASSESSMENT/PLAN: 63 year-old female with a PMH significant for HTN, HLD, non-insulin dependent Type II diabetes, and s/p lap band surgery 2009. Admitted for partial SBO. This is hospital day #16. Partial SBO s/p lap small bowel resection, small bowel foreign body 05/01/18 --POD #6 --+BMs, +flatus, tolerating soft diet --d/c Clinimix --small area of erythema around umbilicus; start Unasyn --strongly encourage ambulation Hypertension --BP stable --continue lisinopril Hyperlipidemia --continue atorvastatin NIDDM, Type II --Novolog sliding scale coverage Hypokalemia Hypomagnesemia --repleted Hypoalbuminemia --add Prosource FEN Fluids: PO intake adequate Electrolytes: replete as indicated Nutrition: soft diet; Prosource for protein supplementation Physical therapy DVT prophylaxis: subq lovenox Dispo: continues to require inpatient care. Full code. Visit type - Emergency Visit Emergency Visit: Yes ED Registration Date: 04/21/18 Care time: The patient presented to the Emergency Department on the above date and was hospitalized for further evaluation of their emergent condition. - New Patient This patient is new to me today: No - Critical Care Critical Care patient: No
[2018-05-07] MEDS ORDERED: MAGNESIUM SULFATE IN WATER 2 GM/50 ML IVPB IVPB ONE (13:30)
[2018-05-07] MEDS ORDERED: AMPICILLIN NA/SULBACTAM NA 3 GM VIAL ONE ×3 (14:38→22:09)
[2018-05-07] MEDS ORDERED: SODIUM CHLORIDE 100 ML IVPB ONE ×3 (14:38→22:09)
[2018-05-07] MEDS ORDERED: AMPICILLIN NA/SULBACTAM NA 3 GM in SODIUM CHLORIDE 100 ML IVPB SCH (15:00)
[2018-05-07] MEDS: POTASSIUM CHLORIDE ORAL LIQUID 20 MEQ/15 ML PO SCH ×2 (15:00→22:19)
[2018-05-07] MEDS ORDERED: MAGNESIUM 1GM/D5W - 1 GM/100 ML IVPB IVPB ONE (15:00)
[2018-05-07] MEDS: AMPICILLIN NA/SULBACTAM NA 3 GM in SODIUM CHLORIDE 100 ML IVPB SCH ×2 (15:45→22:19)
[2018-05-07] MEDS ORDERED: ZOLPIDEM TARTRATE 5 MG TABLET PO PRN (22:16)
[2018-05-08] MEDS: POTASSIUM CHLORIDE ORAL LIQUID 20 MEQ/15 ML PO SCH (01:53)
[2018-05-08] MEDS: AMPICILLIN NA/SULBACTAM NA 3 GM in SODIUM CHLORIDE 100 ML IVPB SCH ×3 (02:15→15:35)
[2018-05-08] MEDS ORDERED: SODIUM CHLORIDE 100 ML IVPB ONE ×2 (03:03→09:29)
[2018-05-08] MEDS ORDERED: AMPICILLIN NA/SULBACTAM NA 3 GM VIAL ONE ×2 (03:03→09:29)
[2018-05-08] MEDS: INSULIN SLIDING SCALE (NOVOLOG) 1 VIAL SQ SCH ×2 (07:07→15:35)
[2018-05-08 08:22] LABS: HEMATOCRIT 30.1 % (32.4-45.2); HEMOGLOBIN 9.5 GM/dl (10.7-15.3); MCH 28.3 pg (25.7-33.7); MCHC 31.6 g/dl (32.0-36.0); MEAN CELL VOLUME 89.5 fl (80-96); MEAN PLT VOLUME 6.5 fl (7.5-11.1); PLATELET COUNT 365 K/MM3 (134-434); RBC 3.36 M/mm3 (3.60-5.2); RDW 12.8 % (11.6-15.6); WHITE BLOOD COUNT 9.7 K/mm3 (4.0-10.8)
[2018-05-08 08:31] LABS: ALK PHOS 57 U/L (32-92); ANION GAP 6 MMOL/L (8-16); BILIRUBIN,TOTAL 0.4 mg/dl (0.2-1.0); BLOOD UREA NITROGEN 8 mg/dl (7-18); CALCIUM 7.7 mg/dl (8.4-10.2); CHLORIDE 104 mmol/L (98-107); CO2 27 mmol/L (22-28); GLUCOSE,RANDOM 116 mg/dl (74-106); MAGNESIUM 1.7 mg/dL (1.8-2.4); POTASSIUM 3.5 mmol/L (3.5-5.1); SGOT/AST 11 U/L (10-42); SGPT/ALT 9 U/L (10-40); SODIUM 137 mmol/L (136-145); TOT PROT 4.7 g/dl (6.4-8.3)
[2018-05-08 08:39] LABS: CREATININE < 0.6 mg/dl (0.6-1.3)
--- NOTE | 2018-05-08 08:39 | DS ---
Physical Exam: SUBJECTIVE: Patient seen and examined OBJECTIVE: Vital Signs Period Temp Pulse Resp BP Sys/Pemberton Pulse Ox Last 24 Hr 97.9 F-98.1 F 63-72 16-17 124-132/55-70 99-100 PHYSICAL EXAM GENERAL: The patient is awake, alert, and fully oriented HEENT: NGT clamped LUNGS: Breath sounds equal, clear to auscultation bilaterally, no wheezes, no crackles, no accessory muscle use. HEART: Regular rate and rhythm, S1, S2 ABDOMEN: Vertical sterile dressing c/d/i; no surrounding erythema, warmth, fluctuance EXTREMITIES: 2+ pulses, warm, well-perfused, no edema. No calf tenderness NEUROLOGICAL: Cranial nerves II through XII grossly intact. Normal speech Laboratory Results - last 24 hr 05/07/18 05/07/18 05/07/18 07:35 07:35 07:38 WBC 9.9 Cancelled Corrected WBC (auto) Cancelled RBC 3.38 L Cancelled Hgb 9.3 L Cancelled Hct 30.5 L Cancelled MCV 90.3 Cancelled MCH 27.5 Cancelled MCHC 30.5 L Cancelled RDW 12.6 Cancelled Plt Count 348 Cancelled MPV 6.6 L Cancelled Absolute Neuts (auto) 8.3 Neutrophils % No Result Required. Neutrophils % (Manual) 82.0 Band Neutrophils % 1.0 Lymphocytes % No Result Required. Lymphocytes % (Manual) 6.0 L Monocytes % (Manual) 9 Eosinophils % (Manual) 2.0 Manual Slide Review Cancelled Platelet Estimate Adequate Platelet Comment Cancelled Sodium 138 Potassium 3.4 L Chloride 102 Carbon Dioxide 27 Anion Gap 9 BUN 9 Creatinine < 0.6 L Creat Clearance w eGFR > 60 POC Glucometer Random Glucose 130 H D Calcium 8.2 L Magnesium Total Bilirubin 0.5 AST 11 ALT 8 L Alkaline Phosphatase 55 Total Protein 4.6 L Albumin 1.9 L 05/07/18 05/07/18 05/08/18 07:38 22:18 07:00 WBC 9.7 Corrected WBC (auto) RBC 3.36 L Hgb 9.5 L Hct 30.1 L MCV 89.5 MCH 28.3 MCHC 31.6 L RDW 12.8 Plt Count 365 MPV 6.5 L Absolute Neuts (auto) Neutrophils % Neutrophils % (Manual) Band Neutrophils % Lymphocytes % Lymphocytes % (Manual) Monocytes % (Manual) Eosinophils % (Manual) Manual Slide Review Platelet Estimate Platelet Comment Sodium Potassium Chloride Carbon Dioxide Anion Gap BUN Creatinine Creat Clearance w eGFR POC Glucometer 120 Random Glucose Calcium Magnesium 1.6 L Total Bilirubin AST ALT Alkaline Phosphatase Total Protein Albumin 05/08/18 07:06 WBC Corrected WBC (auto) RBC Hgb Hct MCV MCH MCHC RDW Plt Count MPV Absolute Neuts (auto) Neutrophils % Neutrophils % (Manual) Band Neutrophils % Lymphocytes % Lymphocytes % (Manual) Monocytes % (Manual) Eosinophils % (Manual) Manual Slide Review Platelet Estimate Platelet Comment Sodium Potassium Chloride Carbon Dioxide Anion Gap BUN Creatinine Creat Clearance w eGFR POC Glucometer 118 Random Glucose Calcium Magnesium Total Bilirubin AST ALT Alkaline Phosphatase Total Protein Albumin HOSPITAL COURSE: Date of Admission:04/21/18 Date of Discharge: 05/08/18 63 year-old female with a PMH significant for HTN, HLD, non-insulin dependent Type II diabetes, and s/p lap band surgery 2009. Admitted with abdominal pain and found to have a partial SBO. CTAP on 04/21 showed 4.3 x 2.7cm partially lucent structure within the distal small bowel lumen within the paramedian aspect of the pelvis with resultant small bowel obstruction Partial SBO s/p lap small bowel resection, small bowel foreign body 05/01/18 --POD #6 --+BMs, +flatus, tolerating soft diet --d/c Clinimix --small area of erythema around umbilicus; start Unasyn --strongly encourage ambulation Hypertension --BP stable --continue lisinopril Hyperlipidemia --continue atorvastatin NIDDM, Type II --Novolog sliding scale coverage Hypokalemia Hypomagnesemia --repleted Hypoalbuminemia --add Prosource FEN Fluids: PO intake adequate Electrolytes: replete as indicated Nutrition: soft diet; Prosource for protein supplementation Physical therapy DVT prophylaxis: subq lovenox Dispo: continues to require inpatient care. Full code. Minutes to complete discharge: 35 Discharge Summary Reason For Visit: SMALL BOWEL OBSTRUCTION, ABD PAIN Current Active Problems H/O laparoscopic adjustable gastric banding (Acute) Hyperlipidemia (Acute) Hypertension (Acute) Partial small bowel obstruction (Acute) Small bowel obstruction (Acute) Type 2 diabetes mellitus without complications (Acute) Condition: Improved - Instructions Diet, Activity, Other Instructions: Two prescriptions have been sent to your pharmacy. One is for augmentin, an antibiotic, and the other is for a magnesium supplement. Take these medications as directed. You should follow up with Dr. Walsh within one week of your discharge. Return to the emergency department for any new or worsening symptoms. Referrals: Merrick Petersen [Primary Care Provider] - Dez Walsh MD [Staff Physician] - Disposition: HOME - Home Medications Comprehensive Discharge Medication List: Ambulatory Orders Acetaminophen [Tylenol Extra Strength] 500 mg PO PRN PRN 04/20/17 Atorvastatin Ca [Lipitor] 20 mg PO DAILY 04/20/17 Cholecalciferol (Vitamin D3) [Vitamin D3] 4,000 unit PO DAILY 04/20/17 Lisinopril [Zestril] 2.5 mg PO DAILY 04/20/17 Multivitamin [One Daily] 2 each PO DAILY 04/20/17 Zolpidem Tartrate [Ambien] 5 mg PO HS PRN 04/20/17 metFORMIN HCL [Metformin HCl] 500 mg PO BID 04/20/17 Amox-Tr/K Cl [Augmentin - 875Mg Tablet] 1 tab PO BID #14 tablet 05/08/18 This patient is new to me today: No Emergency Visit: Yes ED Registration Date: 04/21/18 Care time: The patient presented to the Emergency Department on the above date and was hospitalized for further evaluation of their emergent condition. Critical Care patient: No - Discharge Referral Referred to [facility] No
[2018-05-08] MEDS ORDERED: MAGNESIUM SULF 50% (8.12 MEQ/2 ML-1 GM VIAL) IVPB ONE (08:41)
[2018-05-08] MEDS ORDERED: POTASSIUM CHLORIDE ORAL LIQUID 20 MEQ/15 ML PO SCH (08:45)
[2018-05-08] MEDS ORDERED: MAGNESIUM SULFATE IN WATER 2 GM/50 ML IVPB IVPB ONE (09:00)
[2018-05-08] MEDS: AMINO ACIDS/PROTEIN HYDROLYS 30 ML LIQUID.PKT PO SCH (09:34)
[2018-05-08] MEDS: ENOXAPARIN NA (PORCINE) 40 MG/0.4 ML DISP.SYRIN SQ SCH (09:34)
[2018-05-08] MEDS: ATORVASTATIN CA 20 MG TABLET (FP) PO SCH (09:34)
[2018-05-08] MEDS: LISINOPRIL 5 MG TABLET (FP) PO SCH (09:35)
[2018-05-08] MEDS ORDERED: POTASSIUM CHLORIDE ORAL LIQUID 20 MEQ/15 ML PO ONE (11:00)
[2018-05-08] MEDS ORDERED: POTASSIUM CHLORIDE TABS 10 MEQ TABLET.ER (FP) PO ONE (11:00)
--- NOTE | 2018-05-08 14:23 | PN ---
Progress Note (short form) - Note Progress Note: POD#7 Afebrile; VSS Pt doing well Ambulating well Tolerating regular food P/E-Abd- redness near umbilicus unchanged no drainage WBC-9.7 (stable) P- D/C pt home PO Augmentin at home F/U in 9 days or sooner if redness increases
[2018-05-08 14:30] VITALS: BP 124/71; PULSE 69; TEMP 97.6
== END 2018-05-08 15:33 | disposition home or self-care (01) | DRG 330 ==
LOC: FER 21:02 → FM/S 04-21 02:57
PROVIDERS: ADMIT Internal Medicine; ATTEND Nurse Practitioner Acute Care
PROC: 0DB80ZZ Excision of Small Intestine, Open Approach (ICD-10-PCS; principal; 2018-05-01 13:38)
PROC: 0D1B0ZH Bypass Ileum to Cecum, Open Approach (ICD-10-PCS; 2018-05-01 13:38)
DX: K56.600 Partial intestinal obstruction, unspecified as to cause (principal); K86.1 Other chronic pancreatitis; N39.0 Urinary tract infection, site not specified; R19.04 Left lower quadrant abdominal swelling, mass and lump; Z98.84 Bariatric surgery status; E11.9 Type 2 diabetes mellitus without complications; I10 Essential (primary) hypertension; N20.0 Calculus of kidney; R19.00 Intra-abdominal and pelvic swelling, mass and lump, unspecified site; E78.5 Hyperlipidemia, unspecified; E87.6 Hypokalemia; E83.42 Hypomagnesemia; E88.09 Other disorders of plasma-protein metabolism, not elsewhere classified; G47.00 Insomnia, unspecified
CPT/HCPCS: 36415; 71045-TC-FY; 74018-TC-FY; 74019-TC-FY; 74176-TC; 74177-TC; 74245-TC-FY; 80048; 80053; 81003; 81015; 82962; 83605; 83690; 83735; 84443; 85025; 85027; 85610; 86850; 86900; 86901; 86922; 87045; 87046; 87086; 87177; 87209; 88307-TC; 93005; 94760; 97116-GP; 97161-GP; 99284-25; J0131; J7030

== ENCOUNTER 2018-05-12 13:24 | Inpatient (IN) | payer OTHER ==
--- NOTE | 2018-05-12 13:40 | PDOC ---
History of Present Illness - General Chief Complaint: Wound Stated Complaint: WOUND DRAINING Time Seen by Provider: 05/12/18 13:39 Past History - Past Medical History Allergies/Adverse Reactions: Allergies Allergy/AdvReac Type Severity Reaction Status Date / Time No Known Allergies Allergy Verified 05/12/18 13:25 Home Medications: Ambulatory Orders Acetaminophen [Tylenol Extra Strength] 500 mg PO PRN PRN 04/20/17 Atorvastatin Ca [Lipitor] 20 mg PO DAILY 04/20/17 Cholecalciferol (Vitamin D3) [Vitamin D3] 4,000 unit PO DAILY 04/20/17 Lisinopril [Zestril] 2.5 mg PO DAILY 04/20/17 Multivitamin [One Daily] 2 each PO DAILY 04/20/17 Zolpidem Tartrate [Ambien] 5 mg PO HS PRN 04/20/17 metFORMIN HCL [Metformin HCl] 500 mg PO BID 04/20/17 Amox-Tr/K Cl [Augmentin - 875Mg Tablet] 1 tab PO BID #14 tablet 05/08/18 Magnesium Oxide [Magnesium] 400 mg PO BID #60 tablet 05/08/18 COPD: No Diabetes: Yes HTN: Yes Hypercholesterolemia: Yes - Surgical History Gastric Stapling: Yes (LAP BAND & REPAIR HIATAL HERNIA 2009) - Immunization History Td Vaccination: Yes TDAP Vaccination: Yes Immunization Up to Date: Yes - Suicide/Smoking/Psychosocial Hx Smoking Status: No Smoking History: Former smoker Have you smoked in the past 12 months: No Number of Cigarettes Smoked Daily: 0 If you are a former smoker, when did you quit?: 1997 Cigars Per Day: 0 Hx Alcohol Use: No Drug/Substance Use Hx: No Substance Use Type: None Hx Substance Use Treatment: No
--- NOTE | 2018-05-12 13:47 | PDOC ---
Attending Attestation - Resident Resident Name: Joanne Smith - ED Attending Attestation I have performed the following: I have examined & evaluated the patient, The case was reviewed & discussed with the resident, I agree w/resident's findings & plan, Exceptions are as noted - HPI HPI: 05/12/18 15:04 63yo female with recent ex lap for partial SBO presents for leaking from her wound today. Pt with midline incision that is red, warm, erythematous. Pt with foul smelling drainage from the site today and leaking of fluid today. Pt with soft tissue swelling to the L side of the wound. Pt denies f/c. States normal bm and flatus. No n/v. No dysuria. No other complaints. - Physicial Exam PE: 05/12/18 15:05 Gen: aaox3, nad, ambulates with a steady gait heart: +s1s2 reg lungs: cta b/l abd: soft, midline incision with yobany in place, midline redness, around umbilicus- soft tissue swelling, redness, blanchable, foul smell from wound, no fluid could be expressed from the wound ext: no c/c/e neuro: no focal neuro deficits - Medical Decision Making 05/12/18 13:47 I, Dr. Anali Faulkner, DO, attest that this document has been prepared under my direction and personally reviewed by me in its entirety. I further attest, that it accurately reflects all work, treatment, procedures and medical decision -making performed by me. 05/12/18 15:06 a/p: 63yo female with post-op redness and fluid drainage from the wound -concern for post op seroma with localized infection to the site vs post-op abscess -will send labs, ct abd/pelvis with iv contrast -will monitor and reassess 05/12/18 16:17 pt with elevated wbc of 14, was 9 at discharge pt with soft tissue fluid collection concerning for abscess/fluid collection post op will start iv abx case discussed with Dr. Walsh who will see the patient in consult requests admission back to discussed ct finding with the patient and lab work pt agrees to stay for iv abx microblog sent to [facility] for admission 05/12/18 17:[address] Elias who accepts pt to service requests ID consult to Dr. Charles *DC/Admit/Observation/Transfer Diagnosis at time of Disposition: Postoperative wound infection - Discharge Dispostion Condition at time of disposition: Fair Decision to Admit order: Yes - Referrals - Patient Instructions - Post Discharge Activity Heart Score/ECG Review - ECG Intrepretation Comment:: 05/12/18 17:08 sinus at 71, nl axis, nl interval, no acute st/t wave findings,
--- NOTE | 2018-05-12 13:59 | PDOC ---
History of Present Illness - General Chief Complaint: Wound Stated Complaint: WOUND DRAINING Time Seen by Provider: 05/12/18 13:39 History Source: Patient Exam Limitations: No Limitations - History of Present Illness Initial Comments: 05/12/18 13:56 63 YOF with h/o HTN, DM, HLD, Insomnia, and recent admission for SBO now POD # 11 from partial colectomy by Dr. Walsh c/b known fluid collection in abdominal wall which had not started draining at the time of her discharge from the hospital on 05/08/18, who p/w post-op wound drainage which is malodorous, since this morning. She was discharged from inpatient 4 days ago after admission for SBO for which she needed partial colectomy. States she has been taking PO amoxicillin as directed by Dr. Walsh. Talked with Dr. Walsh on the phone 2 days ago and states she was told everything was going well per her report. Denies any f/c/n/v, states stool is going back to normal consistency (initially had loose stool, not normalizing), no bloody or black stool, no dysuria, SOB, chest pain, headache, etc. States redness around the surgical site has been there since day 1. Denies pain or tenderness. Past History - Past Medical History Allergies/Adverse Reactions: Allergies Allergy/AdvReac Type Severity Reaction Status Date / Time No Known Allergies Allergy Verified 05/12/18 13:25 Home Medications: Ambulatory Orders Acetaminophen [Tylenol Extra Strength] 500 mg PO PRN PRN 04/20/17 Atorvastatin Ca [Lipitor] 20 mg PO DAILY 04/20/17 Cholecalciferol (Vitamin D3) [Vitamin D3] 4,000 unit PO DAILY 04/20/17 Lisinopril [Zestril] 2.5 mg PO DAILY 04/20/17 Multivitamin [One Daily] 2 each PO DAILY 04/20/17 Zolpidem Tartrate [Ambien] 5 mg PO HS PRN 04/20/17 metFORMIN HCL [Metformin HCl] 500 mg PO BID 04/20/17 Amox-Tr/K Cl [Augmentin - 875Mg Tablet] 1 tab PO BID #14 tablet 05/08/18 Magnesium Oxide [Magnesium] 400 mg PO BID #60 tablet 05/08/18 Ertapenem Sodium - 1 Gram [Invanz (Pre-Docked)] 1 gm IVPB DAILY #10 bag COPD: No Diabetes: Yes HTN: Yes Hypercholesterolemia: Yes - Surgical History Gastric Stapling: Yes (LAP BAND & REPAIR HIATAL HERNIA 2009) - Immunization History Td Vaccination: Yes TDAP Vaccination: Yes Immunization Up to Date: Yes - Suicide/Smoking/Psychosocial Hx Smoking Status: No Smoking History: Never smoked Have you smoked in the past 12 months: No Number of Cigarettes Smoked Daily: 0 If you are a former smoker, when did you quit?: 1997 Cigars Per Day: 0 Information on smoking cessation initiated: No Hx Alcohol Use: No Drug/Substance Use Hx: No Substance Use Type: None Hx Substance Use Treatment: No Review of Systems - Review of Systems Able to Perform ROS?: Yes Comments:: 05/12/18 14:05 GEN: no fever, chills, generalized weakness, malaise, unintentional weight change, loss of appetite, or difficulty sleeping HEENT: no ear pain, congestion, sore throat, rhinorrhea, nosebleed, vision change, or eye pain CV: no chest pain, palpitations, syncope, edema, or exercise intolerance RESP: no cough, wheezing, or SOB GI: surgical site drainage and redness, no nausea, vomiting, diarrhea, constipation, black/bloody stool, abdominal pain, or appetite change : no dysuria, hematuria, frequency, incontinence, retention, pruritis, bleeding, or discharge MSK: no weakness, joint swelling, limping, joint pain, or muscle pain NEURO: no headaches, seizures, numbness, tingling, focal weakness, or head trauma PSYCH: no insomnia, behavior change, suicidality, homicidality, or substance use SKIN: no jaundice, rashes, cuts, bruises, scars, or lesions *Physical Exam - Vital Signs Last Vital Signs Temp Pulse Resp BP Pulse Ox 97.3 F L 81 20 152/69 100 05/12/18 13:25 05/12/18 13:25 05/12/18 13:25 05/12/18 13:25 05/12/18 13:25 - Physical Exam Comments: GENERAL: nontoxic and well-appearing, nourished, A/Ox4, no acute distress, speaking in full sentences, answers questions appropriately, accompanied by family, appears frustrated to be here HEENT: PERRLA, EOMI, moist mucous membranes, no posterior pharyngeal erythema, no tonsillar swelling or exudates, no cervical lymphadenopathy NECK: no midline ttp, no spinal stepoff or deformity, full ROM, supple CARDIOVASCULAR: regular rate and rhythm, normal S1S2, 1/6 systolic murmur, radial and DP pulses 2+ and symmetric, capillary refill <2 seconds, extremities warm and well-perfused LUNGS/RESPIRATORY: no respiratory distress, normal and symmetric chest movements during respirations, lungs CTA bilaterally, equal breath sounds, no cyanosis, no nail clubbing GI/ABDOMEN: inferior midline laparotomy site with yobany in place, surrounding erythema extends to maximum of 3 cm laterally from incision, fluctuance to left mid-incision area, malodorous serous/purulent drainage from inferior half of incision, smaller 0.5 cm laparoscopy scar to left abdomen with one staple in place which appear CDI, no erythema or drainage, otherwise abdomen with symmetric appearance, normoactive bowel sounds, soft, no tenderness to palpation , no midline pulsatile masses, no palpated organomegaly : no CVA tenderness, normal external appearance, no lesions BACK: no midline ttp or stepoff or deformity of thoracic or lumbar spine EXTREMITIES: distal pulses 2+, warm and well-perfused, no LE edema SKIN: See GI exam' skin otherwise warm and dry, no pallor, no jaundice, no bruising, no rash, no skin breakdown, no cuts, no lesions NEUROLOGICAL: GCS 15, CN II-XII grossly intact, ambulating with normal gait, moving all extremities, 5/5 strength proximally and distally, no facial droop, no decreased sensation Moderate Sedation - Procedure Monitoring Vital Signs: Procedure Monitoring Vital Signs Temperature 97.3 F L 05/12/18 13:25 Pulse Rate 81 05/12/18 13:25 Respiratory Rate 20 05/12/18 13:25 Blood Pressure 152/69 05/12/18 13:25 O2 Sat by Pulse Oximetry (%) 100 05/12/18 13:25 Heart Score/ECG Review #1 Sinus rhythm, rate 71, normal axis and intervals, no ST-T changes ED Treatment Course - LABORATORY CBC & Chemistry Diagram: 05/17/18 07:35 05/17/18 07:35 Medical Decision Making - Medical Decision Making 05/12/18 14:00 Pt who is POD #11 from partial colectomy for SBO p/w malodorous wound drainage. Initial Vital Signs Temp Pulse Resp BP Pulse Ox 97.3 F L 81 20 152/69 100 05/12/18 13:25 05/12/18 13:25 05/12/18 13:25 05/12/18 13:25 05/12/18 13:25 Exam: As noted in Physical Exam section. DDX IBNLT: abscess, cellulitis, seroma, bowel perforation, etc. W/U ordered: CBCD CMP Lactic acid BCx CT A/P with IV contrast TX ordered: None at this time RAD/CHEST X-RAY PORTABLE* AP portable chest: Shortness of breath A single AP view of the chest has been submitted. Since 05/03/2018 there is a better inspiration, removal of NG tube, smaller mediastinum and clear lung gurrola. The angles are sharp and the soft tissues are intact. There are degenerative changes. Impression: No acute chest pathology. Improvement since 05/03/2018. Laboratory Tests 05/12/18 05/12/18 05/12/18 14:33 14:33 14:33 WBC 14.0 H RBC 3.49 L Hgb 10.0 L Hct 31.1 L MCV 88.9 MCH 28.5 MCHC 32.1 RDW 12.8 Plt Count 523 H MPV 6.1 L Absolute Neuts (auto) 12.4 Neutrophils % 88.1 H Lymphocytes % 5.3 L Monocytes % 6.1 Eosinophils % 0.3 Basophils % 0.2 Sodium 137 Potassium 3.0 L Chloride 100 Carbon Dioxide 26 Anion Gap 11 BUN 8 Creatinine 0.4 L Creat Clearance w eGFR > 60 Random Glucose 92 D Lactic Acid 0.9 Calcium 8.3 L Total Bilirubin 0.6 AST 9 L ALT 8 L Alkaline Phosphatase 59 Total Protein 5.4 L Albumin 2.4 L Blood Type Antibody Screen 05/12/18 14:33 WBC RBC Hgb Hct MCV MCH MCHC RDW Plt Count MPV Absolute Neuts (auto) Neutrophils % Lymphocytes % Monocytes % Eosinophils % Basophils % Sodium Potassium Chloride Carbon Dioxide Anion Gap BUN Creatinine Creat Clearance w eGFR Random Glucose Lactic Acid Calcium Total Bilirubin AST ALT Alkaline Phosphatase Total Protein Albumin Blood Type A NEGATIVE Antibody Screen Negative CT/ABDOMEN PELVIS CT WITH CONTR History : Follow-up CT Scan of the abdomen and pelvis without oral and with IV contrast; 99 cc Omnipaque 350 Comparison 2017 FINDINGS: New small right pleural effusion Patient is status post gastric band surgery are again noted The liver, spleen, adrenal glands and pancreas are unremarkable. There are no gallstones. There is no hydronephrosis, renal masses. A few small nonobstructing right renal calculi again noted There is no retroperitoneal lymphadenopathy. There is no abdominal aortic aneurysm. There is an anterior soft tissue infraumbilical air-fluid collection that was also noted on prior study but now is increased in size with increased amount of fluid and air. Now measures 15 cm in sagittal dimension by 3.7 x 6.0 cm in the AP and transverse dimensions. There may be some inflammatory stranding surrounding this collection or site There is minimal dilatation of the small bowel in the lower abdominal pelvic region but grossly unchanged from prior There is no bowel obstruction. Uterus again demonstrates changes compatible with myomatous formation The urinary bladder is unremarkable. 4 cm right adnexal cyst is again noted IMPRESSION: Increased size of infraumbilical anterior abdominal soft tissue air fluid collection. This may represent increased drainage from the surgical site in this region. Soft tissue infection or possibly infection of the fluid collection should be strongly considered Reassessment: unchanged abdominal exam. Patient states comfortable staying. Vancomycin and potassium have been ordered. ADMIT Dr. Faulkner has spoken with Dr. Walsh. The Pt is unsafe for discharge at this time. They require further hospital observation, workup, and treatment. Microblog sent to [facility] for admission. Spoke with admitting team automobile rental representative, in agreement Pt to be admitted. Decision to Admit order placed. *DC/Admit/Observation/Transfer Diagnosis at time of Disposition: Postoperative wound infection - Discharge Dispostion Condition at time of disposition: Guarded Decision to Admit order: Yes - Prescriptions - Referrals - Patient Instructions - Post Discharge Activity
[2018-05-12 14:55] LABS: BASO % 0.2 % (0-2.0); EOS % 0.3 % (0-4.5); MEAN PLT VOLUME 6.1 fl (7.5-11.1); RDW 12.8 % (11.6-15.6)
[2018-05-12 14:59] LABS: HEMATOCRIT 31.1 % (32.4-45.2); LYMPH % 5.3 % (8-40); MCH 28.5 pg (25.7-33.7); MCHC 32.1 g/dl (32.0-36.0); MEAN CELL VOLUME 88.9 fl (80-96); MONO % 6.1 % (3.8-10.2); NEUT % 88.1 % (42.8-82.8); PLATELET COUNT 523 K/MM3 (134-434); RBC 3.49 M/mm3 (3.60-5.2)
[2018-05-12 15:08] LABS: ALBUMIN 2.4 g/dl (3.5-5.0); ALK PHOS 59 U/L (32-92); ANION GAP 11 MMOL/L (8-16); BILIRUBIN,TOTAL 0.6 mg/dl (0.2-1.0); BLOOD UREA NITROGEN 8 mg/dl (7-18); CALCIUM 8.3 mg/dl (8.4-10.2); CHLORIDE 100 mmol/L (98-107); CO2 26 mmol/L (22-28); CREATININE 0.4 mg/dl (0.6-1.3); GLUCOSE,RANDOM 92 mg/dl (74-106); SGOT/AST 9 U/L (10-42); SGPT/ALT 8 U/L (10-40); SODIUM 137 mmol/L (136-145); TOT PROT 5.4 g/dl (6.4-8.3)
[2018-05-12] MEDS ORDERED: SODIUM CHLORIDE 0.9% 500 ML INFUS.BAG IV ONE (15:17)
[2018-05-12] MEDS ORDERED: VANCOMYCIN 1 GRAM (PRE-DOCKED) 1,000 MG/250 ML BAG IVPB ONE (16:14)
[2018-05-12] MEDS ORDERED: VANCOMYCIN 1,000 MG VIAL (RESTRICTED TO ID ONLY) ONE (16:22)
[2018-05-12] MEDS ORDERED: POTASSIUM CHLORIDE TABS 20 MEQ TABLET.ER (FP) PO ONE ×2 (17:26→18:01)
[2018-05-12 19:44] VITALS: BMI 22.8
[2018-05-12] MEDS: ZOLPIDEM TARTRATE 5 MG TABLET PO PRN (22:06)
[2018-05-12] MEDS: DEXTROSE 5%-0.45% SALINE 1,000 ML IV SCH (22:07)
--- NOTE | 2018-05-12 22:17 | HP ---
Admitting History and Physical - Primary Care Physician PCP: - Admission Chief Complaint: Increased Redness, Drainage, and Tenderness to Surgical Site History of Present Illness: This is a 63 y/o woman with a PMhx of SBO, s/p Partial Colectomy (POD #11), HTN , HLD, DM, Insomnia. Who presents to the ED for leaking from her wound today. Patient reports having brownish, foul smelling drainage from the midline incisional site. Patient reports being on ABX and completing course as prescribed. Patient reports having formed stools and flatus. Patient denies fever, chills, cough, SOB, CP, palpitations, N/V/D, constipation, dysuria History Source: Patient Limitations to Obtaining History: No Limitations - Past Medical History Cardiovascular: Yes: HTN, Hyperlipdemia Gastrointestinal: Yes: Other (SBO) ...LMP Comment: 63 YEAR OLD ...: No Endocrine: Yes: Diabetes Mellitus - Past Surgical History Past Surgical History: Yes: Bariatric Surgery (lap band 2009), (lower midline scar), Hernia Repair ([facility]). 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 History of Recent Travel: No Home Medications - Allergies Allergies/Adverse Reactions: Allergies Allergy/AdvReac Type Severity Reaction Status Date / Time No Known Allergies Allergy Verified 05/12/18 13:25 - Home Medications Home Medications: Ambulatory Orders Acetaminophen [Tylenol Extra Strength] 500 mg PO PRN PRN 04/20/17 Atorvastatin Ca [Lipitor] 20 mg PO DAILY 04/20/17 Cholecalciferol (Vitamin D3) [Vitamin D3] 4,000 unit PO DAILY 04/20/17 Lisinopril [Zestril] 2.5 mg PO DAILY 04/20/17 Multivitamin [One Daily] 2 each PO DAILY 04/20/17 Zolpidem Tartrate [Ambien] 5 mg PO HS PRN 04/20/17 metFORMIN HCL [Metformin HCl] 500 mg PO BID 04/20/17 Amox-Tr/K Cl [Augmentin - 875Mg Tablet] 1 tab PO BID #14 tablet 05/08/18 Magnesium Oxide [Magnesium] 400 mg PO BID #60 tablet 05/08/18 Family Disease History - Family Disease History Family Disease History: Diabetes: Father, Other: Daughter (hypothyroid) Review of Systems - Review of Systems Constitutional: reports: No Symptoms Eyes: reports: No Symptoms HENT: reports: No Symptoms Neck: reports: No Symptoms Cardiovascular: reports: No Symptoms Respiratory: reports: No Symptoms Gastrointestinal: reports: No Symptoms Genitourinary: reports: No Symptoms Breasts: reports: No Symptoms Reported Musculoskeletal: reports: No Symptoms Integumentary: reports: Erythema, Incision (erythema, foul smelling serous brown drainage), Wound Neurological: reports: No Symptoms Endocrine: reports: No Symptoms Hematology/Lymphatic: reports: No Symptoms Psychiatric: reports: Anxiety Physical Examination Vital Signs: Vital Signs Temperature 97.6 F 05/12/18 19:51 Pulse Rate 65 05/12/18 19:51 Respiratory Rate 16 05/12/18 19:51 Blood Pressure 131/61 05/12/18 19:51 O2 Sat by Pulse Oximetry (%) 100 05/12/18 19:52 Constitutional: Yes: Anxious, Thin Eyes: Yes: Conjunctiva Clear, EOM Intact, PERRL HENT: Yes: WNL, Atraumatic, Normocephalic Neck: Yes: WNL, Supple, Trachea Midline Cardiovascular: Yes: WNL, Regular Rate and Rhythm, S1, S2 Respiratory: Yes: WNL, Regular, CTA Bilaterally Gastrointestinal: Yes: Normal Bowel Sounds, Soft, Tenderness, Other (yobany midline intact with erythema, TN to palpation) ...Rectal Exam: Yes: Deferred Renal/: Yes: WNL Breast(s): Yes: WNL Musculoskeletal: Yes: WNL Extremities: Yes: WNL Edema: No Peripheral Pulses WNL: Yes Integumentary: Yes: Erythema, Incision (erythema, foul smelling serous brown drainage to gauze) Wound/Incision: Yes: Yobany Intact, Reddened Neurological: Yes: WNL, Alert, Oriented, Cran Nerves II-XII Intact ...Motor Strength: WNL Psychiatric: Yes: WNL, Alert, Oriented Labs: CBC, BMP 05/12/18 14:33 05/12/18 14:33 Laboratory Results - last 24 hr 05/12/18 05/12/18 05/12/18 14:33 14:33 14:33 WBC 14.0 H RBC 3.49 L Hgb 10.0 L Hct 31.1 L MCV 88.9 MCH 28.5 MCHC 32.1 RDW 12.8 Plt Count 523 H MPV 6.1 L Absolute Neuts (auto) 12.4 Neutrophils % 88.1 H Lymphocytes % 5.3 L Monocytes % 6.1 Eosinophils % 0.3 Basophils % 0.2 Sodium 137 Potassium 3.0 L Chloride 100 Carbon Dioxide 26 Anion Gap 11 BUN 8 Creatinine 0.4 L Creat Clearance w eGFR > 60 POC Glucometer Random Glucose 92 D Lactic Acid 0.9 Calcium 8.3 L Total Bilirubin 0.6 AST 9 L ALT 8 L Alkaline Phosphatase 59 Total Protein 5.4 L Albumin 2.4 L Blood Type Antibody Screen 05/12/18 05/12/18 14:33 22:25 WBC RBC Hgb Hct MCV MCH MCHC RDW Plt Count MPV Absolute Neuts (auto) Neutrophils % Lymphocytes % Monocytes % Eosinophils % Basophils % Sodium Potassium Chloride Carbon Dioxide Anion Gap BUN Creatinine Creat Clearance w eGFR POC Glucometer 102 Random Glucose Lactic Acid Calcium Total Bilirubin AST ALT Alkaline Phosphatase Total Protein Albumin Blood Type A NEGATIVE Antibody Screen Negative Intake & Output 05/10/18 05/11/18 05/12/18 05/13/18 23:59 23:59 23:59 23:59 Intake Total 200 294 Balance 200 294 Weight 65.998 kg Current Medications Generic Name Dose Route Start Last Admin Trade Name Jeredq PRN Reason Stop Dose Admin Enoxaparin Sodium 40 mg 05/13/18 10:00 Lovenox - SQ DAILY MARY JO Dextrose/Sodium Chloride 1,000 mls @ 42 mls/hr 05/12/18 21:00 05/12/18 22:07 D5-1/2ns - IV 42 mls/hr ASDIR MARY JO Administration Vancomycin HCl 1,000 mg/ 250 mls @ 200 mls/hr 05/13/18 10:00 Dextrose IVPB Q24H MARY JO Protocol Zolpidem Tartrate 5 mg 05/12/18 22:00 05/12/18 22:06 Ambien - PO 5 mg HS PRN Administration INSOMNIA Imaging - Results Chest X-ray: Report Reviewed, Image Reviewed Cat Scan: Report Reviewed, Image Reviewed Problem List - Problems (1) Postoperative wound infection Assessment/Plan: s/p Partial Colectomy POD #11 Failed Outpatient Therapy CTAP showed- increased size intraumbilical anterior abdominal soft tissue air fluid collection. Soft tissue infection or possibly infection of the fluid collection should be strongly considered WBC 14.0 with neutrophilia 88.1, LA 0.9 Blood Cultures-pending Vancomycin started in ED will continue Appreciate ID consult Appreciate Surgical consult CBC, BMP in am Monitor vitals NPO Gentle IVF Code(s): T81.49XA - INFECTION FOLLOWING A PROCEDURE, OTHER SURGICAL SITE, INIT (2) Hypertension Assessment/Plan: Stable Continue Lisinopril Monitor renal function Code(s): I10 - ESSENTIAL (PRIMARY) HYPERTENSION Qualifiers: Hypertension type: essential hypertension Qualified Code(s): I10 - Essential (primary) hypertension (3) Type 2 diabetes mellitus without complications Assessment/Plan: Stable BGMs Hold Metformin secondary to recent IV contrast ISS when diet resumed Code(s): E11.9 - TYPE 2 DIABETES MELLITUS WITHOUT COMPLICATIONS Qualifiers: Diabetes mellitus detention insulin use: without detention use Qualified Code(s): E11.9 - Type 2 diabetes mellitus without complications (4) Hyperlipidemia Assessment/Plan: Continue Lipitor Monitor LFTs Code(s): E78.5 - HYPERLIPIDEMIA, UNSPECIFIED Qualifiers: Hyperlipidemia type: unspecified Qualified Code(s): E78.5 - Hyperlipidemia , unspecified (5) Insomnia Assessment/Plan: Continue Ambien Code(s): G47.00 - INSOMNIA, UNSPECIFIED Assessment/Plan This is a 63 y/o woman with a PMHx of: SBO s/p Partial Colectomy (POD #11), HTN , HLD, DM, Insomnia. Admitted for Post Op Wound Infection, Failed Outpatient Therapy for further evaluation of their emergent condition. Plan: FEN D51/2NS@60cc/hr Replete lytes prn NPO DVT ppx OOB SCDs Lovenox SQ Dispo: Requires Inpatient Care Visit type - Emergency Visit Emergency Visit: Yes ED Registration Date: 05/12/18 Care time: The patient presented to the Emergency Department on the above date and was hospitalized for further evaluation of their emergent condition. - New Patient This patient is new to me today: Yes Date on this admission: 05/12/18 - Critical Care Critical Care patient: No
[2018-05-13] MEDS ORDERED: MELATONIN 5 MG TABLETS PO ONE (00:37)
[2018-05-13 09:37] LABS: ANION GAP 10 MMOL/L (8-16); BLOOD UREA NITROGEN 5 mg/dl (7-18); CALCIUM 7.9 mg/dl (8.4-10.2); CHLORIDE 102 mmol/L (98-107); CO2 25 mmol/L (22-28); CREATININE 0.3 mg/dl (0.6-1.3); GLUCOSE,RANDOM 96 mg/dl (74-106); MAGNESIUM 1.4 mg/dL (1.8-2.4); POTASSIUM 3.4 mmol/L (3.5-5.1); SODIUM 137 mmol/L (136-145)
[2018-05-13 09:40] LABS: BASO % 0.2 % (0-2.0); EOS % 0.9 % (0-4.5); HEMATOCRIT 26.7 % (32.4-45.2); HEMOGLOBIN 8.5 GM/dl (10.7-15.3); LYMPH % 9.5 % (8-40); MCH 28.3 pg (25.7-33.7); MCHC 31.8 g/dl (32.0-36.0); MEAN CELL VOLUME 88.8 fl (80-96); MEAN PLT VOLUME 6.4 fl (7.5-11.1); MONO % 10.9 % (3.8-10.2); NEUT % 78.5 % (42.8-82.8); PLATELET COUNT 392 K/MM3 (134-434); RBC 3.01 M/mm3 (3.60-5.2); RDW 12.5 % (11.6-15.6); WHITE BLOOD COUNT 9.2 K/mm3 (4.0-10.8)
--- NOTE | 2018-05-13 09:53 | PN ---
Progress Note (short form) - Note Progress Note: Subjective: The patient was seen and examined at the bedside with Dr. Cartagena. She is tearful and concerned she will be here for [place]. Awaiting evaluation from Dr. Nico STAUFFERP with anterior soft tissue infraumbilical air-fluid collection that has increased in size with increased amount of fluid and air Current Medications Generic Name Dose Route Start Last Admin Trade Name Freq PRN Reason Stop Dose Admin Enoxaparin Sodium 40 mg 05/13/18 10:00 Lovenox - SQ DAILY MARY JO Dextrose/Sodium Chloride 1,000 mls @ 42 mls/hr 05/12/18 21:00 05/12/18 22:07 D5-1/2ns - IV 42 mls/hr ASDIR MARY JO Administration Vancomycin HCl 1,000 mg/ 250 mls @ 166.667 mls/hr 05/13/18 10:00 Dextrose IVPB Q12H MARY JO Protocol Piperacillin Sod/Tazobactam 50 mls @ 100 mls/hr 05/13/18 10:00 Sod 3.375 gm/ Dextrose IVPB Q8H-IV MARY JO Protocol Zolpidem Tartrate 5 mg 05/12/18 22:00 05/12/18 22:06 Ambien - PO 5 mg HS PRN Administration INSOMNIA Objective: Vital Signs Period Temp Pulse Resp BP Sys/Pemberton Pulse Ox Last 24 Hr 97.3 F-98.3 F 60-86 16-20 104-152/49-73 98-100 Physical Exam: General: NAD, tearful, A&Ox3 Lungs: CTA bilaterally Heart: RRR, S1S2 Abd: Midline abdominal incision with yobany, erythema extending periumbilically (L>R). Dressing with purulent drainage. Abd: Soft, non-tender, non-distended. Normoactive bowel sounds Ext: Warm, well-perfused. No edema CBCD WBC 9.2 K/mm3 (4.0-10.8) 05/13/18 08:00 RBC 3.01 M/mm3 (3.60-5.2) L 05/13/18 08:00 Hgb 8.5 GM/dl (10.7-15.3) L 05/13/18 08:00 Hct 26.7 % (32.4-45.2) L 05/13/18 08:00 MCV 88.8 fl (80-96) 05/13/18 08:00 MCHC 31.8 g/dl (32.0-36.0) L 05/13/18 08:00 RDW 12.5 % (11.6-15.6) 05/13/18 08:00 Plt Count 392 K/MM3 (134-434) 05/13/18 08:00 MPV 6.4 fl (7.5-11.1) L 05/13/18 08:00 CMP Sodium 137 mmol/L (136-145) 05/13/18 08:00 Potassium 3.4 mmol/L (3.5-5.1) L 05/13/18 08:00 Chloride 102 mmol/L (98-107) 05/13/18 08:00 Carbon Dioxide 25 mmol/L (22-28) 05/13/18 08:00 Anion Gap 10 MMOL/L (8-16) 05/13/18 08:00 BUN 5 mg/dl (7-18) L 05/13/18 08:00 Creatinine 0.3 mg/dl (0.6-1.3) L 05/13/18 08:00 Creat Clearance w eGFR > 60 (>60) 05/13/18 08:00 Random Glucose 96 mg/dl (74-106) 05/13/18 08:00 Calcium 7.9 mg/dl (8.4-10.2) L 05/13/18 08:00 Total Bilirubin 0.6 mg/dl (0.2-1.0) 05/12/18 14:33 AST 9 U/L (10-42) L 05/12/18 14:33 ALT 8 U/L (10-40) L 05/12/18 14:33 Alkaline Phosphatase 59 U/L (32-92) 05/12/18 14:33 Total Protein 5.4 g/dl (6.4-8.3) L 05/12/18 14:33 Albumin 2.4 g/dl (3.5-5.0) L 05/12/18 14:33 Assessment: This is a 63 year old female with PMHx of SBO s/p partial colectomy on 05/01/18, HTN, hyperlipidemia, DM, insomnia who presented to the ED with drainage from her surgical site and erythema. 1) Surgical wound infection - CTAP with anterior soft tissue infraumbilical air-fluid collection that has increased in size with increased amount of fluid and air - WBC 14->9.2 - Remains afebrile - Send wound culture (patient already received 2 doses of Vancomycin) - F/u blood cultures - Empiric Vancomycin (05/12- ) - Empiric Zosyn (05/13- ) - Appreciate ID consult - Awaiting call back from surgery 2) Anemia - Patient discharged with post-op Hgb 9.5, Hgb now 8.5. No overt signs of bleeding - Drop in Hgb may be hemodilutional - Will continue to trend - Transfuse if Hgb <7 3) HTN - Hold all antihypertensives for now, patient with lower than normal BP 104/49 - Will recheck BP now and order bolus if patient remains hypotensive 4) Hyperlipidemia - Continue Lipitor 5) NIDDM - BGM q6h while NPO - ISS if BGM >200 6) F/E/N: - IV fluids, will increase rate - Hypokalemia: replete - Hypomagnesemia: replete - NPO until discussion with Dr. Walsh re: if the patient will be going to the OR today 7) Prophylaxis: - SCDs bilaterally - Hold Lovenox for possible surgical procedure 8) Dispo: - Requires continued inpatient care CODE STATUS: FULL CODE Problem List - Problems (1) Hypotension Code(s): I95.9 - HYPOTENSION, UNSPECIFIED (2) Hypomagnesemia Code(s): E83.42 - HYPOMAGNESEMIA (3) Hypokalemia Code(s): E87.6 - HYPOKALEMIA (4) Anemia Code(s): D64.9 - ANEMIA, UNSPECIFIED (5) Insomnia Code(s): G47.00 - INSOMNIA, UNSPECIFIED (6) Postoperative wound infection Code(s): T81.49XA - INFECTION FOLLOWING A PROCEDURE, OTHER SURGICAL SITE, INIT (7) Hyperlipidemia Code(s): E78.5 - HYPERLIPIDEMIA, UNSPECIFIED Qualifiers: Hyperlipidemia type: unspecified Qualified Code(s): E78.5 - Hyperlipidemia , unspecified (8) Type 2 diabetes mellitus without complications Code(s): E11.9 - TYPE 2 DIABETES MELLITUS WITHOUT COMPLICATIONS 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 - New Patient This patient is new to me today: Yes Date on this admission: 05/13/18 - Critical Care Critical Care patient: No - Discharge Referral Referred to [facility] No
--- NOTE | 2018-05-13 09:59 | PN ---
Progress Note (short form) - Note Progress Note: ID Consult dictated Surgical wound infection R/O infected seroma vs. abscess Await c/s Empiric vancomycin/ zosyn Surgical follow up
[2018-05-13] MEDS ORDERED: ENOXAPARIN NA (PORCINE) 40 MG/0.4 ML DISP.SYRIN SQ SCH (10:00)
[2018-05-13] MEDS ORDERED: VANCOMYCIN 1,000 MG in DEXTROSE 5%-WATER - 250 ML IVPB SCH (10:00)
[2018-05-13] MEDS ORDERED: PIPERACILLIN/TAZOBACTAM 3.375 GM VIAL IVPB ONE ×2 (10:15→16:54)
[2018-05-13] MEDS ORDERED: DEXTROSE 5%-WATER - 50 ML IVPB ONE ×2 (10:15→16:54)
[2018-05-13] MEDS ORDERED: MAGNESIUM SULF 50% (8.12 MEQ/2 ML-1 GM VIAL) IVPB ONE (10:21)
[2018-05-13] MEDS ORDERED: ACETAMINOPHEN 500 MG TABLET (FP) PO PRN ×2 (10:24→10:32)
[2018-05-13] MEDS: KCL 10 MEQ IVPB 10 MEQ/100 ML INFUS.BAG IVPB SCH ×2 (10:25→11:56)
[2018-05-13] MEDS: PIPERACILLIN/TAZOB 3.375 GM 3.375 GM in DEXTROSE 5%-WATER - 50 ML IVPB SCH (10:39)
[2018-05-13] MEDS ORDERED: ENOXAPARIN NA (PORCINE) 40 MG/0.4 ML DISP.SYRIN SQ ONE (11:00)
[2018-05-13] MEDS ORDERED: INSULIN SLIDING SCALE (NOVOLOG) 1 VIAL SQ SCH (11:00)
[2018-05-13] MEDS: INSULIN SLIDING SCALE (NOVOLOG) 1 VIAL SQ SCH ×2 (11:08→16:40)
[2018-05-13] MEDS: VANCOMYCIN 1 GRAM (PRE-DOCKED) 1,000 MG/250 ML BAG IVPB SCH ×2 (11:11→22:12)
--- NOTE | 2018-05-13 11:32 | CONS ---
DATE OF CONSULTATION: DATE OF DICTATION: 05/13/2018 The patient is a 63-year-old female evaluated for surgical wound infection. The patient was recently hospitalized at [facility] from April 21 through May 08 with small bowel obstruction. She had undergone an exploratory laparotomy and partial resection for small bowel obstruction. According to the pathology report, the obstruction was apparently caused by a fecalith. She is presently postoperative day No. 11. She was discharged home on May 08, 2018. Her posthospital course was initially uncomplicated. She began to develop drainage from the surgical wound. She reports that, over the past 24 to 48 hours, she has noted increasing erythema, warmth, and tenderness in the middle aspect of the surgical incision and an increasing amount of drainage, which is now described as malodorous. She was evaluated in the emergency room, where she was admitted. CT scan of the abdomen shows an infraumbilical anterior abdominal soft tissue air fluid collection. Cultures were obtained. She was empirically treated with vancomycin and Zosyn. The patient reports taking amoxicillin at home prior to readmission. At the present time, she is awake, she is anxious secondary to her abdominal wound infection. She denies any pain at the present time. No fever or chills. Cultures are pending. PAST MEDICAL HISTORY: Positive for diabetes mellitus, hypertension, hyperlipidemia. PAST SURGICAL HISTORY: Status post gastric band. No known allergies. MEDICATIONS: Lisinopril; Lipitor; metformin. SOCIAL HISTORY: She resides in the community. She is a nonsmoker, nondrinker. SYSTEMS REVIEW: Neurologic: No loss of consciousness, seizure activity, focal weakness. Cardiac: Negative chest pain or palpitations. Respiratory: Negative cough or sputum production. Gastrointestinal: As per HPI. Genitourinary: Negative for urinary tract infection. LABORATORY DATA: White count 14.0 with 88 neutrophils, hematocrit 31.1, platelet count 523. Creatinine 0.4. Liver enzymes normal. Blood cultures and wound culture are pending. PHYSICAL EXAMINATION: General: She is awake and alert. She is anxious. She is not acutely toxic-appearing. Vital Signs: Temperature 98.1, blood pressure 104/49, pulse 60 and regular, respirations 18/min. HEENT: Sclerae anicteric. Heart Sounds: S1, S2. Lungs: Clear. Abdomen: There is a midline surgical wound with yobany in place. There is erythema present at the middle aspect of the surgical wound. There is no expressible pus; however, there is purulent drainage noted on the surgical dressing. No crepitus or fluctuance. Extremities: Negative for edema. IMPRESSION: 1. Surgical wound infection. 2. Rule out infected seroma versus abscess. 3. Postoperative day number 11, exploratory laparotomy and bowel resection for small bowel obstruction. Await blood and wound culture results, surgical followup, empiric antibiotic coverage pending cultures with vancomycin and Zosyn, local wound care. Thank you for the kind referral. LIS OAKES M.D. [id number]
--- NOTE | 2018-05-13 12:33 | PN ---
Progress Note (short form) - Note Progress Note: Pt returned to ER 05/12/2018 with purulent drainage from midline incision and increased WBC count of 14.0. Pt now 12 days S/P Exploratory Laparotomy plus SB Resection. Pt was home for 4 days where she ate normal diet. Pt started on IV antibiotics 05/12/2018 and WBC count now 9.2 Pt denies pain, nausea or vomiting P/E- Abd- increased redness in area of umbilicus over incision area of erythema spreads further laterally especially towards the patient' s left side. CT scan (05/12)- increased fluid collection below skin incision Middle 1/3 of yobany removed from pt's incision Large amount of purulent, foul-smelling discharge expressed packing performed with 4X4 gauze C/S of wound sent P- Cont antibiotics as per ID Wound dressing change BID Encourage PO nutrition
--- NOTE | 2018-05-13 12:37 | PROC ---
Procedure Note Procedure: I&D of Infected midline Incision Middle 1/3 of yobany removed. Skin gently with scissors Large amount (>100cc) of purulent material expressed Fluid was foul-smelling P/E revealed fascia to be intact Wound packed with 4X4 gauze Dressing applied P- BID dressing changes Cont Antibiotics Encourage PO
[2018-05-13] MEDS ORDERED: POTASSIUM CHLORIDE TABS 20 MEQ TABLET.ER (FP) PO ONE (12:45)
[2018-05-13] MEDS ORDERED: INSULIN (NOVOLOG) ASPART 100 UNITS/ML 10ML VIAL ONE (16:38)
[2018-05-13] MEDS: DEXTROSE 5%-0.45% SALINE 1,000 ML IV SCH (21:30)
[2018-05-13] MEDS: ZOLPIDEM TARTRATE 5 MG TABLET PO PRN (22:11)
[2018-05-14] MEDS: PIPERACILLIN/TAZOB 3.375 GM 3.375 GM in DEXTROSE 5%-WATER - 50 ML IVPB SCH ×3 (01:31→18:21)
[2018-05-14] MEDS: INSULIN SLIDING SCALE (NOVOLOG) 1 VIAL SQ SCH ×5 (01:32→21:02)
[2018-05-14] MEDS ORDERED: PIPERACILLIN/TAZOBACTAM 3.375 GM VIAL IVPB ONE ×3 (02:10→18:13)
[2018-05-14] MEDS ORDERED: DEXTROSE 5%-WATER - 50 ML IVPB ONE ×3 (02:10→18:13)
--- NOTE | 2018-05-14 07:18 | EKG ---
Test Reason : Blood Pressure : / mmHG Vent. Rate : 071 BPM Atrial Rate : 071 BPM P-R Int : 144 ms QRS Dur : 090 ms QT Int : 386 ms P-R-T Axes : 044 017 020 degrees QTc Int : 419 ms NORMAL SINUS RHYTHM CANNOT RULE OUT ANTERIOR INFARCT (CITED ON OR BEFORE 20-APR-2018) ABNORMAL ECG WHEN COMPARED WITH ECG OF 20-APR-2018 22:09, NO SIGNIFICANT CHANGE WAS FOUND Confirmed by CARY REED, CHRISTIANE ([id number]) on 05/14/2018 7:18:38 AM Referred By: GREG ALFONSO Confirmed By:CHRISTIANE TOWNSEND MD
[2018-05-14 08:21] LABS: BASO % 0.5 % (0-2.0); EOS % 1.8 % (0-4.5); HEMATOCRIT 29.2 % (32.4-45.2); HEMOGLOBIN 9.1 GM/dl (10.7-15.3); LYMPH % 15.1 % (8-40); MCHC 31.3 g/dl (32.0-36.0); MEAN CELL VOLUME 89.7 fl (80-96); MEAN PLT VOLUME 6.3 fl (7.5-11.1); MONO % 9.4 % (3.8-10.2); NEUT % 73.2 % (42.8-82.8); PLATELET COUNT 465 K/MM3 (134-434); RBC 3.25 M/mm3 (3.60-5.2); RDW 13.1 % (11.6-15.6); WHITE BLOOD COUNT 8.1 K/mm3 (4.0-10.8)
[2018-05-14 08:43] LABS: ALBUMIN 2.2 g/dl (3.5-5.0); ALK PHOS 57 U/L (32-92); ANION GAP 8 MMOL/L (8-16); BLOOD UREA NITROGEN 5 mg/dl (7-18); CALCIUM 8.3 mg/dl (8.4-10.2); CHLORIDE 103 mmol/L (98-107); CO2 27 mmol/L (22-28); GLUCOSE,RANDOM 113 mg/dl (74-106); MAGNESIUM 1.6 mg/dL (1.8-2.4); SGOT/AST 13 U/L (10-42); SODIUM 138 mmol/L (136-145); TOT PROT 4.9 g/dl (6.4-8.3)
[2018-05-14 09:02] LABS: CREATININE < 0.6 mg/dl (0.6-1.3)
[2018-05-14 09:03] LABS: BILIRUBIN,TOTAL < 0.3 mg/dl (0.2-1.0); SGPT/ALT < 8 U/L (10-40)
[2018-05-14] MEDS: CHOLECALCIFEROL (VITAMIN D3) 1,000 UNIT TABLET (FP) PO SCH (09:16)
[2018-05-14] MEDS: ATORVASTATIN CA 20 MG TABLET (FP) PO SCH (09:16)
--- NOTE | 2018-05-14 10:26 | PN ---
Physical Exam: SUBJECTIVE: Patient seen and examined at bedside with Dr. Walsh. OBJECTIVE: Vital Signs Period Temp Pulse Resp BP Sys/Pemberton Pulse Ox Last 24 Hr 97.7 F-98.3 F 64-71 18-20 122-134/53-60 98-100 GENERAL: The patient is awake, alert, and fully oriented, in no acute distress. LUNGS: Breath sounds equal, clear to auscultation bilaterally, no wheezes, no crackles, no accessory muscle use. HEART: Regular rate and rhythm, S1, S2 ABDOMEN: Surgical yobany partially removed, wound with some purulence, surrounding erythema improved EXTREMITIES: 2+ pulses, warm, well-perfused, no edema. NEUROLOGICAL: Cranial nerves II through XII grossly intact. Normal speech, gait not observed. PSYCH: Normal mood, normal affect. SKIN: Warm, dry, normal turgor Laboratory Results - last 24 hr 05/13/18 05/13/18 05/13/18 10:51 16:22 21:33 WBC RBC Hgb Hct MCV MCH MCHC RDW Plt Count MPV Absolute Neuts (auto) Neutrophils % Lymphocytes % Monocytes % Eosinophils % Basophils % Sodium Potassium Chloride Carbon Dioxide Anion Gap BUN Creatinine Creat Clearance w eGFR POC Glucometer 104 219 111 Random Glucose Calcium Magnesium Total Bilirubin AST ALT Alkaline Phosphatase Total Protein Albumin 05/14/18 05/14/18 05/14/18 05:58 07:23 07:23 WBC 8.1 RBC 3.25 L Hgb 9.1 L Hct 29.2 L MCV 89.7 MCH 28.0 MCHC 31.3 L RDW 13.1 Plt Count 465 H MPV 6.3 L Absolute Neuts (auto) 6.0 Neutrophils % 73.2 Lymphocytes % 15.1 Monocytes % 9.4 Eosinophils % 1.8 Basophils % 0.5 Sodium 138 Potassium 4.0 Chloride 103 Carbon Dioxide 27 Anion Gap 8 BUN 5 L Creatinine < 0.6 L Creat Clearance w eGFR > 60 POC Glucometer 119 Random Glucose 113 H Calcium 8.3 L Magnesium 1.6 L Total Bilirubin < 0.3 AST 13 D ALT < 8 L Alkaline Phosphatase 57 Total Protein 4.9 L Albumin 2.2 L Active Medications Generic Name Dose Route Start Last Admin Trade Name Freq PRN Reason Stop Dose Admin Acetaminophen 500 mg 05/13/18 10:32 Tylenol - PO Q6H PRN FEVER Atorvastatin Calcium 20 mg 05/14/18 10:00 05/14/18 09:16 Lipitor - PO 20 mg DAILY MARY JO Administration Cholecalciferol 4,000 unit 05/14/18 10:00 05/14/18 09:16 Vitamin D3 - PO 4,000 unit DAILY MARY JO Administration Dextrose/Sodium Chloride 1,000 mls @ 42 mls/hr 05/12/18 21:00 05/13/18 21:30 D5-1/2ns - IV 42 mls/hr ASDIR MARY JO Administration Piperacillin Sod/Tazobactam 50 mls @ 100 mls/hr 05/13/18 10:00 05/14/18 09:13 Sod 3.375 gm/ Dextrose IVPB 100 mls/hr Q8H-IV MARY JO Administration Protocol Vancomycin HCl 1,000 mg in 250 mls @ 166.667 mls/hr 05/13/18 11:00 05/13/18 22:12 Vancomycin (Pre-Docked) IVPB 166.667 mls/hr Q12H MARY JO Administration Protocol Insulin Aspart 1 vial 05/13/18 11:00 05/14/18 06:07 Novolog Vial Sliding Scale - SQ Not Given ACHS MARY JO Protocol Zolpidem Tartrate 5 mg 05/12/18 22:00 05/13/18 22:11 Ambien - PO 5 mg HS PRN Administration INSOMNIA ASSESSMENT/PLAN 63 year-old female with a PMH significant for HTN, HLD, non-insulin dependent Type II diabetes, and s/p lap band surgery 2009, partial SBO s/p lap small bowel resection 05/01/18. Admitted for post-surgical infection. Partial SBO s/p lap small bowel resection, small bowel foreign body 05/01/18 Post-surgical infection --POD #13 --afebrile, leukocytosis resolved --continue vanc (day #2) and Zosyn (day #2) --dry dressing changes BID --Dr. Walsh following, no planned surgical intervention Hypertension --BP stable --continue lisinopril Hyperlipidemia --continue atorvastatin NIDDM, Type II --Novolog sliding scale coverage Hypomagnesemia --repleted Hypoalbuminemia --albumin 2.2 --add Prosource FEN Fluids: PO intake adequate Electrolytes: replete as indicated Nutrition: high protein diet; Prosource for protein supplementation Physical therapy DVT prophylaxis: subq lovenox Dispo: continues to require inpatient care. Full code. Visit type - Emergency Visit Emergency Visit: Yes ED Registration Date: 05/12/18 Care time: The patient presented to the Emergency Department on the above date and was hospitalized for further evaluation of their emergent condition. - New Patient This patient is new to me today: Yes Date on this admission: 05/14/18 - Critical Care Critical Care patient: No
[2018-05-14] MEDS ORDERED: MAGNESIUM SULF 50% (8.12 MEQ/2 ML-1 GM VIAL) IVPB ONE (10:38)
[2018-05-14] MEDS: VANCOMYCIN 1 GRAM (PRE-DOCKED) 1,000 MG/250 ML BAG IVPB SCH ×2 (11:37→22:30)
--- NOTE | 2018-05-14 11:54 | PN ---
Progress Note (short form) - Note Progress Note: Bariatric Surgery Afebrile;VSS Pt doing well Tolerating PO diet No N/V BM X 2-formed P/E-Abd- dressing changed Very minimal purulent drainage edges of wound with improved redness decreased erythema of skin P- Cont antibiotics as per ID Encourage OOB
[2018-05-14] MEDS: ENOXAPARIN NA (PORCINE) 40 MG/0.4 ML DISP.SYRIN SQ SCH (15:19)
[2018-05-14] MEDS ORDERED: INSULIN (NOVOLOG) ASPART 100 UNITS/ML 10ML VIAL ONE (18:12)
[2018-05-14] MEDS: AMINO ACIDS/PROTEIN HYDROLYS 30 ML LIQUID.PKT PO SCH (18:22)
[2018-05-14] MEDS: ZOLPIDEM TARTRATE 5 MG TABLET PO PRN (23:08)
[2018-05-15] MEDS ORDERED: DEXTROSE 5%-WATER - 50 ML IVPB ONE ×2 (01:57→10:03)
[2018-05-15] MEDS ORDERED: PIPERACILLIN/TAZOBACTAM 3.375 GM VIAL IVPB ONE ×2 (01:58→10:04)
[2018-05-15] MEDS: PIPERACILLIN/TAZOB 3.375 GM 3.375 GM in DEXTROSE 5%-WATER - 50 ML IVPB SCH ×3 (02:06→10:46)
[2018-05-15] MEDS: INSULIN SLIDING SCALE (NOVOLOG) 1 VIAL SQ SCH ×4 (06:33→21:39)
[2018-05-15] MEDS: AMINO ACIDS/PROTEIN HYDROLYS 30 ML LIQUID.PKT PO SCH ×2 (08:55→17:09)
[2018-05-15] MEDS ORDERED: ENOXAPARIN NA (PORCINE) 100 MG/1 ML DISP.SYRIN SQ SCH (10:00)
[2018-05-15] MEDS: ATORVASTATIN CA 20 MG TABLET (FP) PO SCH (10:50)
[2018-05-15] MEDS: CHOLECALCIFEROL (VITAMIN D3) 1,000 UNIT TABLET (FP) PO SCH (10:51)
[2018-05-15] MEDS: LISINOPRIL 5 MG TABLET (FP) PO SCH (10:51)
[2018-05-15] MEDS: ENOXAPARIN NA (PORCINE) 40 MG/0.4 ML DISP.SYRIN SQ SCH (10:51)
[2018-05-15] MEDS ORDERED: INSULIN (NOVOLOG) ASPART 100 UNITS/ML 10ML VIAL ONE (11:23)
--- NOTE | 2018-05-15 13:08 | PN ---
Progress Note (short form) - Note Progress Note: asked to evaluate wound culture results Vital Signs Period Temp Pulse Resp BP Sys/Pemberton Pulse Ox Last 24 Hr 97.6 F-98.2 F 60-68 16-18 94-152/49-68 97-100 cor-rrr lungs clear abd soft,nt inciison open in the middle with purulent drainage ext no edema CBC, BMP 05/14/18 07:23 05/14/18 07:23 Microbiology 05/13/18 10:30 Abdomen Gram Stain - Final 05/13/18 10:30 Abdomen Wound Culture - Preliminary Escherichia Coli Klebsiella Oxytoca Group D Strep Or Entero Coccus 05/12/18 14:36 Blood - Peripheral Venous Blood Culture - Preliminary NO GROWTH OBTAINED AFTER 48 HOURS, INCUBATION TO CONTINUE FOR 3 DAYS. 05/12/18 14:20 Blood - Peripheral Venous Blood Culture - Preliminary NO GROWTH OBTAINED AFTER 48 HOURS, INCUBATION TO CONTINUE FOR 3 DAYS. a/p wound infection contact isolation for kleb esbl positive switch to vanco/ertapenem f/u vancomycin trough d/w patient at length
[2018-05-15] MEDS: ERTAPENEM SODIUM 1 GM/50 ML PRE-DOCKED IVPB SCH (13:53)
[2018-05-15] MEDS: VANCOMYCIN 1 GRAM (PRE-DOCKED) 1,000 MG/250 ML BAG IVPB SCH ×2 (14:19→22:23)
--- NOTE | 2018-05-15 18:17 | PN ---
Physical Exam: SUBJECTIVE: Patient seen and examined; Denies complaints. No abdominal pain. OBJECTIVE: Vital Signs 3 Period Temp Pulse Resp BP Sys/Pemberton Pulse Ox Last 24 Hr 97.9 F-98.2 F 60-68 16-18 104-152/52-68 98-100 GENERAL: The patient is awake, alert, and fully oriented, in no acute distress. HEAD: Normal with no signs of trauma. EYES: PERRL, extraocular movements intact, sclera anicteric, conjunctiva clear. No ptosis. ENT: Ears normal, nares patent, oropharynx clear without exudates, moist mucous membranes. NECK: Trachea midline, full range of motion, supple. LUNGS: Breath sounds equal, clear to auscultation bilaterally, no wheezes, no crackles, no accessory muscle use. HEART: Regular rate and rhythm, S1, S2 without murmur, rub or gallop. ABDOMEN: Soft, nontender, nondistended, normoactive bowel sounds, no guarding, no rebound, no hepatosplenomegaly, no masses. midline surgical site open in center, yobany in place distally. packing in place. wound edges with minimal erythema. no discharge noted on dressing. EXTREMITIES: 2+ pulses, warm, well-perfused, no edema. NEUROLOGICAL: Cranial nerves II through XII grossly intact. Normal speech, gait not observed. PSYCH: Normal mood, normal affect. SKIN: Warm, dry, normal turgor, no rashes or lesions noted Laboratory Results - last 24 hr 3 05/14/18 05/14/18 05/15/18 18:09 21:01 06:31 POC Glucometer 185 114 131 Vancomycin Pre-Dose 3 05/15/18 05/15/18 05/15/18 11:19 11:20 16:50 POC Glucometer 163 155 Vancomycin Pre-Dose 9.6 L Active Medications 3 Generic Name Dose Route Start Last Admin Trade Name Freq PRN Reason Stop Dose Admin Acetaminophen 500 mg 05/13/18 10:32 Tylenol - PO Q6H PRN FEVER Amino Acids 30 ml 05/14/18 17:30 05/15/18 17:09 Prosource No Carb Liquid Pkt PO 30 ml BID@0800,1730 MARY JO Administration Atorvastatin Calcium 20 mg 05/14/18 10:00 05/15/18 10:50 Lipitor - PO 20 mg DAILY MARY JO Administration Cholecalciferol 4,000 unit 05/14/18 10:00 05/15/18 10:51 Vitamin D3 - PO 4,000 unit DAILY MARY JO Administration Enoxaparin Sodium 40 mg 05/14/18 12:30 05/15/18 10:51 Lovenox - SQ 40 mg DAILY MARY JO Administration Ertapenem 1 gm 05/15/18 13:00 05/15/18 13:53 Invanz (Pre-Docked) IVPB 1 gm DAILY MARY JO Administration Vancomycin HCl 1,000 mg in 250 mls @ 166.667 mls/hr 05/13/18 11:00 05/15/18 14:19 Vancomycin (Pre-Docked) IVPB 166.667 mls/hr Q12H MARY JO Administration Protocol Insulin Aspart 1 vial 05/13/18 11:00 05/15/18 17:09 Novolog Vial Sliding Scale - SQ Not Given ACHS MARY JO Protocol Lisinopril 2.5 mg 05/15/18 10:00 05/15/18 10:51 Prinivil PO 2.5 mg DAILY MARY JO Administration Zolpidem Tartrate 5 mg 05/14/18 22:49 05/14/18 23:08 Ambien - PO 5 mg HS PRN Administration INSOMNIA ASSESSMENT/PLAN: 63yF with PMH HTN, HLD, non-insulin dependent Type II diabetes, and s/p lap band surgery 2009, partial SBO s/p lap small bowel resection 05/01/18 now admitted for post-surgical infection. wound infection s/p lap small bowel resection - POD#14 - afebrile - cont vanc (day3); zosyn changed to ertapenem as cultures revealed ESBL klebsiella - contact precautions - dressing changes BID, pack wound with dry gauze as per surgery HTN - BP stable - cont lisinopril HLD - cont atorvastatin NIDDM - BGM ACHS with novolog SS FEN - tolerating po fluids - bmp in am with mag - diabetic diet as tolerated, good appetite Dispo: Pt continues to require inpatient management of her emergent condition. Visit type - Emergency Visit Emergency Visit: Yes ED Registration Date: 05/12/18 Care time: The patient presented to the Emergency Department on the above date and was hospitalized for further evaluation of their emergent condition. - New Patient This patient is new to me today: Yes Date on this admission: 05/15/18 - Critical Care Critical Care patient: No
[2018-05-15] MEDS: ZOLPIDEM TARTRATE 5 MG TABLET PO PRN (22:23)
[2018-05-16] MEDS: INSULIN SLIDING SCALE (NOVOLOG) 1 VIAL SQ SCH ×4 (06:42→22:02)
[2018-05-16] MEDS: AMINO ACIDS/PROTEIN HYDROLYS 30 ML LIQUID.PKT PO SCH ×2 (08:24→16:33)
[2018-05-16 08:41] LABS: ALBUMIN 2.3 g/dl (3.5-5.0); ALK PHOS 57 U/L (32-92); ANION GAP 7 MMOL/L (8-16); BILIRUBIN,TOTAL 0.4 mg/dl (0.2-1.0); BLOOD UREA NITROGEN 10 mg/dl (7-18); CALCIUM 8.7 mg/dl (8.4-10.2); CHLORIDE 105 mmol/L (98-107); CO2 28 mmol/L (22-28); GLUCOSE,RANDOM 112 mg/dl (74-106); MAGNESIUM 1.7 mg/dL (1.8-2.4); PHOSPHOROUS 3.4 mg/dl (2.5-4.6); POTASSIUM 4.8 mmol/L (3.5-5.1); SGOT/AST 10 U/L (10-42); SODIUM 140 mmol/L (136-145); TOT PROT 5.2 g/dl (6.4-8.3)
[2018-05-16 08:44] LABS: CREATININE < 0.6 mg/dl (0.6-1.3); SGPT/ALT < 8 U/L (10-40)
[2018-05-16 09:23] LABS: BASO % 0.7 % (0-2.0); EOS % 2.2 % (0-4.5); HEMATOCRIT 28.7 % (32.4-45.2); HEMOGLOBIN 8.9 GM/dl (10.7-15.3); LYMPH % 15.4 % (8-40); MCH 27.8 pg (25.7-33.7); MCHC 30.9 g/dl (32.0-36.0); MEAN CELL VOLUME 89.9 fl (80-96); MEAN PLT VOLUME 6.5 fl (7.5-11.1); NEUT % 70.7 % (42.8-82.8); PLATELET COUNT 489 K/MM3 (134-434); RDW 13.2 % (11.6-15.6); WHITE BLOOD COUNT 7.6 K/mm3 (4.0-10.8)
--- NOTE | 2018-05-16 09:35 | PN ---
Progress Note, Physician History of Present Illness: Awake, alert Supine in bed No c/o abdominal pain No fever/ chills Wound c/s noted - Current Medication List Current Medications: Active Medications Acetaminophen (Tylenol -) 500 mg PO Q6H PRN PRN Reason: FEVER Amino Acids (Prosource No Carb Liquid Pkt) 30 ml PO BID@0800,1730 [facility] Last Admin: 05/16/18 08:24 Dose: 30 ml Atorvastatin Calcium (Lipitor -) 20 mg PO DAILY [facility] Last Admin: 05/15/18 10:50 Dose: 20 mg Cholecalciferol (Vitamin D3 -) 4,000 unit PO DAILY [facility] Last Admin: 05/15/18 10:51 Dose: 4,000 unit Enoxaparin Sodium (Lovenox -) 40 mg SQ DAILY [facility] Last Admin: 05/15/18 10:51 Dose: 40 mg Ertapenem (Invanz (Pre-Docked)) 1 gm IVPB DAILY [facility] Last Admin: 05/15/18 13:53 Dose: 1 gm Vancomycin HCl (Vancomycin (Pre-Docked)) 1,000 mg in 250 mls @ 166.667 mls/hr IVPB Q12H [facility]; Protocol Last Admin: 05/15/18 22:23 Dose: 166.667 mls/hr Insulin Aspart (Novolog Vial Sliding Scale -) 1 vial SQ ACHS [facility]; Protocol Last Admin: 05/16/18 06:42 Dose: Not Given Lisinopril (Prinivil) 2.5 mg PO DAILY [facility] Last Admin: 05/15/18 10:51 Dose: 2.5 mg Zolpidem Tartrate (Ambien -) 5 mg PO HS PRN PRN Reason: INSOMNIA Last Admin: 05/15/18 22:23 Dose: 5 mg - Objective Vital Signs: Vital Signs Temperature 98.0 F 05/16/18 09:14 Pulse Rate 68 05/16/18 09:14 Respiratory Rate 18 05/16/18 09:14 Blood Pressure 121/59 L 05/16/18 09:14 O2 Sat by Pulse Oximetry (%) 100 05/16/18 09:14 Constitutional: Yes: No Distress Eyes: Yes: Conjunctiva Clear Cardiovascular: Yes: Regular Rate and Rhythm, S1, S2 Respiratory: Yes: CTA Bilaterally Gastrointestinal: Yes: Normal Bowel Sounds, Soft, Other (surgical wound with packing No purulent drainage) Edema: No Labs: CBC, BMP 05/16/18 07:30 05/16/18 07:30 Assessment/Plan Surgical wound infection + wound c/s ESBL Continue ertapenem Contact precautions
[2018-05-16] MEDS: CHOLECALCIFEROL (VITAMIN D3) 1,000 UNIT TABLET (FP) PO SCH (10:04)
[2018-05-16] MEDS: ATORVASTATIN CA 20 MG TABLET (FP) PO SCH (10:04)
[2018-05-16] MEDS: ENOXAPARIN NA (PORCINE) 40 MG/0.4 ML DISP.SYRIN SQ SCH (10:04)
[2018-05-16] MEDS: ERTAPENEM SODIUM 1 GM/50 ML PRE-DOCKED IVPB SCH (10:04)
[2018-05-16] MEDS: LISINOPRIL 5 MG TABLET (FP) PO SCH (10:04)
--- NOTE | 2018-05-16 21:45 | PN ---
Physical Exam: SUBJECTIVE: Patient seen and examined. Voices no physical complaints but quite tearful about situation. Lengthy discussion about PICC line, antibiotic therapy , wound vac. OBJECTIVE: Vital Signs Period Temp Pulse Resp BP Sys/Pemberton Pulse Ox Last 24 Hr 98.0 F-98.6 F 65-75 16-18 116-138/53-59 95-100 GENERAL: The patient is awake, alert, and fully oriented, in no acute distress. LUNGS: Breath sounds equal, clear to auscultation bilaterally, no wheezes, no crackles, no accessory muscle use. HEART: Regular rate and rhythm, S1, S2 ABDOMEN: Wound not visualized today; dressing c/d/i EXTREMITIES: 2+ pulses, warm, well-perfused, no edema. NEUROLOGICAL: Cranial nerves II through XII grossly intact. Normal speech, gait not observed. PSYCH: Normal mood, normal affect. SKIN: Warm, dry, normal turgor Laboratory Results - last 24 hr 05/15/18 05/16/18 05/16/18 20:51 06:33 07:30 WBC 7.6 RBC 3.20 L Hgb 8.9 L Hct 28.7 L MCV 89.9 MCH 27.8 MCHC 30.9 L RDW 13.2 Plt Count 489 H MPV 6.5 L Absolute Neuts (auto) 5.3 Neutrophils % 70.7 Lymphocytes % 15.4 Monocytes % 11.0 H Eosinophils % 2.2 Basophils % 0.7 Sodium Potassium Chloride Carbon Dioxide Anion Gap BUN Creatinine Creat Clearance w eGFR POC Glucometer 145 111 Random Glucose Calcium Phosphorus Magnesium Total Bilirubin AST ALT Alkaline Phosphatase Total Protein Albumin 05/16/18 05/16/18 05/16/18 07:30 11:31 16:27 WBC RBC Hgb Hct MCV MCH MCHC RDW Plt Count MPV Absolute Neuts (auto) Neutrophils % Lymphocytes % Monocytes % Eosinophils % Basophils % Sodium 140 Potassium 4.8 Chloride 105 Carbon Dioxide 28 Anion Gap 7 L BUN 10 Creatinine < 0.6 L Creat Clearance w eGFR > 60 POC Glucometer 156 170 Random Glucose 112 H Calcium 8.7 Phosphorus 3.4 Magnesium 1.7 L Total Bilirubin 0.4 AST 10 D ALT < 8 L Alkaline Phosphatase 57 Total Protein 5.2 L Albumin 2.3 L Active Medications Generic Name Dose Route Start Last Admin Trade Name Freq PRN Reason Stop Dose Admin Acetaminophen 500 mg 05/13/18 10:32 Tylenol - PO Q6H PRN FEVER Amino Acids 30 ml 05/14/18 17:30 05/16/18 16:33 Prosource No Carb Liquid Pkt PO 30 ml BID@0800,1730 MARY JO Administration Atorvastatin Calcium 20 mg 05/14/18 10:00 05/16/18 10:04 Lipitor - PO 20 mg DAILY MARY JO Administration Cholecalciferol 4,000 unit 05/14/18 10:00 05/16/18 10:04 Vitamin D3 - PO 4,000 unit DAILY MARY JO Administration Enoxaparin Sodium 40 mg 05/14/18 12:30 05/16/18 10:04 Lovenox - SQ 40 mg DAILY MARY JO Administration Ertapenem 1 gm 05/15/18 13:00 05/16/18 10:04 Invanz (Pre-Docked) IVPB 1 gm DAILY MARY JO Administration Insulin Aspart 1 vial 05/13/18 11:00 05/16/18 16:32 Novolog Vial Sliding Scale - SQ 2 units ACHS MARY JO Administration Protocol Lisinopril 2.5 mg 05/15/18 10:00 05/16/18 10:04 Prinivil PO 2.5 mg DAILY MARY JO Administration Zolpidem Tartrate 5 mg 05/14/18 22:49 05/15/18 22:23 Ambien - PO 5 mg HS PRN Administration INSOMNIA ASSESSMENT/PLAN: 63 year-old female with a PMH significant for HTN, HLD, non-insulin dependent Type II diabetes, and s/p lap band surgery 2009, partial SBO s/p lap small bowel resection 05/01/18. Admitted for post-surgical infection. Partial SBO s/p lap small bowel resection, small bowel foreign body 05/01/18 Post-surgical infection --POD #14 --abdominal wound culture (+) E.coli, (+) Klebsiella ESBL, (+) Enterococcus --afebrile, leukocytosis resolved --continue vanc (day #3) and Zosyn (day #3) --plan is for PICC line --continue dry dressing changes BID, plan is for wound vac --Dr. Walsh following Hypertension --BP stable --continue lisinopril Hyperlipidemia --continue atorvastatin NIDDM, Type II --Novolog sliding scale coverage Hypomagnesemia --repleted Hypoalbuminemia --albumin 2.3 --continue Prosource FEN Fluids: PO intake adequate Electrolytes: replete as indicated Nutrition: high protein diet; Prosource for protein supplementation Physical therapy DVT prophylaxis: subq lovenox Dispo: continues to require inpatient care. Full code. Visit type - Emergency Visit Emergency Visit: Yes ED Registration Date: 05/12/18 Care time: The patient presented to the Emergency Department on the above date and was hospitalized for further evaluation of their emergent condition. - New Patient This patient is new to me today: No - Critical Care Critical Care patient: No
[2018-05-16] MEDS: ZOLPIDEM TARTRATE 5 MG TABLET PO PRN (22:02)
--- NOTE | 2018-05-16 22:29 | PN ---
Progress Note (short form) - Note Progress Note: Bariatric Surgery Afebrile;VSS Pt doing well Tolerating PO regular diet P/E-Abd- decreased erythema noted WBC-7.6 (decreased) P- PICC line tomorrow Cont antibiotics as per ID Cont dressing changes
[2018-05-17 07:00] VITALS: TEMP 98.2
[2018-05-17 08:11] LABS: BASO % 0.4 % (0-2.0); EOS % 2.2 % (0-4.5); HEMATOCRIT 28.2 % (32.4-45.2); HEMOGLOBIN 8.9 GM/dl (10.7-15.3); LYMPH % 14.8 % (8-40); MCH 28.3 pg (25.7-33.7); MCHC 31.6 g/dl (32.0-36.0); MEAN CELL VOLUME 89.7 fl (80-96); MEAN PLT VOLUME 6.5 fl (7.5-11.1); MONO % 12.5 % (3.8-10.2); NEUT % 70.1 % (42.8-82.8); PLATELET COUNT 474 K/MM3 (134-434); RBC 3.14 M/mm3 (3.60-5.2); RDW 13.3 % (11.6-15.6); WHITE BLOOD COUNT 8.4 K/mm3 (4.0-10.8)
[2018-05-17] MEDS: AMINO ACIDS/PROTEIN HYDROLYS 30 ML LIQUID.PKT PO SCH (08:23)
[2018-05-17 08:25] LABS: ALBUMIN 2.3 g/dl (3.5-5.0); ALK PHOS 53 U/L (32-92); ANION GAP 6 MMOL/L (8-16); BILIRUBIN,TOTAL 0.4 mg/dl (0.2-1.0); BLOOD UREA NITROGEN 15 mg/dl (7-18); CALCIUM 8.4 mg/dl (8.4-10.2); CHLORIDE 106 mmol/L (98-107); CO2 27 mmol/L (22-28); CREATININE 0.5 mg/dl (0.6-1.3); GLUCOSE,RANDOM 98 mg/dl (74-106); MAGNESIUM 1.6 mg/dL (1.8-2.4); POTASSIUM 3.6 mmol/L (3.5-5.1); SGOT/AST 10 U/L (10-42); SGPT/ALT 6 U/L (10-40); SODIUM 139 mmol/L (136-145); TOT PROT 5.1 g/dl (6.4-8.3)
[2018-05-17] MEDS: CHOLECALCIFEROL (VITAMIN D3) 1,000 UNIT TABLET (FP) PO SCH (09:15)
[2018-05-17] MEDS: ERTAPENEM SODIUM 1 GM/50 ML PRE-DOCKED IVPB SCH (09:16)
[2018-05-17] MEDS: ATORVASTATIN CA 20 MG TABLET (FP) PO SCH (09:16)
[2018-05-17] MEDS: LISINOPRIL 5 MG TABLET (FP) PO SCH (09:16)
[2018-05-17] MEDS: ENOXAPARIN NA (PORCINE) 40 MG/0.4 ML DISP.SYRIN SQ SCH (09:16)
--- NOTE | 2018-05-17 09:45 | PN ---
Progress Note, Physician History of Present Illness: Awake, alert Supine in bed No c/o abdominal pain No fever/ chills Wound c/s polymicrobial - Current Medication List Current Medications: Active Medications Acetaminophen (Tylenol -) 500 mg PO Q6H PRN PRN Reason: FEVER Amino Acids (Prosource No Carb Liquid Pkt) 30 ml PO BID@0800,1730 [facility] Last Admin: 05/17/18 08:23 Dose: 30 ml Atorvastatin Calcium (Lipitor -) 20 mg PO DAILY [facility] Last Admin: 05/17/18 09:16 Dose: 20 mg Cholecalciferol (Vitamin D3 -) 4,000 unit PO DAILY [facility] Last Admin: 05/17/18 09:15 Dose: 4,000 unit Enoxaparin Sodium (Lovenox -) 40 mg SQ DAILY [facility] Last Admin: 05/17/18 09:16 Dose: 40 mg Ertapenem (Invanz (Pre-Docked)) 1 gm IVPB DAILY [facility] Last Admin: 05/17/18 09:16 Dose: 1 gm Insulin Aspart (Novolog Vial Sliding Scale -) 1 vial SQ ACHS [facility]; Protocol Last Admin: 05/16/18 22:02 Dose: Not Given Lisinopril (Prinivil) 2.5 mg PO DAILY [facility] Last Admin: 05/17/18 09:16 Dose: 2.5 mg Zolpidem Tartrate (Ambien -) 5 mg PO HS PRN PRN Reason: INSOMNIA Last Admin: 05/16/18 22:02 Dose: 5 mg - Objective Vital Signs: Vital Signs Temperature 98.2 F 05/17/18 04:00 Pulse Rate 64 05/17/18 09:26 Respiratory Rate 16 05/17/18 09:26 Blood Pressure 111/53 L 05/17/18 09:26 O2 Sat by Pulse Oximetry (%) 100 05/17/18 09:26 Constitutional: Yes: No Distress Eyes: Yes: Conjunctiva Clear Cardiovascular: Yes: Regular Rate and Rhythm, S1, S2 Respiratory: Yes: CTA Bilaterally Gastrointestinal: Yes: Other (surgical wound with packing in place No purulence or foul odor) Edema: No Labs: CBC, BMP 05/17/18 07:35 05/17/18 07:35 Assessment/Plan Surgical wound infection + wound c/s ESBL Continue ertapenem PICC for outpatient antibiotic therapy Ertapenem 1gm IVPB q24h x 10d Contact precautions
[2018-05-17] MEDS: INSULIN SLIDING SCALE (NOVOLOG) 1 VIAL SQ SCH (11:33)
--- NOTE | 2018-05-17 13:42 | DS ---
Physical Exam: SUBJECTIVE: Patient seen and examined. Tolerating PO. Minimal pain. Anxious about going home. OBJECTIVE: Vital Signs Period Temp Pulse Resp BP Sys/Pemberton Pulse Ox Last 24 Hr 98.1 F-98.6 F 64-76 16-18 100-138/36-54 95-100 PHYSICAL EXAM GENERAL: The patient is awake, alert, and fully oriented, in no acute distress. LUNGS: Breath sounds equal, clear to auscultation bilaterally, no wheezes, no crackles, no accessory muscle use. HEART: Regular rate and rhythm, S1, S2 ABDOMEN: Surgical wound visualized. Large cavity with surgical yobany superior and inferior; beefy red tissue, no exudate, no odor EXTREMITIES: 2+ pulses, warm, well-perfused, no edema. NEUROLOGICAL: Cranial nerves II through XII grossly intact. Normal speech, gait not observed. SKIN: Warm, dry, normal turgor LABS Laboratory Results - last 24 hr 05/16/18 05/16/18 05/17/18 16:27 21:45 06:48 WBC RBC Hgb Hct MCV MCH MCHC RDW Plt Count MPV Absolute Neuts (auto) Neutrophils % Lymphocytes % Monocytes % Eosinophils % Basophils % Sodium Potassium Chloride Carbon Dioxide Anion Gap BUN Creatinine Creat Clearance w eGFR POC Glucometer 170 140 97 Random Glucose Calcium Magnesium Total Bilirubin AST ALT Alkaline Phosphatase Total Protein Albumin 05/17/18 05/17/18 05/17/18 07:35 07:35 11:22 WBC 8.4 RBC 3.14 L Hgb 8.9 L Hct 28.2 L MCV 89.7 MCH 28.3 MCHC 31.6 L RDW 13.3 Plt Count 474 H MPV 6.5 L Absolute Neuts (auto) 6.0 Neutrophils % 70.1 Lymphocytes % 14.8 Monocytes % 12.5 H Eosinophils % 2.2 Basophils % 0.4 Sodium 139 Potassium 3.6 D Chloride 106 Carbon Dioxide 27 Anion Gap 6 L BUN 15 Creatinine 0.5 L Creat Clearance w eGFR > 60 POC Glucometer 160 Random Glucose 98 Calcium 8.4 Magnesium 1.6 L Total Bilirubin 0.4 AST 10 ALT 6 L D Alkaline Phosphatase 53 Total Protein 5.1 L Albumin 2.3 L HOSPITAL COURSE: Date of Admission:05/12/18 Date of Discharge: 05/17/18 63 year-old female with a PMH significant for HTN, HLD, non-insulin dependent Type II diabetes, and s/p lap band surgery 2009, partial SBO s/p lap small bowel resection 05/01/18. Admitted for post-surgical infection. Hospital course by problem list Partial SBO s/p lap small bowel resection 05/01/18 Post-surgical infection --date of discharge POD #15 --abdominal wound culture (+) E.coli, (+) Klebsiella ESBL, (+) Enterococcus --afebrile, leukocytosis resolved --treated with vanc x 4 days, Zosyn x 4 days --PICC line placed, to receive 10 days of IV Ertapenem home infusion --wound vac placed on date of discharge, VNS to follow patient at home --outpatient follow up with Dr. Walsh Hypertension --BP stable --continued lisinopril Hyperlipidemia --continued atorvastatin NIDDM, Type II --Novolog sliding scale coverage Hypomagnesemia --repleted daily Hypoalbuminemia --continued Prosource, high protein diet Minutes to complete discharge: 35 Discharge Summary Reason For Visit: POST-OP WOUND INFECTION Current Active Problems Anemia (Acute) Hypokalemia (Acute) Hypomagnesemia (Acute) Hypotension (Acute) Insomnia (Acute) Postoperative wound infection (Acute) Condition: Guarded - Instructions Diet, Activity, Other Instructions: You are being discharged today with a PICC line. You will need to get IV antibiotics for the next 10 days. Arrangements have been made for a nurse to come to your house to instruct you on how to do this. You are also being discharged with a wound vac in place in your abdominal surgical wound. Arrangments have been made for a nurse to come to your house to take care of this dressing until it is removed. You should follow up with Dr. Walsh within 1 week of your discharge. Return to the emergency department for any new or worsening symptoms. Referrals: Dez Walsh MD [Staff Physician] - Disposition: HOME - Home Medications Comprehensive Discharge Medication List: Ambulatory Orders Acetaminophen [Tylenol Extra Strength] 500 mg PO PRN PRN 04/20/17 Atorvastatin Ca [Lipitor] 20 mg PO DAILY 04/20/17 Cholecalciferol (Vitamin D3) [Vitamin D3] 4,000 unit PO DAILY 04/20/17 Lisinopril [Zestril] 2.5 mg PO DAILY 04/20/17 Multivitamin [One Daily] 2 each PO DAILY 04/20/17 Zolpidem Tartrate [Ambien] 5 mg PO HS PRN 04/20/17 metFORMIN HCL [Metformin HCl] 500 mg PO BID 04/20/17 Amox-Tr/K Cl [Augmentin - 875Mg Tablet] 1 tab PO BID #14 tablet 05/08/18 Magnesium Oxide [Magnesium] 400 mg PO BID #60 tablet 05/08/18 Ertapenem Sodium - 1 Gram [Invanz (Pre-Docked)] 1 gm IVPB DAILY #10 bag This patient is new to me today: No Emergency Visit: Yes ED Registration Date: 05/12/18 Care time: The patient presented to the Emergency Department on the above date and was hospitalized for further evaluation of their emergent condition. Critical Care patient: No - Discharge Referral Referred to [facility] Med [facility].: No
[2018-05-17 14:32] VITALS: BP 121/88; PULSE 71
== END 2018-05-17 16:26 | disposition home or self-care (01) | DRG 857 ==
LOC: FER 13:24 → FM/S 18:16
PROVIDERS: ADMIT Internal Medicine; ATTEND Nurse Practitioner Acute Care
PROC: 0W9F0ZX Drainage of Abdominal Wall, Open Approach, Diagnostic (ICD-10-PCS; principal; 2018-05-12)
PROC: 02HV33Z Insertion of Infusion Device into Superior Vena Cava, Percutaneous Approach (ICD-10-PCS; 2018-05-17)
PROC: B518ZZA Fluoroscopy of Superior Vena Cava, Guidance (ICD-10-PCS; 2018-05-17)
DX: T81.49XA Infection following a procedure, other surgical site, initial encounter (principal); J90 Pleural effusion, not elsewhere classified; Y83.8 Other surgical procedures as the cause of abnormal reaction of the patient, or of later complication, without mention of misadventure at the time of the procedure; E11.9 Type 2 diabetes mellitus without complications; I10 Essential (primary) hypertension; E78.5 Hyperlipidemia, unspecified; E83.42 Hypomagnesemia; E88.09 Other disorders of plasma-protein metabolism, not elsewhere classified; N20.0 Calculus of kidney; G47.00 Insomnia, unspecified; N85.8 Other specified noninflammatory disorders of uterus; E87.6 Hypokalemia; D64.9 Anemia, unspecified; B96.20 Unspecified Escherichia coli [E. coli] as the cause of diseases classified elsewhere; B95.2 Enterococcus as the cause of diseases classified elsewhere; B96.1 Klebsiella pneumoniae [K. pneumoniae] as the cause of diseases classified elsewhere; Z98.84 Bariatric surgery status
CPT/HCPCS: 36415; 36569; 71045-TC-FY; 74177-TC; 77001-TC-FY; 80048; 80053; 82962; 83605; 83735; 84100; 85025; 86850; 86900; 86901; 87040; 87070; 87186; 87205; 93005; 99283-25; C1751; G0480

== ENCOUNTER 2018-05-25 08:37 | Emergency (ER) | payer OTHER ==
[2018-05-25 08:42] VITALS: BP 138/58; PULSE 78; TEMP 97.7; BMI 23.1
--- NOTE | 2018-05-25 09:06 | PDOC ---
History of Present Illness - General Chief Complaint: Pain, Acute Stated Complaint: PAIN Time Seen by Provider: 05/25/18 08:41 - History of Present Illness Initial Comments: 63yo F with PMH of HTN, HLD, DM, recent SBO s/p partial colectomy complicated by post-op wound infection and recent PICC line insertion (today is day 8) for IV antibiotics presenting with a pinching sensation in her chest. Patient only feels this discomfort when she moves in a specific way. She does not feel the sensation at rest. No recent lifting of heavy objects or extreme exertion. Patient denies fever, chills, chest pain, shortness of breath, or abdominal pain. Past History - Past Medical History Allergies/Adverse Reactions: Allergies Allergy/AdvReac Type Severity Reaction Status Date / Time No Known Allergies Allergy Verified 05/25/18 08:39 Home Medications: Ambulatory Orders Acetaminophen [Tylenol Extra Strength] 500 mg PO PRN PRN 04/20/17 Atorvastatin Ca [Lipitor] 20 mg PO DAILY 04/20/17 Cholecalciferol (Vitamin D3) [Vitamin D3] 4,000 unit PO DAILY 04/20/17 Lisinopril [Zestril] 2.5 mg PO DAILY 04/20/17 Multivitamin [One Daily] 2 each PO DAILY 04/20/17 Zolpidem Tartrate [Ambien] 5 mg PO HS PRN 04/20/17 metFORMIN HCL [Metformin HCl] 500 mg PO BID 04/20/17 Amox-Tr/K Cl [Augmentin - 875Mg Tablet] 1 tab PO BID #14 tablet 05/08/18 Magnesium Oxide [Magnesium] 400 mg PO BID #60 tablet 05/08/18 Ertapenem Sodium - 1 Gram [Invanz (Pre-Docked)] 1 gm IVPB DAILY #10 bag COPD: No Diabetes: Yes HTN: Yes Hypercholesterolemia: Yes - Surgical History Abdominal Surgery: Yes (RECENT EXPLOR LAP. FOR SBO) Gastric Stapling: Yes (LAP BAND & REPAIR HIATAL HERNIA 2009) - Immunization History Td Vaccination: Yes TDAP Vaccination: Yes Immunization Up to Date: Yes - Suicide/Smoking/Psychosocial Hx Smoking Status: No Smoking History: Never smoked Have you smoked in the past 12 months: No Number of Cigarettes Smoked Daily: 0 If you are a former smoker, when did you quit?: 1997 Cigars Per Day: 0 Hx Alcohol Use: No Drug/Substance Use Hx: No Substance Use Type: None Hx Substance Use Treatment: No Review of Systems - Review of Systems Comments:: Constitutional: no fever, no chills HEENT: no throat pain, no dysphagia Cardiovascular: no chest pain, no palpitations Respiratory: no cough, no shortness of breath Gastrointestinal: no abdominal pain, no nausea Genitourinary: no dysuria, no frequency Musculoskeletal: no myalgia, no arthralgia Skin: no rash, no itching Neurologic: no headache, no dizziness *Physical Exam - Vital Signs Last Vital Signs Temp Pulse Resp BP Pulse Ox 97.7 F 78 18 138/58 L 100 05/25/18 08:39 05/25/18 08:39 05/25/18 08:39 05/25/18 08:39 05/25/18 08:39 - Physical Exam Comments: General: Awake, alert, and fully oriented, anxious Head: No signs of trauma Eyes: EOMI, sclera anicteric ENT: Moist mucus membranes Neck: Normal ROM, supple Lungs: Lungs clear, Normal breath sounds Cardio: Regular rhythm, S1 and S2 present Abdomen: Soft, nontender. No guarding, no rebound, no masses. Surgical scar on lower abdomen is well-healing, clean, dry, and intact without erythema, discharge, or bleeding Extremities: PICC line present on RUE, clean dry and intact; Normal range of motion, Distal pulses present SKIN: Warm, Dry, normal turgor Neurologic: Cranial nerves II through XII grossly intact. Normal speech Moderate Sedation - Procedure Monitoring Vital Signs: Procedure Monitoring Vital Signs Temperature 97.7 F 05/25/18 08:39 Pulse Rate 78 05/25/18 08:39 Respiratory Rate 18 05/25/18 08:39 Blood Pressure 138/58 L 05/25/18 08:39 O2 Sat by Pulse Oximetry (%) 100 05/25/18 08:39 Medical Decision Making - Medical Decision Making 63yo F with PMH of HTN, HLD, DM, recent SBO s/p partial colectomy complicated by post-op wound infection and recent PICC line insertion (today is day 8) for IV antibiotics presenting with a pinching sensation in her chest. -Sensation is positional; patient does not feel the pinching sensation at rest. When she rotates her chest to the right she will sometimes feel the pinching located to the right of her sternum -Xray verified correct placement of the PICC line. -5mL heparin flush verified patency of the PICC line -Motrin given for patient's discomfort -Called Dr. Rosas office to let him know about patient came to our ED. Dr. Walsh was not present in the office at the time. Left a message with Alyce. -Patient discharged 05/25/18 10:08 *DC/Admit/Observation/Transfer Diagnosis at time of Disposition: PICC (peripherally inserted central catheter) in place - Discharge Dispostion Disposition: HOME Condition at time of disposition: Stable - Referrals Referrals: Merrick Petersen [Primary Care Provider] - - Patient Instructions Printed Discharge Instructions: Peripherally Inserted Central Catheter Additional Instructions: You came in for a pinching sensation in your chest. We took an xray which verified placement of the PICC line. Follow-up with Dr. Cartagena at your scheduled appointment on Monday and with Dr. Walsh at your scheduled appointment in two weeks. You can use tylenol or motrin as needed for pain. Follow the instructions on the medication bottle. Medical attention is required if you have: fever or chills; accumulation of pus , pain or redness, red streaks, swelling in the area of your surgical site or PICC line site; chest pain which may feel like a crushing weight; rapid irregular heartbeat; shortness of breath; or any new or concerning symptoms. If you think you are having an emergency, call for emergency medical services or present to the emergency department right away - Post Discharge Activity
--- NOTE | 2018-05-25 09:33 | PDOC ---
Attending Attestation - Resident Resident Name: Nicole Zelaya - ED Attending Attestation I have performed the following: I have examined & evaluated the patient, The case was reviewed & discussed with the resident, I agree w/resident's findings & plan, Exceptions are as noted - HPI HPI: 05/25/18 15:09 Reviewed residents HPI - Physicial Exam PE: 05/25/18 15:09 Reviewed Residents PE - Medical Decision Making 05/25/18 09:56 63 years old with, located surgical history currently on IV antibiotics with PICC line today experience very positional right-sided chest discomfort only when she would turn and move her arm to the right few seconds at a time nonexertional no associated symptoms reproducible on examination Patient became concerned that this may be related to her PICC line A chest x-ray was performed which demonstrated proper placement of her PICC line. The PICC line was flushed with no issues. Her bariatric surgeon was informed of her visit to the emergency department recommend Motrin and Tylenol as needed for discomfort and to return to the ED for any severe worsening symptoms or for any concerns. Findings, the need for follow-up and strict return instructions discussed with patient. 05/25/18 15:09
[2018-05-25] MEDS ORDERED: IBUPROFEN 400 MG TABLET (FP) PO ONE ×2 (09:45→09:59)
== END 2018-05-25 10:23 | disposition home or self-care (01) ==
LOC: FER 08:37
PROC: 3E033GC Introduction of Other Therapeutic Substance into Peripheral Vein, Percutaneous Approach (ICD-10-PCS; principal; 2018-05-25)
DX: Z45.2 Encounter for adjustment and management of vascular access device (principal); I10 Essential (primary) hypertension; E78.5 Hyperlipidemia, unspecified; E11.9 Type 2 diabetes mellitus without complications; K56.609 Unspecified intestinal obstruction, unspecified as to partial versus complete obstruction; Z87.891 Personal history of nicotine dependence; Z98.84 Bariatric surgery status
CPT/HCPCS: 71046-TC-FY; 96374; 99281-25

== ENCOUNTER 2018-09-26 20:31 | Inpatient (IN) | payer OTHER ==
[2018-09-26] MEDS ORDERED: SODIUM CHLORIDE 1,000 ML IV ONE (20:39)
[2018-09-26] MEDS ORDERED: morphine CARPU-JECT 4 MG/1 ML DISP.SYRIN IVPUSH ONE (20:39)
[2018-09-26] MEDS ORDERED: morphine SULFATE 4 MG/ML VIAL ONE ×2 (20:52→23:07)
[2018-09-26 20:53] LABS: BASO % 0.8 % (0-2.0); EOS % 0.9 % (0-4.5); HEMATOCRIT 40.4 % (32.4-45.2); HEMOGLOBIN 13.4 GM/dl (10.7-15.3); LYMPH % 28.5 % (8-40); MEAN CELL VOLUME 87.6 fl (80-96); MEAN PLT VOLUME 7.1 fl (7.5-11.1); MONO % 7.6 % (3.8-10.2); NEUT % 62.2 % (42.8-82.8); PLATELET COUNT 302 K/MM3 (134-434); RBC 4.61 M/mm3 (3.60-5.2); RDW 13.7 % (11.6-15.6); WHITE BLOOD COUNT 10.3 K/mm3 (4.0-10.8)
[2018-09-26] MEDS ORDERED: ONDANSETRON 4 MG/2 ML VIAL ONE (20:56)
[2018-09-26] MEDS ORDERED: ONDANSETRON 4 MG/2 ML VIAL IVPB ONE (20:56)
[2018-09-26 21:08] LABS: ALBUMIN 4.1 g/dl (3.4-5.0); BILIRUBIN,TOTAL 0.6 mg/dl (0.2-1); CALCIUM 9.8 mg/dl (8.5-10); CREATININE 0.6 mg/dl (0.55-1.3); POTASSIUM 3.6 mmol/L (3.5-5.1); TOT PROT 6.9 g/dl (6.4-8.2)
--- NOTE | 2018-09-26 21:08 | PDOC ---
Documentation entered by Vivi Nolen SCRIBE, acting as scribe for Randi Kang MD. Randi Kang MD: This documentation has been prepared by the Tamanna brown Nirvannie, SCRIBE, under my direction and personally reviewed by me in its entirety. I confirm that the documentation accurately reflects all work, treatment, procedures, and medical decision making performed by me. History of Present Illness - General Chief Complaint: Pain, Acute Stated Complaint: BIBA-ABD PAIN/VOMITING Time Seen by Provider: 09/26/18 20:36 History Source: Patient Exam Limitations: No Limitations - History of Present Illness Initial Comments: 09/26/18 20:53 HPI: The patient is a 63 year old female, with a significant past medical history of HTN, DM, HLD, and SBO (s/p complicated partial colectomy requiring Picc line insertion and IV antibiotics) who presents to the emergency department via EMS with, worsening lower quadrant abdominal pain with associated nausea and vomiting, onsetting at 5:30am. Patient endorses her pain worsened within the past hour and notes to be similar to her previous episode of SBO, prompting her arrival to the ED. She denies any recent travel, antibiotic usage, or abnormal food intake. She denies recent fevers, chills, headache or dizziness. She denies recent dysuria , frequency, urgency or hematuria. She denies recent chest pain or shortness of breath. PAST MEDICAL HISTORY: no significant history PAST SURGICAL HISTORY: Partial colectomy (SBO, complicated requiring Picc line insertion, 04/2018), Gastric band (2007) FAMILY HISTORY: no pertinent history SOCIAL HISTORY: Pt lives with family and is employed. MEDICATIONS: reviewed ALLERGIES: As per nursing notes ROS: General: No fevers or chills, no weakness, no weight loss HEENT: No change in vision. No sore throat,. No ear pain CardioVascular: No chest pain or shortness of breath Respiratory:No cough, or wheezing. Gastrointestinal: +Nausea. +Vomiting. +Lower quadrant abdominal pain. No rectal bleeding Genitourinary: No dysuria, hematuria, or frequency Musculoskeletal: No joint or muscle pain or swelling Neurologic: No headache, vertigo, dizziness or loss of consciousness Psychiatric: nor depression Skin: No rashes or easy bruising Endocrine: no increased thirst or abnormal weight change Allergic: no skin or latex allergy All other systems reviewed and normal Physical Exam: General: Well-nourished well-developed individual, no acute distress HEENT: Throat: Normal, tonsils normal, no erythema or exudate Neck: Supple, no meningeal signs, no lymphadenopathy Eyes:Pupils equal reactive and round, extraocular motion intact Chest: Nontender to palpation Cardiac: S1-S2 normal, regular rate and rhythm, no murmurs rubs or gallops Respiratory: Lungs clear to auscultation bilateral Abdomen: Soft, nondistended, +decreased but present bowel sounds, nontender to palpation diffusely Extremities: Warm, dry, no cyanosis, clubbing, or edema Skin: No rashes Neuro: Alert and oriented x3, nonfocal exam, grossly intact, normal gait Psych: Normal mood and affect 09/26/18 20:57 Assessment and plan: This is 63-year-old female comes in complaining of abdominal pain intermittent since 5 AM and constant over the last couple of hours getting progressively worse and associated with some nausea. Patient's history significant for prior small bowel obstruction approximately 2 years ago and a gastric sleeve for approximately 10 years ago. Workup initiated including CBC, comp, EKG, CT abdomen and pelvis, flat and upright x-ray. 09/26/18 23:[address] Walsh, patient's surgeon, case was discussed. 09/26/18 23:34 Patient's CAT scan shows a small bowel obstruction as per the radiologist reading Patient will be admitted to the hospitalist service. Discussed with Dr. Walsh who will consult on the patient on the patient and the patient will be primarily admitted to the hospitalist Past History - Past Medical History Allergies/Adverse Reactions: Allergies Allergy/AdvReac Type Severity Reaction Status Date / Time No Known Allergies Allergy Verified 05/25/18 08:39 Home Medications: Ambulatory Orders Acetaminophen [Tylenol Extra Strength] 500 mg PO PRN PRN 04/20/17 Atorvastatin Ca [Lipitor] 20 mg PO DAILY 04/20/17 Cholecalciferol (Vitamin D3) [Vitamin D3] 4,000 unit PO DAILY 04/20/17 Lisinopril [Zestril] 2.5 mg PO DAILY 04/20/17 Multivitamin [One Daily] 2 each PO DAILY 04/20/17 Zolpidem Tartrate [Ambien] 5 mg PO HS PRN 04/20/17 metFORMIN HCL [Metformin HCl] 500 mg PO BID 04/20/17 Magnesium Oxide [Magnesium] 400 mg PO BID #60 tablet 05/08/18 COPD: No Diabetes: Yes HTN: Yes Hypercholesterolemia: Yes - Surgical History Abdominal Surgery: Yes (RECENT EXPLOR LAP. FOR SBO) Gastric Stapling: Yes (LAP BAND & REPAIR HIATAL HERNIA 2009) - Immunization History Td Vaccination: Yes TDAP Vaccination: Yes Immunization Up to Date: Yes - Suicide/Smoking/Psychosocial Hx Smoking Status: No Smoking History: Never smoked Have you smoked in the past 12 months: No Number of Cigarettes Smoked Daily: 0 If you are a former smoker, when did you quit?: 1997 Cigars Per Day: 0 Hx Alcohol Use: No Drug/Substance Use Hx: No Substance Use Type: None Hx Substance Use Treatment: No *Physical Exam - Vital Signs Last Vital Signs Temp Pulse Resp BP Pulse Ox 98.2 F 75 14 155/72 100 09/26/18 20:35 09/26/18 20:35 09/26/18 20:35 09/26/18 20:35 09/26/18 20:35 ED Treatment Course - LABORATORY CBC & Chemistry Diagram: 09/26/18 20:40 09/26/18 20:40 - ADDITIONAL ORDERS Additional order review: 09/26/18 20:40 RBC 4.61 MCV 87.6 MCHC 33.0 RDW 13.7 MPV 7.1 L Neutrophils % 62.2 Lymphocytes % 28.5 Monocytes % 7.6 Eosinophils % 0.9 Basophils % 0.8 - RADIOLOGY Radiology Studies Ordered: Category Date Time Status ABDOMEN & PELVIS CT WITH CONTR [CT] Stat CT Scan 09/26/18 20:36 Ordered ABDOMEN FLAT & UPRIGHT [RAD] Stat Radiology 09/26/18 20:38 Ordered *DC/Admit/Observation/Transfer Diagnosis at time of Disposition: Small bowel obstruction - Discharge Dispostion Condition at time of disposition: Good Decision to Admit order: Yes - Referrals Referrals: Dez Walsh MD [Primary Care Provider] - - Patient Instructions - Post Discharge Activity
[2018-09-26] MEDS ORDERED: morphine CARPU-JECT 2 MG/1 ML DISP.SYRIN IVPUSH ONE (23:04)
[2018-09-27] MEDS ORDERED: ONDANSETRON 4 MG/2 ML VIAL IVPUSH PRN (00:08)
[2018-09-27] MEDS ORDERED: ZOLPIDEM TARTRATE 5 MG TABLET PO PRN (00:09)
[2018-09-27] MEDS: SODIUM CHLORIDE 1,000 ML IV SCH (01:42)
[2018-09-27] MEDS: ACETAMINOPHEN 1000 MG/100 ML VIAL (NON FORMULARY) IVPB PRN (01:43)
[2018-09-27] MEDS ORDERED: morphine SULFATE 4 MG/ML VIAL IVPUSH PRN (06:08)
[2018-09-27] MEDS: INSULIN SLIDING SCALE (NOVOLOG) 1 VIAL SQ SCH ×3 (06:37→14:40)
[2018-09-27 08:24] LABS: CALCIUM 9.2 mg/dl (8.5-10); CREATININE 0.5 mg/dl (0.55-1.3); MAGNESIUM 1.6 mg/dL (1.8-2.4); POTASSIUM 3.6 mmol/L (3.5-5.1)
[2018-09-27 08:35] LABS: HEMATOCRIT 36.8 % (32.4-45.2); HEMOGLOBIN 12.4 GM/dl (10.7-15.3); MCH 30.2 pg (25.7-33.7); MCHC 33.8 g/dl (32.0-36.0); MEAN CELL VOLUME 89.4 fl (80-96); MEAN PLT VOLUME 7.6 fl (7.5-11.1); PLATELET COUNT 239 K/MM3 (134-434); RBC 4.12 M/mm3 (3.60-5.2); RDW 13.7 % (11.6-15.6)
[2018-09-27] MEDS ORDERED: MAGNESIUM SULF 50% (8.12 MEQ/2 ML-1 GM VIAL) IVPB ONE (08:46)
[2018-09-27] MEDS ORDERED: MAGNESIUM SULFATE IN WATER 2 GM/50 ML IVPB IVPB ONE (09:00)
[2018-09-27 09:02] LABS: PH,URINE 5.5 (5.0-8.0); URINE APPEARANCE CLEAR; URINE BILIRUBIN NEGATIVE (NEGATIVE); URINE COLOR YELLOW; URINE GLUCOSE (UA) NEGATIVE (NEGATIVE); URINE KETONE 1+ (NEGATIVE); URINE LEUK ESTERASE NEGATIVE (NEGATIVE); URINE NITRITE NEGATIVE (NEGATIVE); URINE PROTEIN NEGATIVE (NEGATIVE); URINE UROBILINOGEN 0.2 mg/dL (0.2-1.0)
[2018-09-27] MEDS ORDERED: MULTIVITAMINS (DAILY MVI) TABLET (FP) PO SCH (10:00)
[2018-09-27] MEDS ORDERED: PATIENT'S OWN MEDICATION (NON-FORMULARY) (Lisinopril [Zestril] 2.5 MG) PO SCH (10:00)
[2018-09-27] MEDS: HEPARIN NA (PORCINE) 5,000 UNITS/ML 1ML VIAL SQ SCH (10:05)
--- NOTE | 2018-09-27 10:15 | HP ---
CHIEF COMPLAINT: Abdominal pain PCP: Dr. Walsh HISTORY OF PRESENT ILLNESS: 63 year-old female with a PMH significant for HTN, HLD, Type II NIDDM, s/p lap band surgery 2009, partial SBO s/p lap small bowel resection 05/01/18 post-op course complicated by infection requiring long-term antibiotic therapy and wound vac. Yesterday morning patient was preparing for work when she started experiencing intermittent abdominal pain and nausea. Throughout the course of the day the pain became worse. Last night, the pain became constant and intolerable so she came to the ED. Patient follows regularly with Dr. Walsh. 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 Smoking: former Alcohol: denies Drugs: denies Family History: Allergies No Known Allergies Allergy (Verified 05/25/18 08:39) HOME MEDICATIONS: Home Medications Medication Instructions Recorded Acetaminophen [Tylenol Extra 500 mg PO PRN PRN 04/20/17 Strength] Atorvastatin Ca [Lipitor] 20 mg PO DAILY 04/20/17 Cholecalciferol (Vitamin D3) 4,000 unit PO DAILY 04/20/17 [Vitamin D3] Lisinopril [Zestril] 2.5 mg PO DAILY 04/20/17 Multivitamin [One Daily] 2 each PO DAILY 04/20/17 Zolpidem Tartrate [Ambien] 5 mg PO HS PRN 04/20/17 metFORMIN HCL [Metformin HCl] 500 mg PO BID 04/20/17 Magnesium Oxide [Magnesium] 400 mg PO BID #60 tablet 05/08/18 REVIEW OF SYSTEMS CONSTITUTIONAL: Absent: fever, chills, diaphoresis, generalized weakness, malaise, loss of appetite, weight change HEENT: Absent: rhinorrhea, nasal congestion, throat pain, throat swelling, difficulty swallowing, mouth swelling, ear pain, eye pain, visual changes CARDIOVASCULAR: Absent: chest pain, syncope, palpitations, irregular heart rate, lightheadedness , peripheral edema RESPIRATORY: Absent: cough, shortness of breath, dyspnea with exertion, orthopnea, wheezing, stridor, hemoptysis GASTROINTESTINAL: +abdominal pain, nausea Absent: abdominal distension, vomiting, diarrhea, constipation, melena, hematochezia GENITOURINARY: Absent: dysuria, frequency, urgency, hesitancy, hematuria, flank pain, genital pain MUSCULOSKELETAL: Absent: myalgia, arthralgia, joint swelling, back pain, neck pain SKIN: Absent: rash, itching, pallor HEMATOLOGIC/IMMUNOLOGIC: Absent: easy bleeding, easy bruising, lymphadenopathy, frequent infections ENDOCRINE: Absent: unexplained weight gain, unexplained weight loss, heat intolerance, cold intolerance NEUROLOGIC: Absent: headache, focal weakness or paresthesias, dizziness, unsteady gait, seizure, mental status changes, bladder or bowel incontinence PSYCHIATRIC: Absent: anxiety, depression, suicidal or homicidal ideation, hallucinations. PHYSICAL EXAMINATION Vital Signs - 24 hr 09/26/18 09/27/18 09/27/18 20:35 01:07 01:20 Temperature 98.2 F 97.8 F Pulse Rate 75 79 Pulse Rate [ 75 Left Radial] Respiratory 14 14 18 Rate Blood Pressure 155/72 144/57 L Blood Pressure 126/59 L [Right Arm] O2 Sat by Pulse 100 100 97 Oximetry (%) 09/27/18 09/27/18 09/27/18 06:06 06:36 08:23 Temperature 97.8 F Pulse Rate 76 Pulse Rate [ Left Radial] Respiratory 19 19 Rate Blood Pressure 141/63 Blood Pressure [Right Arm] O2 Sat by Pulse 98 98 Oximetry (%) GENERAL: Awake, alert, and fully oriented. Tearful. LUNGS: Breath sounds equal, clear to auscultation bilaterally. No wheezes, and no crackles. No accessory muscle use. HEART: Regular rate and rhythm, normal S1 and S2 ABDOMEN: Soft, nontender, not distended, normoactive bowel sounds, no guarding, no rebound, no masses. No hepatomegaly or splenomegaly. UPPER EXTREMITIES: 2+ pulses, warm, well-perfused. No cyanosis. No clubbing. No peripheral edema. LOWER EXTREMITIES: 2+ pulses, warm, well-perfused. No calf tenderness. No peripheral edema. NEUROLOGICAL: Cranial nerves II-XII intact. Normal speech. Laboratory Results - last 24 hr 09/26/18 09/26/18 09/26/18 20:40 20:40 20:40 WBC 10.3 RBC 4.61 Hgb 13.4 Hct 40.4 D MCV 87.6 MCH 29.0 MCHC 33.0 RDW 13.7 Plt Count 302 MPV 7.1 L Absolute Neuts (auto) 6.4 Neutrophils % 62.2 Lymphocytes % 28.5 Monocytes % 7.6 Eosinophils % 0.9 Basophils % 0.8 Sodium 138 Potassium 3.6 Chloride 102 Carbon Dioxide 21 Anion Gap 15 BUN 34 H Creatinine 0.6 Est GFR (CKD-EPI)AfAm 110.86 Est GFR (CKD-EPI)NonAf 95.65 POC Glucometer Random Glucose 132 H Lactic Acid Calcium 9.8 Magnesium Total Bilirubin 0.6 AST 21 ALT 15 Alkaline Phosphatase 66 Creatine Kinase Troponin I < 0.03 Total Protein 6.9 Albumin 4.1 Lipase 286 Urine Color Urine Appearance Urine pH Ur Specific [place] Urine Protein Urine Glucose (UA) Urine Ketones Urine Blood Urine Nitrite Urine Bilirubin Urine Urobilinogen Ur Leukocyte Esterase 09/26/18 09/27/18 09/27/18 20:40 01:02 01:30 WBC RBC Hgb Hct MCV MCH MCHC RDW Plt Count MPV Absolute Neuts (auto) Neutrophils % Lymphocytes % Monocytes % Eosinophils % Basophils % Sodium Potassium Chloride Carbon Dioxide Anion Gap BUN Creatinine Est GFR (CKD-EPI)AfAm Est GFR (CKD-EPI)NonAf POC Glucometer Random Glucose Lactic Acid 0.7 Calcium Magnesium Total Bilirubin AST ALT Alkaline Phosphatase Creatine Kinase 106 Troponin I Total Protein Albumin Lipase Urine Color Cancelled Urine Appearance Cancelled Urine pH Cancelled Ur Specific [place] Urine Protein Cancelled Urine Glucose (UA) Cancelled Urine Ketones Cancelled Urine Blood Cancelled Urine Nitrite Cancelled Urine Bilirubin Cancelled Urine Urobilinogen Cancelled Ur Leukocyte Esterase Cancelled 09/27/18 09/27/18 09/27/18 01:59 02:00 06:26 WBC RBC Hgb Hct MCV MCH MCHC RDW Plt Count MPV Absolute Neuts (auto) Neutrophils % Lymphocytes % Monocytes % Eosinophils % Basophils % Sodium Potassium Chloride Carbon Dioxide Anion Gap BUN Creatinine Est GFR (CKD-EPI)AfAm Est GFR (CKD-EPI)NonAf POC Glucometer 187 186 Random Glucose Lactic Acid Calcium Magnesium Total Bilirubin AST ALT Alkaline Phosphatase Creatine Kinase Troponin I Total Protein Albumin Lipase Urine Color Yellow Urine Appearance Clear Urine pH 5.5 Ur Specific [place] 1.023 Urine Protein Negative Urine Glucose (UA) Negative Urine Ketones 1+ H Urine Blood Negative Urine Nitrite Negative Urine Bilirubin Negative Urine Urobilinogen 0.2 Ur Leukocyte Esterase Negative 09/27/18 09/27/18 07:40 07:40 WBC 6.0 RBC 4.12 Hgb 12.4 Hct 36.8 MCV 89.4 MCH 30.2 MCHC 33.8 RDW 13.7 Plt Count 239 MPV 7.6 Absolute Neuts (auto) Neutrophils % Lymphocytes % Monocytes % Eosinophils % Basophils % Sodium 140 Potassium 3.6 Chloride 103 Carbon Dioxide 22 Anion Gap 15 BUN 26 H Creatinine 0.5 L Est GFR (CKD-EPI)AfAm 117.71 Est GFR (CKD-EPI)NonAf 101.56 POC Glucometer Random Glucose 199 H Lactic Acid Calcium 9.2 Magnesium 1.6 L Total Bilirubin AST ALT Alkaline Phosphatase Creatine Kinase Troponin I Total Protein Albumin Lipase Urine Color Urine Appearance Urine pH Ur Specific [place] Urine Protein Urine Glucose (UA) Urine Ketones Urine Blood Urine Nitrite Urine Bilirubin Urine Urobilinogen Ur Leukocyte Esterase ASSESSMENT/PLAN 63 year-old female with a PMH significant for HTN, HLD, Type II NIDDM, s/p lap band surgery 2009, partial SBO s/p lap small bowel resection 05/01/18 post-op course complicated by infection requiring long-term antibiotic therapy and wound vac. Admitted for SBO. Small bowel obstruction --09/26 CTAP: SBO with short bowel segment markedly dilated --NGT in confirmed place --IV Tylenol, morphine PRN for pain --cultures ordered --flat and upright films q12h --cbc q12h --discussed with Dr. Walsh Hypertension --BP stable --continue lisinopril Hyperlipidemia --continue atorvastatin NIDDM, Type II --Novolog sliding scale coverage Hypomagnesemia --repleted FEN Fluids: NS@75mL/hr Electrolytes: replete as indicated Nutrition: NPO DVT prophylaxis: subq lovenox Dispo: continues to require inpatient care. Full code. Visit type - Emergency Visit Emergency Visit: Yes ED Registration Date: 09/26/18 Care time: The patient presented to the Emergency Department on the above date and was hospitalized for further evaluation of their emergent condition. - New Patient This patient is new to me today: Yes Date on this admission: 09/27/18 - Critical Care Critical Care patient: No
[2018-09-27] MEDS: LISINOPRIL 5 MG TABLET (FP) PO SCH (11:00)
--- NOTE | 2018-09-27 17:19 | EKG ---
Test Reason : Blood Pressure : / mmHG Vent. Rate : 072 BPM Atrial Rate : 072 BPM P-R Int : 136 ms QRS Dur : 092 ms QT Int : 380 ms P-R-T Axes : 040 000 037 degrees QTc Int : 416 ms NORMAL SINUS RHYTHM CANNOT RULE OUT ANTERIOR INFARCT (CITED ON OR BEFORE 20-APR-2018) ABNORMAL ECG WHEN COMPARED WITH ECG OF 12-MAY-2018 17:02, NO SIGNIFICANT CHANGE WAS FOUND Confirmed by ERIKA REED, JORGE ([id number]) on 09/27/2018 5:19:08 PM Referred By: MD MILLER Confirmed By:JORGE JAMES MD
[2018-09-27 18:49] LABS: BASO % 0.2 % (0-2.0); EOS % 0.3 % (0-4.5); HEMOGLOBIN 12.6 GM/dl (10.7-15.3); LYMPH % 10.1 % (8-40); MCH 29.3 pg (25.7-33.7); MCHC 33.3 g/dl (32.0-36.0); MEAN CELL VOLUME 87.9 fl (80-96); MEAN PLT VOLUME 7.7 fl (7.5-11.1); MONO % 7.8 % (3.8-10.2); NEUT % 81.6 % (42.8-82.8); PLATELET COUNT 264 K/MM3 (134-434); RBC 4.32 M/mm3 (3.60-5.2); RDW 13.6 % (11.6-15.6); WHITE BLOOD COUNT 10.2 K/mm3 (4.0-10.8)
[2018-09-27] MEDS ORDERED: LACTATED RINGERS SOLUTION 1,000 ML IV SCH (21:00)
[2018-09-27] MEDS ORDERED: PROPOFOL 20 ML ONE (21:26)
[2018-09-27] MEDS ORDERED: MIDAZOLAM HCL 2 MG/2 ML SINGLE DOSE VIAL ONE (21:26)
[2018-09-27] MEDS ORDERED: SUCCINYLCHOLINE CHLORIDE 200 MG/10 ML VIAL ONE (21:27)
[2018-09-27] MEDS ORDERED: ceFAZolin SODIUM 1 GM VIAL IVPB ONE (21:50)
[2018-09-27] MEDS ORDERED: ceFAZolin SODIUM 1 GM VIAL ONE (21:52)
[2018-09-27] MEDS ORDERED: ATORVASTATIN CA 20 MG TABLET (FP) PO SCH (22:00)
[2018-09-27] MEDS ORDERED: ROCURONIUM BROMIDE 50 MG/5 ML VIAL ONE (22:02)
[2018-09-27] MEDS ORDERED: DEXAMETHASONE SOD PHOSPHATE 4 MG/1 ML VIAL ONE (22:18)
[2018-09-27] MEDS ORDERED: HYDROmorphone HCl 2 MG/ML VIAL ONE (22:31)
[2018-09-27] MEDS ORDERED: LABETALOL HCL 5 MG/1 ML (100MG/20 ML VIAL) ONE (22:53)
[2018-09-28] MEDS ORDERED: HYDROmorphone *PCA* 10MG/50ML DISP.SYRIN PCA ONE ×2 (00:27→02:00)
[2018-09-28] MEDS ORDERED: SODIUM CHLORIDE 1,000 ML IV SCH ×2 (01:56→02:00)
--- NOTE | 2018-09-28 02:03 | OP ---
Operative Note - Note: Operative Date: 09/28/18 Pre-Operative Diagnosis: Small Bowel Obstruction. Abdominal Pain Operation: Cecal Resection plus appendiceal resection, plus terminal ileum resection. Ileo-colonic anastomosis. Extensive lysis of adhesions. Small Bowel resection plus anastomosis. 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 small bowel segment. Gastric band plus sub-Q port Estimated Blood Loss (mls): 200 Fluid Volume Replaced (mls): 2,000 Operative Report Dictated: Yes
[2018-09-28] MEDS ORDERED: ONDANSETRON 4 MG/2 ML VIAL IVPUSH ONE (02:15)
[2018-09-28] MEDS ORDERED: ONDANSETRON 4 MG/2 ML VIAL ONE (02:20)
[2018-09-28] MEDS ORDERED: PIPERACILLIN/TAZOBACTAM 3.375 GM VIAL IVPB ONE ×3 (03:04→17:43)
[2018-09-28] MEDS: HEPARIN NA (PORCINE) 5,000 UNITS/ML 1ML VIAL SQ SCH ×3 (04:27→21:52)
--- NOTE | 2018-09-28 06:37 | OP ---
DATE OF OPERATION: 09/28/2018 PREOPERATIVE DIAGNOSIS: 1. Small bowel obstruction. 2. Abdominal pain. 3. Acute abdomen. POSTOPERATIVE DIAGNOSIS: 1. Cecal volvulus with obstruction. 2. Extensive abdominal adhesion. 3. Small bowel serosal tears. PROCEDURE PERFORMED: 1. Resection of cecum. 2. Resection of appendix. 3. Resection of terminal ileum. 4. Ileocolonic anastomosis. 5. Small bowel resection plus anastomosis. 6. Extensive lysis of adhesions. 7. Removal of gastric band plus subcutaneous port. 8. Exploratory laparotomy. OPERATING SURGEON: Dez Walsh MD MANAGER CARDIOVASCULAR: Олег Isaac MD ANESTHESIA: General. OPERATIVE PROCEDURE: The patient was brought into the operating room, placed on the OR table in the supine position. All precautions were taken initially including padding for the back and Venodyne boots were placed on both lower extremities. At that point, the abdomen was prepped and draped in the usual manner. A midline incision was made about 6 cm above the umbilicus. This was carried down to the area of the umbilicus and below left. The area from 1 cm above the umbilicus to all the way to the symphysis pubis had previous midline incision. So, attempt was made to enter the abdomen above this area to try to avoid as much scar tissue as possible. The incision was then carried down through the skin and subcutaneous tissue down to the linear alba. The linea alba was opened in the midline, the superior portion as previously explained. There were no adhesions in this area, and then, dissection continued lower down to the umbilicus. It was in this area where adhesions were noted to be extensive and there was a loop of small bowel completely attached to the anterior abdominal wall. Care was taken to carefully dissect this off of the anterior abdominal wall, and once this was done, the incision was extended midway between the umbilicus and the symphysis pubis. At this point, the small bowel was taken out of the abdominal cavity into the operative field and most of it was felt to be normal, even though the initial pathology from the CT scan fit a large small bowel loop that was extensively dilated. There was, however, on palpation of the left upper quadrant a large loop of bowel, and when this was delivered into the operative field, it was noted to be cecum with the appendix attached. This was extremely enlarged and it was twisted and also it had snuck under the mesentery of small bowel and was stuck in the left upper quadrant. The rest of the adhesions were lysed in the right upper and right lower quadrant, and once this was done, the cecum was replaced into its normal position in the right lower quadrant and was untwisted. It was still suspended , however, and because it was sloppy, there was concern that it would continue to cause a volvulus with bowel obstruction. So, it was decided that cecal resection be performed. Dissection continued along the white line of Toldt in the right lower quadrant, and this continued up to the upper portion of the hepatic flexure. The cecum was then mobilized towards the midline, and at that point a few centimeters after the cecum into the ascending colon was picked as a point for transection. A clamp was placed and then a ELLIE 60 stapler was placed across the ascending colon. It was fired, and a similar spot was found on the terminal ileum about 6 or 8 cm proximal to the ileocecal valve. A clamp was placed through the mesentery, and then, the ELLIE 60 was fired. Once both ends were transected, the LigaSure device used to dissect the mesentery, so, that the cecum, the appendix, the terminal ileum were all sent off the field to Pathology as specimens. At this point, the distal ileum was now laid side by side with the ascending colon, it was held in place with two 3-0 silk sutures. An opening was made with the electrocautery on both the small bowel and the colon side, and the ELLIE 60 stapler was placed in both sides and was fired. When it withdrawn, the staple line check and it was intact, and no bleeding was noted. At this point, Sean clamps were placed on the opening in the intestine, and a TA 60 staple was placed across it and fired and then opened. It showed that the closure was intact, and now, attention was directed to the mesentery, which was closed with 3-0 Vicryl suture in a continuous fashion to prevent any internal hernia. The ileocecal anastomosis was now placed in the right lower quadrant of the abdomen where it needed to be placed. Attention was now directed to the small intestine, which was run from the ligament of Treitz all the way distal to the right colon. The area of intestine that was adhered to the abdominal wall was noted to be bruised and battered, and so, approximately 1 foot had some evidence of serosal injury. Therefore, a clamp was placed both about 4 cm proximal and distal to the area of injury, and it was placed through the mesentery and a ELLIE 60 staple was placed first across the proximal portion and then across the distal portion, so, that both ends were transected. Once again, the LigaSure device was used to dissect the mesentery off of the dxca-fo-ju-resected small intestine. The entire specimen was then sent off the field to Pathology. At this point, the 2 ends of small bowel were laid side by side and held with 3-0 silk sutures. An opening was made with both sides of electrocautery, and a ELLIE 60 staple was placed into both sides, it was fired, and when withdrawn, the staple line was intact and no bleeding was noted. Again, the edges of the opening were now brought together with a Sean clamp with 3 of them, and a TA 60 staple was placed across the entire closure and was fired and the anastomosis was completed. The mesentery here was then closed with 3-0 Vicryl in a continuous fashion. Because of the multiple openings of small bowel and the potential for bacterial leakage, it was decided that the lap band which was a foreign body in the abdomen was at risk. Therefore, the band was tracked all the way to its placed in the upper part of the stomach. With the miner assistant surgeon retracting the band to the patients left side, the operating surgeon dissected the scar tissue off the band on the lesser curvature. The band was then opened, its tubing was clamped to take off at the subcutaneous port, and the band was then cut in two and both sides removed from around the stomach and sent off the field as specimen to Pathology. The port was now located in the subcutaneous tissue on the right side over the right anterior rectus muscle, and the port was then dissected free of all surrounding tissue, sent off the field as specimen to Pathology. Also, the fibrous capsule around the port was also sent as specimen to Pathology. At that point, irrigation was placed in the abdominal cavity, and closure was performed first on the peritoneum with 2-0 Vicryl in a continuous fashion on the peritoneum. This was followed by No.1 PDS closure on the anterior fascial layer in a continuous fashion, and then, 3-0 Vicryl was used subcutaneously to bring the wound together, and then closure of the skin was performed with yobany. Dressings were then applied. The patient awoke from anesthesia and transferred out of the operating room to the recovery room in stable condition. ANESTHESIA FOR CASE: General. SURGEON: Dez Walsh MD MANAGER CARDIOVASCULAR: Олег Isaac MD EXPECTED BLOOD LOSS: 200 mL. Patient was transferred to the recovery room in stable condition. Zaria MCGOWAN/[id number]
[2018-09-28 07:15] LABS: HEMATOCRIT 39.4 % (32.4-45.2); HEMOGLOBIN 12.8 GM/dl (10.7-15.3); MCH 28.7 pg (25.7-33.7); MCHC 32.5 g/dl (32.0-36.0); MEAN CELL VOLUME 88.3 fl (80-96); PLATELET COUNT 274 K/MM3 (134-434); RBC 4.46 M/mm3 (3.60-5.2); WHITE BLOOD COUNT 10.6 K/mm3 (4.0-10.8)
[2018-09-28 07:16] LABS: BASO % 0.1 % (0-2.0); LYMPH % 4.1 % (8-40); MEAN PLT VOLUME 7.5 fl (7.5-11.1); MONO % 8.7 % (3.8-10.2); NEUT % 87.1 % (42.8-82.8)
[2018-09-28] MEDS ORDERED: DEXTROSE 5%-WATER - 50 ML IVPB ONE ×2 (09:00→17:44)
--- NOTE | 2018-09-28 09:02 | PN ---
Physical Exam: SUBJECTIVE: Patient seen and examined. She complains of feeling nauseous. OBJECTIVE: Vital Signs Period Temp Pulse Resp BP Sys/Pemberton Pulse Ox Last 24 Hr 97.7 F-99.7 F 64-107 12-185 136-175/54-74 94-100 GENERAL: The patient is awake, alert, and fully oriented, in no acute distress. LUNGS: Breath sounds equal, clear to auscultation bilaterally, no wheezes, no crackles, no accessory muscle use. HEART: Regular rate and rhythm, S1, S2 without murmur, rub or gallop. ABDOMEN: Soft, mildly distended, mild diffuse tenderness, hypoactive bowel sounds. EXTREMITIES: 2+ pulses, warm, well-perfused, no edema. Laboratory Results - last 24 hr 09/27/18 09/27/18 09/27/18 01:30 02:00 09:47 WBC RBC Hgb Hct MCV MCH MCHC RDW Plt Count MPV Absolute Neuts (auto) Neutrophils % Lymphocytes % Monocytes % Eosinophils % Basophils % POC Glucometer Lactic Acid Phosphorus 3.9 Urine Color Cancelled Yellow Urine Appearance Cancelled Clear Urine pH Cancelled 5.5 Ur Specific Addison 1.023 Urine Protein Cancelled Negative Urine Glucose (UA) Cancelled Negative Urine Ketones Cancelled 1+ H Urine Blood Cancelled Negative Urine Nitrite Cancelled Negative Urine Bilirubin Cancelled Negative Urine Urobilinogen Cancelled 0.2 Ur Leukocyte Esterase Cancelled Negative Blood Type Antibody Screen 09/27/18 09/27/18 09/27/18 16:39 17:35 17:35 WBC 10.2 RBC 4.32 Hgb 12.6 Hct 38.0 MCV 87.9 MCH 29.3 MCHC 33.3 RDW 13.6 Plt Count 264 MPV 7.7 Absolute Neuts (auto) 8.4 Neutrophils % 81.6 Lymphocytes % 10.1 Monocytes % 7.8 Eosinophils % 0.3 Basophils % 0.2 POC Glucometer 107 Lactic Acid 1.0 Phosphorus Urine Color Urine Appearance Urine pH Ur Specific Addison Urine Protein Urine Glucose (UA) Urine Ketones Urine Blood Urine Nitrite Urine Bilirubin Urine Urobilinogen Ur Leukocyte Esterase Blood Type Antibody Screen 09/27/18 09/27/18 09/28/18 18:18 22:12 05:30 WBC 10.6 RBC 4.46 Hgb 12.8 Hct 39.4 MCV 88.3 MCH 28.7 MCHC 32.5 RDW 15.0 D Plt Count 274 MPV 7.5 Absolute Neuts (auto) 9.2 Neutrophils % 87.1 H Lymphocytes % 4.1 L Monocytes % 8.7 Eosinophils % 0.0 Basophils % 0.1 POC Glucometer Lactic Acid Phosphorus Urine Color Yellow Urine Appearance Clear Urine pH 6.0 Ur Specific Addison Urine Protein Negative Urine Glucose (UA) Negative Urine Ketones 1+ H Urine Blood Negative Urine Nitrite Negative Urine Bilirubin Negative Urine Urobilinogen 0.2 Ur Leukocyte Esterase Negative Blood Type A NEGATIVE Antibody Screen Negative 09/28/18 05:30 WBC RBC Hgb Hct MCV MCH MCHC RDW Plt Count MPV Absolute Neuts (auto) Neutrophils % Lymphocytes % Monocytes % Eosinophils % Basophils % POC Glucometer Lactic Acid 2.1 H Phosphorus Urine Color Urine Appearance Urine pH Ur Specific Addison Urine Protein Urine Glucose (UA) Urine Ketones Urine Blood Urine Nitrite Urine Bilirubin Urine Urobilinogen Ur Leukocyte Esterase Blood Type Antibody Screen Active Medications Generic Name Dose Route Start Last Admin Trade Name Freq PRN Reason Stop Dose Admin Acetaminophen 1,000 mg 09/27/18 00:12 09/27/18 01:43 Ofirmev Injection - IVPB 1,000 mg Q6H PRN Administration PAIN LEVEL 4 - 6 Fentanyl 50 mcg 09/27/18 20:56 Sublimaze Injection - IVPUSH [id number] PRN PAIN-PACU ORDER X 4 DOSES ONLY Heparin Sodium (Porcine) 5,000 unit 09/27/18 10:00 09/28/18 04:27 Heparin - SQ Not Given BID MARY JO Hydromorphone HCl 10 mg 09/28/18 02:00 Dilaudid Director Electrical Engineering - PROCESS ENGINEER 10/05/18 01:55 PROCESS ENGINEER MARY JO Protocol Famotidine/Sodium Chloride 20 mg in 50 mls @ 100 mls/hr 09/28/18 10:00 Pepcid 20 Mg Premixed Ivpb - IVPB BID MARY JO Piperacillin Sod/Tazobactam 50 mls @ 100 mls/hr 09/28/18 02:30 Sod 3.375 gm/ Dextrose IVPB Q8H-IV MARY JO Piperacillin Sod/Tazobactam 50 mls @ 100 mls/hr 09/28/18 02:30 Sod 3.375 gm/ Dextrose IVPB 09/28/18 18:29 Q8H-IV MARY JO Sodium Chloride 1,000 mls @ 200 mls/hr 09/28/18 03:15 Normal Saline - IV ASDIR MARY JO Insulin Aspart 1 vial 09/27/18 07:00 09/27/18 14:40 Novolog Vial Sliding Scale - SQ Not Given ACHS [facility] Protocol Lisinopril 2.5 mg 09/27/18 10:00 09/27/18 11:00 Prinivil PO 2.5 mg DAILY MARY JO Administration Ondansetron HCl 4 mg 09/27/18 00:08 09/28/18 08:19 Zofran Injection IVPUSH 4 mg Q6H PRN Administration NAUSEA ASSESSMENT/PLAN: This is a 63 year old woman with a history of HTN, hyperlipidemia, type 2 DM, lap band surgery, partial SBO, small bowel resection who presented to the ED with abdominal pain and nausea. 1. 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 Hypertension - Continue lisinopril 3. Hyperlipidemia - Lipitor held 4. Type 2 diabetes mellitus - Metformin held - Continue Novolog sliding scale 5. Hypomagnesemia - Supplement magnesium as needed Visit type - Emergency Visit Emergency Visit: Yes ED Registration Date: 09/26/18 Care time: The patient presented to the Emergency Department on the above date and was hospitalized for further evaluation of their emergent condition. - New Patient This patient is new to me today: Yes Date on this admission: 09/28/18 - Critical Care Critical Care patient: No - Discharge Referral Referred to [facility] No
[2018-09-28] MEDS: PIPERACILLIN/TAZOB 3.375 GM 3.375 GM in DEXTROSE 5%-WATER - 50 ML IVPB SCH ×6 (09:18→18:41)
[2018-09-28] MEDS: LISINOPRIL 5 MG TABLET (FP) PO SCH (09:20)
[2018-09-28] MEDS: INSULIN SLIDING SCALE (NOVOLOG) 1 VIAL SQ SCH ×4 (09:45→22:20)
[2018-09-28] MEDS: HYDROmorphone *PCA* 10MG/50ML DISP.SYRIN PCA SCH ×2 (09:46→22:29)
[2018-09-28] MEDS: SODIUM CHLORIDE 1,000 ML IV SCH ×5 (09:47→21:51)
[2018-09-28] MEDS: FAMOTIDINE 20 MG/50 ML IVPB 20 MG/50 ML MG IVPB SCH ×2 (10:20→21:51)
--- NOTE | 2018-09-28 16:27 | PN ---
Progress Note (short form) - Note Progress Note: Afebrile; VSS Pt in bed, awake, alert C/O nausea Hospitalist note appreciated NGT- drainage minimal Re-positioned and working better UO-adequate WBC-10.6 H/H-12.8/39.4 Lytes-pending P- Cont NPO, NGT Check lytes Encourage Incentive spirometer Cont SCD's, DVT prophylaxis
[2018-09-28] MEDS: ONDANSETRON 4 MG/2 ML VIAL IVPUSH PRN (16:46)
[2018-09-28 18:12] LABS: BASO % 0.1 % (0-2.0); HEMATOCRIT 38.5 % (32.4-45.2); HEMOGLOBIN 12.3 GM/dL (10.7-15.3); LYMPH % 6.5 % (8-40); MCH 28.9 pg (25.7-33.7); MEAN CELL VOLUME 90.2 fl (80-96); MEAN PLT VOLUME 7.5 fl (7.5-11.1); MONO % 10.8 % (3.8-10.2); NEUT % 82.6 % (42.8-82.8); PLATELET COUNT 244 K/MM3 (134-434); RBC 4.27 M/mm3 (3.60-5.2); WHITE BLOOD COUNT 10.4 K/mm3 (4.0-10.0)
[2018-09-28 18:35] LABS: ALBUMIN 2.8 g/dl (3.4-5.0); BILIRUBIN,TOTAL 0.4 mg/dL (0.2-1); CALCIUM 8.7 mg/dL (8.5-10.1); CREATININE 0.5 mg/dL (0.55-1.3); POTASSIUM 3.5 mmol/L (3.5-5.1); TOT PROT 5.4 g/dl (6.4-8.2)
[2018-09-28] MEDS ORDERED: INSULIN (NOVOLOG) ASPART 100 UNITS/ML 10ML VIAL ONE (21:48)
[2018-09-28] MEDS ORDERED: ENOXAPARIN NA (PORCINE) 40 MG/0.4 ML DISP.SYRIN SQ SCH (22:00)
[2018-09-29] MEDS ORDERED: PIPERACILLIN/TAZOBACTAM 3.375 GM VIAL IVPB ONE ×4 (02:23→20:03)
[2018-09-29] MEDS ORDERED: DEXTROSE 5%-WATER - 50 ML IVPB ONE ×4 (02:23→20:04)
[2018-09-29] MEDS: PIPERACILLIN/TAZOB 3.375 GM 3.375 GM in DEXTROSE 5%-WATER - 50 ML IVPB SCH ×3 (02:30→17:46)
[2018-09-29] MEDS: HYDROmorphone *PCA* 10MG/50ML DISP.SYRIN PCA SCH ×2 (02:35→20:21)
[2018-09-29] MEDS: SODIUM CHLORIDE 1,000 ML IV SCH ×2 (04:20→09:49)
[2018-09-29] MEDS: ONDANSETRON 4 MG/2 ML VIAL IVPUSH PRN ×3 (04:23→17:52)
[2018-09-29] MEDS: INSULIN SLIDING SCALE (NOVOLOG) 1 VIAL SQ SCH ×4 (06:06→23:00)
--- NOTE | 2018-09-29 08:07 | PN ---
Progress Note, Physician Chief Complaint: C/O nausea History of Present Illness: 63 year old woman with a history of HTN, hyperlipidemia, type 2 DM, lap band surgery, partial SBO, small bowel resection who presented to the ED with abdominal pain and nausea. - Current Medication List Current Medications: Active Medications Acetaminophen (Ofirmev Injection -) 1,000 mg IVPB Q6H PRN PRN Reason: PAIN LEVEL 4 - 6 Last Admin: 09/27/18 01:43 Dose: 1,000 mg Fentanyl (Sublimaze Injection -) 50 mcg IVPUSH [id number] PRN PRN Reason: PAIN-PACU ORDER X 4 DOSES ONLY Heparin Sodium (Porcine) (Heparin -) 5,000 unit SQ BID [facility] Last Admin: 09/28/18 21:52 Dose: 5,000 unit Hydromorphone HCl (Dilaudid Telecommunications Switch Technician -) 10 mg ENCODING CLERK ENCODING CLERK [facility]; Protocol Stop: 10/05/18 01:55 Last Admin: 09/29/18 02:35 Dose: Not Given Famotidine/Sodium Chloride (Pepcid 20 Mg Premixed Ivpb -) 20 mg in 50 mls @ 100 mls/hr IVPB BID [facility] Last Admin: 09/28/18 21:51 Dose: 100 mls/hr Sodium Chloride (Normal Saline -) 1,000 mls @ 200 mls/hr IV ASDIR [facility] Last Admin: 09/29/18 04:20 Dose: 200 mls/hr Piperacillin Sod/Tazobactam (Sod 3.375 gm/ Dextrose) 50 mls @ 100 mls/hr IVPB Q8H-IV [facility]; Protocol Last Admin: 09/29/18 02:30 Dose: 100 mls/hr Insulin Aspart (Novolog Vial Sliding Scale -) 1 vial SQ ACHS [facility]; Protocol Last Admin: 09/29/18 06:06 Dose: Not Given Lisinopril (Prinivil) 2.5 mg PO DAILY [facility] Last Admin: 09/28/18 09:20 Dose: Not Given Ondansetron HCl (Zofran Injection) 4 mg IVPUSH Q4H PRN PRN Reason: NAUSEA AND/OR VOMITING Last Admin: 09/29/18 04:23 Dose: 4 mg Zolpidem Tartrate (Ambien -) 5 mg PO HS PRN PRN Reason: INSOMNIA - Objective Vital Signs: Vital Signs Temperature 98.2 F 09/29/18 06:00 Pulse Rate 72 09/29/18 06:29 Respiratory Rate 18 09/29/18 06:29 Blood Pressure 125/68 09/29/18 06:29 O2 Sat by Pulse Oximetry (%) 97 09/29/18 06:29 Elderly F sick looking c/o nausea HEENT: Mm moist, anemia, NG tube at place draining BILE NECK: No JVd No Bruit CHEST: CTA B/L ABD: s/p surgery mild tenderness BS feeble EXT: Trace edemA feet BALANCING MACHINE SET UP WORKER: AOX3 non focal Labs: CBC, BMP 09/29/18 06:45 09/29/18 06:45 Problem List - Problems (1) Small bowel obstruction Assessment/Plan: Underwent Ileocecal anastomosis POD1 will cont NG tube aspiration , management as peroperating team. Cont IV Zosyn.T Code(s): K56.609 - UNSP INTESTNL OBST, UNSP TO PARTIAL VERSUS COMPLETE OBST (2) Hypertension Code(s): I10 - ESSENTIAL (PRIMARY) HYPERTENSION Qualifiers: Hypertension type: essential hypertension Qualified Code(s): I10 - Essential (primary) hypertension (3) Hyperlipidemia Assessment/Plan: Resume statin once able to tolerate Po Code(s): E78.5 - HYPERLIPIDEMIA, UNSPECIFIED Qualifiers: Hyperlipidemia type: unspecified Qualified Code(s): E78.5 - Hyperlipidemia , unspecified (4) H/O laparoscopic adjustable gastric banding Assessment/Plan: s/p REMOVAL ON iv ABX Code(s): Z98.84 - BARIATRIC SURGERY STATUS (5) Anemia Assessment/Plan: H/H is Stable Code(s): D64.9 - ANEMIA, UNSPECIFIED (6) Type 2 diabetes mellitus without complications Assessment/Plan: Cont Accucheck and ciorrection dose Insulin Code(s): E11.9 - TYPE 2 DIABETES MELLITUS WITHOUT COMPLICATIONS Qualifiers: Diabetes mellitus termite exterminator helper insulin use: without [place] use Qualified Code(s): E11.9 - Type 2 diabetes mellitus without complications (7) HTN (hypertension) Assessment/Plan: BP is well controlled Code(s): I10 - ESSENTIAL (PRIMARY) HYPERTENSION
--- NOTE | 2018-09-29 08:13 | PN ---
Progress Note (short form) - Note Progress Note: Anesthesia Post op/pain Pt seen and examined S:Alert and awake comfortable O: Vital Signs Temperature 98.2 F 09/29/18 06:00 Pulse Rate 72 09/29/18 06:29 Respiratory Rate 18 09/29/18 06:29 Blood Pressure 125/68 09/29/18 06:29 O2 Sat by Pulse Oximetry (%) 97 09/29/18 06:29 A/P: Current Active Problems Small bowel obstruction (Acute) s/p ex lap-ZENAIDA Doing well post op uses CARPENTRY PROFESSIONAL Continue current care Vipin Banks MD
[2018-09-29 08:29] LABS: BASO % 0.1 % (0-2.0); EOS % 0.3 % (0-4.5); HEMATOCRIT 33.4 % (32.4-45.2); LYMPH % 8.4 % (8-40); MCH 29.4 pg (25.7-33.7); MCHC 32.9 g/dl (32.0-36.0); MEAN CELL VOLUME 89.4 fl (80-96); MEAN PLT VOLUME 7.2 fl (7.5-11.1); MONO % 8.3 % (3.8-10.2); NEUT % 82.9 % (42.8-82.8); PLATELET COUNT 218 K/MM3 (134-434); RBC 3.74 M/mm3 (3.60-5.2); RDW 15.3 % (11.6-15.6); WHITE BLOOD COUNT 8.9 K/mm3 (4.0-10.0)
[2018-09-29 08:35] LABS: INR 1.18 (0.83-1.09); PROTHROMBIN TIME (PATIENT) 13.9 SEC (9.7-13.0)
[2018-09-29 08:37] LABS: ACTIVATED PTT 26.6 SECONDS (25.2-36.5)
[2018-09-29 08:55] LABS: ALBUMIN 2.5 g/dl (3.4-5.0); BILIRUBIN,TOTAL 0.7 mg/dL (0.2-1); CALCIUM 8.5 mg/dL (8.5-10.1); CREATININE 0.5 mg/dL (0.55-1.3); MAGNESIUM 2.3 mg/dL (1.8-2.4); PHOSPHOROUS 2.1 mg/dL (2.5-4.9); POTASSIUM 3.5 mmol/L (3.5-5.1); TOT PROT 5.1 g/dl (6.4-8.2)
[2018-09-29] MEDS: LISINOPRIL 5 MG TABLET (FP) PO SCH (09:50)
[2018-09-29] MEDS: HEPARIN NA (PORCINE) 5,000 UNITS/ML 1ML VIAL SQ SCH ×2 (09:50→23:12)
[2018-09-29] MEDS: FAMOTIDINE 20 MG/50 ML IVPB 20 MG/50 ML MG IVPB SCH ×2 (10:58→23:12)
--- NOTE | 2018-09-29 19:12 | PN ---
Progress Note (short form) - Note Progress Note: ID CONSULT DICTATED AWAIT C/S CONTINUE EMPIRIC ZOSYN
--- NOTE | 2018-09-29 19:39 | PN ---
Progress Note (short form) - Note Progress Note: POD#1 Afebrile; VSS Pt doing well +nausea P/E- Abd- distention noted soft, non-tender on palpation WBC-8.9 H/H-11/33.4 P- Cont NPO, NGT Encourage OOB to chair Cont DVT prophylaxis
[2018-09-29] MEDS ORDERED: POTASSIUM PHOSPHATE 22 MM in DEXTROSE 5%-WATER - 250 ML IVPB ONE (19:40)
[2018-09-30] MEDS: SODIUM CHLORIDE 1,000 ML IV SCH (00:23)
[2018-09-30] MEDS: ZOLPIDEM TARTRATE 5 MG TABLET PO PRN ×2 (00:23→22:00)
[2018-09-30] MEDS: PIPERACILLIN/TAZOB 3.375 GM 3.375 GM in DEXTROSE 5%-WATER - 50 ML IVPB SCH ×3 (02:00→17:24)
[2018-09-30] MEDS: INSULIN SLIDING SCALE (NOVOLOG) 1 VIAL SQ SCH ×4 (07:03→22:00)
[2018-09-30 07:56] LABS: BASO % 0.3 % (0-2.0); EOS % 0.7 % (0-4.5); HEMOGLOBIN 10.5 GM/dL (10.7-15.3); LYMPH % 13.4 % (8-40); MCH 29.2 pg (25.7-33.7); MCHC 32.6 g/dl (32.0-36.0); MEAN CELL VOLUME 89.5 fl (80-96); MEAN PLT VOLUME 7.2 fl (7.5-11.1); MONO % 7.3 % (3.8-10.2); NEUT % 78.3 % (42.8-82.8); PLATELET COUNT 224 K/MM3 (134-434); RBC 3.58 M/mm3 (3.60-5.2); WHITE BLOOD COUNT 7.1 K/mm3 (4.0-10.0)
[2018-09-30 08:22] LABS: ALBUMIN 2.3 g/dl (3.4-5.0); BILIRUBIN,TOTAL 0.6 mg/dL (0.2-1); CALCIUM 8.8 mg/dL (8.5-10.1); CREATININE 0.4 mg/dL (0.55-1.3); POTASSIUM 3.4 mmol/L (3.5-5.1); TOT PROT 5.2 g/dl (6.4-8.2)
--- NOTE | 2018-09-30 08:47 | PN ---
Physical Exam: SUBJECTIVE: Patient seen and examined. She continues to feel nauseous. OBJECTIVE: Vital Signs Period Temp Pulse Resp BP Sys/Pemberton Pulse Ox Last 24 Hr 97.2 F-98.6 F 71-77 18-20 134-166/64-75 96-97 GENERAL: The patient is awake, alert, and fully oriented, in no acute distress. LUNGS: Breath sounds equal, clear to auscultation bilaterally, no wheezes, no crackles, no accessory muscle use. HEART: Regular rate and rhythm, S1, S2 without murmur, rub or gallop. ABDOMEN: Soft, mild tenderness, mild distention, hypoactive bowel sounds, no guarding, no rebound, no hepatosplenomegaly, no masses. EXTREMITIES: 2+ pulses, warm, well-perfused, no edema. Laboratory Results - last 24 hr 09/29/18 09/29/18 09/29/18 06:45 11:30 16:47 WBC RBC Hgb Hct MCV MCH MCHC RDW Plt Count MPV Absolute Neuts (auto) Neutrophils % Lymphocytes % Monocytes % Eosinophils % Basophils % Nucleated RBC % Sodium 147 H Potassium 3.5 Chloride 115 H Carbon Dioxide 26 Anion Gap 6 L BUN 20 H Creatinine 0.5 L Est GFR (CKD-EPI)AfAm 117.71 Est GFR (CKD-EPI)NonAf 101.56 POC Glucometer 125 105 Random Glucose 122 H Calcium 8.5 Phosphorus 2.1 L Magnesium 2.3 Total Bilirubin 0.7 AST 12 L ALT 13 Alkaline Phosphatase 51 Total Protein 5.1 L Albumin 2.5 L 09/29/18 09/30/18 09/30/18 23:10 06:45 06:45 WBC 7.1 RBC 3.58 L Hgb 10.5 L Hct 32.0 L MCV 89.5 MCH 29.2 MCHC 32.6 RDW 15.0 Plt Count 224 MPV 7.2 L Absolute Neuts (auto) 5.5 Neutrophils % 78.3 Lymphocytes % 13.4 D Monocytes % 7.3 Eosinophils % 0.7 D Basophils % 0.3 Nucleated RBC % 0 Sodium 149 H Potassium 3.4 L Chloride 120 H Carbon Dioxide 24 Anion Gap 6 L BUN 20 H Creatinine 0.4 L Est GFR (CKD-EPI)AfAm 126.68 Est GFR (CKD-EPI)NonAf 109.30 POC Glucometer 129 Random Glucose 116 H Calcium 8.8 Phosphorus Magnesium Total Bilirubin 0.6 AST 15 ALT 12 L Alkaline Phosphatase 52 Total Protein 5.2 L Albumin 2.3 L Active Medications Generic Name Dose Route Start Last Admin Trade Name Beck PRN Reason Stop Dose Admin Acetaminophen 1,000 mg 09/27/18 00:12 09/27/18 01:43 Ofirmev Injection - IVPB 1,000 mg Q6H PRN Administration PAIN LEVEL 4 - 6 Fentanyl 50 mcg 09/27/18 20:56 Sublimaze Injection - IVPUSH [id number] PRN PAIN-PACU ORDER X 4 DOSES ONLY Heparin Sodium (Porcine) 5,000 unit 09/27/18 10:00 09/29/18 23:12 Heparin - SQ 5,000 unit BID MARY JO Administration Hydromorphone HCl 10 mg 09/28/18 02:00 09/29/18 20:21 Dilaudid Retail Project Merchandiser - TOMATO GRADER 10/05/18 01:55 10 mg TOMATO GRADER MARY JO Administration Protocol Famotidine/Sodium Chloride 20 mg in 50 mls @ 100 mls/hr 09/28/18 10:00 23:12 Pepcid 20 Mg Premixed Ivpb - IVPB 100 mls/hr BID MARY JO Administration Sodium Chloride 1,000 mls @ 200 mls/hr 09/28/18 03:15 09/30/18 00:23 Normal Saline - IV 200 mls/hr ASDIR MARY JO Administration Piperacillin Sod/Tazobactam 50 mls @ 100 mls/hr 09/29/18 02:00 09/30/18 02:00 Sod 3.375 gm/ Dextrose IVPB 100 mls/hr Q8H-IV MARY JO Administration Protocol Insulin Aspart 1 vial 09/27/18 07:00 09/30/18 07:03 Novolog Vial Sliding Scale - SQ Not Given ACHS MARY JO Protocol Lisinopril 2.5 mg 09/27/18 10:00 09/29/18 09:50 Prinivil PO Not Given DAILY MARY JO Zolpidem Tartrate 5 mg 09/28/18 16:21 09/30/18 00:23 Ambien - PO 5 mg HS PRN Administration INSOMNIA ASSESSMENT/PLAN: This is a 63 year old woman with a history of HTN, hyperlipidemia, type 2 DM, lap band surgery, partial SBO, small bowel resection who presented to the ED with abdominal pain and nausea. 1. 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 Hypokalemia - Add KCl to IV fluid 3. Hypernatremia - Change IV fluid to 1/2 NS 4. Hypomagnesemia - Improved 5. Hypertension - Continue lisinopril 6. Hyperlipidemia - Lipitor held 7. Type 2 diabetes mellitus - Metformin held - Continue Novolog sliding scale Visit type - Emergency Visit Emergency Visit: Yes ED Registration Date: 09/26/18 Care time: The patient presented to the Emergency Department on the above date and was hospitalized for further evaluation of their emergent condition. - New Patient This patient is new to me today: No - Critical Care Critical Care patient: No - Discharge Referral Referred to [facility] No
[2018-09-30] MEDS ORDERED: DEXTROSE 5%-WATER - 50 ML IVPB ONE ×2 (09:29→17:20)
[2018-09-30] MEDS ORDERED: PIPERACILLIN/TAZOBACTAM 3.375 GM VIAL IVPB ONE ×2 (09:29→17:20)
[2018-09-30] MEDS: HEPARIN NA (PORCINE) 5,000 UNITS/ML 1ML VIAL SQ SCH ×2 (09:33→22:00)
[2018-09-30] MEDS: ONDANSETRON 4 MG/2 ML VIAL IVPUSH PRN ×2 (09:33→20:10)
[2018-09-30] MEDS: SODIUM CHLORIDE 0.45%/POT 20 MEQ/1,000 ML INFUS.BAG IV SCH ×2 (09:41→17:24)
[2018-09-30] MEDS: FAMOTIDINE 20 MG/50 ML IVPB 20 MG/50 ML MG IVPB SCH ×2 (10:14→22:05)
[2018-09-30] MEDS: HYDROmorphone *PCA* 10MG/50ML DISP.SYRIN PCA SCH ×2 (10:21→17:31)
[2018-09-30] MEDS: LISINOPRIL 5 MG TABLET (FP) PO SCH ×2 (10:27→12:49)
--- NOTE | 2018-09-30 14:59 | CONS ---
DATE OF CONSULTATION: DATE OF DICTATION: 09/30/2018 The patient is a 63-year-old female who was evaluated for possible sepsis secondary to GI source. The patient presented to the hospital on September 26, 2018, with complaints of worsening lower quadrant abdominal pain, nausea, and vomiting. Pain was similar to her pain that she experienced when she had a small bowel obstruction in April 2018. She was evaluated in the emergency room. A CT scan was performed and showed evidence of bowel obstruction. The patient was taken to the operating room on September 28, 2018, where a cecal resection, terminal ileum resection, and lysis of adhesions as well as removal of gastric band were performed. She is presently postoperative day No. 1. At the present time, she is awake and alert. She is supine in bed with complaints of abdominal discomfort. NG tube is in place. PAST MEDICAL HISTORY: Positive for hypertension, hyperlipidemia, noninsulin-dependent diabetes mellitus. PAST SURGICAL HISTORY: Status post small bowel obstruction in April 2018 requiring small bowel resection complicated by wound infection requiring VAC and outpatient IV antibiotics. Past surgical history also includes lap band from 2009. MEDICATIONS: Tylenol, fentanyl, hydromorphone, insulin, lisinopril, Pepcid, Zosyn. SOCIAL HISTORY: She lives at home in the community. 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 Nonsmoker, nondrinker. SYSTEMS REVIEW: Neurologic: No loss of consciousness, seizure activity, focal weakness. Cardiac: Negative chest pain or palpitations. Respiratory: Negative cough or sputum production. Gastrointestinal: As per HPI. Genitourinary: Negative for urinary tract infection. LABORATORY DATA: White count 8.9, hematocrit 33.4, platelet count 218. BUN 20, creatinine 0.5. Urinalysis negative. Blood cultures pending. PHYSICAL EXAMINATION: General: She is awake and alert, in moderate distress secondary to abdominal discomfort. Vital Signs: Temperature 97.9, blood pressure 134/66, pulse 75 and regular, respirations 19/min. HEENT: Sclerae anicteric. NG tube is in place. Heart Sounds: S1, S2. Lungs: Clear. Abdomen: Soft, diffuse postoperative tenderness. Extremities: One-plus edema. IMPRESSION: Postoperative day number 1, laparotomy, small bowel resection, cecal resection, lysis of adhesions, and gastric band removal. Await culture results, empiric antibiotic coverage with Zosyn. Will follow. Thank you for the kind referral. LIS OAKES M.D. [id number]
--- NOTE | 2018-09-30 16:24 | PN ---
Progress Note (short form) - Note Progress Note: Patient stable and c/o pain score of 1-2/10 on Dilaudid STRUCTURAL MILL SUPERVISOR,Patient still is npo so will continue STRUCTURAL MILL SUPERVISOR today and will f/u tomorrow.
--- NOTE | 2018-09-30 22:59 | PN ---
Progress Note, Physician History of Present Illness: OOB IN CHAIR NO COMPLAINTS OF ABDOMINAL PAIN NO F/C - Current Medication List Current Medications: Active Medications Acetaminophen (Ofirmev Injection -) 1,000 mg IVPB Q6H PRN PRN Reason: PAIN LEVEL 4 - 6 Last Admin: 09/27/18 01:43 Dose: 1,000 mg Fentanyl (Sublimaze Injection -) 50 mcg IVPUSH [id number] PRN PRN Reason: PAIN-PACU ORDER X 4 DOSES ONLY Heparin Sodium (Porcine) (Heparin -) 5,000 unit SQ BID MARY JO Last Admin: 09/30/18 22:00 Dose: 5,000 unit Hydromorphone HCl (Dilaudid Stranding Machine Operator -) 10 mg CLIENT TECHNICAL SUPPORT ASSOCIATE CLIENT TECHNICAL SUPPORT ASSOCIATE [facility]; Protocol Stop: 10/05/18 01:55 Last Admin: 09/30/18 17:31 Dose: 10 mg Famotidine/Sodium Chloride (Pepcid 20 Mg Premixed Ivpb -) 20 mg in 50 mls @ 100 mls/hr IVPB BID [facility] Last Admin: 09/30/18 22:05 Dose: 100 mls/hr Piperacillin Sod/Tazobactam (Sod 3.375 gm/ Dextrose) 50 mls @ 100 mls/hr IVPB Q8H-IV [facility]ARY [facility]; Protocol Last Admin: 09/30/18 17:24 Dose: 100 mls/hr Potassium Chloride/Sodium Chloride (1/2ns+20meq Kcl) 20 meq in 1,000 mls @ 125 mls/hr IV ASDIR [facility] Last Admin: 09/30/18 17:24 Dose: 125 mls/hr Insulin Aspart (Novolog Vial Sliding Scale -) 1 vial SQ ACHS [facility]; Protocol Last Admin: 09/30/18 22:00 Dose: Not Given Lisinopril (Prinivil) 2.5 mg PO DAILY [facility] Last Admin: 09/30/18 12:49 Dose: 2.5 mg Ondansetron HCl (Zofran Injection) 4 mg IVPUSH Q4H PRN PRN Reason: NAUSEA AND/OR VOMITING Last Admin: 09/30/18 20:10 Dose: 4 mg Zolpidem Tartrate (Ambien -) 5 mg PO HS PRN PRN Reason: INSOMNIA Last Admin: 09/30/18 22:00 Dose: 5 mg - Objective Vital Signs: Vital Signs Temperature 97.7 F 09/30/18 19:58 Pulse Rate 69 09/30/18 19:58 Respiratory Rate 20 09/30/18 19:58 Blood Pressure 118/78 09/30/18 19:58 O2 Sat by Pulse Oximetry (%) 116 H 09/30/18 18:00 Constitutional: Yes: No Distress Eyes: Yes: Conjunctiva Clear Cardiovascular: Yes: Regular Rate and Rhythm, S1, S2 Respiratory: Yes: CTA Bilaterally Gastrointestinal: Yes: Normal Bowel Sounds, Soft Labs: CBC, BMP 09/30/18 06:45 09/30/18 06:45 INR, PTT INR 1.18 (0.83-1.09) H 09/29/18 06:45 Assessment/Plan POD#2 LAPAROTOMY , BOWEL RESECTION , ZENAIDA AWAIT C/S CONTINUE DIONYSYN
[2018-10-01] MEDS ORDERED: PIPERACILLIN/TAZOBACTAM 3.375 GM VIAL IVPB ONE ×3 (01:18→17:22)
[2018-10-01] MEDS ORDERED: DEXTROSE 5%-WATER - 50 ML IVPB ONE ×3 (01:19→17:23)
[2018-10-01] MEDS: PIPERACILLIN/TAZOB 3.375 GM 3.375 GM in DEXTROSE 5%-WATER - 50 ML IVPB SCH ×3 (01:29→17:27)
[2018-10-01] MEDS: HYDROmorphone *PCA* 10MG/50ML DISP.SYRIN PCA SCH (04:42)
[2018-10-01] MEDS: ONDANSETRON 4 MG/2 ML VIAL IVPUSH PRN ×3 (06:27→21:14)
[2018-10-01] MEDS: INSULIN SLIDING SCALE (NOVOLOG) 1 VIAL SQ SCH ×4 (06:27→21:14)
[2018-10-01 06:43] LABS: HEMATOCRIT 30.2 % (32.4-45.2); HEMOGLOBIN 10.1 GM/dL (10.7-15.3); MCH 29.6 pg (25.7-33.7); MCHC 33.4 g/dl (32.0-36.0); MEAN CELL VOLUME 88.6 fl (80-96); MEAN PLT VOLUME 7.1 fl (7.5-11.1); PLATELET COUNT 209 K/MM3 (134-434); RBC 3.41 M/mm3 (3.60-5.2); RDW 14.4 % (11.6-15.6); WHITE BLOOD COUNT 4.7 K/mm3 (4.0-10.0)
[2018-10-01 07:11] LABS: CALCIUM 8.4 mg/dL (8.5-10.1); CREATININE 0.4 mg/dL (0.55-1.3); POTASSIUM 3.6 mmol/L (3.5-5.1)
[2018-10-01] MEDS: SODIUM CHLORIDE 0.45%/POT 20 MEQ/1,000 ML INFUS.BAG IV SCH ×2 (11:13→20:48)
[2018-10-01] MEDS: HEPARIN NA (PORCINE) 5,000 UNITS/ML 1ML VIAL SQ SCH ×2 (11:21→21:14)
[2018-10-01] MEDS: LISINOPRIL 5 MG TABLET (FP) PO SCH (11:21)
[2018-10-01] MEDS: FAMOTIDINE 20 MG/50 ML IVPB 20 MG/50 ML MG IVPB SCH ×2 (11:21→21:14)
--- NOTE | 2018-10-01 14:04 | PN ---
Progress Note (short form) - Note Progress Note: s/p removal gastric band and partial colon resection post op day three. SLOT MANAGER for post op pain control. Patient still with NGT in place. Will continue SLOT MANAGER until NGT out and patient tolerating PO. Dept of anesthesiology will continue to follow.
--- NOTE | 2018-10-01 14:43 | PN ---
Progress Note, Physician Chief Complaint: abdominal pain History of Present Illness: patient seen and examined at bedside, NGT in place, patient is tearful, she wants to eat and drink. + nausea, no vomiting - Current Medication List Current Medications: Active Medications Acetaminophen (Ofirmev Injection -) 1,000 mg IVPB Q6H PRN PRN Reason: PAIN LEVEL 4 - 6 Last Admin: 09/27/18 01:43 Dose: 1,000 mg Fentanyl (Sublimaze Injection -) 50 mcg IVPUSH [id number] PRN PRN Reason: PAIN-PACU ORDER X 4 DOSES ONLY Heparin Sodium (Porcine) (Heparin -) 5,000 unit SQ BID [facility] Last Admin: 10/01/18 11:21 Dose: 5,000 unit Hydromorphone HCl (Dilaudid Dean Of Admissions -) 10 mg FINANCIAL AID FINANCIAL AID [facility]; Protocol Stop: 10/05/18 01:55 Last Admin: 10/01/18 04:42 Dose: Not Given Famotidine/Sodium Chloride (Pepcid 20 Mg Premixed Ivpb -) 20 mg in 50 mls @ 100 mls/hr IVPB BID [facility] Last Admin: 10/01/18 11:21 Dose: 100 mls/hr Piperacillin Sod/Tazobactam (Sod 3.375 gm/ Dextrose) 50 mls @ 100 mls/hr IVPB Q8H-IV [facility]; Protocol Last Admin: 10/01/18 12:21 Dose: 100 mls/hr Potassium Chloride/Sodium Chloride (1/2ns+20meq Kcl) 20 meq in 1,000 mls @ 125 mls/hr IV ASDIR [facility] Last Admin: 10/01/18 11:13 Dose: 125 mls/hr Insulin Aspart (Novolog Vial Sliding Scale -) 1 vial SQ ACHS [facility]; Protocol Last Admin: 10/01/18 12:07 Dose: Not Given Lisinopril (Prinivil) 2.5 mg PO DAILY [facility] Last Admin: 10/01/18 11:21 Dose: 2.5 mg Ondansetron HCl (Zofran Injection) 4 mg IVPUSH Q4H PRN PRN Reason: NAUSEA AND/OR VOMITING Last Admin: 10/01/18 06:27 Dose: 4 mg Zolpidem Tartrate (Ambien -) 5 mg PO HS PRN PRN Reason: INSOMNIA Last Admin: 09/30/18 22:00 Dose: 5 mg - Objective Vital Signs: Vital Signs Temperature 98.2 F 10/01/18 10:00 Pulse Rate 74 10/01/18 10:00 Respiratory Rate 20 10/01/18 10:00 Blood Pressure 144/80 10/01/18 10:00 O2 Sat by Pulse Oximetry (%) 98 10/01/18 02:00 Constitutional: Yes: Well Nourished, No Distress, Calm HENT: Yes: Other (+NGT) Cardiovascular: Yes: WNL, Regular Rate and Rhythm Respiratory: Yes: WNL, Regular, CTA Bilaterally Gastrointestinal: Yes: Normal Bowel Sounds, Soft, Other (post surgical incicion c/d/i mild tenderness). No: Distention, Tenderness Labs: CBC, BMP 10/01/18 05:30 10/01/18 05:30 INR, PTT INR 1.18 (0.83-1.09) H 09/29/18 06:45 Problem List - Problems (1) HTN (hypertension) Code(s): I10 - ESSENTIAL (PRIMARY) HYPERTENSION (2) Small bowel obstruction Code(s): K56.609 - UNSP INTESTNL OBST, UNSP TO PARTIAL VERSUS COMPLETE OBST (3) Anemia Code(s): D64.9 - ANEMIA, UNSPECIFIED (4) H/O laparoscopic adjustable gastric banding Code(s): Z98.84 - BARIATRIC SURGERY STATUS (5) Hyperlipidemia Code(s): E78.5 - HYPERLIPIDEMIA, UNSPECIFIED Qualifiers: Hyperlipidemia type: unspecified Qualified Code(s): E78.5 - Hyperlipidemia , unspecified (6) Hypertension Code(s): I10 - ESSENTIAL (PRIMARY) HYPERTENSION Qualifiers: Hypertension type: essential hypertension Qualified Code(s): I10 - Essential (primary) hypertension (7) Hypokalemia Code(s): E87.6 - HYPOKALEMIA Assessment/Plan 63 year old woman with a history of HTN, HLD, DM2, lap band surgery, partial SBO , small bowel resection who presented to the ED with abdominal pain and nausea. 1. 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 Hypokalemia/hypomagnesemia/hypernatremia -c/w IVF -monitor and replete lytes as needed 3. HTN on lisinopril 4. HLD-statin held 5. DM2-ISS for now, hold oral agents 6. DVT ppx-heparin subq
--- NOTE | 2018-10-01 17:52 | PN ---
Progress Note (short form) - Note Progress Note: POD#3 Afebrile; VSS Pt doing well Was OOB to chair +flatus NGT in place on suction P/E- Abd- dressing removed incision intact, clean, dry WBC-4.7 H/H-10.1/30.2 P- NGT clamped- if residual less than 100 cc in 4 hours, september D/C Cont NPO, NGT Cont antibiotics as per ID Cont DVT prophylaxis Encourage OOB, Incentive spirometer
[2018-10-01] MEDS: ZOLPIDEM TARTRATE 5 MG TABLET PO PRN (22:17)
--- NOTE | 2018-10-02 | PN ---
Progress Note, Physician History of Present Illness: OOB IN CHAIR NO COMPLAINTS OF ABDOMINAL PAIN NO F/C BC NO GROWTH - Current Medication List Current Medications: Active Medications Acetaminophen (Ofirmev Injection -) 1,000 mg IVPB Q6H PRN PRN Reason: PAIN LEVEL 4 - 6 Last Admin: 09/27/18 01:43 Dose: 1,000 mg Heparin Sodium (Porcine) (Heparin -) 5,000 unit SQ BID MARY JO Last Admin: 10/01/18 21:14 Dose: 5,000 unit Hydromorphone HCl (Dilaudid Web Designer Developer -) 10 mg SET UP WORKER SET UP WORKER MARY JO; Protocol Stop: 10/05/18 01:55 Last Admin: 10/01/18 04:42 Dose: Not Given Famotidine/Sodium Chloride (Pepcid 20 Mg Premixed Ivpb -) 20 mg in 50 mls @ 100 mls/hr IVPB BID MARY JO Last Admin: 10/01/18 21:14 Dose: 100 mls/hr Piperacillin Sod/Tazobactam (Sod 3.375 gm/ Dextrose) 50 mls @ 100 mls/hr IVPB Q8H-IV MARY JO; Protocol Last Admin: 10/01/18 17:27 Dose: 100 mls/hr Potassium Chloride/Sodium Chloride (1/2ns+20meq Kcl) 20 meq in 1,000 mls @ 125 mls/hr IV ASDIR MARY JO Last Admin: 10/01/18 20:48 Dose: 125 mls/hr Insulin Aspart (Novolog Vial Sliding Scale -) 1 vial SQ ACHS MARY JO; Protocol Last Admin: 10/01/18 21:14 Dose: Not Given Lisinopril (Prinivil) 2.5 mg PO DAILY [facility] Last Admin: 10/01/18 11:21 Dose: 2.5 mg Ondansetron HCl (Zofran Injection) 4 mg IVPUSH Q4H PRN PRN Reason: NAUSEA AND/OR VOMITING Last Admin: 10/01/18 21:14 Dose: 4 mg Zolpidem Tartrate (Ambien -) 5 mg PO HS PRN PRN Reason: INSOMNIA Last Admin: 10/01/18 22:17 Dose: 5 mg - Objective Vital Signs: Vital Signs Temperature 98.2 F 10/01/18 22:00 Pulse Rate 56 L 10/01/18 22:00 Respiratory Rate 20 10/01/18 22:00 Blood Pressure 110/78 10/01/18 22:00 O2 Sat by Pulse Oximetry (%) 98 10/01/18 22:00 Constitutional: Yes: No Distress HENT: Yes: Other (NGT IN PLACE) Cardiovascular: Yes: Regular Rate and Rhythm, S1, S2 Respiratory: Yes: Diminished Gastrointestinal: Yes: Normal Bowel Sounds, Soft Edema: No Labs: CBC, BMP 10/01/18 05:30 10/01/18 05:30 INR, PTT INR 1.18 (0.83-1.09) H 09/29/18 06:45 Assessment/Plan POD#3 LAPAROTOMY , BOWEL RESECTION , ZENAIDA CONTINUE ZOSYN
[2018-10-02] MEDS ORDERED: PIPERACILLIN/TAZOBACTAM 3.375 GM VIAL IVPB ONE ×3 (02:19→17:54)
[2018-10-02] MEDS ORDERED: DEXTROSE 5%-WATER - 50 ML IVPB ONE ×3 (02:20→17:54)
[2018-10-02] MEDS: PIPERACILLIN/TAZOB 3.375 GM 3.375 GM in DEXTROSE 5%-WATER - 50 ML IVPB SCH ×3 (02:40→18:09)
[2018-10-02] MEDS: HYDROmorphone *PCA* 10MG/50ML DISP.SYRIN PCA SCH (02:40)
[2018-10-02] MEDS: LISINOPRIL 5 MG TABLET (FP) PO SCH ×2 (06:18→09:37)
[2018-10-02] MEDS: SODIUM CHLORIDE 0.45%/POT 20 MEQ/1,000 ML INFUS.BAG IV SCH ×2 (06:19→09:31)
[2018-10-02] MEDS: INSULIN SLIDING SCALE (NOVOLOG) 1 VIAL SQ SCH ×4 (06:19→22:17)
[2018-10-02 06:29] LABS: BASO % 0.4 % (0-2.0); EOS % 1.6 % (0-4.5); HEMATOCRIT 32.2 % (32.4-45.2); HEMOGLOBIN 10.7 GM/dL (10.7-15.3); LYMPH % 24.8 % (8-40); MCH 29.3 pg (25.7-33.7); MCHC 33.1 g/dl (32.0-36.0); MEAN CELL VOLUME 88.6 fl (80-96); MEAN PLT VOLUME 6.7 fl (7.5-11.1); MONO % 9.3 % (3.8-10.2); NEUT % 63.9 % (42.8-82.8); PLATELET COUNT 215 K/MM3 (134-434); RBC 3.64 M/mm3 (3.60-5.2); RDW 14.1 % (11.6-15.6); WHITE BLOOD COUNT 4.8 K/mm3 (4.0-10.0)
[2018-10-02 06:43] LABS: CALCIUM 8.2 mg/dL (8.5-10.1); CREATININE 0.3 mg/dL (0.55-1.3); MAGNESIUM 1.9 mg/dL (1.8-2.4); POTASSIUM 3.7 mmol/L (3.5-5.1)
--- NOTE | 2018-10-02 08:18 | PN ---
Progress Note (short form) - Note Progress Note: Anesthesia/pain Pt seen and examined S:Alert and awake Comfortable O: Vital Signs Temperature 97.6 F 10/02/18 06:00 Pulse Rate 64 10/02/18 06:00 Respiratory Rate 20 10/02/18 06:00 Blood Pressure 168/72 10/02/18 07:01 O2 Sat by Pulse Oximetry (%) 97 10/02/18 06:00 CBC, BMP 10/02/18 05:20 10/02/18 05:20 A/P: Current Active Problems HTN (hypertension) (Acute) Small bowel obstruction (Acute) S/P:Ex lap Doing well post op Continue current care Vipin Banks MD
[2018-10-02] MEDS: HEPARIN NA (PORCINE) 5,000 UNITS/ML 1ML VIAL SQ SCH ×2 (09:31→21:47)
[2018-10-02] MEDS: ONDANSETRON 4 MG/2 ML VIAL IVPUSH PRN ×2 (10:23→14:33)
[2018-10-02] MEDS: FAMOTIDINE 20 MG/50 ML IVPB 20 MG/50 ML MG IVPB SCH (10:23)
[2018-10-02] MEDS ORDERED: INSULIN (NOVOLOG) ASPART 100 UNITS/ML 10ML VIAL ONE (11:39)
[2018-10-02] MEDS: ACETAMINOPHEN 1000 MG/100 ML VIAL (NON FORMULARY) IVPB PRN (14:23)
--- NOTE | 2018-10-02 14:43 | PN ---
Progress Note (short form) - Note Progress Note: POD#4 Afebrile; VSS Pt doing well + flatus Occasional nausea, no vomiting NGT- 40 cc after clamped for 2 hours P/E- Abd- incision healing well, clean, dry WBC-4.8 H/H-10.7/32.2 P- D/C NGT, D/C hernandez Begin po clear liquids Continue DVT prophylaxis Continue Incentive, OOB
[2018-10-02] MEDS ORDERED: ACETAMINOPHEN 325 MG TABLET (FP) PO PRN ×2 (14:47→17:07)
[2018-10-02] MEDS: SODIUM CHLORIDE 0.45% 1,000 ML IV SCH (15:06)
--- NOTE | 2018-10-02 15:52 | PATH ---
Surgical Pathology Report Patient Name: SUGEY SAMS [facility]. Rec. #: [id number] /Age/Gender: 1955 (Age: 63) / F Account: [id number] Location: [facility]URG Taken: 09/27/2018 Received: 09/28/2018 Reported: 10/02/2018 Physicians: Zaria Mejia ACNP Specimen(s) Received A: TERMINAL ILEUM, APPENDIX, CECUM B: SMALL BOWEL ANASTOMOSIS C: OLD GASTRIC BAND D: SUBCUTANEOUS FIBROUS CAPSULE Clinical History Small bowel obstruction Final Diagnosis A. TERMINAL ILEUM, APPENDIX, CECUM, RESECTION: DILATED CECUM WITH TUBULOVILLOUS ADENOMA. APPENDIX WITH TUBULAR ADENOMA AND FIBROUS OBLITERATION OF TIP. SEROSA WITH DENSE FIBROUS ADHESIONS. FIVE BENIGN LYMPH NODES (0/5). SURGICAL MARGINS ARE VIABLE AND NEGATIVE FOR DYSPLASIA/ADENOMA. SEGMENT OF COLON WITHOUT SIGNIFICANT PATHOLOGIC FINDINGS (DONUT). B. SMALL BOWEL, ANASTOMOSIS, RESECTION: SEGMENT OF SMALL BOWEL AND COLON WITH CHRONIC INFLAMMATION, FOCAL FIBROSIS, REACTIVE AND FOCAL ISCHEMIC CHANGES, CONSISTENT WITH ANASTOMOTIC (ILEOCOLIC) SITE. SEROSA WITH DENSE FIBROUS ADHESIONS. SURGICAL MARGINS ARE VIABLE. C. OLD GASTRIC BAND, REMOVAL: SCANT BENIGN DENSE FIBROCONNECTIVE AND FIBROADIPOSE TISSUE. GASTRIC BAND AND PORT. MACROSCOPIC DIAGNOSIS. D. SUBCUTANEOUS FIBROUS CAPSULE, EXCISION: BENIGN DENSE FIBROCONNECTIVE WITH FOCAL ACUTE INFLAMMATION AND FIBROADIPOSE TISSUE. Electronically Signed Maricel Iqbal M.D. Gross Description A. Received in formalin labeled "terminal ileum, appendix, cecum" is a dilated segment of bowel comprised of terminal ileum (5 x 3 cm), appendix (4 x 1 cm), and cecum ( 20 x 11 cm), with stapled surgical margins, and surrounding mesenteric adipose tissue (10 x 5 cm). Dense serosal adhesions are noted. On cut section, the cecal mucosa shows a norman, raised variegated lesion measuring 3 x 2 cm, 11 cm from both distal and proximal bowel margins. Remainder of the cecum is focally thinned and show patchy areas of hyperemia. The attached vermiform appendix has a 0.2 cm lumen and focal fibrosis of tip. Multiple norman lymph nodes ranging in size from 0.4-1 cm are identified. A separate segment of bowel consistent with anastomotic donut measuring 3 x 1.5 x 1 cm is identified within the same container. Business Unit Director sections are submitted in 12 cassettes as follows: A1- proximal surgical margin, A2- distal surgical margin, A3- separate segment of bowel (donut), A4-mesenteric adipose tissue, A5-appendix, A6- 4 lymph nodes, largest lymph node bisected, T7-8, cecal lesion, A9-sections of cecum, A10- sections of terminal ileum, A11-A12- remainder of entirely submitted appendix. B. Received in formalin labeled "small bowel anastomosis" is a segment of bowel which measures 11 x 3.5 cm with stapled undesignated surgical margins. Outer serosa is variegated and show dense fibrous adhesions. Mucosal surface shows a linear fibrous area consistent with anastomotic site. No other lesions/masses are identified. Separate segment of bowel measuring 3 x 2.5 x 1 cm consistent with anastomotic donut is identified. Business Unit Director sections are submitted in 5 cassettes as follows: B1-B2: Undesignated surgical margins, B3, separate bowel, donut, B4- fibrous area/anastomotic site, B5- Business Unit Director section of bowel. C. Received fresh labeled "old gastric band" are 2 portions of a disrupted gastric band measuring 5.0 x 2.0 x 1.0 cm and 8.3 x 2.0 x 1.0 cm. The larger portion displays an attached 40 cm in length portion of white tubing. Also received within the same container is a 3 cm in diameter x 1.5 cm in depth white, circular device, consistent with a port. The port displays a 5 cm in length portion of white tubing extending from one aspect. Scant soft tissue measuring 2 x 1 cm is present. Business Unit Director sections of soft tissue submitted in one cassette. D. Received in formalin labeled "Subcutaneous fibrous capsule" are 2 irregular fragments of pink-norman fibromembranous soft tissue measuring 2.5 x 2 x 0.7 and 1.5 x 1 x 0.3 cm. Business Unit Director sections submitted in one cassette. MLSZ/09/28/2018 san/09/28/2018
--- NOTE | 2018-10-02 16:52 | PN ---
Physical Exam: SUBJECTIVE: Patient seen and examined at the bedside. in no acute distress, verbalizing anxiety over being hospitalized. reassured her. OBJECTIVE: Vital Signs Period Temp Pulse Resp BP Sys/Pemberton Pulse Ox Last 24 Hr 97.6 F-98.6 F 52-67 16-20 110-176/58-85 97-98 GENERAL: The patient is awake, alert, and fully oriented, in no acute distress. HEAD: Normal with no signs of trauma. EYES: PERRL, extraocular movements intact, sclera anicteric, conjunctiva clear. No ptosis. ENT: Ears normal, nares patent, oropharynx clear without exudates, moist mucous membranes. NECK: Trachea midline, full range of motion, supple. LUNGS: Breath sounds equal, clear to auscultation bilaterally HEART: Regular rate and rhythm ABDOMEN: surgical yobany intact. EXTREMITIES: no edema. NEUROLOGICAL: Normal speech, gait not observed. PSYCH: Normal mood, normal affect. Laboratory Results - last 24 hr 10/01/18 10/01/18 10/02/18 16:59 21:11 05:20 WBC 4.8 RBC 3.64 Hgb 10.7 Hct 32.2 L MCV 88.6 MCH 29.3 MCHC 33.1 RDW 14.1 Plt Count 215 MPV 6.7 L Absolute Neuts (auto) 3.1 Neutrophils % 63.9 Lymphocytes % 24.8 D Monocytes % 9.3 Eosinophils % 1.6 D Basophils % 0.4 Nucleated RBC % 0 Sodium Potassium Chloride Carbon Dioxide Anion Gap BUN Creatinine Est GFR (CKD-EPI)AfAm Est GFR (CKD-EPI)NonAf POC Glucometer 98 75 Random Glucose Calcium Magnesium 10/02/18 10/02/18 10/02/18 05:20 06:13 11:53 WBC RBC Hgb Hct MCV MCH MCHC RDW Plt Count MPV Absolute Neuts (auto) Neutrophils % Lymphocytes % Monocytes % Eosinophils % Basophils % Nucleated RBC % Sodium 142 Potassium 3.7 Chloride 113 H Carbon Dioxide 24 Anion Gap 5 L BUN 15 Creatinine 0.3 L Est GFR (CKD-EPI)AfAm 139.26 Est GFR (CKD-EPI)NonAf 120.15 POC Glucometer 78 75 Random Glucose 81 Calcium 8.2 L Magnesium 1.9 Active Medications Generic Name Dose Route Start Last Admin Trade Name Freq PRN Reason Stop Dose Admin Acetaminophen 650 mg 10/02/18 14:47 Tylenol - PO Q6H PRN [facility]AC[facility] Heparin Sodium (Porcine) 5,000 unit 09/27/18 10:00 10/02/18 09:31 Heparin - SQ 5,000 unit BID MARY JO Administration Piperacillin Sod/Tazobactam 50 mls @ 100 mls/hr 09/29/18 02:00 10/02/18 09:31 Sod 3.375 gm/ Dextrose IVPB 100 mls/hr Q8H-IV MARY JO Administration Protocol Sodium Chloride 1,000 mls @ 42 mls/hr 10/02/18 15:00 10/02/18 15:06 1/2 Normal Saline IV 42 mls/hr ASDIR MARY JO Administration Insulin Aspart 1 vial 09/27/18 07:00 10/02/18 11:54 Novolog Vial Sliding Scale - SQ Not Given ACHS [facility] Protocol Lisinopril 2.5 mg 09/27/18 10:00 10/02/18 09:37 Prinivil PO Not Given DAILY MARY JO Ondansetron HCl 4 mg 09/30/18 08:48 10/02/18 14:33 Zofran Injection IVPUSH 4 mg Q4H PRN Administration NAUSEA AND/OR VOMITING Pantoprazole Sodium 20 mg 10/02/18 22:00 Protonix - PO BID [facility] Zolpidem Tartrate 5 mg 09/28/18 16:21 10/01/18 22:17 Ambien - PO 5 mg HS PRN Administration INSOMNIA ASSESSMENT/PLAN: Patient is a 63 year-old female with a significant past medical history of hypertension, hyperlipidemia, type II NIDDM, s/p lap band surgery 2009, partial SBO s/p lap small bowel resection 05/01/18 post-op course complicated by infection requiring long-term antibiotic therapy and wound vac. On 09/26/18, patient admitted for abdominal pain and nausea and was found to have an SBO. GI/Surgery: Patient with small bowel obstruction secondary to cecal volvulus POD #4. s/p cecal resection plus appendiceal resection, plus terminal ileum resection. Ileo-colonic anastomosis. Extensive lysis of adhesions. Small Bowel resection plus anastomosis. Removal of Gastric Band plus subcutaneous port She is on Zosyn to cover for possible bowel leak and contamination of gastric band. s/p NGT placement. now on clears per surgery Monitor for any n/v. Electrolyte imbalance Hypokalemia, resolved hypomagnesemia, resolved hypernatremia, resolved continue ivf. repeat cmp in a.m. Card: Hypertension. elevated today, but now better controlled. on lisinopril HLD. holding statin therapy. Endocrine Novolog , check bgms. on fen 05/23 NS @ 42 monitor electrolytes clears, advance per surgery prophy heparin Visit type - Emergency Visit Emergency Visit: Yes ED Registration Date: 09/26/18 Care time: The patient presented to the Emergency Department on the above date and was hospitalized for further evaluation of their emergent condition. - New Patient This patient is new to me today: Yes Date on this admission: 10/02/18 - Critical Care Critical Care patient: No - Discharge Referral Referred to [facility] Med P.C.: No
[2018-10-02] MEDS: PANTOPRAZOLE 20 MG TABLET (FP) PO SCH (21:44)
[2018-10-02] MEDS: ZOLPIDEM TARTRATE 5 MG TABLET PO PRN (21:44)
[2018-10-02] MEDS ORDERED: FAMOTIDINE 20 MG/50 ML IVPB 20 MG/50 ML MG IVPB SCH (22:00)
[2018-10-03] MEDS ORDERED: DEXTROSE 5%-WATER - 50 ML IVPB ONE ×3 (01:03→17:22)
[2018-10-03] MEDS ORDERED: PIPERACILLIN/TAZOBACTAM 3.375 GM VIAL IVPB ONE ×3 (01:03→17:22)
[2018-10-03] MEDS: PIPERACILLIN/TAZOB 3.375 GM 3.375 GM in DEXTROSE 5%-WATER - 50 ML IVPB SCH ×3 (01:14→17:26)
[2018-10-03] MEDS: INSULIN SLIDING SCALE (NOVOLOG) 1 VIAL SQ SCH ×4 (06:36→22:49)
[2018-10-03] MEDS: LISINOPRIL 5 MG TABLET (FP) PO SCH ×2 (06:51→09:37)
[2018-10-03] MEDS: ONDANSETRON 4 MG/2 ML VIAL IVPUSH PRN (06:51)
[2018-10-03 09:01] LABS: BASO % 0.3 % (0-2.0); EOS % 1.3 % (0-4.5); HEMATOCRIT 33.2 % (32.4-45.2); HEMOGLOBIN 10.9 GM/dL (10.7-15.3); LYMPH % 11.8 % (8-40); MCHC 32.9 g/dl (32.0-36.0); MEAN CELL VOLUME 88.1 fl (80-96); MEAN PLT VOLUME 6.5 fl (7.5-11.1); MONO % 9.6 % (3.8-10.2); PLATELET COUNT 258 K/MM3 (134-434); RBC 3.76 M/mm3 (3.60-5.2); RDW 13.7 % (11.6-15.6); WHITE BLOOD COUNT 5.8 K/mm3 (4.0-10.0)
[2018-10-03] MEDS: PANTOPRAZOLE 20 MG TABLET (FP) PO SCH ×2 (09:37→22:46)
[2018-10-03] MEDS: HEPARIN NA (PORCINE) 5,000 UNITS/ML 1ML VIAL SQ SCH ×2 (09:37→22:46)
[2018-10-03 09:38] LABS: ALBUMIN 2.3 g/dl (3.4-5.0); BILIRUBIN,TOTAL 0.8 mg/dL (0.2-1); CALCIUM 7.9 mg/dL (8.5-10.1); CREATININE 0.4 mg/dL (0.55-1.3); MAGNESIUM 1.6 mg/dL (1.8-2.4); POTASSIUM 3.3 mmol/L (3.5-5.1); TOT PROT 4.9 g/dl (6.4-8.2)
[2018-10-03] MEDS ORDERED: MAGNESIUM OXIDE 400 MG TABLET (FP) PO ONE (09:56)
[2018-10-03] MEDS ORDERED: KCL 10 MEQ IVPB 10 MEQ/100 ML INFUS.BAG IVPB SCH (10:00)
[2018-10-03] MEDS ORDERED: PT OWN MED DRAWER 7, Y5N ONE (10:59)
--- NOTE | 2018-10-03 12:04 | PN ---
Physical Exam: SUBJECTIVE: Patient seen and examined at beside. Less anxious today OBJECTIVE: Vital Signs Period Temp Pulse Resp BP Sys/Pemberton Pulse Ox Last 24 Hr 96.7 F-98.6 F 52-65 17-20 140-178/58-85 97-100 GENERAL: The patient is awake, alert, and fully oriented, in no acute distress. HEAD: Normal with no signs of trauma. EYES: PERRL, extraocular movements intact, sclera anicteric, conjunctiva clear. No ptosis. ENT: Ears normal, nares patent, oropharynx clear without exudates, moist mucous membranes. NECK: Trachea midline, full range of motion, supple. LUNGS: Breath sounds equal, clear to auscultation bilaterally, no wheezes, no crackles, no accessory muscle use. HEART: Regular rate and rhythm, S1, S2 without murmur, rub or gallop. ABDOMEN: Soft, nontender, nondistended, normoactive bowel sounds, no guarding, no rebound, no hepatosplenomegaly, no masses. EXTREMITIES: 2+ pulses, warm, well-perfused, no edema. NEUROLOGICAL: Normal speech, gait not observed. PSYCH: Normal mood, normal affect. SKIN: Warm, dry, normal turgor, no rashes . Midline abdominal incision with stapke C/D/I Laboratory Results - last 24 hr 10/02/18 10/02/18 10/02/18 11:53 18:12 21:50 WBC RBC Hgb Hct MCV MCH MCHC RDW Plt Count MPV Absolute Neuts (auto) Neutrophils % Lymphocytes % Monocytes % Eosinophils % Basophils % Nucleated RBC % Sodium Potassium Chloride Carbon Dioxide Anion Gap BUN Creatinine Est GFR (CKD-EPI)AfAm Est GFR (CKD-EPI)NonAf POC Glucometer 75 107 95 Random Glucose Calcium Magnesium Total Bilirubin AST ALT Alkaline Phosphatase Total Protein Albumin 10/03/18 10/03/18 10/03/18 06:35 08:45 08:45 WBC 5.8 RBC 3.76 Hgb 10.9 Hct 33.2 MCV 88.1 MCH 29.0 MCHC 32.9 RDW 13.7 Plt Count 258 MPV 6.5 L Absolute Neuts (auto) 4.5 Neutrophils % 77.0 D Lymphocytes % 11.8 D Monocytes % 9.6 Eosinophils % 1.3 Basophils % 0.3 Nucleated RBC % 0 Sodium 143 Potassium 3.3 L Chloride 108 H Carbon Dioxide 28 Anion Gap 7 L BUN 8 Creatinine 0.4 L Est GFR (CKD-EPI)AfAm 126.68 Est GFR (CKD-EPI)NonAf 109.30 POC Glucometer 90 Random Glucose 136 H Calcium 7.9 L Magnesium 1.6 L Total Bilirubin 0.8 AST 12 L ALT 12 L Alkaline Phosphatase 59 Total Protein 4.9 L Albumin 2.3 L Active Medications Generic Name Dose Route Start Last Admin Trade Name Freq PRN Reason Stop Dose Admin Acetaminophen 650 mg 10/02/18 17:07 10/02/18 21:46 Tylenol - PO 650 mg Q6H PRN Administration PAIN OR FEVER Heparin Sodium (Porcine) 5,000 unit 09/27/18 10:00 10/03/18 09:37 Heparin - SQ 5,000 unit BID MARY JO Administration Piperacillin Sod/Tazobactam 50 mls @ 100 mls/hr 09/29/18 02:00 10/03/18 09:39 Sod 3.375 gm/ Dextrose IVPB 100 mls/hr Q8H-IV MARY JO Administration Protocol Sodium Chloride 1,000 mls @ 42 mls/hr 10/02/18 15:00 10/02/18 15:06 1/2 Normal Saline IV 42 mls/hr ASDIR MARY JO Administration Insulin Aspart 1 vial 09/27/18 07:00 10/03/18 06:36 Novolog Vial Sliding Scale - SQ Not Given ACHS MARY JO Protocol Lisinopril 5 mg 10/03/18 08:31 10/03/18 09:37 Prinivil PO 2.5 mg DAILY MARY JO Administration Ondansetron HCl 4 mg 09/30/18 08:48 10/03/18 06:51 Zofran Injection IVPUSH 4 mg Q4H PRN Administration NAUSEA AND/OR VOMITING Pantoprazole Sodium 20 mg 10/02/18 22:00 10/03/18 09:37 Protonix - PO 20 mg BID MARY JO Administration Zolpidem Tartrate 5 mg 09/28/18 16:21 10/02/18 21:44 Ambien - PO 5 mg HS PRN Administration INSOMNIA ASSESSMENT/PLAN: Patient is a 63 year-old female with a significant past medical history of hypertension, hyperlipidemia, type II NIDDM, s/p lap band surgery 2009, partial SBO s/p lap small bowel resection 05/01/18 post-op course complicated by infection requiring long-term antibiotic therapy and wound vac. On 09/26/18, patient admitted for abdominal pain and nausea and was found to have an SBO. GI/Surgery: Patient with small bowel obstruction secondary to cecal volvulus POD #5. s/p cecal resection plus appendiceal resection, plus terminal ileum resection. Ileo-colonic anastomosis. Extensive lysis of adhesions. Small Bowel resection plus anastomosis. Removal of Gastric Band plus subcutaneous port -continue Zosyn for possible bowel leak and contamination of gastric band. -NGT d/c'd -Monitor for any n/v. -continue PPI Card: -Hypertension resolving -continue lisinipril and monitor BP as per nursing protocol -HLD. holding statin therapy. FEN: -Hypokalemia persists K+ 3.3 replete with Kcl 10 mEq IVPB x 1 -Hypomagnesemia persists M 1.6 replete with 800mg Mg Oxide PO -Hypernatremia, resolved -continue IVF until tolerating regualr diet -repeat cmp in a.m. -advance diet as per surgery Endocrine -Type II DM:Novolog ss -check BG qAC/HS prophy -heparin sq Dispo: -maintain as in patient -Discharge planning Visit type - Emergency Visit Emergency Visit: Yes ED Registration Date: 09/26/18 Care time: The patient presented to the Emergency Department on the above date and was hospitalized for further evaluation of their emergent condition. - New Patient This patient is new to me today: Yes Date on this admission: 10/03/18 - Critical Care Critical Care patient: No - Discharge Referral Referred to [facility] Med P.C.: No
[2018-10-03 15:02] VITALS: BMI 27.1
[2018-10-03] MEDS ORDERED: LISINOPRIL 5 MG TABLET (FP) PO ONE (17:02)
--- NOTE | 2018-10-03 18:07 | PN ---
Progress Note, Physician History of Present Illness: AWAKE, ALERT IN BED NO COMPLAINTS OF ABDOMINAL PAIN NO F/C WBC WNL BC NO GROWTH - Current Medication List Current Medications: Active Medications Acetaminophen (Tylenol -) 650 mg PO Q6H PRN PRN Reason: PAIN OR FEVER Last Admin: 10/02/18 21:46 Dose: 650 mg Heparin Sodium (Porcine) (Heparin -) 5,000 unit SQ BID [facility] Last Admin: 10/03/18 09:37 Dose: 5,000 unit Piperacillin Sod/Tazobactam (Sod 3.375 gm/ Dextrose) 50 mls @ 100 mls/hr IVPB Q8H-IV [facility]; Protocol Last Admin: 10/03/18 17:26 Dose: 100 mls/hr Sodium Chloride (1/2 Normal Saline) 1,000 mls @ 42 mls/hr IV ASDIR [facility] Last Admin: 10/02/18 15:06 Dose: 42 mls/hr Insulin Aspart (Novolog Vial Sliding Scale -) 1 vial SQ ACHS [facility]; Protocol Last Admin: 10/03/18 17:30 Dose: Not Given Lisinopril (Prinivil) 5 mg PO DAILY [facility] Last Admin: 10/03/18 09:37 Dose: 2.5 mg Ondansetron HCl (Zofran Injection) 4 mg IVPUSH Q4H PRN PRN Reason: NAUSEA AND/OR VOMITING Last Admin: 10/03/18 06:51 Dose: 4 mg Pantoprazole Sodium (Protonix -) 20 mg PO BID [facility] Last Admin: 10/03/18 09:37 Dose: 20 mg Zolpidem Tartrate (Ambien -) 5 mg PO HS PRN PRN Reason: INSOMNIA Last Admin: 10/02/18 21:44 Dose: 5 mg - Objective Vital Signs: Vital Signs Temperature 97.6 F 10/03/18 17:05 Pulse Rate 60 10/03/18 17:05 Respiratory Rate 20 10/03/18 17:05 Blood Pressure 180/76 H 10/03/18 17:05 O2 Sat by Pulse Oximetry (%) 100 10/03/18 09:00 Constitutional: Yes: No Distress Eyes: Yes: Conjunctiva Clear Cardiovascular: Yes: Regular Rate and Rhythm, S1, S2 Respiratory: Yes: CTA Bilaterally Gastrointestinal: Yes: Normal Bowel Sounds, Soft, Other (SURGICAL WOUND WITH JENNIFER IN PLACE). No: Tenderness Edema: No Labs: CBC, BMP 10/03/18 08:45 10/03/18 08:45 INR, PTT INR 1.18 (0.83-1.09) H 09/29/18 06:45 Assessment/Plan POD#5 LAPAROTOMY , BOWEL RESECTION , ZENAIDA CONTINUE ZOSYN SUBSTITUTE PO AUGMENTIN NEXT 24HR
[2018-10-03] MEDS: ZOLPIDEM TARTRATE 5 MG TABLET PO PRN (22:46)
[2018-10-03] MEDS: SODIUM CHLORIDE 0.45% 1,000 ML IV SCH (22:50)
[2018-10-04] MEDS ORDERED: PIPERACILLIN/TAZOBACTAM 3.375 GM VIAL IVPB ONE (01:37)
[2018-10-04] MEDS ORDERED: DEXTROSE 5%-WATER - 50 ML IVPB ONE (01:38)
[2018-10-04] MEDS: PIPERACILLIN/TAZOB 3.375 GM 3.375 GM in DEXTROSE 5%-WATER - 50 ML IVPB SCH (01:45)
[2018-10-04] MEDS: INSULIN SLIDING SCALE (NOVOLOG) 1 VIAL SQ SCH ×4 (06:28→21:16)
[2018-10-04 08:00] LABS: BASO % 0.4 % (0-2.0); EOS % 1.8 % (0-4.5); HEMATOCRIT 31.8 % (32.4-45.2); HEMOGLOBIN 10.7 GM/dL (10.7-15.3); LYMPH % 22.6 % (8-40); MCH 29.3 pg (25.7-33.7); MCHC 33.6 g/dl (32.0-36.0); MEAN PLT VOLUME 6.9 fl (7.5-11.1); MONO % 12.8 % (3.8-10.2); NEUT % 62.4 % (42.8-82.8); PLATELET COUNT 251 K/MM3 (134-434); RBC 3.66 M/mm3 (3.60-5.2); WHITE BLOOD COUNT 5.1 K/mm3 (4.0-10.0)
[2018-10-04 08:37] LABS: ALBUMIN 2.4 g/dl (3.4-5.0); BILIRUBIN,TOTAL 0.6 mg/dL (0.2-1); CALCIUM 8.5 mg/dL (8.5-10.1); CREATININE 0.4 mg/dL (0.55-1.3); POTASSIUM 3.2 mmol/L (3.5-5.1)
[2018-10-04] MEDS: LISINOPRIL 5 MG TABLET (FP) PO SCH (09:46)
[2018-10-04] MEDS: HEPARIN NA (PORCINE) 5,000 UNITS/ML 1ML VIAL SQ SCH ×2 (09:46→21:15)
[2018-10-04] MEDS: AMOX TR/POT CLAV 875MG/125MG TABLETS (FP) PO SCH ×2 (09:46→17:44)
[2018-10-04] MEDS: PANTOPRAZOLE 20 MG TABLET (FP) PO SCH ×2 (09:46→21:15)
--- NOTE | 2018-10-04 10:25 | PN ---
Physical Exam: SUBJECTIVE: Patient seen ambulating in room and then examined at bedside. Upset that she has not had "real food yet". OBJECTIVE: Vital Signs Period Temp Pulse Resp BP Sys/Pemberton Pulse Ox Last 24 Hr 97.4 F-97.7 F 57-65 18-20 119-180/60-76 100 GENERAL: The patient is awake, alert, and fully oriented, in no acute distress. HEAD: Normal with no signs of trauma. EYES: PERRL, extraocular movements intact, sclera anicteric, conjunctiva clear. No ptosis. ENT: Ears normal, nares patent, oropharynx clear without exudates, moist mucous membranes. NECK: Trachea midline, full range of motion, supple. LUNGS: Breath sounds equal, clear to auscultation bilaterally, no wheezes, no crackles, no accessory muscle use. HEART: Regular rate and rhythm, S1, S2 without murmur, rub or gallop. ABDOMEN: Soft, nontender, nondistended, normoactive bowel sounds, no guarding, no rebound, no hepatosplenomegaly, no masses. Midline abdominal incision with yobany C/D/I EXTREMITIES: 2+ pulses, warm, well-perfused, no edema. NEUROLOGICAL: Normal speech, gait steady PSYCH: Normal mood, normal affect. SKIN: Warm, dry, normal turgor, no rashes or lesions noted Laboratory Results - last 24 hr 10/03/18 10/03/18 10/03/18 12:15 17:29 22:48 WBC RBC Hgb Hct MCV MCH MCHC RDW Plt Count MPV Absolute Neuts (auto) Neutrophils % Lymphocytes % Monocytes % Eosinophils % Basophils % Nucleated RBC % Sodium Potassium Chloride Carbon Dioxide Anion Gap BUN Creatinine Est GFR (CKD-EPI)AfAm Est GFR (CKD-EPI)NonAf POC Glucometer 118 99 114 Random Glucose Calcium Total Bilirubin AST ALT Alkaline Phosphatase Total Protein Albumin 10/04/18 10/04/18 10/04/18 06:01 07:00 07:00 WBC 5.1 RBC 3.66 Hgb 10.7 Hct 31.8 L MCV 87.0 MCH 29.3 MCHC 33.6 RDW 14.0 Plt Count 251 MPV 6.9 L Absolute Neuts (auto) 3.2 Neutrophils % 62.4 Lymphocytes % 22.6 D Monocytes % 12.8 H Eosinophils % 1.8 Basophils % 0.4 Nucleated RBC % 0 Sodium 145 Potassium 3.2 L Chloride 108 H Carbon Dioxide 28 Anion Gap 9 BUN 4 L Creatinine 0.4 L Est GFR (CKD-EPI)AfAm 126.68 Est GFR (CKD-EPI)NonAf 109.30 POC Glucometer 102 Random Glucose 105 Calcium 8.5 Total Bilirubin 0.6 AST 12 L ALT 13 Alkaline Phosphatase 59 Total Protein 5.0 L Albumin 2.4 L Active Medications Generic Name Dose Route Start Last Admin Trade Name Freq PRN Reason Stop Dose Admin Acetaminophen 650 mg 10/02/18 17:07 10/02/18 21:46 Tylenol - PO 650 mg Q6H PRN Administration PAIN OR FEVER Amoxicillin/Clavulanate Potassium 1 tab 10/04/18 09:15 10/04/18 09:46 Augmentin - 875mg Tablet PO 1 tab BID@0800,1730 MARY JO Administration Heparin Sodium (Porcine) 5,000 unit 09/27/18 10:00 10/04/18 09:46 Heparin - SQ 5,000 unit BID MARY JO Administration Sodium Chloride 1,000 mls @ 42 mls/hr 10/02/18 15:00 10/03/18 22:50 1/2 Normal Saline IV 42 mls/hr ASDIR MARY JO Administration Insulin Aspart 1 vial 09/27/18 07:00 10/04/18 06:28 Novolog Vial Sliding Scale - SQ Not Given ACHS [facility] Protocol Lisinopril 5 mg 10/03/18 08:31 10/04/18 09:46 Prinivil PO 5 mg DAILY MARY JO Administration Ondansetron HCl 4 mg 09/30/18 08:48 10/03/18 06:51 Zofran Injection IVPUSH 4 mg Q4H PRN Administration NAUSEA AND/OR VOMITING Pantoprazole Sodium 20 mg 10/02/18 22:00 10/04/18 09:46 Protonix - PO 20 mg BID MARY JO Administration Zolpidem Tartrate 5 mg 09/28/18 16:21 10/03/18 22:46 Ambien - PO 5 mg HS PRN Administration INSOMNIA ASSESSMENT/PLAN: Patient is a 63 year-old female with a significant past medical history of hypertension, hyperlipidemia, type II NIDDM, s/p lap band surgery 2009, partial SBO s/p lap small bowel resection 05/01/18 post-op course complicated by infection requiring long-term antibiotic therapy and wound vac. On 09/26/18, patient admitted for abdominal pain and nausea and was found to have an SBO. 1. 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 Ileo-colonic anastomosis. Extensive lysis of adhesions. Small Bowel resection plus anastomosis. Removal of Gastric Band plus subcutaneous port POD #6. -Monitor for any n/v. -continue PPI -yobany open to air removal by surgeon at post-op visit 2. Hypertension chronic -normotensive after increase of lisiopril -continue lisinipril and monitor BP as per nursing protocol 3. HLD chronic -continue to hold statin therapy. 4. Hypokalemia persists - K+ 3.2 replete with Kcl 40 mEq IVPB -consider standing oral supplement if continues to be low tomorrow -monitor CMP 5. Hypomagnesemia - continue to mointor Mg levels and replete if needed (Mg level pending from am) 6. Hypernatremia, resolved -monitor CMP 7. Type II DM chronic -Novolog ss -check BG qAC/HS 8. DVT prophy -heparin sq -ambulate ad ladi 9.- continue IVF until tolerating regualr diet -repeat cmp/cbc in a.m. -advance diet as per surgery 10. ID -start PO augmentin as per Dr Cartagena -follow ith him on course length 11 Dispo: -maintain as in patient -Discharge planning in progress possible DC tmrw as per Dr Walsh Visit type - Emergency Visit Emergency Visit: Yes ED Registration Date: 09/26/18 Care time: The patient presented to the Emergency Department on the above date and was hospitalized for further evaluation of their emergent condition. - New Patient This patient is new to me today: No - Critical Care Critical Care patient: No - Discharge Referral Referred to [facility] Med P.C.: No
[2018-10-04] MEDS: KCL 10 MEQ IVPB 10 MEQ/100 ML INFUS.BAG IVPB SCH ×3 (11:50→14:48)
[2018-10-04 12:58] LABS: MAGNESIUM 1.9 mg/dL (1.8-2.4)
[2018-10-04] MEDS: SODIUM CHLORIDE 0.45% 1,000 ML IV SCH (15:21)
[2018-10-04] MEDS ORDERED: POTASSIUM CHLORIDE TABS 20 MEQ TABLET.ER (FP) PO ONE (18:02)
--- NOTE | 2018-10-04 18:19 | PN ---
Progress Note (short form) - Note Progress Note: POD#6 Afebrile; VSS Pt doing well Ambulating without difficulty Tolerating PO regular diet P/E-Abd- incision healing well WBC-5.1 H/H-10.7/31.8 K+-3.2 P- Agree with KCL replacement Cont DVT prophylaxis Possible D/C in AM
[2018-10-04 21:28] LABS: URINE APPEARANCE CLEAR; URINE BILIRUBIN NEGATIVE (NEGATIVE); URINE COLOR YELLOW; URINE GLUCOSE (UA) NEGATIVE (NEGATIVE); URINE KETONE NEGATIVE (NEGATIVE); URINE LEUK ESTERASE NEGATIVE (NEGATIVE); URINE NITRITE NEGATIVE (NEGATIVE); URINE PROTEIN NEGATIVE (NEGATIVE)
[2018-10-04] MEDS: ZOLPIDEM TARTRATE 5 MG TABLET PO PRN (22:08)
[2018-10-05] MEDS: SODIUM CHLORIDE 0.45% 1,000 ML IV SCH (03:05)
[2018-10-05] MEDS: INSULIN SLIDING SCALE (NOVOLOG) 1 VIAL SQ SCH ×2 (06:11→12:15)
[2018-10-05 07:21] LABS: ALBUMIN 2.2 g/dl (3.4-5.0); BILIRUBIN,TOTAL 0.5 mg/dL (0.2-1); CALCIUM 8.2 mg/dL (8.5-10.1); CREATININE 0.3 mg/dL (0.55-1.3); MAGNESIUM 1.9 mg/dL (1.8-2.4); POTASSIUM 3.4 mmol/L (3.5-5.1); TOT PROT 4.8 g/dl (6.4-8.2)
[2018-10-05] MEDS ORDERED: POTASSIUM CHLORIDE ORAL LIQUID 20 MEQ/15 ML PO ONE (07:24)
[2018-10-05 07:25] LABS: BASO % 0.4 % (0-2.0); EOS % 1.6 % (0-4.5); HEMATOCRIT 30.1 % (32.4-45.2); LYMPH % 20.4 % (8-40); MCH 29.3 pg (25.7-33.7); MCHC 33.3 g/dl (32.0-36.0); MEAN CELL VOLUME 87.8 fl (80-96); MEAN PLT VOLUME 6.9 fl (7.5-11.1); MONO % 12.7 % (3.8-10.2); NEUT % 64.9 % (42.8-82.8); PLATELET COUNT 245 K/MM3 (134-434); RBC 3.43 M/mm3 (3.60-5.2); RDW 13.9 % (11.6-15.6); WHITE BLOOD COUNT 5.9 K/mm3 (4.0-10.0)
[2018-10-05] MEDS: AMOX TR/POT CLAV 875MG/125MG TABLETS (FP) PO SCH (08:51)
[2018-10-05] MEDS ORDERED: POTASSIUM CHLORIDE TABS 20 MEQ TABLET.ER (FP) PO SCH (10:00)
[2018-10-05] MEDS ORDERED: PT OWN MED DRAWER 7, Y5N ONE (10:19)
[2018-10-05] MEDS: LISINOPRIL 5 MG TABLET (FP) PO SCH (10:24)
[2018-10-05] MEDS: PANTOPRAZOLE 20 MG TABLET (FP) PO SCH (10:24)
[2018-10-05] MEDS: HEPARIN NA (PORCINE) 5,000 UNITS/ML 1ML VIAL SQ SCH (10:25)
[2018-10-05 11:59] VITALS: BP 140/80; PULSE 72; TEMP 97.5
--- NOTE | 2018-10-05 12:40 | DS ---
Physical Exam: SUBJECTIVE: Patient seen and examined OBJECTIVE: Vital Signs Period Temp Pulse Resp BP Sys/Pemberton Pulse Ox Last 24 Hr 97.5 F-98.6 F 64-72 18-20 128-147/60-80 100 PHYSICAL EXAM GENERAL: The patient is awake, alert, and fully oriented, in no acute distress. HEAD: Normal with no signs of trauma. EYES: PERRL, extraocular movements intact, sclera anicteric, conjunctiva clear. No ptosis. ENT: Ears normal, nares patent, oropharynx clear without exudates, moist mucous membranes. NECK: Trachea midline, full range of motion, supple. LUNGS: Breath sounds equal, clear to auscultation bilaterally, no wheezes, no crackles, no accessory muscle use. HEART: Regular rate and rhythm, S1, S2 without murmur, rub or gallop. ABDOMEN: Soft, nontender, nondistended, normoactive bowel sounds, no guarding, no rebound, no hepatosplenomegaly, no masses. Midline abdominal incision with yobany C/D/I EXTREMITIES: 2+ pulses, warm, well-perfused, no edema. NEUROLOGICAL: Normal speech, gait steady PSYCH: Normal mood, normal affect. SKIN: Warm, dry, normal turgor, no rashes or lesions noted LABS Laboratory Results - last 24 hr 10/04/18 10/04/18 10/04/18 07:00 16:50 20:10 WBC RBC Hgb Hct MCV MCH MCHC RDW Plt Count MPV Absolute Neuts (auto) Neutrophils % Lymphocytes % Monocytes % Eosinophils % Basophils % Nucleated RBC % Sodium 145 Potassium 3.2 L Chloride 108 H Carbon Dioxide 28 Anion Gap 9 BUN 4 L Creatinine 0.4 L Est GFR (CKD-EPI)AfAm 126.68 Est GFR (CKD-EPI)NonAf 109.30 POC Glucometer 126 Random Glucose 105 Calcium 8.5 Magnesium 1.9 Total Bilirubin 0.6 AST 12 L ALT 13 Alkaline Phosphatase 59 Total Protein 5.0 L Albumin 2.4 L Urine Color Yellow Urine Appearance Clear Urine pH 8.0 D Ur Specific [place] 1.015 Urine Protein Negative Urine Glucose (UA) Negative Urine Ketones Negative Urine Blood Negative Urine Nitrite Negative Urine Bilirubin Negative Urine Urobilinogen 1.0 Ur Leukocyte Esterase Negative 10/04/18 10/05/18 10/05/18 20:49 05:38 06:15 WBC 5.9 RBC 3.43 L Hgb 10.0 L Hct 30.1 L MCV 87.8 MCH 29.3 MCHC 33.3 RDW 13.9 Plt Count 245 MPV 6.9 L Absolute Neuts (auto) 3.9 Neutrophils % 64.9 Lymphocytes % 20.4 Monocytes % 12.7 H Eosinophils % 1.6 Basophils % 0.4 Nucleated RBC % 0 Sodium Potassium Chloride Carbon Dioxide Anion Gap BUN Creatinine Est GFR (CKD-EPI)AfAm Est GFR (CKD-EPI)NonAf POC Glucometer 192 107 Random Glucose Calcium Magnesium Total Bilirubin AST ALT Alkaline Phosphatase Total Protein Albumin Urine Color Urine Appearance Urine pH Ur Specific [place] Urine Protein Urine Glucose (UA) Urine Ketones Urine Blood Urine Nitrite Urine Bilirubin Urine Urobilinogen Ur Leukocyte Esterase 10/05/18 10/05/18 06:15 12:14 WBC RBC Hgb Hct MCV MCH MCHC RDW Plt Count MPV Absolute Neuts (auto) Neutrophils % Lymphocytes % Monocytes % Eosinophils % Basophils % Nucleated RBC % Sodium 143 Potassium 3.4 L Chloride 109 H Carbon Dioxide 27 Anion Gap 7 L BUN 7 Creatinine 0.3 L Est GFR (CKD-EPI)AfAm 139.26 Est GFR (CKD-EPI)NonAf 120.15 POC Glucometer 119 Random Glucose 107 H Calcium 8.2 L Magnesium 1.9 Total Bilirubin 0.5 AST 11 L ALT 12 L Alkaline Phosphatase 53 Total Protein 4.8 L Albumin 2.2 L Urine Color Urine Appearance Urine pH Ur Specific [place] Urine Protein Urine Glucose (UA) Urine Ketones Urine Blood Urine Nitrite Urine Bilirubin Urine Urobilinogen Ur Leukocyte Esterase HOSPITAL COURSE: Date of Admission:09/26/18 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 small bowel segment. Gastric band plus sub-Q port Estimated Blood Loss (mls): 200 Fluid Volume Replaced (mls): 2,000 Post-opertaive course Tolerated surgical procedure well without any immediate post-operative complications. POD#2 NGT clamped. POD#[address] but clamped.POD # 4 Yee and NCT removed. POD#5 clear liquids started. Electrolytes repleted. IV antiobiotics changed to PO. POD#6 full diet initiated and tolerating. PO #7 cleared for discharge to home with oral antibiotics and follow up with Dr Knox in 1 week. VNS services and prescriptions transmitted to home pharmacy Date of Discharge: 10/05/18 Minutes to complete discharge: 60 Discharge Summary Reason For Visit: SMALL BOWEL OBSTRUCTION Current Active Problems Small bowel obstruction (Acute) HTN (hypertension) (Chronic) Hyperlipidemia (Chronic) Condition: Good - Instructions Diet, Activity, Other Instructions: Resume regular diet, low sodium. F= Referrals: Dez Walsh MD [Primary Care Provider] - Disposition: VNS/HOME HEALTH CARE - Home Medications Comprehensive Discharge Medication List: Ambulatory Orders Acetaminophen [Tylenol Extra Strength] 500 mg PO PRN PRN 04/20/17 Atorvastatin Ca [Lipitor] 20 mg PO DAILY 04/20/17 Cholecalciferol (Vitamin D3) [Vitamin D3] 4,000 unit PO DAILY 04/20/17 Multivitamin [One Daily] 2 each PO DAILY 04/20/17 Zolpidem Tartrate [Ambien] 5 mg PO HS PRN 04/20/17 metFORMIN HCL [Metformin HCl] 500 mg PO BIDAC 04/20/17 Magnesium Oxide [Magnesium] 400 mg PO BID #60 tablet 05/08/18 Amox-Tr/K Cl [Augmentin 875-125mg Tablet -] 1 tab PO BID@0800,1730 #14 tablet Lisinopril [Prinivil] 5 mg PO DAILY tablet 10/05/18 Pantoprazole Sodium [Protonix -] 20 mg PO BID tablet.ec 10/05/18 Potassium Chloride [K-Dur -] 40 meq PO DAILY #30 tablet.er 10/05/18 This patient is new to me today: No Emergency Visit: Yes ED Registration Date: 09/26/18 Care time: The patient presented to the Emergency Department on the above date and was hospitalized for further evaluation of their emergent condition. Critical Care patient: No - Discharge Referral Referred to [facility] Med P.C.: No
[2018-10-06] MEDS ORDERED: POTASSIUM CHLORIDE TABS 20 MEQ TABLET.ER (FP) PO SCH (10:00)
== END 2018-10-05 16:06 | disposition home health service (06) | DRG 327 ==
LOC: FER 20:31 → FM/S 23:35 → UNDOADMIN 09-27 00:19 → FM/S 09-27 00:19 → J8W 09-27 20:46
PROVIDERS: ADMIT Internal Medicine; ATTEND Nurse Practitioner Family
PROC: 0DTJ0ZZ Resection of Appendix, Open Approach (ICD-10-PCS; principal; 2018-09-28)
PROC: 0DP60CZ Removal of Extraluminal Device from Stomach, Open Approach (ICD-10-PCS; 2018-09-28)
PROC: 0DBB0ZZ Excision of Ileum, Open Approach (ICD-10-PCS; 2018-09-28)
PROC: 0DBH0ZZ Excision of Cecum, Open Approach (ICD-10-PCS; 2018-09-28)
PROC: 0DN80ZZ Release Small Intestine, Open Approach (ICD-10-PCS; 2018-09-28)
PROC: 0D1B0ZH Bypass Ileum to Cecum, Open Approach (ICD-10-PCS; 2018-09-28)
PROC: 0DB80ZZ Excision of Small Intestine, Open Approach (ICD-10-PCS; 2018-09-28)
PROC: 0WJP0ZZ Inspection of Gastrointestinal Tract, Open Approach (ICD-10-PCS; 2018-09-28)
DX: K56.2 Volvulus (principal); E87.0 Hyperosmolality and hypernatremia; I10 Essential (primary) hypertension; E11.9 Type 2 diabetes mellitus without complications; E87.6 Hypokalemia; K66.0 Peritoneal adhesions (postprocedural) (postinfection); E83.42 Hypomagnesemia; E78.5 Hyperlipidemia, unspecified
CPT/HCPCS: 36415; 71045-TC-FY; 74019-TC-FY; 74176-TC; 80048; 80053; 81003; 82550; 82962; 83605; 83690; 83735; 84100; 84484; 85025; 85027; 85610; 85730; 86850; 86900; 86901; 87040; 87086; 88300-TC; 88304-TC; 88307-TC; 93005; 94760; 97116-GP; 97161-GP; 99285-25; J0131; J1644; J3480; J7030

== ENCOUNTER 2024-01-11 08:34 | Day surgery (SDC) | payer OTHER ==
[2024-01-09 12:48] VITALS: BMI 22.5
[2024-01-11] MEDS ORDERED: EPINEPHrine/PF 1 MG/1 ML (1:1,000) AMPULE ONE (08:46)
[2024-01-11] MEDS ORDERED: BACITRACIN/POLYMYXIN OPH OINT 3.5 GM TUBE ONE (08:46)
[2024-01-11] MEDS ORDERED: BSS (NA/CA/MG/K) BALANCED SALT SOLUTION OPHTH SOLN 15 ML BOTTLE ONE (08:47)
[2024-01-11] MEDS ORDERED: NEO/POLYMYX B SULF/DEXAMETH OPHTHALMIC 5ML BOTTLE ONE (08:47)
[2024-01-11] MEDS ORDERED: POVIDONE-IODINE 5% OPHTHALMIC PREP 30 ML SOLUTION ONE (08:47)
[2024-01-11] MEDS ORDERED: TETRACAINE 0.5% OPHTH SOLN 2 ML BOTTLE ONE (08:47)
[2024-01-11] MEDS ORDERED: EPI-SHUGARCAINE (EPINEPHRINE 0.025% & LIDOCAINE-PF 0.75%) 4ML ONE (08:47)
[2024-01-11] MEDS ORDERED: BETAXOLOL HCL 0.25% OPHTHALMIC 10 ML DROPSBTL ONE (08:47)
[2024-01-11] MEDS ORDERED: PHENYLEPHRINE 2.5% OPTHALMIC DROP 2ML BOTTLE ONE (08:52)
[2024-01-11] MEDS ORDERED: OFLOXACIN 0.3% OPHTHALMIC SOLUTION 5 ML BOTTLE ONE (08:52)
[2024-01-11] MEDS ORDERED: TROPICAMIDE 1% OPHTH SOLN 15 ML BOTTLE ONE (08:52)
[2024-01-11] MEDS ORDERED: KETOROLAC TROMETHAMINE 0.5% EYE DROP 1 DROP DROPS ONE (08:52)
[2024-01-11] MEDS ORDERED: CYCLOPENTOLATE HCL 1% OPHTH SOLN 2 ML BOTTLE ONE (08:52)
[2024-01-11 09:10] VITALS: RESP 16
[2024-01-11] MEDS: KETOROLAC TROMETHAMINE 0.5% EYE DROP 1 DROP DROPS OD SCH (09:10)
[2024-01-11] MEDS: OFLOXACIN 0.3% OPHTHALMIC SOLUTION 5 ML BOTTLE OD SCH (09:10)
[2024-01-11] MEDS: PHENYLEPHRINE 2.5% OPHTH SOLN 15 ML BOTTLE OD SCH (09:10)
[2024-01-11] MEDS: CYCLOPENTOLATE HCL 1% OPHTH SOLN 2 ML BOTTLE OD SCH (09:10)
[2024-01-11] MEDS: TROPICAMIDE 1% OPHTH SOLN 15 ML BOTTLE OD SCH (09:10)
[2024-01-11] MEDS ORDERED: MIDAZOLAM HCL 2 MG/2 ML SINGLE DOSE VIAL ONE (10:02)
[2024-01-11] MEDS ORDERED: ACETAMINOPHEN 325 MG TABLET (FP) PO PRN (10:58)
[2024-01-11 11:38] VITALS: TEMP 96.9
[2024-01-11 11:46] VITALS: BP 131/91; PULSE 56
== END 2024-01-11 11:45 | disposition home or self-care (01) ==
LOC: FASU 08:34
PROVIDERS: ATTEND Ophthalmology
PROC: 08RJ3JZ Replacement of Right Lens with Synthetic Substitute, Percutaneous Approach (ICD-10-PCS; principal; 2024-01-11 10:43)
DX: H25.11 Age-related nuclear cataract, right eye (principal)
CPT/HCPCS: 66984; V2632; 82962

== ENCOUNTER 2024-03-12 10:25 | Emergency (ER) | payer OTHER ==
[2024-03-12 11:23] VITALS: BP 156/64; PULSE 75; RESP 20; TEMP 98.6; BMI 22.7
[2024-03-12] MEDS ORDERED: ACETAMINOPHEN 325 MG TABLET (FP) ONE (11:25)
[2024-03-12] MEDS: ACETAMINOPHEN 325 MG TABLET (FP) PO ONE (11:34)
== END 2024-03-12 12:29 | disposition home or self-care (01) ==
LOC: FER 10:25
DX: M25.461 Effusion, right knee (principal); M25.561 Pain in right knee; W01.0XXA Fall on same level from slipping, tripping and stumbling without subsequent striking against object, initial encounter; Y93.01 Activity, walking, marching and hiking
CPT/HCPCS: 73562-TC-RT-FY; 99283-25